=== PATIENT | female | born 1940 | race Caucasian/White ===

== ENCOUNTER 2016-09-22 16:10 | Inpatient (IN) | payer OTHER, MEDICARE ==
[~2016-09-22] VITALS: Ht 152.4 cm; Wt 59.4 kg
[~2016-09-22 16:10] MED LIST: ADVAIR 100-501 EACH INH; ADVAIR 250-501 EACH INH; ALBUTEROL 3 ML3 ML INH; ALBUTEROL SULFAT3 M1 INH; ALBUTEROL1.25 MG/1 INH/SOL; ALLEGRA180 MG PO; ANTIVERT12.5 MG PO; ASPIRIN CHILDRE81 MG PO; ATENOLOL50 M1 PO; ATIVAN 0.5MG T0.5 MG PO; ATIVAN0.5 M1 PO; AUGMENTIN 875875 MG PO; AVELOX400 MG PO; AZITHROMYCIN250 MG PO; B-121000 MC3 PO; BENTYL 10 MG CA10 MG PO; BENTYL10 MG PO; CALCIUM 600600 M1 PO; CARAFATE1 G1 PO; CILOSTAZOL50 MG PO; CLARITIN10 M1 PO; COLACE100 M1 PO; COUMADIN 1 MG TA1 MG PO; COUMADIN 5 MG TA5 MG PO; CRESTOR 5MG5 MG PO; CYMBALTA 30 MG30 MG PO; CYMBALTA60 M1 PO; DIPHENOX/ATROPI1 TAB PO; DULOXETINE HCL20 MG PO; Dulcolax PO; FERROUS SULFAT325 M1 PO; HYDROCODON-ACE1 EAC2 PO; IPRATROPIU0.2 MG/1 M INH/SOL; KEFLEX 250MG C250 MG PO; KEFLEX500 MG PO; KEPPRA250 M1 PO; LASIX20 MG PO; LEVOTHYROXIN0.088 M1 PO; LEVOTHYROXINE175 MCG PO; LEVSIN0.125 MG PO; LOMOTIL 0.025 M1 TAB PO; LOPERAMIDE2 M2 PO; LORAZEPAM0.5 MG PO; METFORMIN ER500 MG PO; METFORMIN HYDR500 M1 PO; MIRALAX17 GM PO; MULTIVITAMIN1 TAB PO; NATURAL IRON65 MG PO; NICODERM C14 MG/24 H TOP; PANTOPRAZOLE SO20 M1 PO; PERCOCET 325 MG1 TA2 PO; PRAVACHOL80 M1 PO; PREDNICOT10 MG PO; PREDNISONE10 MG PO; PRESERVISION LU1 SGL PO; RISPERDAL0.25 MG PO; SENNA CON/DOCUS1 TAB PO; SENNA-TIME S 501 TAB PO; SPIRIVA 18 MCG18 MCG INH; TESSALON PERLE100 MG PO; TRAMADOL50 MG PO; ULTRAM(MONOGRAP50 MG PO; VENTOLIN H0.09 MG/Ac INH; VENTOLIN HFA18 GM INH; VITAMIN D-32000 UNIT PO; VITAMIN E400 I1 PO; XARELTO15 MG PO; XARELTO20 MG PO; ZITHROMAX Z-PA250 M1 PO; ZITHROMAX250 M1 PO
--- NOTE | 2016-09-22 16:13 | NUR ---
DIANE FROM HOME FOR C/C ABDOMINAL PAIN X1 MONTH. PT HAD APPT WITH PMD DR DANG TODAY AND CANCELLED, CHOOSING TO COME TO ED INSTEAD. HX COPD ON 2.5LNC BASELINE, O2 SAT 90% AND INCREASED TO 93% 3LNC. REPORTS DIARRHEA AND NAUSEA, NO ACTIVE VOMITING
--- NOTE | 2016-09-22 16:14 | ED GI/GU/ABDOMINAL COMPLAINT ---
History of Present Illness General Chief Complaint: Abdominal Pain/Flank Pain Stated Complaint: BIBA ABDOMINAL PAIN X1 MONTH Source: patient, old records, EMS Exam Limitations: no limitations Vital Signs & Intake/Output Vital Signs & Intake/Output Vital Signs Date Time Temp Pulse Resp B/P Pulse O2 O2 Flow FiO2 Ox Delivery Rate 09/28 0831 98.0 93 18 120/80 98 Nasal Cannula 09/28 0000 Nasal 3.0L Cannula 09/27 2319 97.7 80 18 120/62 95 Nasal Cannula 09/27 2232 94 Nasal 3.0L Cannula 09/27 1600 Nasal 3.0L Cannula 09/27 1551 98.0 64 20 117/52 97 Nasal 3.0L Cannula ED Intake and Output 09/28 0000 09/27 1200 Intake Total 320 288.8 Output Total 301 300 Balance 19 -11.2 Intake, IV 188.8 Intake, Oral 320 100 Output, Other 1 Output, Urine 300 300 Triage Nurses Notes Reviewed? yes ? N Is pt currently ? No Onset: Abrupt Duration: week(s): (4), constant, getting worse Timing: recent history Quality/Severity: aching, cramping, fullness Severity Numbers: 7 Location: left lower quadrant, right lower quadrant Radiation: epigastric Activities at Onset: none Prior Abdominal Problems: similar symptoms No Modifying Factors: none Associated Symptoms: DENIES HPI: 76-year-old female with history of severe COPD on home O2, hypothyroidism chronic abdominal pain diabetes peripheral vascular disease pulmonary embolism depression and non-small cell lung cancer status post right upper lobe resection in 2004 presents emergency room today brought in by ambulance complaining of bilateral lower quadrant abdominal pain that radiates into her epigastrium for the past 1 month. The patient states that she has been having intermittent bouts of diarrhea since the symptoms began 1 month ago. She denies any black or bloody stools. No nausea no vomiting no fever no chills. She has not sought care for the symptoms until today. She denies any associated chest pain shortness of breath. No urinary symptoms dysuria urgency or frequency (DALE YOUSSEF) Allergies Coded Allergies: aspirin (Intermediate, UPSET STOMACH 09/23/16) atorvastatin (Intermediate, MUSCLE PAIN 09/22/16) oxycodone (Intermediate, DIZZY AND NAUSEA 09/22/16) codeine (Mild, FLUSHING 09/22/16) Reconcile Medications Albuterol Sulfate 1.25 MG/3 ML VIAL.NEB 1 Vial INH/LAYLA Q4-6 PRN SHORTNESS OF BREATH (Reported) USE WITH IPRATROPIUM Albuterol Sulfate (Ventolin Hfa) 90 MCG HFA.AER.AD 2 PUF INH Q4-6 PRN PRN SHORTNESS OF BREATH (Reported) Atenolol 50 MG TABLET 1 TAB PO DAILY BP (Reported) CHOLECALCIFEROL (VITAMIN D3) (Vitamin D-3) 2,000 UNIT CAPSULE 1 SGL PO DAILY SUPPLEMENT (Reported) Cyanocobalamin (Vitamin B-12) (B-12) 1,000 MCG TABLET 1 TAB PO DAILY SUPPLEMENT (Reported) Docusate Sodium (Colace) 100 MG CAPSULE 1 CAP PO BID CONSTIPATION (Reported) Duloxetine HCl 20 MG CAPSULE.DR 2 CAP PO DAILY DEPRESSION (Reported) 20-60MG TWO TIMES PER NIGHT Ferrous Sulfate 325 MG TAB 1 TAB PO DAILY SUPPLEMENT Fluticasone-Salmeterol (Advair 100-50 Diskus) 100 MCG-50 MCG/DOSE BLST.W.DEV 1 PUF INH BID COPD (Reported) FLUTICASONE/SALMETEROL (Advair 250-50 Diskus) 250 MCG-50 MCG/DOSE BLST.W.DEV 1 PUF PO BID COPD (Reported) Hydrocodone/Acetaminophen (Hydrocodon-Acetaminophen 5-325) 5 MG-325 MG TABLET 1-2 TAB PO Q4-6 PRN PRN PAIN (Reported) Ipratropium Hondo 0.2 MG/ML (0.02 %) SOLUTION 1 Vial INH/LAYLA 4 TIMES/DAY PRN SHORTNESS OF BREATH (Reported) USE WITH ALBUTEROL Levetiracetam (Keppra) 250 MG TABLET 1 TAB PO BID SEIZURES (Reported) Levothyroxine Sodium 175 MCG TABLET 1 TAB PO DAILY HYPOTHYROID (Reported) Loperamide HCl (Loperamide) 2 MG CAPSULE 2 CAP PO Q8 PRN LOOSE STOOLS ( Reported) Loratadine (Claritin) 10 MG TABLET 1 TAB PO DAILY PRN ALLERGIES (Reported) Lorazepam (Ativan) 0.5 MG TAB 1 TAB PO BID PRN ANXIETY (Reported) Oxybutynin Chloride (Ditropan XL) 5 MG TAB.ER.24 1 TAB PO DAILY Incontinence (Reported) Pantoprazole Sodium 20 MG TABLET.DR 2 TAB PO BID GERD (Reported) Pravastatin Sodium (Pravachol) 80 MG TABLET 1 TAB PO DAILY HIGH CHOLESTEROL ( Reported) Sucralfate (Carafate) 1 GRAM TABLET 1 TAB PO 4 TIMES/DAY GERD (Reported) Vitamin E 400 IU TAB 1 TAB PO DAILY SUPPLEMENT (Reported) (REBECCA CUMMINGS,SERGEY) Past History Travel History Traveled to [place] past 21 day No Medical History Any Pertinent Medical History? see below for history Neurological: dizziness, seizure EENT: NONE Cardiovascular: hyperlipidemia, PVD, HTN, HYPONATREMIA Respiratory: COPD, O2 DEP @2.5 L RT.LUNG RESECTION Gastrointestinal: GERD, AAA Hepatic: NONE Renal: NONE Musculoskeletal: LEFT BKA Psychiatric: anxiety, depression Endocrine: diabetes, hypothyroidism Blood Disorders: DVT, PE Cancer(s): lung cancer BRIM PRESSER/Reproductive: HYSTRECTOMY History of MRSA: No History of VRE: No History of CDIFF: No Pneumonia Vaccine: 07/27/12 Surgical History Surgical History: hysterectomy Psychosocial History Who do you live with Son Services at Home Nursing, Oxygen What is your primary language Surinamese Family History Family History, If Any: MOTHER FH: diabetes mellitus FH: hypertension SISTER FH: diabetes mellitus FH: hypertension Hx Contributory? No (DALE YOUSSEF) Review of Systems Review of Systems Constitutional: Reports: see HPI. All Other Systems: Reviewed and Negative Comments Review of systems: See HPI, All other systems negative. Constitutional, no chills no fever, no malaise no weight loss HEENT: No visual changes no sore throat no congestion Cardiovascular: No chest pain , no palpitation Skin, no jaundice no rashes, no change in skin Respiratory: No dyspnea no cough no sputum GI: No nausea no vomiting, diarrhea : No dysuria No hematuria, no frequency, no discharge Muscle skeletal: No joint pain, no back pain, no neck pain, Neurologic: No numbness no headache Psych: No stress Heme/endocrine: No bruising no bleeding Immunology: No lymphadenopathy (DALE YOUSSEF) Physical Exam Physical Exam General Appearance: well developed/nourished, alert, awake Gastrointestinal: normal bowel sounds, soft, non-tender Comments: Well-developed well-nourished person in no acute distress HEENT: Normal EENT exam; PERRL, EOMI. HEAD is atraumatic. moist mucous membranes. Neck: Supple, no lymphadenopathy, normal range of motion Back: Nontender, no CVA tenderness. Full range of motion Cardiovascular: Regular rate and rhythms no murmurs Respiratory: No respiratory distress. Patient speaking in full complete sentences. Breath sounds clear to auscultation bilaterally: NO W/R/R Abdomen: Soft, nontender nondistended, no appreciable organomegaly. Normal bowel sounds. No rebound/guarding, No appreciable enlargement of the abdominal aorta, No ascites. Extremity: No edema, full range of motion of extremities Neuro: Alert oriented x3, motor sensory normal,There were no obvious focal neurologic abnormalities. Skin: No appreciable rash on exposed skin, skin is warm and dry. Psych: Mood and affect is normal, memory and judgment is normal. Rectal: Nontender. Heme negative stool. No mass/hemorrhoid, no fissure. Core Measures ACS in differential dx? Yes Severe Sepsis Present: No Septic Shock Present: No (YU VO,DALE) Progress Differential Diagnosis: AMI, appendicitis, biliary colic, bowel obstruction, colon cancer, cholecystitis, diverticulitis, gastritis, hepatitis, hernia, ischemic bowel, inflamm bowel dis, kidney stone, pancreatitis, PID/cervicitis, peptic ulcer, PUD/GERD, perforated viscous, SBO, UTI/pyelo Plan of Care: Orders Procedure Date/time Status PROTHROMBIN TIME 09/28 06 Complete CBC WITHOUT DIFFERENTIAL 09/28 06 Active BASIC ELECTROLYTES PLUS BUN&CR 09/28 06 Complete RT: Reevaluation 09/27 1206 Active Therapeutic Activities 09/27 UNK Complete Therapeutic Exercise 09/27 UNK Complete PT Eval 09/27 UNK Complete Nursing Misc 09/27 UNK Active Current Medications Sig/Vadim Start time Last Medication Dose Stop Time Status Admin Lorazepam 0.5 MG BID PRN 09/22 2345 AC (Ativan) 09/29 2344 Laboratory Tests 09/28/16 0610: Anion Gap 6, Estimated GFR > 60, BUN/Creatinine Ratio 22.0, PT 16.8 H, INR 1.61 H, CBC w Diff Pending, WBC Pending, RBC Pending, Hgb Pending, Hct Pending, MCV Pending, MCH Pending, RDW Pending, Plt Count Pending, MPV Pending, Gran % Pending, Lymphocytes % Pending, Monocytes % Pending, Eosinophils % Pending, Basophils % Pending, Absolute Granulocytes Pending, Absolute Lymphocytes Pending , Absolute Monocytes Pending, Absolute Eosinophils Pending, Absolute Basophils Pending, PUBS MCHC Pending 09/27/16 1900: APTT Cancelled Labs ordered old records reviewed patient medicated with Protonix IV any fluids CAT scan ordered. Case discussed with Dr. PULIDO A repeat evaluation patient is resting in no apparent distress she's had no episodes of Diarrhea here in the department 09/22/2016 6:38:20 PM discussed the patient all of her lab results pending CAT scan again resting in no apparent distress 09/22/2016 8:00:23 PM case was discussed with the hospitalist Dr. URIBE . We will start the patient on a heparin drip and bolus however she would like a dedicated CT angiogram of the chest performed this evening. I discussed with her given the patient's age and treating her with heparin already my concerns regarding a second contrast load.. She would like this CAT scan performed at this time. CASE D/W DR ALICEA WHO EVAL THE PT AND AGREES WITH PLAN I spoke with the patient's son on 2 occasions keeping him informed of the patient's results and need for admission given her CAT scan findings 09/22/2016 8:30:07 PM case was once again discussed the hospitals giving CAT scans protocol we will cancel the CTA at this time and hold off for 24 hours as per protocol. The patient is hemodynamically stable troponins are negative she is it not exhibiting any shortness of breath or pain with inspiration EKG is normal sinus (YU VO,DALE) Diagnostic Imaging: Viewed by Me: CT Scan. Discussed w/RAD: CT Scan. Radiology Impression: PATIENT: JESSE SAAVEDRA PRESENT AGE: 76 PATIENT ACCOUNT NO: [id number] : 41 LOCATION: [facility] ORDERING PHYSICIAN: DALE VO SERVICE DATE: 09/22/16 EXAM TYPE: CAT - CT ABD & PELVIS W IV CONTRAST EXAMINATION: CT ABDOMEN AND PELVIS WITH CONTRAST CLINICAL INFORMATION: Lower quadrant abdominal pain. Diarrhea for one month. COMPARISON: CT chest 11/05/2015. TECHNIQUE: Multidetector volumetric imaging was performed of the abdomen and pelvis before and after the IV administration of 95 mL of Optiray 320 intravenous contrast. Sagittal and coronal reformatted images were obtained on the technologist's workstation. DLP: 413.28 mGy-cm FINDINGS: LUNG BASES: There is pulmonary emboli in the left lower lobe, left upper lobe and the distal main left pulmonary artery. There is calcification of the mitral valve. There are vascular calcifications of the wall of the aorta. Lung bases are clear. No pleural effusion. LIVER, GALLBLADDER, AND BILIARY TREE: Small focus of low attenuation adjacent to the inferior right lobe of liver, image 262 (3). No intrahepatic bile duct dilatation. Status post cholecystectomy. Extrahepatic CBD measures 1.4 cm. No calcified stone within the bile ducts. PANCREAS: The pancreas is atrophic. SPLEEN: Stable 5 mm hypodensity at the superior spleen. ADRENAL GLANDS: Unremarkable. KIDNEYS AND URETERS: The kidneys are normal in size, shape, and attenuation. No hydronephrosis, hydroureter, or calculi seen. No perinephric stranding. 1 cm cyst at the midpole cortex of the right kidney. BLADDER: Unremarkable. GASTROINTESTINAL TRACT: No acute change of the bowel. No diverticula. No bowel obstruction. No bowel wall thickening or edema. Moderate volume of stool in colon. The appendix is normal. Small bowel loops are unremarkable. ABDOMINAL WALL: No significant hernia is appreciated. LYMPH NODES: Normal. VASCULAR: 1. There is pulmonary emboli in the left lower lobe, left upper lobe and left main pulmonary artery. 2. Atherosclerotic vascular wall calcifications of the abdominal aorta. There is an aneurysm of the distal aorta. This has a transverse dimension of 4.2 cm distally. There is intraluminal thrombus. The origin of the left common iliac artery is occluded. There is opacification of the external and internal iliac arteries. The right common iliac artery is opacified. 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 There is bi-fem graft present. The lumen of the graft does not opacify consistent with thrombosis. PELVIC VISCERA: Uterus is absent. OSSEOUS STRUCTURES: Multilevel degenerative change of the spine with endplate spurs and facet joint arthrosis. Status post ORIF left hip with compression screw. IMPRESSION: 1. Embolism in the left main pulmonary artery extending into left upper lobe and left lower lobe. 2. Abdominal aortic aneurysm with intraluminal thrombus. 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 Occluded bi-fem graft. 3. Status post cholecystectomy with chronic dilatation of the CBD. 4. No acute change of the abdomen or pelvis. No acute abnormality of bowel. This critical result was discussed with Dr. Ross on 09/22/2016, 7:35 PM and it was ascertained that the content and urgency of the report was understood at the time of direct communication. DICTATED BY: KEVAN MCDONALD MD DATE/TIME DICTATED:09/22/161906 TAX SPECIALIST:GUERRERO DATE/TIME TRANSCRIBED:09/22/161906 CONFIDENTIAL, DO NOT COPY WITHOUT APPROPRIATE AUTHORIZATION. <Electronically signed in Other Vendor System> SIGNED BY: KEVAN MCDONALD MD 09/22/162006 Initial ED EKG: nsr at 70, no acute st seg changes, normal axis Prior EKG: unchanged (07/2016) (DALE YOUSSEF) Departure Departure Time of Disposition: 1958 Disposition: HOME OR SELF CARE Condition: Stable Clinical Impression Primary Impression: Pulmonary embolism Referrals: ROB GRANT MD Referred to [facility] as new patient No Departure Forms: Customer Survey General Discharge Information Admission Note Spoke With: ORQUIDEA URIBE MD Documentation of Exam: Documentation of any treatments & extenuating circumstances including Concerns Regarding Discharge (functional status, medication knowledge or non-compliance, living conditions, etc.) that warrant an admission rather than observation: Heparin drip, trend labs, pulmonology consult possible GI consult premature discharge we medically harmful (DALE YOUSSEF) PA/CHIEF SALES OFFICER Co-Sign Statement Statement: ED Attending supervision documentation- x I saw and evaluated the patient. I have also reviewed all the pertinent lab results and diagnostic results. I agree with the findings and the plan of care as documented in the PA's/CHIEF SALES OFFICER's documentation. [] I have reviewed the ED Record and agree with the PA's/CHIEF SALES OFFICER's documentation. [] Additions or exceptions (if any) to the PAs/CHIEF SALES OFFICER's note and plan are summarized below: [] (REBECCA CUMMINGS,SERGEY) right internal iliac artery measuring 1.2 cm at its origin. There is bi-fem graft present. The lumen of the graft does not opacify consistent with thrombosis. PELVIC VISCERA: Uterus is absent. OSSEOUS STRUCTURES: Multilevel degenerative change of the spine with endplate spurs and facet joint arthrosis. Status post ORIF left hip with compression screw. IMPRESSION: 1. Embolism in the left main pulmonary artery extending into left upper lobe and left lower lobe. 2. Abdominal aortic aneurysm with intraluminal thrombus. 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 Occluded bi-fem graft. 3. Status post cholecystectomy with chronic dilatation of the CBD. 4. No acute change of the abdomen or pelvis. No acute abnormality of bowel. This critical result was discussed with Dr. Ross on 09/22/2016, 7:35 PM and it was ascertained that the content and urgency of the report was understood at the time of direct communication. DICTATED BY: KEVAN MCDONALD MD DATE/TIME DICTATED:09/22/161906 TAX SPECIALIST:GUERRERO DATE/TIME TRANSCRIBED:09/22/161906 CONFIDENTIAL, DO NOT COPY WITHOUT APPROPRIATE AUTHORIZATION. <Electronically signed in Other Vendor System> SIGNED BY: KEVAN MCDONALD MD 09/22/162006 Initial ED EKG: nsr at 70, no acute st seg changes, normal axis Prior EKG: unchanged (07/2016) Departure Departure Time of Disposition: 1958 Disposition: HOME OR SELF CARE Condition: Stable Clinical Impression Primary Impression: Pulmonary embolism Referrals: ROB GRANT MD Referred to [facility] as new patient No Departure Forms: Customer Survey General Discharge Information Admission Note Spoke With: ORQUIDEA URIBE MD Documentation of Exam: Documentation of any treatments & extenuating circumstances including Concerns Regarding Discharge (functional status, medication knowledge or non-compliance, living conditions, etc.) that warrant an admission rather than observation: Heparin drip, trend labs, pulmonology consult possible GI consult premature discharge we medically harmful
--- NOTE | 2016-09-22 16:15 | NUR ---
GILDA NICHOLAS AT BEDSIDE FOR EVAL
--- NOTE | 2016-09-22 16:44 | NUR ---
IV ESTABLISHED. LABS DRAWN AND SENT (BLUE, SST X2, LAV, CORNEJO). MEDICATED WITH PROTONIX AND NS IVF BOLUS RUNNING. PT INFORMED OF NEED FOR URINE AND STOOL SAMPLE WHEN ABLE TO PROVIDE. ALSO INFORMED OF PLAN FOR CT SCAN
[2016-09-22 16:51] LABS: ABSOLUTE BASOPHIL COUNT 0 /CUMM (0.0-0.2); ABSOLUTE EOSINOPHIL COUNT 0.1 /CUMM (0.0-0.7); ABSOLUTE GRANULOCYTE CT 6.6 /CUMM (1.4-6.5); ABSOLUTE LYMPH COUNT 0.7 /CUMM (1.2-3.4); ABSOLUTE MONOCYTE COUNT 0.4 /CUMM (0.10-0.60); BASOPHIL % 0.4 % (0.0-2.0); GRANULOCYTE % 84.6 % (42.2-75.2); HEMATOCRIT 45.4 % (37-47); MEAN CORPUSCULAR HGB CONC 32.8 G/DL (33.0-37.0); MEAN CORPUSCULAR VOLUME 88.2 FL (81.0-99.0); MEAN PLATELET VOLUME 7.8 FL (7.4-10.4); PLATELET COUNT 348 /CUMM (130-400); RBC DISTRIBUTION WIDTH 18.2 % (11.5-14.5); RED BLOOD CELL CT 5.15 /CUMM (4.20-5.40); WHITE BLOOD CELL COUNT 7.8 /CUMM (4.8-10.8)
--- NOTE | 2016-09-22 18:45 | NUR ---
PT TO CT
[2016-09-22 19:55] LABS: PT 12.9 SEC (9.4-12.5); PTT 33 SEC (25-37)
--- NOTE | 2016-09-22 20:07 | CT SCAN REPORT ---
EXAMINATION: CT ABDOMEN AND PELVIS WITH CONTRAST CLINICAL INFORMATION: Lower quadrant abdominal pain. Diarrhea for one month. COMPARISON: CT chest 11/05/2015. TECHNIQUE: Multidetector volumetric imaging was performed of the abdomen and pelvis before and after the IV administration of 95 mL of Optiray 320 intravenous contrast. Sagittal and coronal reformatted images were obtained on the technologist's workstation. DLP: 413.28 mGy-cm FINDINGS: LUNG BASES: There is pulmonary emboli in the left lower lobe, left upper lobe and the distal main left pulmonary artery. There is calcification of the mitral valve. There are vascular calcifications of the wall of the aorta. Lung bases are clear. No pleural effusion. LIVER, GALLBLADDER, AND BILIARY TREE: Small focus of low attenuation adjacent to the inferior right lobe of liver, image 262 (3). No intrahepatic bile duct dilatation. Status post cholecystectomy. Extrahepatic CBD measures 1.4 cm. No calcified stone within the bile ducts. PANCREAS: The pancreas is atrophic. SPLEEN: Stable 5 mm hypodensity at the superior spleen. ADRENAL GLANDS: Unremarkable. KIDNEYS AND URETERS: The kidneys are normal in size, shape, and attenuation. No hydronephrosis, hydroureter, or calculi seen. No perinephric stranding. 1 cm cyst at the midpole cortex of the right kidney. BLADDER: Unremarkable. GASTROINTESTINAL TRACT: No acute change of the bowel. No diverticula. No bowel obstruction. No bowel wall thickening or edema. Moderate volume of stool in colon. The appendix is normal. Small bowel loops are unremarkable. ABDOMINAL WALL: No significant hernia is appreciated. LYMPH NODES: Normal. VASCULAR: 1. There is pulmonary emboli in the left lower lobe, left upper lobe and left main pulmonary artery. 2. Atherosclerotic vascular wall calcifications of the abdominal aorta. There is an aneurysm of the distal aorta. This has a transverse dimension of 4.2 cm distally. There is intraluminal thrombus. The origin of the left common iliac artery is occluded. There is opacification of the external and internal iliac arteries. The right common iliac artery is opacified. 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 There is bi-fem graft present. The lumen of the graft does not opacify consistent with thrombosis. PELVIC VISCERA: Uterus is absent. OSSEOUS STRUCTURES: Multilevel degenerative change of the spine with endplate spurs and facet joint arthrosis. Status post ORIF left hip with compression screw. IMPRESSION: 1. Embolism in the left main pulmonary artery extending into left upper lobe and left lower lobe. 2. Abdominal aortic aneurysm with intraluminal thrombus. 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 Occluded bi-fem graft. 3. Status post cholecystectomy with chronic dilatation of the CBD. 4. No acute change of the abdomen or pelvis. No acute abnormality of bowel. This critical result was discussed with Dr. Ross on 09/22/2016, 7:35 PM and it was ascertained that the content and urgency of the report was understood at the time of direct communication.
--- NOTE | 2016-09-22 20:34 | NUR ---
MEDICATED WITH TYLENOL IV AND NS IVF RUNNING. ICE WATER PROVIDED, TOLERATING AT THIS TIME
--- NOTE | 2016-09-22 20:56 | NUR ---
PT GOING TO ROOM 189-2
--- NOTE | 2016-09-22 21:07 | NUR ---
PT WEIGHED USING ELIZABETH LIFT DUE TO INABILITY TO STAND INDEPENDENTLY. HEPARIN BOLUS AND GTT RUNNING AT 21.6 PER PROTOCOL RATE, VERIFIED BY SECOND RN SINGH. SECOND IV ESTABLISHED TO RFA. HOUSE STAFF AT BEDSIDE FOR EVAL
--- NOTE | 2016-09-22 21:31 | History & Physical ---
KVNG RENNER MD 09/22/160: General Information and HPI Source of Information: patient, old records Exam Limitations: no limitations History of Present Illness: Patient is a 76 y/o F,current smoker(one pack per day) with significant PMH of COPD on 2.5 L of home oxygen,NSCLC status post right upper lobe resection in February 2005, hypothyroidism, Type 2 Diabetes,peripheral vascular disease, status post left below-knee amputation, osteoporosis, depression, iron deficiency anemia, folic acid deficiency, PE , presented with chief complaints of diarrhea ( 4 - 6 weeks) and lower abdominal pain from couple of days which got worse today(09/22/2016). Past History Travel History Traveled to [place] past 21 day No Medical History Neurological: dizziness, seizure EENT: NONE Cardiovascular: hyperlipidemia, PVD, HTN, HYPONATREMIA Respiratory: COPD, O2 DEP @2.5 L RT.LUNG RESECTION Gastrointestinal: GERD, AAA Hepatic: NONE Renal: NONE Musculoskeletal: LEFT BKA Psychiatric: anxiety, depression Endocrine: diabetes, hypothyroidism Blood Disorders: DVT, PE Cancer(s): lung cancer SOLE LEVELER/Reproductive: HYSTRECTOMY History of MRSA: No History of VRE: No History of CDIFF: No Surgical History Surgical History: hysterectomy Past Family/Social History Family History Relations & Conditions if any MOTHER FH: diabetes mellitus FH: hypertension SISTER FH: diabetes mellitus FH: hypertension Psychosocial History Who Do You Live With? child (son - h/o alcoholism) Services at Home: Nursing, Oxygen Functional Ability ADLs Independent: dressing, eating, toileting, bathing. Ambulation: independent, walker IADLs Independent: finances, telephone, medication admin. Needs Assist: shopping, housework, food prep, transportation. Review of Systems Review of Systems Constitutional: Reports: weakness. Denies: chills, diaphoresis, fever, malaise. EENTM: Denies: no symptoms. Cardiovascular: Reports: palpitations, peripheral edema. Denies: chest pain, edema, orthopena, syncope. Respiratory: Reports: short of breath. Denies: cough, hemoptysis, orthopnea, sputum production, stridor. GI: Reports: diarrhea. Genitourinary: Denies: no symptoms. Musculoskeletal: Denies: no symptoms. Skin: Denies: no symptoms. Neurological/Psychological: Reports: anxiety. Exam & Diagnostic Data Last 24 Hrs of Vital Signs/I&O Vital Signs Date Time Temp Pulse Resp B/P Pulse O2 O2 Flow FiO2 Ox Delivery Rate 09/25 0847 94 Nasal 4.0L Cannula 09/25 0844 98.1 74 20 149/76 97 Nasal 3.5L Cannula 09/25 0040 98.6 78 20 140/80 93 Nasal 4.0L Cannula 09/25 0000 Nasal 4.0L Cannula 09/24 1900 94 Nasal 4.0L Cannula 09/24 1611 98.8 73 20 130/70 94 09/24 1600 94 Nasal 4.0L Cannula 09/24 1039 91 Nasal 4.0L Cannula Intake & Output 09/25 1600 09/25 0800 09/25 0000 Intake Total 219.6 500 Output Total 500 450 Balance -280.4 50 Intake, IV 169.6 250 Intake, Oral 50 250 Number 0 Bowel Movements Output, Urine 500 450 Physical Exam General Appearance Alert, Oriented X3, Cooperative, No Acute Distress Skin No Rashes, No Breakdown HEENT Atraumatic, PERRLA, EOMI Neck Supple, No JVD Cardiovascular Regular Rate, Normal S1, Normal S2 Lungs Clear to Auscultation Abdomen Normal Bowel Sounds, Soft, No Tenderness, intercrural skin red Neurological Normal Gait, Normal Speech Extremities mild edema Vascular Normal Pulses, Pulses Symmetrical Assessment/Plan Assessment: Assessment and plan - Vital signs at the time of admission -temperature 97.0, pulse 84, respiratory 20 , blood pressure 107/70, SPO 2 - 92% CT abdomen/pelvis with IV contrast - 1. Embolism in the left main pulmonary artery extending into left upper lobe and left lower lobe. 2. Abdominal aortic aneurysm with intraluminal thrombus. 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 Occluded bi-fem graft. 3. Status post cholecystectomy with chronic dilatation of the CBD. 4. No acute change of the abdomen or pelvis. No acute abnormality of bowel. Problem list - Pulmonary embolus Diarrhea followed by abdominal pain COPD on 2.5 liter home oxygen current smoker(one pack per day) NSCLC status post right upper lobe resection in February 2005, hypothyroidism Hypertension Hyperlipidemia Type 2 Diabetes peripheral vascular disease status post left below-knee amputation, osteoporosis depression iron deficiency anemia folic acid deficiency History of PE GERD History of aspiration pneumonia History of CVA Plan - Pulmonary embolus - * We will start patient on IV heparin drip * Will do venous Doppler of the lower extremity to rule out a DVT * Keep the lower leg elevated * We will check serial troponins and EKG to rule out acute coronary Syndrome Diarrhea followed by abdominal pain,under evaluation - * Start patient on IV fluids * We'll send stool for examination * We will check the vitals regularly * Stick intake output charting COPD on 2.5 liter home oxygen * We will continue oxygen at the target of SPO2 more than 92% * TRC/normalization current smoker(one pack per day);NSCLC status post right upper lobe resection in February 2005, * We will encouraged to quit smoking * We will start her on nicotine patch. * We'll consult pulmonology and follow the recommendation Hypothyroidism * We will continue levothyroxine as before Hypertension * We will continue the home medication Hyperlipidemia * We will continue the home medication Type 2 Diabetes * We will check an HbA1c to know the level of blood sugar control * We will check the blood sugar, premeal and at the bedtime * We'll start patient on NovoLog sliding scale Diet -carbohydrate type -2 diabetic diet DVT prophylaxis-ALP S/heparin CODE STATUS -full code As Ranked By This Provider Problem List: 1. Pulmonary embolism 2. DVT prophylaxis 3. HTN (hypertension) 4. GERD (gastroesophageal reflux disease) 5. HLD (hyperlipidemia) 6. Hypothyroidism Core Measures/Miscellaneous Cerebrovascular Accident CVA/TIA Diagnosis: No Congestive Heart Failure CHF Diagnosis: No Venous Thromboembolism VTE Risk Factors: Age > 40 VTE Prophylaxis Ordered Inpt: Mechanical (ALPS/TEDS) No Mech VTE prophylaxis d/t: No contraindications No VTE Pharm Prophylaxis d/t: No contraindications VTE Diagnosis: No VTE Type: Pulmonary Embolism VTE Confirmed by (Test): CT CHEST ANGIOGRAM Severe Sepsis Severe Sepsis Present: No Septic Shock Septic Shock Present: No Miscellaneous Documentation Attending Case Discussed With: ORQUIDEA URIBE MD Primary Care Physician: ALTON CUMMINGS,LILLIAM Patient sees these Specialists 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 Level of Patient Care: Telemetry CISCO MONTERROSO 09/22/16 8484: General Information and HPI Allergies/Medications Allergies: Coded Allergies: aspirin (Intermediate, UPSET STOMACH 09/23/16) atorvastatin (Intermediate, MUSCLE PAIN 09/22/16) oxycodone (Intermediate, DIZZY AND NAUSEA 09/22/16) codeine (Mild, FLUSHING 09/22/16) Home Med list Albuterol Sulfate 1.25 MG/3 ML VIAL.NEB 1 Vial INH/LAYLA Q4-6 PRN SHORTNESS OF BREATH (Reported) USE WITH IPRATROPIUM Albuterol Sulfate (Ventolin Hfa) 90 MCG HFA.AER.AD 2 PUF INH Q4-6 PRN PRN SHORTNESS OF BREATH (Reported) Atenolol 50 MG TABLET 1 TAB PO DAILY BP (Reported) CHOLECALCIFEROL (VITAMIN D3) (Vitamin D-3) 2,000 UNIT CAPSULE 1 SGL PO DAILY SUPPLEMENT (Reported) Cyanocobalamin (Vitamin B-12) (B-12) 1,000 MCG TABLET 1 TAB PO DAILY SUPPLEMENT (Reported) Docusate Sodium (Colace) 100 MG CAPSULE 1 CAP PO BID CONSTIPATION (Reported) Duloxetine HCl 20 MG CAPSULE.DR 2 CAP PO DAILY DEPRESSION (Reported) 20-60MG TWO TIMES PER NIGHT Ferrous Sulfate 325 MG TAB 1 TAB PO DAILY SUPPLEMENT Fluticasone-Salmeterol (Advair 100-50 Diskus) 100 MCG-50 MCG/DOSE BLST.W.DEV 1 PUF INH BID COPD (Reported) FLUTICASONE/SALMETEROL (Advair 250-50 Diskus) 250 MCG-50 MCG/DOSE BLST.W.DEV 1 PUF PO BID COPD (Reported) Hydrocodone/Acetaminophen (Hydrocodon-Acetaminophen 5-325) 5 MG-325 MG TABLET 1-2 TAB PO Q4-6 PRN PRN PAIN (Reported) Ipratropium [place] 0.2 MG/ML (0.02 %) SOLUTION 1 Vial INH/LAYLA 4 TIMES/DAY PRN SHORTNESS OF BREATH (Reported) USE WITH ALBUTEROL Levetiracetam (Keppra) 250 MG TABLET 1 TAB PO BID SEIZURES (Reported) Levothyroxine Sodium 175 MCG TABLET 1 TAB PO DAILY HYPOTHYROID (Reported) Loperamide HCl (Loperamide) 2 MG CAPSULE 2 CAP PO Q8 PRN LOOSE STOOLS ( Reported) Loratadine (Claritin) 10 MG TABLET 1 TAB PO DAILY PRN ALLERGIES (Reported) Lorazepam (Ativan) 0.5 MG TAB 1 TAB PO BID PRN ANXIETY (Reported) Oxybutynin Chloride (Ditropan XL) 5 MG TAB.ER.24 1 TAB PO DAILY Incontinence (Reported) Pantoprazole Sodium 20 MG TABLET.DR 2 TAB PO BID GERD (Reported) Pravastatin Sodium (Pravachol) 80 MG TABLET 1 TAB PO DAILY HIGH CHOLESTEROL ( Reported) Sucralfate (Carafate) 1 GRAM TABLET 1 TAB PO 4 TIMES/DAY GERD (Reported) Vitamin E 400 IU TAB 1 TAB PO DAILY SUPPLEMENT (Reported) Core Measures/Miscellaneous Acute Coronary Syndrome ACS Diagnosis: No Resident Review Statement Resident Statement: examined this patient, discussed with information technology internship, agreed with information technology internship Other Findings: Patient is a 76-year-old woman with past medical history significant for oxygen dependent COPD( on 2.5 L of oxygen at baseline),current every day smoker( smoking 1 pack per day), abdominal aortic aneurysm repair(8 years back),history of hypothyroidism, folic acid deficiency, diabetes, peripheral vascular disease status post left BKA, PE, osteoporosis and depression, history of non-small cell carcinoma status post right upper lobe resection in 2004( without any evidence of metastasis), history of seizures on Keppra, presented to the ED with a chief complaints of abdominal pain with diarrhea Patient reported that she has been having bilateral lower quadrant abdominal pain for the last 1 month.The pain is constant, radiating to her epigastrium, aggravated with bending without any alleviating factors, associated with watery diarrhea without any blood in it. Denies any nausea or vomiting. Appetite remained poor for the last couple of weeks. Patient took Tylenol at home without much improvement in her symptoms. She denied any fevers/chills/sick contacts or recent travels. Also reported that Her breathing is also getting worse, now using 3 L of oxygen at bedtime.denies any chest discomfort/palpitations/sweating. No urinary discomfort. Denies any headache/lightheadedness/dizziness. Since the palpitations she is usually wheelchair bound, lives with her son who usually helps her in her ADLs and IADLs. Patient had endoscopy with colonoscopy done in 2014 by ,that revealed small sessile polyps,biopsy was done ,ruled out any underlying malignancy. Also note patient was admitted in February 2015 for questionable CVA/TIA, CT head and carotid,echocardiogram ultrasound were unremarkable.patient refused MRI of the brain at that time. She was discharged on pure diet and honey thick diet at the time but currently she is on a regular diet denies any difficulty swallowing. Vitals on admission temperature 97.0, pulse 84,, respiratory rate 20, blood pressure 107/70 on 3 L saturating more than 92%. On examination General Appearance: Thin and lean lady .Alert, oriented 3, No Acute Distress Skin: Grossly normal HEENT: PEERLA Neck: Supple, No JVD Cardiovascular: Regular Rate, Normal S1, Normal S2, No Murmurs Lungs: lungs clear to auscultation bilaterally. Abdomen: Normal Bowel Sounds, Soft, lower abdominal tenderness. Skin of the lower abdominal appeared Red with some excoriations Neurological: Normal Speech, Strength at 5/5 X4 Ext, Cranial Nerves 3-12 NL, Reflexes 2+ Extremities: right lower extremity 1+ pitting edema. Vascular: Normal Pulses. Pertinent labs: Normal WBC count 7.8, H&H 14.9/45.4, sodium 135, INR 1.23,, first troponin negative EKG done in the ED showed normal sinus rhythm with some PACs CT abdomen and pelvis: 1. Embolism in the left main pulmonary artery extending into left upper lobe and left lower lobe. 2. Abdominal aortic aneurysm with intraluminal thrombus. 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 Occluded bi-fem graft. 3. Status post cholecystectomy with chronic dilatation of the CBD. 4. No acute change of the abdomen or pelvis. No acute abnormality of bowel. Assessment: 1. Acute left main pulmonary embolism 2. Constant lower abdominal pain with watery diarrhea 3. History of oxygen dependent COPD 4.History of hypothyroidism 5. History of hypertension and hyperlipidemia plan 1. Acute left main pulmonary embolism: * we'll admit the patient telemetry floor * Patient has already been started on IV heparin Will continue with anticoagulation. * Right leg appears to be swollen we will do Doppler venous ultrasound to rule out any underlying DVT. * Keep the leg elevated. * Mild to moderate pain controlled with Tylenol and Ultram. * We'll do serial troponin and EKG to rule out any underlying ACS. * Continue oxygen to keep saturations above 92% 2. Constant lower abdominal pain with watery diarrhea(microscopic gastroenteritis/ischemia bowel): * We'll send stool cultures. * Will send lactic if the levels. * Watch for any hemodynamic stability. 3. History of abdominal aortic aneurysm with repair and evidence of intraluminal thrombus(most likely chronic) on CT scan: * Called vascular surgeon today, recommended to continue with IV heparin for now home. Regarding the occluded femoral graft if patient has recurrent leg right lower extremity pain ,address that in the morning and depending upon the consider vascular consult. 4. History of oxygen dependent COPD:' * Continue oxygen to keep saturations above 92% * Continue Advair * TRC nebs. 5. History of hypothyroidism: * Continue home dose of levothyroxine. 6 History of hypertension and hyperlipidemia: * Continue home dose of atenolol and pravastatin 7. History of anxiety and depression: * Continue home dose of Ativan and duloxetine. 8. History of seizures * Continue home dose of Keppra 250 mg twice a day. 9. History of type 2 diabetes: * Hemoglobin A1c 5.8, patient is currently not on insulin. We will confirm medication list in the morning. * Hold any NovoLog sliding scale/insulin for now * Accu-Cheks. 10. DVT prophylaxis with heparin 11. Mild to moderate control with Tylenol and tramadol. 12. Full code ORQUIDEA URIBE 09/23/16 0326: Attending MD Review Statement Attending Statement Attending MD Statement: examined this patient, discuss w/resident/PA/BOOSTER STATION OPERATOR, agreed w/resident/PA/BOOSTER STATION OPERATOR, reviewed EMR data (avail), reviewed images, amended to note Attending Assessment/Plan: CC: Abdominal pain and diarrhea. PMHx: HTN, HLD, COPD on 2.5 L NC, DM, non-small cell cancer of the right lung status post right lobectomy, remote history of PE, hypothyroidism, PVD,s/p left BKA, current smoker, mostly wheelchair bound. She complains of acute on chronic abdominal pain. She has been noticing abdo pain since 1 month, Bilateral lower quadrant, non radiating, non shifting, associated with 4 to 5 semisoft stools everyday. No fever, chills, chest pain, SOB. Afraid of eating anything because of abdominal pain, thus decreased appetite. No nausea and vomitting. AAA repair 8 year back, Lung surgery 6 year back according to the patient. She had not followed up with vascular surgeon in long time for AAA as he is retired. She states that she had one episode of seizure 1 and 1/2 year back, since then she is on Keppra. But does not provide any details about warfarin. Vitals: afebrile, pulse, BP, RR in acceptable range. Requiring 3 L to saturate at 94%. On exam a O 2, anxious, answers appropriately, follows instructions, no focal neurological deficit. Left BKA. Right lower extremity edematous. RS: Diffuse rhonchi, air entry present bilaterally. CVS: S1-S2 normal, no JVD. Abdomen: Soft, tender right and left lower quadrant, no guarding, no rigidity, no rebound , bowel sounds present. Fungal rash on lower abdominal fold, no ulcers on back or buttocks. Labs: CBC unremarkable, bicarbonate 36, all remain 2.6, UA positive for leukocyte esterase. ECG: Normal sinus rhythm, PACs, PVCs. CT abdomen and pelvis : Embolism in the left main pulmonary artery extending into left upper lobe and left lower lobe. Abdominal aortic aneurysm with intraluminal thrombus. 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 Occluded bi-fem graft. Status post cholecystectomy with chronic dilatation of the CBD. No acute change of the abdomen or pelvis. No acute abnormality of bowel. A and P #1 abdominal pain: patient states that it is been there since one month and worsened yesterday, associated with semisoft stools since one month. Reviewing her past medical records it appears that she has chronic abdominal pain since long time. Multiple CT abdomen with contrast were obtained which shows probable SAUL occlusion. Patient's pain is typically after food, decreased appetite. She continues to smoke. Current CT abdomen and pelvis shows no abnormality in bowel. Change to atorvastatin for high-intensity, patient had been seen by counter hop multiple times in the past. Trend lactic acid, check stool for C. difficile. GI and vascular consult in a.m. but from past records patient appears to be noncompliant. #2 pulmonary embolism : Left main. Seen on CT abdomen and pelvis. Could not confirm the extent CTA chest as patient has already received contrast load today. Patient had history of pulmonary embolism in the past according to the records patient does not provide any details, currently not on warfarin. Patient's son also could not confirm this. Patient is wheelchair-bound, probably provoked PE. Continue heparin drip. Given that she has internal luminal thrombus with AAA (repair done in the past) clearified from vascular surgery for continuation of heparin. May change to warfarin or NOAC in a.m. 2- D echo in a.m. for right heart strain. 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 Occluded bi-fem graft : Suggesting chronic since long time (I could trace back up to 2013) #4 COPD: Chronic stable, continue oxygen at 3 L, scheduled inhalations and nebs. #5 UA positive for leukocyte esterase, but patient denies any urinary complaints. No need of antibiotics for now. #6 DM 2: Continue every 6 hours fingersticks only, hold insulin. Needs home medication reconciliation for DM as currently not showing any oral hypoglycemics or insulin, hemoglobin A1c 5.9 in 2013. #7 continue chronic medications for HTN, hypothyroidism, seizures with atenolol, to Loxitane, Keppra, Synthroid #8 adequate pain control with pain pathway
--- NOTE | 2016-09-22 21:45 | NUR ---
UNABLE TO RECONCILE MEDICATIONS, PT IS NOT A GOOD HISTORIAN FOR OWN HEALTH. PT UNAWARE OF HOME MEDS OR DOSES, INCLUDING KEPPRA DOSE. HOUSE STAFF AWARE THAT SON HAS NOT BEEN TO ED TO PROVIDE CONFIRMED MED LIST AND NONE WAS PROVIDED BY EMS
--- NOTE | 2016-09-22 21:53 | NUR ---
REPORT GIVEN TO RECEIVING RN AND DIST CALLED
--- NOTE | 2016-09-22 23:54 | Event Note ---
Event Note Event Note: I spoke with Dr. Nina regarding the findings of PE, abdominal aorta with intraluminal thrombus and occluded graft, he is OK with proceeding with IV heparin for PE treatment. She would need follow up for the aneuryms and occluded graft. Formal vascular surgery consult would be indicated if she has leg pain due to the occluded graft. However, given the SAUL occlusion, vascular surgery should be consulted during this admission.
[2016-09-23] VITALS: BP 144/82
--- NOTE | 2016-09-23 03:29 | Admission Certification ---
Admission Certification Certification Statement - As attending physician, I certify that at the time of - admission, based on clinical presentation, severity of - symptoms, need for further diagnostic testing and - therapeutic interventions, and risk of adverse outcomes - without in-hospital treatment, in my clinical assessment, - this patient requires an acute hospital stay for a minimum - of two nights or longer. I have also considered psychsocial - factors such as support system, advanced age, financial - issues, cognitive issues, and failed out-patient treatments, - past re-admission history, safety of patient, and lack of - compliance as applicable. Specific rationale supporting this admission is: Pulmonary embolism, abdominal pain and diarrhea
[2016-09-23 04:20] LABS: ABSOLUTE BASOPHIL COUNT 0 /CUMM (0.0-0.2); ABSOLUTE EOSINOPHIL COUNT 0.2 /CUMM (0.0-0.7); ABSOLUTE GRANULOCYTE CT 4.9 /CUMM (1.4-6.5); ABSOLUTE LYMPH COUNT 1.2 /CUMM (1.2-3.4); ABSOLUTE MONOCYTE COUNT 0.5 /CUMM (0.10-0.60); BASOPHIL % 0.2 % (0.0-2.0); EOSINOPHIL % 2.6 % (0-5); GRANULOCYTE % 72.1 % (42.2-75.2); MEAN CORPUSCULAR HGB 29.2 PG (27.0-31.0); MEAN CORPUSCULAR HGB CONC 33.2 G/DL (33.0-37.0); MEAN PLATELET VOLUME 8.3 FL (7.4-10.4); PLATELET COUNT 286 /CUMM (130-400); RBC DISTRIBUTION WIDTH 18.5 % (11.5-14.5); RED BLOOD CELL CT 4.24 /CUMM (4.20-5.40); WHITE BLOOD CELL COUNT 6.8 /CUMM (4.8-10.8)
[2016-09-23 04:26] LABS: PTT 96 SEC (25-37)
[2016-09-23 04:27] LABS: HEMATOCRIT 37.3 % (37-47)
--- NOTE | 2016-09-23 06:45 | PN- Housestaff ---
ADRIANNA CUMMINGS,[facility] 09/23/16 0644: Subjective Follow-up For: Abdominal Pain Diarrhea Tele-Events Since Last Visit: Sinus rate 90-93 PAC, PVC Subjective: Ms Liang was seen and examined this morning. She was resting in bed. Patient states that she still continues to experience abdominal pain. Pain is rated a 3 out of 10 in severity. Described as a dull pain. Patient states that her pain does respond medication and has markedly improved since admission when the pain was rated at a 10 out of 10. Pain is located in the epigastric area and radiates across bottom of her abdomen. In addition to the pain the patient also reports cough productive of sputum. Sputum is clear in nature the patient denies any hemoptysis and or wheezing or orthopnea. Patient reports overnight she's not had any active bowel movements. She states that she has not had any diarrhea and currently feels hungry. The patient denies any fever, chills, nausea, vomiting. She continues to be on supplemental oxygen 3 L via nasal cannula. Review of Systems Constitutional: Reports: see HPI. Denies: chills, fever, weakness. Cardiovascular: Denies: chest pain, orthopena, palpitations. Objective Last 24 Hrs of Vital Signs/I&O Vital Signs Date Time Temp Pulse Resp B/P Pulse O2 O2 Flow FiO2 Ox Delivery Rate 09/23 0000 94 Nasal 3.0L Cannula 09/23 0000 98.2 88 20 144/82 94 Nasal 3.0L Cannula 09/22 2320 Nasal 3.0L Cannula 09/22 2243 94 Nasal 3.0L Cannula 09/22 2120 84 18 146/88 95 Nasal 3.0L Cannula 09/22 2034 98.0 09/22 1916 90 16 151/67 97 Nasal Cannula 09/22 1801 98.0 98 20 169/93 09/22 1731 97.2 89 153/75 09/22 1646 93 Nasal 3.0L Cannula 09/22 1616 97.0 84 20 102/70 92 Nasal 3.0L Cannula Intake & Output 09/23 0800 09/23 0000 09/22 1600 Intake Total 260 Output Total 600 Balance -340 Intake, IV 160 Intake, Oral 100 Output, Urine 600 Patient 59.421 kg 59.874 kg Weight Physical Exam General Appearance: Alert, Oriented X3, Cooperative Cardiovascular: Regular Rate, Normal S1, Normal S2 Lungs: Clear to Auscultation Abdomen: Soft, Hypoactive Bowel Sounds, No tenderness on palpation Neurological: Normal Speech Extremities: Edema R +2 Vascular: Normal Pulses Current Medications: Current Medications Sig/Vadim Start time Last Medication Dose Route Stop Time Status Admin Acetaminophen 650 MG Q6P PRN 09/22 2200 AC PO Acetaminophen 0 .STK-MED ONE 09/22 2029 DC IV Acetaminophen 1,000 MG ONCE ONE 09/22 2015 DC 09/22 N/A 1 UNIT IV 09/22 Atenolol 50 MG DAILY 09/23 1000 AC PO Atorvastatin Calcium 80 MG 1700 09/23 1700 AC PO Budesonide/ 2 PUF BID 09/23 1000 AC Formoterol Fumarate INH Duloxetine HCl 20 MG DAILY 09/23 1000 AC PO Heparin Sodium 0 .STK-MED ONE 09/22 2050 DC (Porcine) .ROUTE Heparin Sodium 5,000 UNIT ONCE ONE 09/22 2000 DC 09/22 (Porcine) IV 09/22 2001 2100 Heparin Sodium/ 25,000 UNIT ONCE ONE 09/22 2000 AC 09/22 Dextrose IV 09/23 2059 2100 Dextrose/Water 500 ML Influenza Virus 0.5 ML 1000 09/23 1000 AC Vaccine IM 09/23 1001 Insulin Aspart 0 TIDAC/HS 09/22 2330 DC SC Ipratropium Green[place] 2.5 ML 4 TIMES/DAY PRN 09/22 2345 AC INH Levetiracetam 250 MG BID 09/22 2356 AC 09/23 PO 0213 Levothyroxine Sodium 0.175 MG DAILY AC 09/23 0700 AC 09/23 PO 0537 Lorazepam 0.5 MG BID PRN 09/22 2345 AC PO 09/29 2344 Nicotine 14 MG DAILY 09/22 2315 AC 09/23 TOP 0010 Nystatin 1 KAMALJIT BID 09/22 2315 AC 09/23 TOP 0009 Omeprazole 20 MG DAILY AC 09/23 0700 AC 09/23 PO 0537 Ondansetron HCl 4 MG ONCE ONE 09/22 2045 DC IV 09/22 2046 Pantoprazole Sodium 0 .STK-MED ONE 09/22 1632 DC IV Pantoprazole Sodium 40 MG ONCE ONE 09/22 1630 DC 09/22 IV 09/22 1631 1642 Pravastatin Sodium 80 MG 1700 09/22 2345 DC 09/23 PO 0213 Sodium Chloride 1,000 ML BOLUS ONE 09/22 2015 DC 09/22 IV 09/22 Sodium Chloride 1,000 ML ONCE ONE 09/22 1630 DC 09/22 IV 09/22 2309 1642 Tramadol HCl 50 MG Q6P PRN 09/22 2200 AC 09/23 PO 0537 Last 24 Hrs of Lab/Hung Results Last 24 Hrs of Labs/Mics: Laboratory Tests 09/23/16 0300: Anion Gap 4 L, Estimated GFR > 60, BUN/Creatinine Ratio 12.0, APTT 96 H, CBC w Diff NO MAN DIFF REQ, RBC 4.24, MCV 88.0, MCH 29.2, RDW 18.5 H, MPV 8.3, Gran % 72.1, Lymphocytes % 18.0 L, Monocytes % 7.1, Eosinophils % 2.6, Basophils % 0.2 , Absolute Granulocytes 4.9, Absolute Lymphocytes 1.2, Absolute Monocytes 0.5, Absolute Eosinophils 0.2, Absolute Basophils 0, PUBS MCHC 33.2 09/23/16 0030: Lactic Acid 1.2 09/22/16 1922: Lactic Acid Cancelled 09/22/16 1758: Urine Color YEL, Urine Clarity CLEAR, Urine pH 6.5, Ur Specific Stephens 1.010, Urine Protein NEG, Urine Ketones NEG, Urine Nitrite NEG, Urine Bilirubin NEG, Urine Urobilinogen 0.2, Ur Leukocyte Esterase SMALL H, Ur Microscopic SEDIMENT EXAMINED, Urine RBC RARE, Urine WBC 1-3 H, Ur Epithelial Cells MANY H, Urine Hemoglobin TRACE-INTACT, Urine Glucose NEG 09/22/16 1641: Anion Gap 5, Estimated GFR > 60, BUN/Creatinine Ratio 18.0, Glucose 96, Lactic Acid 1.4, Calcium 8.4, Total Bilirubin 0.6, AST 37 H, ALT 27, Alkaline Phosphatase 114, Troponin I 0.02, Total Protein 5.7 L, Albumin 2.6 L, Globulin 3.1, Albumin/Globulin Ratio 0.8 L, PT 12.9 H, INR 1.23 H, APTT 33, CBC w Diff NO MAN DIFF REQ, RBC 5.15, MCV 88.2, MCH 29.0, RDW 18.2 H, MPV 7.8, Gran % 84.6 H, Lymphocytes % 9.5 L, Monocytes % 4.5, Eosinophils % 1.0, Basophils % 0.4, Absolute Granulocytes 6.6 H, Absolute Lymphocytes 0.7 L, Absolute Monocytes 0.4, Absolute Eosinophils 0.1, Absolute Basophils 0, PUBS MCHC 32.8 L Microbiology 09/23 0648 STOOL: Clostridium difficile Toxin A & B - ORD 09/22 2359 STOOL: Stool Culture - COLB 09/22 1622 STOOL: Clostridium difficile Toxin A & B - COLB 09/22 1622 STOOL: Stool Culture - COLB Orders Miscellaneous Findings: SERVICE DATE: 09/23/16 EXAM TYPE: US - US-UNILATERAL VENOUS DOPPLER EXAMINATION: US TRIPLEX LOWER EXTREMITY, RIGHT CLINICAL INFORMATION: Right lower extremity pain and swelling. COMPARISON: Prior venous duplex examinations, most recently 03/04/2015. TECHNIQUE: Color-flow triplex imaging with spectral analysis and compression Doppler were performed on the right lower extremity. Examination is somewhat limited by edema. FINDINGS: Respiratory variation, normal compression and augmented flow are noted throughout the lower extremity. The visualized common femoral vein, superficial femoral vein, profunda femoral vein, and popliteal vein segments show no evidence of deep venous thrombosis. The calf veins are not visualized. There is no Faria's cyst. IMPRESSION: Normal triplex scan without evidence of deep venous thrombosis involving the right lower extremity. Of note, the right calf veins are not visualized. DICTATED BY: JORDAN VENEGAS MD Assessment/Plan Assessment: #Acute left main pulmonary embolism: Continue on telemetry Patient has already been started on IV heparin Will continue with anticoagulation, would likely be discharged home on newer agent of anticoagulation Venous Doppler done this morning shows no evidence of a deep vein thrombosis. Keep the leg elevated. Initial troponin at emergency department was noncontributory Continue oxygen to keep saturations above 92% BEP in a.m. Aspirin 81 mg. #Constant lower abdominal pain with watery diarrhea(microscopic gastroenteritis/ ischemia bowel): We'll send stool cultures. Follow-up C. difficile toxin. She is currently not had any loose stools since admission. Stool cultures pending Will send lactic if the levels, the levels this morning repeated 1.4 and 1.2 respectively. Likely rule out ischemic bowel. If Patient continues to experience worsening abdominal pain with a repeat lactic acid. Gastroenterology Consultation has been obtained for any additional recommendations. #History of abdominal aortic aneurysm with repair (approximately 8 years ago) and evidence of intraluminal thrombus(most likely chronic) on CT scan, and # Occlusion of left common iliac artery Patient is currently on IV heparin. Vascular consultation was obtained this a.m. Called vascular surgeon today, recommended to continue with IV heparin for now home. Regarding the occluded femoral graft if patient has recurrent leg right lower extremity pain ,address that in the morning and depending upon the consider vascular consult. Venous Doppler is currently pending Patient will be continued on IV heparin [facility] V[facility] who visited the patient this morning recommends we continue anticoagulation and conservative management and the patient is to be followed up as an outpatient for monitoring of AAA as well as graft. #History of oxygen dependent COPD:' Continue oxygen to keep saturations above 92% Continue Advair TRC nebs. #History of hypothyroidism: Continue home dose of levothyroxine. #History of hypertension and hyperlipidemia: Continue home dose of atenolol 50 mg and atorvastatin 80 mg #History of anxiety and depression: Continue home dose of Ativan and duloxetine 40 mg. #History of seizures Continue home dose of Keppra 250 mg twice a day. #History of type 2 diabetes: Hemoglobin A1c 5.8, patient is currently not on insulin. Hold any NovoLog sliding scale/insulin for now Accu-Cheks: BS this AM: 89. #DVT Prophylaxis with heparin #Code Full code Problem List: 1. Pulmonary embolism 2. Diabetes mellitus 3. AAA (abdominal aortic aneurysm) 4. Hypertension 5. Abdominal pain 6. Hyponatremia 7. General weakness 8. HTN (hypertension) Pain Ratin Pain Location: Anterior Abdominal Wall Pain Goal: Remain pain free Pain Plan: Tramadol 50 mg Tomorrow's Labs & Rationales: BEP: Monitor Hyponatremia FLORENCE TUCKER MD 09/23/16 1121: Attending MD Review Statement Attending Statement Attending MD Statement: examined this patient, discuss w/resident/PA/BULB GRADER, agreed w/resident/PA/BULB GRADER, reviewed EMR data (avail) Attending Assessment/Plan: 76F PMH HTN, HLD, COPD on 2.5 L NC, DM, non-small cell cancer of the right lung status post right lobectomy, remote history of PE, hypothyroidism, PVD,s/p left BKA, current smoker, mostly wheelchair bound admitted with chronic abdominal pain, chronic diarrhea, and new onset left acute pulmonary embolism, left common iliac artery occlusion. Patient's GI symptoms are chronic and have been worked up in the past. She is a severe vasculopath, actively smokes, and is non- compliant with medications. Has been started on heparin drip. Stable vitals. Plan - Continue on telemetry for PE - Continue heparin drip - Start ASA - Continue high dose statin - Vascular surgery consult - Continue home medications - C.diff sent, will follow - Stool culture sent, will follow
[2016-09-23 08:28] VITALS: BP 140/70
--- NOTE | 2016-09-23 08:34 | RADIOLOGY REPORT ---
EXAMINATION: XR PORTABLE CHEST CLINICAL INFORMATION: Shortness of breath. COMPARISON: CXR from 08/18/2016. Chest CT from 11/05/[address] from 09/22/2016. TECHNIQUE: Portable view of the chest was obtained. FINDINGS: There is peripheral, somewhat hazy subpleural opacity in the lateral aspect of the lingula, likely from scarring or atelectasis and this was also present on the chest CT of 11/05/2015. No acute pulmonary edema, pneumothorax or overt pleural effusion (although patient has trace left pleural effusion on the abdomen CT of 09/22/2016). There is stable enlargement of the cardiac silhouette and hilar vessels. Again noted is the elevated right diaphragm. The bones appear diffusely osteoporotic and there are old fracture deformities of some of the right ribs. IMPRESSION: 1. Cardiomegaly without acute pulmonary edema. 2. Peripheral, somewhat hazy subpleural opacity in the lateral aspect of the lingula likely represents atelectasis and/or subpleural scarring; this was present on 11/05/2015.
[2016-09-23] MEDS ORDERED: DITROPAN XL5 M1 PO (09:07)
--- NOTE | 2016-09-23 11:40 | ULTRASOUND REPORT ---
EXAMINATION: US TRIPLEX LOWER EXTREMITY, RIGHT CLINICAL INFORMATION: Right lower extremity pain and swelling. COMPARISON: Prior venous duplex examinations, most recently 03/04/2015. TECHNIQUE: Color-flow triplex imaging with spectral analysis and compression Doppler were performed on the right lower extremity. Examination is somewhat limited by edema. FINDINGS: Respiratory variation, normal compression and augmented flow are noted throughout the lower extremity. The visualized common femoral vein, superficial femoral vein, profunda femoral vein, and popliteal vein segments show no evidence of deep venous thrombosis. The calf veins are not visualized. There is no Faria's cyst. IMPRESSION: Normal triplex scan without evidence of deep venous thrombosis involving the right lower extremity. Of note, the right calf veins are not visualized.
[2016-09-23 13:31] LABS: PTT 37 SEC (25-37)
--- NOTE | 2016-09-23 13:54 | Cons- Vascular Surgery ---
General Information and HPI Consulting Request Date of Consult: 09/23/16 Requested By: ORQUIDEA URIBE MD Reason for Consult: PE, Left common iliac artery occlusion Source of Information: patient, old records Exam Limitations: patient's age, clinical condition History of Present Illness: Patient is 76yo F whom presented to [facility] with lower abdominal pain and diarrhea. It was noted on her history that she had recently had increased O2 demand without signs or symptoms. Workup revealed a Left main bronchus PE as well as a left common iliac artery occlusion. Per patient she has had mild abdominal pain which is mildly improved this morning. She also states that she has mild right calf pain but denies numbness/tingling. No changes in skin color in lower extremities. No pain or parasthesia in left leg (hx of L BKA). She denies having change in breathing, shortness of breath, difficulty breathing, chest pain, dizziness, or light headedness. No further c/o. Allergies/Medications Allergies: Coded Allergies: aspirin (Intermediate, DIZZY AND VOMITING 09/22/16) atorvastatin (Intermediate, MUSCLE PAIN 09/22/16) oxycodone (Intermediate, DIZZY AND NAUSEA 09/22/16) codeine (Mild, FLUSHING 09/22/16) Home Med List: Albuterol Sulfate 1.25 MG/3 ML VIAL.NEB 1 Vial INH/LAYLA Q4-6 PRN SHORTNESS OF BREATH (Reported) USE WITH IPRATROPIUM Albuterol Sulfate (Ventolin Hfa) 90 MCG HFA.AER.AD 2 PUF INH Q4-6 PRN PRN SHORTNESS OF BREATH (Reported) Atenolol 50 MG TABLET 1 TAB PO DAILY BP (Reported) CHOLECALCIFEROL (VITAMIN D3) (Vitamin D-3) 2,000 UNIT CAPSULE 1 SGL PO DAILY SUPPLEMENT (Reported) Cyanocobalamin (Vitamin B-12) (B-12) 1,000 MCG TABLET 1 TAB PO DAILY SUPPLEMENT (Reported) Docusate Sodium (Colace) 100 MG CAPSULE 1 CAP PO BID CONSTIPATION (Reported) Duloxetine HCl 20 MG CAPSULE.DR 2 CAP PO DAILY DEPRESSION (Reported) 20-60MG TWO TIMES PER NIGHT Ferrous Sulfate 325 MG TAB 1 TAB PO DAILY SUPPLEMENT Fluticasone-Salmeterol (Advair 100-50 Diskus) 100 MCG-50 MCG/DOSE BLST.W.DEV 1 PUF INH BID COPD (Reported) FLUTICASONE/SALMETEROL (Advair 250-50 Diskus) 250 MCG-50 MCG/DOSE BLST.W.DEV 1 PUF PO BID COPD (Reported) Hydrocodone/Acetaminophen (Hydrocodon-Acetaminophen 5-325) 5 MG-325 MG TABLET 1-2 TAB PO Q4-6 PRN PRN PAIN (Reported) Ipratropium [place] 0.2 MG/ML (0.02 %) SOLUTION 1 Vial INH/LAYLA 4 TIMES/DAY PRN SHORTNESS OF BREATH (Reported) USE WITH ALBUTEROL Levetiracetam (Keppra) 250 MG TABLET 1 TAB PO BID SEIZURES (Reported) Levothyroxine Sodium 175 MCG TABLET 1 TAB PO DAILY HYPOTHYROID (Reported) Loperamide HCl (Loperamide) 2 MG CAPSULE 2 CAP PO Q8 PRN LOOSE STOOLS ( Reported) Loratadine (Claritin) 10 MG TABLET 1 TAB PO DAILY PRN ALLERGIES (Reported) Lorazepam (Ativan) 0.5 MG TAB 1 TAB PO BID PRN ANXIETY (Reported) Oxybutynin Chloride (Ditropan XL) 5 MG TAB.ER.24 1 TAB PO DAILY Incontinence (Reported) Pantoprazole Sodium 20 MG TABLET.DR 2 TAB PO BID GERD (Reported) Pravastatin Sodium (Pravachol) 80 MG TABLET 1 TAB PO DAILY HIGH CHOLESTEROL ( Reported) Sucralfate (Carafate) 1 GRAM TABLET 1 TAB PO 4 TIMES/DAY GERD (Reported) Vitamin E 400 IU TAB 1 TAB PO DAILY SUPPLEMENT (Reported) Past History Medical History Blood Transfusion Hx: No Neurological: dizziness, seizure EENT: NONE Cardiovascular: hypertension, hyperlipidemia, PVD, HYPONATREMIA Respiratory: COPD, O2 DEP @2.5 L RUL RESECTION Gastrointestinal: GERD, AAA Hepatic: NONE Renal: NONE Musculoskeletal: LEFT BKA Psychiatric: anxiety, depression Endocrine: diabetes, hypothyroidism Blood Disorders: DVT, PE Cancer(s): lung cancer 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 child (son - h/o alcoholism) Services at Home: Oxygen Smoking Status: Current Everyday Smoker Functional Ability ADLs Independent: dressing, eating, toileting, bathing. Ambulation: independent, walker IADLs Independent: finances, telephone, medication admin. Needs Assist: shopping, housework, food prep, transportation. Review of Systems Review of Systems Constitutional: Denies: diaphoresis, fever, malaise. Cardiovascular: Denies: chest pain, palpitations. Respiratory: Denies: short of breath. GI: Reports: abdominal pain, diarrhea. Genitourinary: Denies: dysuria, frequency. Musculoskeletal: Reports: no symptoms. Skin: Denies: change in skin color, jaundice. Exam & Diagnostic Data Vital Signs and I&O Vital Signs Date Time Temp Pulse Resp B/P Pulse O2 O2 Flow FiO2 Ox Delivery Rate 09/23 828 97.9 88 20 140/70 98 Nasal 3.0L Cannula 09/23 08 94 Nasal 3.0L Cannula 09/23 0000 94 Nasal 3.0L Cannula 09/23 0000 98.2 88 20 144/82 94 Nasal 3.0L Cannula 09/22 2320 Nasal 3.0L Cannula 09/22 2243 94 Nasal 3.0L Cannula 09/22 2120 84 18 146/88 95 Nasal 3.0L Cannula 09/22 2034 98.0 09/22 1916 90 16 151/67 97 Nasal Cannula 09/22 1801 98.0 98 20 169/93 09/22 1731 97.2 89 153/75 09/22 1646 93 Nasal 3.0L Cannula 09/22 1616 97.0 84 20 102/70 92 Nasal 3.0L Cannula Intake & Output 09/23 1600 09/23 0800 09/23 0000 09/22 1600 09/22 0800 09/22 0000 Intake Total 260 Output Total 600 Balance -340 Intake, IV 160 Intake, Oral 100 Output, Urine 600 Patient 131 lb 132 lb Weight Physical Exam: General: NAD, comfortable, A&Ox3 Chest: CTAB. RRR Abdomen: soft, nondistended. Mild B/L lower quadrant tenderness, no masses appreciated. +Bowel sounds x4 quadrants Ext: RLE: compartments soft. Right calf mildly TTP. 2+ DP/PT pulses. No discoloration. LLE: without notable redness, swelling or TTP. No large lesions. 2+ popliteal pulse. Last 24 Hours of Labs: Laboratory Tests 09/23 09/23 09/23 1200 0300 0030 Chemistry Sodium (137 - 145 mmol/L) 136 L Potassium (3.5 - 5.1 mmol/L) 3.5 Chloride (98 - 107 mmol/L) 101 Carbon Dioxide (22 - 30 mmol/L) 30 Anion Gap (5 - 16) 4 L BUN (7 - 17 mg/dL) 6 L Creatinine (0.5 - 1.0 mg/dL) 0.5 Estimated GFR (>60 ml/min) > 60 BUN/Creatinine Ratio (7 - 25 %) 12.0 Lactic Acid (0.7 - 2.1 mmol/L) 1.2 Coagulation APTT (25 - 37 SEC) Pending 96 H Hematology CBC w Diff NO MAN DIFF REQ WBC (4.8 - 10.8 /CUMM) 6.8 RBC (4.20 - 5.40 /CUMM) 4.24 Hgb (12.0 - 16.0 G/DL) 12.4 Hct (37 - 47 %) 37.3 MCV (81.0 - 99.0 FL) 88.0 MCH (27.0 - 31.0 PG) 29.2 RDW (11.5 - 14.5 %) 18.5 H Plt Count (130 - 400 /CUMM) 286 MPV (7.4 - 10.4 FL) 8.3 Gran % (42.2 - 75.2 %) 72.1 Lymphocytes % (20.5 - 51.1 %) 18.0 L Monocytes % (1.7 - 9.3 %) 7.1 Eosinophils % (0 - 5 %) 2.6 Basophils % (0.0 - 2.0 %) 0.2 Absolute Granulocytes (1.4 - 6.5 /CUMM) 4.9 Absolute Lymphocytes (1.2 - 3.4 /CUMM) 1.2 Absolute Monocytes (0.10 - 0.60 /CUMM) 0.5 Absolute Eosinophils (0.0 - 0.7 /CUMM) 0.2 Absolute Basophils (0.0 - 0.2 /CUMM) 0 PUBS MCHC (33.0 - 37.0 G/DL) 33.2 09/22 09/22 192 1758 Chemistry Lactic Acid Cancelled Urines Urine Color (YEL,AMB,STR) YEL Urine Clarity (CLEAR) CLEAR Urine pH (5.0 - 8.0) 6.5 Ur Specific [place] (1.001 - 1.035) 1.010 Urine Protein (NEG,<30 MG/DL) NEG Urine Ketones (NEG) NEG Urine Nitrite (NEG) NEG Urine Bilirubin (NEG) NEG Urine Urobilinogen (0.1 - 1.0 EU/dl) 0.2 Ur Leukocyte Esterase (NEG) SMALL H Ur Microscopic SEDIMENT EXAMINED Urine RBC (0 - 5 /HPF) RARE Urine WBC (0 - 2 /HPF) 1-3 H Ur Epithelial Cells (NONE,FEW) MANY H Urine Hemoglobin (NEG) TRACE-INTACT Urine Glucose (N MG/DL) NEG 09/22 1641 Chemistry Sodium (137 - 145 mmol/L) 135 L Potassium (3.5 - 5.1 mmol/L) 3.6 Chloride (98 - 107 mmol/L) 94 L Carbon Dioxide (22 - 30 mmol/L) 36 H Anion Gap (5 - 16) 5 BUN (7 - 17 mg/dL) 9 Creatinine (0.5 - 1.0 mg/dL) 0.5 Estimated GFR (>60 ml/min) > 60 BUN/Creatinine Ratio (7 - 25 %) 18.0 Glucose (65 - 99 mg/dL) 96 Lactic Acid (0.7 - 2.1 mmol/L) 1.4 Calcium (8.4 - 10.2 mg/dL) 8.4 Total Bilirubin (0.2 - 1.3 mg/dL) 0.6 AST (14 - 36 U/L) 37 H ALT (9 - 52 U/L) 27 Alkaline Phosphatase (<127 U/L) 114 Troponin I (< 0.11 ng/ml) 0.02 Total Protein (6.3 - 8.2 g/dL) 5.7 L Albumin (3.5 - 5.0 g/dL) 2.6 L Globulin (1.9 - 4.2 gm/dL) 3.1 Albumin/Globulin Ratio (1.1 - 2.2 %) 0.8 L Coagulation PT (9.4 - 12.5 SEC) 12.9 H INR (0.90 - 1.19) 1.23 H APTT (25 - 37 SEC) 33 Hematology CBC w Diff NO MAN DIFF REQ WBC (4.8 - 10.8 /CUMM) 7.8 RBC (4.20 - 5.40 /CUMM) 5.15 Hgb (12.0 - 16.0 G/DL) 14.9 Hct (37 - 47 %) 45.4 MCV (81.0 - 99.0 FL) 88.2 MCH (27.0 - 31.0 PG) 29.0 RDW (11.5 - 14.5 %) 18.2 H Plt Count (130 - 400 /CUMM) 348 MPV (7.4 - 10.4 FL) 7.8 Gran % (42.2 - 75.2 %) 84.6 H Lymphocytes % (20.5 - 51.1 %) 9.5 L Monocytes % (1.7 - 9.3 %) 4.5 Eosinophils % (0 - 5 %) 1.0 Basophils % (0.0 - 2.0 %) 0.4 Absolute Granulocytes (1.4 - 6.5 /CUMM) 6.6 H Absolute Lymphocytes (1.2 - 3.4 /CUMM) 0.7 L Absolute Monocytes (0.10 - 0.60 /CUMM) 0.4 Absolute Eosinophils (0.0 - 0.7 /CUMM) 0.1 Absolute Basophils (0.0 - 0.2 /CUMM) 0 PUBS MCHC (33.0 - 37.0 G/DL) 32.8 L Imaging Results: EXAM TYPE: CAT - CT ABD & PELVIS W IV CONTRAST EXAMINATION: CT ABDOMEN AND PELVIS WITH CONTRAST CLINICAL INFORMATION: Lower quadrant abdominal pain. Diarrhea for one month. COMPARISON: CT chest 11/05/2015. TECHNIQUE: Multidetector volumetric imaging was performed of the abdomen and pelvis before and after the IV administration of 95 mL of Optiray 320 intravenous contrast. Sagittal and coronal reformatted images were obtained on the technologist's workstation. DLP: 413.28 mGy-cm FINDINGS: LUNG BASES: There is pulmonary emboli in the left lower lobe, left upper lobe and the distal main left pulmonary artery. There is calcification of the mitral valve. There are vascular calcifications of the wall of the aorta. Lung bases are clear. No pleural effusion. LIVER, GALLBLADDER, AND BILIARY TREE: Small focus of low attenuation adjacent to the inferior right lobe of liver, image 262 (3). No intrahepatic bile duct dilatation. Status post cholecystectomy. Extrahepatic CBD measures 1.4 cm. No calcified stone within the bile ducts. PANCREAS: The pancreas is atrophic. SPLEEN: Stable 5 mm hypodensity at the superior spleen. ADRENAL GLANDS: Unremarkable. KIDNEYS AND URETERS: The kidneys are normal in size, shape, and attenuation. No hydronephrosis, hydroureter, or calculi seen. No perinephric stranding. 1 cm cyst at the midpole cortex of the right kidney. BLADDER: Unremarkable. GASTROINTESTINAL TRACT: No acute change of the bowel. No diverticula. No bowel obstruction. No bowel wall thickening or edema. Moderate volume of stool in colon. The appendix is normal. Small bowel loops are unremarkable. ABDOMINAL WALL: No significant hernia is appreciated. LYMPH NODES: Normal. VASCULAR: 1. There is pulmonary emboli in the left lower lobe, left upper lobe and left main pulmonary artery. 2. Atherosclerotic vascular wall calcifications of the abdominal aorta. There is an aneurysm of the distal aorta. This has a transverse dimension of 4.2 cm distally. There is intraluminal thrombus. The origin of the left common iliac artery is occluded. There is opacification of the external and internal iliac arteries. The right common iliac artery is opacified. 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 There is bi-fem graft present. The lumen of the graft does not opacify consistent with thrombosis. PELVIC VISCERA: Uterus is absent. OSSEOUS STRUCTURES: Multilevel degenerative change of the spine with endplate spurs and facet joint arthrosis. Status post ORIF left hip with compression screw. IMPRESSION: 1. Embolism in the left main pulmonary artery extending into left upper lobe and left lower lobe. 2. Abdominal aortic aneurysm with intraluminal thrombus. 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 Occluded bi-fem graft. 3. Status post cholecystectomy with chronic dilatation of the CBD. 4. No acute change of the abdomen or pelvis. No acute abnormality of bowel. This critical result was discussed with Dr. Ross on 09/22/2016, 7:35 PM and it was ascertained that the content and urgency of the report was understood at the time of direct communication. EXAM TYPE: US - US-UNILATERAL VENOUS DOPPLER EXAMINATION: US TRIPLEX LOWER EXTREMITY, RIGHT CLINICAL INFORMATION: Right lower extremity pain and swelling. COMPARISON: Prior venous duplex examinations, most recently 03/04/2015. TECHNIQUE: Color-flow triplex imaging with spectral analysis and compression Doppler were performed on the right lower extremity. Examination is somewhat limited by edema. FINDINGS: Respiratory variation, normal compression and augmented flow are noted throughout the lower extremity. The visualized common femoral vein, superficial femoral vein, profunda femoral vein, and popliteal vein segments show no evidence of deep venous thrombosis. The calf veins are not visualized. There is no Faria's cyst. IMPRESSION: Normal triplex scan without evidence of deep venous thrombosis involving the right lower extremity. Of note, the right calf veins are not visualized. Assessment/Plan Assessment/Plan 76yo F with left main bronchus PE and Left common liliac occlusion. Patient has palpable pulses in lower extremities and is stable from vascular standpoint. Recommendations: -Cotinue with conservative management -Continue anticoagulation, current care. -Care per primary team -Vascular to sign off. F/u with Dr. Nina outpatient to monitor AAA and graft. Consult Acknowledgment - Thank you for your consult request.
[2016-09-23 16:03] VITALS: BP 124/70
--- NOTE | 2016-09-23 18:15 | Cons- Gastroenterology ---
General Information and HPI Consulting Request Date of Consult: 09/23/16 (MD Siobhan/Gastroenterology) Requested By: ORQUIDEA URIBE MD Reason for Consult: Abdominal pain Source of Information: patient, old records Exam Limitations: poor historian History of Present Illness: The patient is admitted with abdominal pain. She claims it is for 1 month. It is mostly left lower quadrant, but can be periumbilical, and radiate around the abdomen. Although it is intermittent, it can last for most of the day. It can occur 10-15 minutes after eating. There are no known alleviating factors although antacids may help somewhat. She denies nausea or vomiting associated with the pain. Although she claims it is new, review of records demonstrates a long-standing history of abdominal pain with extensive unrevealing evaluation. Indeed I performed an inpatient consultation for similar symptoms in the past. She continues to smoke cigarettes, despite a history of lung cancer, COPD and severe vascular disease. Most recent procedures in December 2014 performed by [facility] were (1) EGD/enteroscopy: 1. Status post Billroth II gastrectomy with patent afferent and efferent loops. 2. Small amount of food cleared from the gastric remnant. 3. Inflamed proximal gastric remnant with linear erythema, probable bile gastritis. Biopsies negative. 4. No endoscopic evidence of any gross aorto-enteric fistula. (2) Colonoscopy: 1. Moderate left-side diverticula. 2. Mild internal hemorrhoids without any active bleeding. 3. 2 small adenomas The patient also states that for the past month she's had difficulty with swallowing, especially solid food. The food sticks, but she does not regurgitate. She claims to have a history of GERD, but has no recent increase in heartburn. It is unclear if she has lost weight. The patient usually has 3 loose to formed bowel movements per day. There's been no evident blood per rectum or black stool. The patient also presented with shortness of breath, and has been found to have a pulmonary embolus. Allergies/Medications Allergies: Coded Allergies: aspirin (Intermediate, UPSET STOMACH 09/23/16) atorvastatin (Intermediate, MUSCLE PAIN 09/22/16) oxycodone (Intermediate, DIZZY AND NAUSEA 09/22/16) codeine (Mild, FLUSHING 09/22/16) Home Med List: Albuterol Sulfate 1.25 MG/3 ML VIAL.NEB 1 Vial INH/LAYLA Q4-6 PRN SHORTNESS OF BREATH (Reported) USE WITH IPRATROPIUM Albuterol Sulfate (Ventolin Hfa) 90 MCG HFA.AER.AD 2 PUF INH Q4-6 PRN PRN SHORTNESS OF BREATH (Reported) Atenolol 50 MG TABLET 1 TAB PO DAILY BP (Reported) CHOLECALCIFEROL (VITAMIN D3) (Vitamin D-3) 2,000 UNIT CAPSULE 1 SGL PO DAILY SUPPLEMENT (Reported) Cyanocobalamin (Vitamin B-12) (B-12) 1,000 MCG TABLET 1 TAB PO DAILY SUPPLEMENT (Reported) Docusate Sodium (Colace) 100 MG CAPSULE 1 CAP PO BID CONSTIPATION (Reported) Duloxetine HCl 20 MG CAPSULE.DR 2 CAP PO DAILY DEPRESSION (Reported) 20-60MG TWO TIMES PER NIGHT Ferrous Sulfate 325 MG TAB 1 TAB PO DAILY SUPPLEMENT Fluticasone-Salmeterol (Advair 100-50 Diskus) 100 MCG-50 MCG/DOSE BLST.W.DEV 1 PUF INH BID COPD (Reported) FLUTICASONE/SALMETEROL (Advair 250-50 Diskus) 250 MCG-50 MCG/DOSE BLST.W.DEV 1 PUF PO BID COPD (Reported) Hydrocodone/Acetaminophen (Hydrocodon-Acetaminophen 5-325) 5 MG-325 MG TABLET 1-2 TAB PO Q4-6 PRN PRN PAIN (Reported) Ipratropium [place] 0.2 MG/ML (0.02 %) SOLUTION 1 Vial INH/LAYLA 4 TIMES/DAY PRN SHORTNESS OF BREATH (Reported) USE WITH ALBUTEROL Levetiracetam (Keppra) 250 MG TABLET 1 TAB PO BID SEIZURES (Reported) Levothyroxine Sodium 175 MCG TABLET 1 TAB PO DAILY HYPOTHYROID (Reported) Loperamide HCl (Loperamide) 2 MG CAPSULE 2 CAP PO Q8 PRN LOOSE STOOLS ( Reported) Loratadine (Claritin) 10 MG TABLET 1 TAB PO DAILY PRN ALLERGIES (Reported) Lorazepam (Ativan) 0.5 MG TAB 1 TAB PO BID PRN ANXIETY (Reported) Oxybutynin Chloride (Ditropan XL) 5 MG TAB.ER.24 1 TAB PO DAILY Incontinence (Reported) Pantoprazole Sodium 20 MG TABLET.DR 2 TAB PO BID GERD (Reported) Pravastatin Sodium (Pravachol) 80 MG TABLET 1 TAB PO DAILY HIGH CHOLESTEROL ( Reported) Sucralfate (Carafate) 1 GRAM TABLET 1 TAB PO 4 TIMES/DAY GERD (Reported) Vitamin E 400 IU TAB 1 TAB PO DAILY SUPPLEMENT (Reported) Current Medications: Current Medications Sig/Vadim Start time Last Medication Dose Route Stop Time Status Admin Acetaminophen 650 MG Q6P PRN 09/22 2200 AC PO Acetaminophen 0 .STK-MED ONE 09/22 2029 DC IV Acetaminophen 1,000 MG ONCE ONE 09/22 2015 DC 09/22 N/A 1 UNIT IV 09/22 2029 203 Aspirin 81 MG DAILY 09/23 1440 DC PO Aspirin Buffered 81 MG DAILY 09/23 1700 AC PO Atenolol 50 MG DAILY 09/23 1000 AC 09/23 PO 0930 Atorvastatin Calcium 80 MG 1700 09/23 1700 AC 09/23 PO 1658 Budesonide/ 2 PUF BID 09/23 1000 AC 09/23 Formoterol Fumarate INH 0931 Duloxetine HCl 40 MG DAILY 09/24 1000 AC PO Duloxetine HCl 20 MG DAILY 09/23 1000 DC 09/23 PO 0930 Heparin Sodium 4,400 UNIT ONCE ONE 09/23 1630 DC 09/23 (Porcine) IV 09/23 1631 1430 Heparin Sodium 0 .STK-MED ONE 09/22 2050 DC (Porcine) .ROUTE Heparin Sodium 5,000 UNIT ONCE ONE 09/22 2000 DC 09/22 (Porcine) IV 09/22 2001 2100 Heparin Sodium/ 25,000 UNIT ONCE ONE 09/22 2000 AC 09/22 Dextrose IV 09/23 2059 2100 Dextrose/Water 500 ML Influenza Virus 0.5 ML 1000 09/23 1000 DC Vaccine IM 09/23 1001 Insulin Aspart 0 TIDAC/HS 09/22 2330 DC SC Ipratropium [place] 2.5 ML 4 TIMES/DAY PRN 09/22 2345 AC INH Levetiracetam 250 MG BID 09/22 2356 AC 09/23 PO 0931 Levothyroxine Sodium 0.175 MG DAILY AC 09/23 0700 AC 09/23 PO 0537 Loperamide HCl 2 MG ONE ONE 09/23 1530 CAN PO 09/23 1531 Lorazepam 0.5 MG BID PRN 09/22 2345 AC PO 09/29 2344 Nicotine 14 MG DAILY 09/22 2315 AC 09/23 TOP 0010 Nystatin 1 KAMALJIT BID 09/22 2315 AC 09/23 TOP 0931 Omeprazole 20 MG DAILY AC 09/23 0700 AC 09/23 PO 0537 Ondansetron HCl 4 MG ONCE ONE 09/22 2045 DC IV 09/22 204 Pravastatin Sodium 80 MG 1700 09/22 2345 DC 09/23 PO 0213 Sodium Chloride 1,000 ML BOLUS ONE 09/22 2015 DC 09/22 IV 09/22 2114 2034 Sodium Chloride 1,000 ML ONCE ONE 09/22 1630 DC 09/22 IV 09/22 2309 1642 Tramadol HCl 50 MG ONCE ONE 09/23 0930 DC 09/23 PO 09/23 0931 0930 Tramadol HCl 50 MG Q6P PRN 09/22 2200 AC 09/23 PO 1207 Past History Travel History Traveled to [place] past 21 day No Medical History Blood Transfusion Hx: No Neurological: dizziness, seizure EENT: NONE Cardiovascular: hypertension, hyperlipidemia, PVD, HYPONATREMIA Respiratory: COPD, O2 DEP @2.5 L RUL RESECTION Gastrointestinal: GERD, AAA Hepatic: NONE Renal: NONE Musculoskeletal: LEFT BKA Psychiatric: anxiety, depression Endocrine: diabetes, hypothyroidism Blood Disorders: DVT, PE Cancer(s): lung cancer MD PEDIATRIC ALLERGIST/Reproductive: HYSTRECTOMY Surgical History Surgical History: cholecystectomy, hysterectomy, BKA LEFT AAA REPAIR RUL RESECTION 2004 Family History Relations & Conditions If Any: MOTHER FH: diabetes mellitus FH: hypertension SISTER FH: diabetes mellitus FH: hypertension Psychosocial History Who Do You Live With? child (son - h/o alcoholism) Services at Home: Oxygen Smoking Status: Current Everyday Smoker Functional Ability ADLs Independent: dressing, eating, toileting, bathing. Ambulation: independent, walker IADLs Independent: finances, telephone, medication admin. Needs Assist: shopping, housework, food prep, transportation. Review of Systems Review of Systems Constitutional: Denies: chills, fever. EENTM: Denies: icterus, epistaxis. Cardiovascular: Denies: chest pain, peripheral edema. Respiratory: Reports: cough, short of breath. GI: Reports: see HPI. Genitourinary: Denies: dysuria, hematuria. Musculoskeletal: Denies: muscle stiffness, neck pain. Skin: Denies: jaundice, lesions. Neurological/Psychological: Denies: confusion, headache. Hematologic/Endocrine: Reports: bruising. Denies: bleeding. Exam & Diagnostic Data Vital Signs and I&O Vital Signs Date Time Temp Pulse Resp B/P Pulse O2 O2 Flow FiO2 Ox Delivery Rate 09/23 1603 98.6 85 20 124/70 97 09/23 1600 97 Nasal 3.0L Cannula 09/23 0828 97.9 88 20 140/70 98 Nasal 3.0L Cannula 09/23 0800 94 Nasal 3.0L Cannula 09/23 0000 94 Nasal 3.0L Cannula 09/23 0000 98.2 88 20 144/82 94 Nasal 3.0L Cannula 09/22 2320 Nasal 3.0L Cannula 09/22 2243 94 Nasal 3.0L Cannula 09/22 2120 84 18 146/88 95 Nasal 3.0L Cannula 09/22 2034 98.0 09/22 1916 90 16 151/67 97 Nasal Cannula 09/22 1801 98.0 98 20 169/93 Intake & Output 09/23 1600 09/23 0400 09/22 1600 09/22 0400 09/21 1600 09/21 0400 Intake Total 774 Output Total 600 Balance 174 Intake, IV 314 Intake, Oral 460 Number 0 Bowel Movements Output, Urine 600 Patient 131 lb 132 lb Weight Physical Exam: Elderly, thin female. Dyspneic. Nasal cannula situated on the bridge of her nose. Anicteric. Upper dentures, no teeth below. No oropharyngeal or tongue lesions. No neck masses or thyromegaly. No adenopathy. Or stigmata of chronic liver disease. Heart with regular rhythm and occasional PAC, no murmur. Lungs with decreased breath sounds. Abdomen is soft/nondistended with normal bowel sounds, and with subjective tenderness in the right upper quadrant and left lower quadrant without palpable mass, fullness or hernia. There is no organomegaly. Status post left BKA. Poor distal pulses. No edema in the right leg. Results Pertinent Lab Results: Laboratory Tests 09/23 09/23 09/23 1200 0300 0030 Chemistry Sodium (137 - 145 mmol/L) 136 L Potassium (3.5 - 5.1 mmol/L) 3.5 Chloride (98 - 107 mmol/L) 101 Carbon Dioxide (22 - 30 mmol/L) 30 Anion Gap (5 - 16) 4 L BUN (7 - 17 mg/dL) 6 L Creatinine (0.5 - 1.0 mg/dL) 0.5 Estimated GFR (>60 ml/min) > 60 BUN/Creatinine Ratio (7 - 25 %) 12.0 Lactic Acid (0.7 - 2.1 mmol/L) 1.2 Coagulation APTT (25 - 37 SEC) 37 96 H Hematology CBC w Diff NO MAN DIFF REQ WBC (4.8 - 10.8 /CUMM) 6.8 RBC (4.20 - 5.40 /CUMM) 4.24 Hgb (12.0 - 16.0 G/DL) 12.4 Hct (37 - 47 %) 37.3 MCV (81.0 - 99.0 FL) 88.0 MCH (27.0 - 31.0 PG) 29.2 RDW (11.5 - 14.5 %) 18.5 H Plt Count (130 - 400 /CUMM) 286 MPV (7.4 - 10.4 FL) 8.3 Gran % (42.2 - 75.2 %) 72.1 Lymphocytes % (20.5 - 51.1 %) 18.0 L Monocytes % (1.7 - 9.3 %) 7.1 Eosinophils % (0 - 5 %) 2.6 Basophils % (0.0 - 2.0 %) 0.2 Absolute Granulocytes (1.4 - 6.5 /CUMM) 4.9 Absolute Lymphocytes (1.2 - 3.4 /CUMM) 1.2 Absolute Monocytes (0.10 - 0.60 /CUMM) 0.5 Absolute Eosinophils (0.0 - 0.7 /CUMM) 0.2 Absolute Basophils (0.0 - 0.2 /CUMM) 0 PUBS MCHC (33.0 - 37.0 G/DL) 33.2 09/22 1758 Chemistry Lactic Acid Cancelled Urines Urine Color (YEL,AMB,STR) YEL Urine Clarity (CLEAR) CLEAR Urine pH (5.0 - 8.0) 6.5 Ur Specific [place] (1.001 - 1.035) 1.010 Urine Protein (NEG,<30 MG/DL) NEG Urine Ketones (NEG) NEG Urine Nitrite (NEG) NEG Urine Bilirubin (NEG) NEG Urine Urobilinogen (0.1 - 1.0 EU/dl) 0.2 Ur Leukocyte Esterase (NEG) SMALL H Ur Microscopic SEDIMENT EXAMINED Urine RBC (0 - 5 /HPF) RARE Urine WBC (0 - 2 /HPF) 1-3 H Ur Epithelial Cells (NONE,FEW) MANY H Urine Hemoglobin (NEG) TRACE-INTACT Urine Glucose (N MG/DL) NEG 09/22 1641 Chemistry Sodium (137 - 145 mmol/L) 135 L Potassium (3.5 - 5.1 mmol/L) 3.6 Chloride (98 - 107 mmol/L) 94 L Carbon Dioxide (22 - 30 mmol/L) 36 H Anion Gap (5 - 16) 5 BUN (7 - 17 mg/dL) 9 Creatinine (0.5 - 1.0 mg/dL) 0.5 Estimated GFR (>60 ml/min) > 60 BUN/Creatinine Ratio (7 - 25 %) 18.0 Glucose (65 - 99 mg/dL) 96 Lactic Acid (0.7 - 2.1 mmol/L) 1.4 Calcium (8.4 - 10.2 mg/dL) 8.4 Total Bilirubin (0.2 - 1.3 mg/dL) 0.6 AST (14 - 36 U/L) 37 H ALT (9 - 52 U/L) 27 Alkaline Phosphatase (<127 U/L) 114 Troponin I (< 0.11 ng/ml) 0.02 Total Protein (6.3 - 8.2 g/dL) 5.7 L Albumin (3.5 - 5.0 g/dL) 2.6 L Globulin (1.9 - 4.2 gm/dL) 3.1 Albumin/Globulin Ratio (1.1 - 2.2 %) 0.8 L Coagulation PT (9.4 - 12.5 SEC) 12.9 H INR (0.90 - 1.19) 1.23 H APTT (25 - 37 SEC) 33 Hematology CBC w Diff NO MAN DIFF REQ WBC (4.8 - 10.8 /CUMM) 7.8 RBC (4.20 - 5.40 /CUMM) 5.15 Hgb (12.0 - 16.0 G/DL) 14.9 Hct (37 - 47 %) 45.4 MCV (81.0 - 99.0 FL) 88.2 MCH (27.0 - 31.0 PG) 29.0 RDW (11.5 - 14.5 %) 18.2 H Plt Count (130 - 400 /CUMM) 348 MPV (7.4 - 10.4 FL) 7.8 Gran % (42.2 - 75.2 %) 84.6 H Lymphocytes % (20.5 - 51.1 %) 9.5 L Monocytes % (1.7 - 9.3 %) 4.5 Eosinophils % (0 - 5 %) 1.0 Basophils % (0.0 - 2.0 %) 0.4 Absolute Granulocytes (1.4 - 6.5 /CUMM) 6.6 H Absolute Lymphocytes (1.2 - 3.4 /CUMM) 0.7 L Absolute Monocytes (0.10 - 0.60 /CUMM) 0.4 Absolute Eosinophils (0.0 - 0.7 /CUMM) 0.1 Absolute Basophils (0.0 - 0.2 /CUMM) 0 PUBS MCHC (33.0 - 37.0 G/DL) 32.8 L Imaging/Other Studies: CT scan: IMPRESSION: 1. Embolism in the left main pulmonary artery extending into left upper lobe and left lower lobe. 2. Abdominal aortic aneurysm with intraluminal thrombus. 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 Occluded bi-fem graft. 3. Status post cholecystectomy with chronic dilatation of the CBD. 4. No acute change of the abdomen or pelvis. No acute abnormality of bowel. Assessment/Plan Assessment/Recommendations: 1. Recurrent/chronic abdominal pain. Likely functional with possible contribution of vascular disease (mesenteric ischemia/intestinal angina). She does have an AAA, and visceral hyperalgesia has been associated with this. Abdominal examination is entirely benign. 2. Recurrent/chronic diarrhea. This seems to be stable. This also may be related to mesenteric ischemia, or other entities such as small intestinal bacterial overgrowth, microscopic colitis, etc. 3. Dysphagia. The patient has described this in the past. Esophagus was normal on endoscopy 1 year ago. Recommendations * Await ordered stool studies * Trial of antispasmodic/anticholinergic medication such as methylscopolamine 3 times a day * Esophagram with liquid area as well as barium soaked bread/tablet Consult Acknowledgment - Thank you for your consult request.
[2016-09-23 23:15] LABS: PTT 85 SEC (25-37)
[2016-09-23 23:54] VITALS: BP 128/64
--- NOTE | 2016-09-24 06:33 | PN- Housestaff ---
See Addendum Subjective Follow-up For: Acute PE Currently on IV Heparin Chronic Abdominal Pain Tele-Events Since Last Visit: ?HR WAP Sinus Rhythm. Inverted P waves. Subjective: Ms Liang was seen and examined this morning. She is resting comfortably in bed. Patient continues to experience abdominal pain. Pain is rated 10 out of 10 in severity. Pain is located in the hypogastric region. Patient states that the pain does respond well to pain medications. She reports a decrease in appetite. Since admission the patient has not had any bowel movements and denies any loose stools. Patient states she is able to pass gas and does not feel any abdominal distention. In addition to the above patient denies any chest pain and/or chest discomfort. She denies any orthopnea or dyspnea. Patient continues to be on supplemental oxygen 4.0L via nasal cannula. Patient denies any fever, chills, nausea, vomiting. Review of Systems Constitutional: Reports: see HPI. Denies: diaphoresis, fever, weakness. Objective Last 24 Hrs of Vital Signs/I&O Vital Signs Date Time Temp Pulse Resp B/P Pulse O2 O2 Flow FiO2 Ox Delivery Rate 09/24 0844 98.8 78 20 120/75 92 Nasal 4.0L Cannula 09/24 0000 Nasal 4.0L Cannula 09/23 2354 98.3 94 22 128/64 92 Nasal 3.0L Cannula 09/23 2327 Nasal 4.0L Cannula 09/23 2132 94 Nasal 4.0L Cannula 09/23 1603 98.6 85 20 124/70 97 09/23 1600 97 Nasal 3.0L Cannula Intake & Output 09/24 1600 09/24 0800 09/24 0000 Intake Total 238.8 629 Output Total 600 400 Balance -361.2 229 Intake, IV 188.8 189 Intake, Oral 50 440 Number 0 Bowel Movements Output, Urine 600 400 Physical Exam General Appearance: Alert, Oriented X3, Cooperative, Mild Distress Lymphatic: Cervical nl Cardiovascular: Regular Rate, Normal S1, Normal S2 Lungs: Clear to Auscultation Abdomen: Soft, No Tenderness, Hyperactive Bowel Sounds Neurological: Normal Speech Current Medications: Current Medications Sig/Vadim Start time Last Medication Dose Route Stop Time Status Admin Acetaminophen 650 MG Q6P PRN 09/22 2200 AC PO Albuterol Sulfate 3 ML Q4P PRN 09/23 2215 AC 09/23 INH 2208 Aspirin 81 MG DAILY 09/23 1440 DC PO Aspirin Buffered 81 MG DAILY 09/23 1700 AC 09/23 PO 1745 Atenolol 50 MG DAILY 09/23 1000 AC 09/23 PO 0930 Atorvastatin Calcium 80 MG 1700 09/23 1700 AC 09/23 PO 1658 Budesonide/ 2 PUF BID 09/23 1000 AC 09/23 Formoterol Fumarate INH 2125 Duloxetine HCl 40 MG DAILY 09/24 1000 AC PO Duloxetine HCl 20 MG DAILY 09/23 1000 DC 09/23 PO 0930 Heparin Sodium 4,400 UNIT ONCE ONE 09/23 1630 DC 09/23 (Porcine) IV 09/23 1631 1430 Heparin Sodium 5,000 UNIT .STK-MED ONE 09/23 1427 DC (Porcine) IV 09/23 1428 Heparin Sodium/ 25,000 UNIT Q24H 09/24 0015 AC 09/24 Dextrose IV 0018 Dextrose/Water 500 ML Heparin Sodium/ 25,000 UNIT ONCE ONE 09/22 2000 DC 09/22 Dextrose IV 09/23 2059 2100 Dextrose/Water 500 ML Hyoscyamine 0.125 MG Q4 HRS NEEDED PRN 09/23 1900 AC 09/24 PO 0745 Influenza Virus 0.5 ML 1000 09/23 1000 DC Vaccine IM 09/23 1001 Ipratropium [place] 2.5 ML 4 TIMES/DAY PRN 09/22 2345 AC 09/23 INH 2208 Levetiracetam 250 MG BID 09/22 2356 AC 09/23 PO 2125 Levothyroxine Sodium 0.175 MG DAILY AC 09/23 0700 AC 09/24 PO 0527 Loperamide HCl 2 MG ONE ONE 09/23 1530 CAN PO 09/23 1531 Lorazepam 0.5 MG BID PRN 09/22 2345 AC PO 09/29 2344 Nicotine 14 MG DAILY 09/22 2315 AC 09/23 TOP 0010 Nystatin 1 KAMALJIT BID 09/22 2315 AC 09/23 TOP 2126 Omeprazole 20 MG DAILY AC 09/23 0700 AC 09/24 PO 0527 Potassium Chloride 40 MEQ ONCE ONE 09/23 2115 DC 09/23 PO 09/23 2116 2125 Tramadol HCl 50 MG ONCE ONE 09/23 0930 DC 09/23 PO 09/23 0931 0930 Tramadol HCl 50 MG Q6P PRN 09/22 2200 AC 09/23 PO 1951 Last 24 Hrs of Lab/Debbie Results Last 24 Hrs of Labs/Mics: Laboratory Tests 09/23/16 2145: APTT 85 H 09/23/16 1200: APTT 37 Microbiology 09/23 1853 STOOL: Cryptosporidium Antigen - COLB 09/23 1853 STOOL: Giardia Antigen (DEBBIE) - COLB 09/23 1853 STOOL: Stool Culture - COLB Assessment/Plan Assessment: This 76-year-old lady a past medical history of hypertension hyperlipidemia, COPD on 2.5 L via next nasal cannula, diabetes mellitus non-small cell cancer of the right lung status post right lobectomy, hypothyroidism, PVD status post left total knee amputation current smoker mostly wheelchair-bound presents to the emergency department complaining of worsening abdominal pain and chronic diarrhea. #Acute left main pulmonary embolism: Continue on telemetry Patient has already been started on IV heparin. Will continue with anticoagulation, would likely be discharged home on newer agent of anticoagulation Venous Doppler done this morning shows no evidence of a deep vein thrombosis. Keep the leg elevated. Initial troponin at emergency department was noncontributory Continue oxygen to keep saturations above 92% BEP in a.m. Aspirin 81 mg. #Constant lower abdominal pain with watery diarrhea(microscopic gastroenteritis/ ischemia bowel): We'll send stool cultures. Follow-up C. difficile toxin, Pending Stool cultures pending Will send lactic if the levels, the levels this morning repeated 1.4 and 1.2 respectively. Likely rule out ischemic bowel. If Patient continues to experience worsening abdominal pain with a repeat lactic acid. Gastroenterology Consultation has been obtained for any additional recommendations. Patient is scheduled to go for x-ray modified barium swallow in a.m. to further evaluate dysphagia. Also obtained a surgical consult to rule out acute abdomen versus emergent surgical intervention. #History of abdominal aortic aneurysm with repair (approximately 8 years ago) and evidence of intraluminal thrombus(most likely chronic) on CT scan, and # Occlusion of left common iliac artery Patient is currently on IV heparin. Vascular consultation was obtained this a.m. Called vascular surgeon today, recommended to continue with IV heparin for now home. Regarding the occluded femoral graft if patient has recurrent leg right lower extremity pain ,address that in the morning and depending upon the consider vascular consult. Venous thrombosis showed no evidence of DVT. Right calf veins were not well visualized Patient will be continued on IV heparin SQ As Per Vascular:Low Likelihood of mesenteric ischemia as SMA is widely patent. Surgery consult has been requested to rule out any emergency pathology and acute abdomen. #Dysphagia She did report a recent faculty swallowing solid food. It does not report recent increase in symptoms of GERD. X-ray barium swallow/esophagram, pending. #History of oxygen dependent COPD:' Continue oxygen to keep saturations above 92% Continue Advair TRC nebs. #History of hypothyroidism: Continue home dose of levothyroxine. #History of hypertension and hyperlipidemia: Continue home dose of atenolol 50 mg and atorvastatin 80 mg #History of anxiety and depression: Continue home dose of Ativan and duloxetine 40 mg. #History of seizures Continue home dose of Keppra 250 mg twice a day. #History of type 2 diabetes: Hemoglobin A1c 5.8, patient is currently not on insulin. Hold any NovoLog sliding scale/insulin for now Accu-Cheks: BS this AM: 95 #DVT Prophylaxis With heparin #Code Full code Problem List: 1. Pulmonary embolism 2. Chronic abdominal pain 3. General weakness 4. Hypothyroid 5. Lung cancer 6. AAA (abdominal aortic aneurysm) Pain Ratin Pain Location: Lower Abdomen Pain Goal: Remain pain free Pain Plan: Tramdol Morphine for more intense Pain Tomorrow's Labs & Rationales: BEP
--- NOTE | 2016-09-24 08:11 | PN- Vascular Surgery ---
Surgical Brief Attending Note Brief Attending Note: VASCULAR ATTENDING NOTE: Pt. seen and examined. Agree with PA note 09/23. Briefly, 76 year old female with multiple medical problems and intermittent abdominal pain which has been worsening. Pt. is a poor historian. Also has had diarrhea and no weight loss or food fear. Admitted for medical eval. Hx. of PAD and failed/fem-fem bypass and L. amp. Also has small AAA. New PE seen on CT. PE: AF/VSS Abd. soft ND/ no guarding A/P: 1.) Recommend general surgery eval. due to history 2.) Low likelhood of mest. ischemia as SMA is widely patent 3.) GI re-eval 4.) Will follow as needed 5.) Small AAA can be seen as outpatient 6.) Cont. heparin for PE
[2016-09-24 08:44] VITALS: BP 120/75
[2016-09-24 12:11] LABS: PTT 70 SEC (25-37)
--- NOTE | 2016-09-24 13:16 | ECHOCARDIOGRAM REPORT ---
JESSE SAAVEDRA Age: 76 : 1940 Gender: F Exam Date: 09/23/2016 19:09 Exam Location: [address] [facility] Ht (in): 60 Wt (lb): 131 BSA: 1.60 BP: 140 / 70 Ordering Physician: JATINDER RODAS MD Referring Physician: JATINDER RODAS MD Technologist: Alise Caba [facility] Room Number: 189-02 Indications: STRUCTURAL HEART DISEASE Rhythm: Sinus Technical Quality: Fair FINDINGS Left Ventricle Small left ventricular cavity. Mild concentric left ventricular hypertrophy. No obvious regional wall motion abnormalities. Normal left ventricular ejection fraction visually estimated at > 65%. Abnormal relaxation filling pattern of the left ventricle for age (stage 1 diastolic dysfunction). Right Ventricle Right ventricle not well visualized, grossly normal. Right Atrium Right atrium not well visualized, grossly normal. Left Atrium Mild left atrial dilatation. Mitral Valve Moderate mitral annular calcification. Mitral valve mildly thickened. Mild mitral stenosis. Mild mitral regurgitation. Aortic Valve Aortic valve not well visualized. Mild aortic stenosis. No aortic regurgitation. Tricuspid Valve Structurally normal tricuspid valve. Mild tricuspid regurgitation. Severe pulmonary hypertension. Right ventricular systolic pressure estimated to be elevated at 70 mmHg. Pulmonic Valve Pulmonic valve not well visualized. No pulmonic regurgitation. Pericardium No pericardial effusion. Great Vessels Normal size aortic root. Dilated inferior vena cava. CONCLUSIONS Small left ventricular cavity. Mild concentric left ventricular hypertrophy. Normal left ventricular ejection fraction visually estimated at > 65%. Abnormal relaxation filling pattern of the left ventricle for age (stage 1 diastolic dysfunction). Right ventricle not well visualized, grossly normal. Right atrium not well visualized, grossly normal. Mild left atrial dilatation. Mild mitral stenosis. Mild mitral regurgitation. Mild aortic stenosis. Mild tricuspid regurgitation. Severe pulmonary hypertension. Dilated inferior vena cava. Arnol Lam M.D. (Electronically Signed) Final Date: 24 September 2016 13:16 MEASUREMENTS (Male / Female) Normal Values 2D ECHO LV Diastolic Diameter PLAX 3.7 cm 4.2 - 5.9 / 3.9 - 5.3 cm LV Systolic Diameter PLAX 2.0 cm 2.1 - 4.0 cm LV Fractional Shortening PLAX 45.9 % 25 - 46 % LV Ejection Fraction 2D Teich 78.1 % IVS Diastolic Thickness 1.2 cm LVPW Diastolic Thickness 1.2 cm LV Relative Wall Thickness 0.6 RV Internal Dim ED PLAX 3.0 cm 1.9 - 3.8 cm LVOT Diameter 1.9 cm Aortic Root Diameter 3.2 cm LA Systolic Diameter LX 4.1 cm 3.0 - 4.0 / 2.7 - 3.8 cm LA Volume 48.0 cm 18 - 58 / 22 - 52 cm Ascending Aorta Diameter 2.9 cm DOPPLER AV Peak Velocity 227.0 cm/s AV Peak Gradient 20.6 mmHg AV Mean Velocity 153.0 cm/s AV Mean Gradient 11.0 mmHg AV Velocity Time Integral 46.1 cm LVOT Peak Velocity 110.0 cm/s LVOT Peak Gradient 4.8 mmHg LVOT Mean Velocity 79.0 cm/s LVOT Mean Gradient 3.0 mmHg LVOT Velocity Time Integral 25.3 cm LVOT Stroke Volume 71.7 cm AV Area Cont Eq vti 1.6 cm AV Area Cont Eq pk 1.4 cm MV Peak Velocity 182.0 cm/s MV Peak Gradient 13.2 mmHg MV Mean Velocity 96.2 cm/s MV Mean Gradient 4.0 mmHg Mitral E Point Velocity 131.0 cm/s Mitral A Point Velocity 157.0 cm/s Mitral E to A Ratio 0.8 MV PHT Velocity 145.0 cm/s MV Deceleration Lander 324.0 cm/s MV Pressure Half Time 134.3 ms MV Area PHT 1.6 cm MV Deceleration Time 399.0 ms TR Peak Velocity 402.0 cm/s TR Peak Gradient 64.6 mmHg Right Atrial Pressure 5.0 mmHg Pulmonary Artery Systolic Pressu 69.6 mmHg Right Ventricular Systolic Press 69.6 mmHg PV Peak Velocity 108.0 cm/s PV Peak Gradient 4.7 mmHg PV Mean Velocity 67.9 cm/s PV Mean Gradient 2.0 mmHg PV Velocity Time Integral 18.1 cm LV E' Lateral Velocity 7.9 cm/s Mitral E to LV E' Lateral Ratio 16.6 LV E' Septal Velocity 3.6 cm/s Mitral E to LV E' Septal Ratio 36.3
--- NOTE | 2016-09-24 14:01 | NUR ---
PT OFF UNIT FOR ESOPHAGRAM
--- NOTE | 2016-09-24 14:41 | RADIOLOGY REPORT ---
EXAMINATION: XR BARIUM SWALLOW/ESOPHAGRAM CLINICAL INFORMATION: Dysphagia COMPARISON: None. TECHNIQUE: Initially, exam was attempted in the semiupright oblique position, though this was unsuccessful, as the patient was unable to drink through a straw. Fluoroscopic assessment of the esophagus was then performed in the lateral, seated upright position utilizing thin barium contrast. Barium soaked bread was also administered, though the patient was unable to swallow this successfully and ultimately ended up spitting this out. Multiple spot images were obtained. FLUOROSCOPY TIME: 2:29 minutes FINDINGS: Upon swallowing liquid barium, moderate residual material was visualized in the piriform sinuses, along with a small amount of residual material in the vallecula. Delayed penetration was observed, with contrast extending nearly to the level of the vocal folds. No barry aspiration was seen. Dysmotility was observed in the mid to distal esophagus, with delay in passage of some contrast across the gastroesophageal junction. No gross evidence for hiatal hernia, though assessment for this is limited due to the patient's lateral positioning. IMPRESSION: 1. Moderate retention of liquid contrast in the piriform sinuses and vallecula after swallowing. Delayed penetration was observed with the thin barium consistency. If clinically warranted, further assessment of patient's swallow mechanism may be performed with a dedicated modified barium swallow exam. Patient was unable to swallow barium soaked bread. 2. Mid to distal esophageal dysmotility.
--- NOTE | 2016-09-24 14:47 | NUR ---
Bladder scan for 93 ml, denies discomfort no distention noted. will cont to monitor.
[2016-09-24 16:11] VITALS: BP 130/70
--- NOTE | 2016-09-24 20:02 | Cons- General Surgery ---
General Information and HPI Consulting Request Date of Consult: 09/24/16 Requested By: ORQUIDEA URIBE MD History of Present Illness: 76-year-old diabetic smoker on home oxygen, COPD history of pneumonias and lung cancer, and peripheral vascular disease status post BKA, and AAA, and status post cholecystectomy and a B2 gastrectomy, constipation, and chronic abdominal pain her medications include Percocet, who came to the ER September 22 complaining of one month of abdominal pain with associated diarrhea and nausea but no vomiting, or fevers or bleeding per rectum. She is now admitted for pulmonary embolus, and the consult was called for abdominal pain. She is not the best historian, describes the pain mostly in the left lower quadrant it's been noted on the chart that it's been other places, she says is not worse on movement not related to food no fevers or sweats it's severe at times I reviewed the [place] chart, including consults by gastroenterology and vascular surgery, she was recently in the ER about a month ago the complaining of chest pain, was not admitted. It appears she's had multiple visits related to COPD and vascular disease, the abdominal complaints did not start until 2013 where she would repeatedly come to the emergency room complaining of abdominal ache lower abdominal pain associated with diarrhea of varying durations 1 month, 3 months, 6 months. The PFSH and ROS were reviewed. Allergies/Medications Allergies: Coded Allergies: aspirin (Intermediate, UPSET STOMACH 09/23/16) atorvastatin (Intermediate, MUSCLE PAIN 09/22/16) oxycodone (Intermediate, DIZZY AND NAUSEA 09/22/16) codeine (Mild, FLUSHING 09/22/16) Home Med List: Albuterol Sulfate 1.25 MG/3 ML VIAL.NEB 1 Vial INH/LAYLA Q4-6 PRN SHORTNESS OF BREATH (Reported) USE WITH IPRATROPIUM Albuterol Sulfate (Ventolin Hfa) 90 MCG HFA.AER.AD 2 PUF INH Q4-6 PRN PRN SHORTNESS OF BREATH (Reported) Atenolol 50 MG TABLET 1 TAB PO DAILY BP (Reported) CHOLECALCIFEROL (VITAMIN D3) (Vitamin D-3) 2,000 UNIT CAPSULE 1 SGL PO DAILY SUPPLEMENT (Reported) Cyanocobalamin (Vitamin B-12) (B-12) 1,000 MCG TABLET 1 TAB PO DAILY SUPPLEMENT (Reported) Docusate Sodium (Colace) 100 MG CAPSULE 1 CAP PO BID CONSTIPATION (Reported) Duloxetine HCl 20 MG CAPSULE.DR 2 CAP PO DAILY DEPRESSION (Reported) 20-60MG TWO TIMES PER NIGHT Ferrous Sulfate 325 MG TAB 1 TAB PO DAILY SUPPLEMENT Fluticasone-Salmeterol (Advair 100-50 Diskus) 100 MCG-50 MCG/DOSE BLST.W.DEV 1 PUF INH BID COPD (Reported) FLUTICASONE/SALMETEROL (Advair 250-50 Diskus) 250 MCG-50 MCG/DOSE BLST.W.DEV 1 PUF PO BID COPD (Reported) Hydrocodone/Acetaminophen (Hydrocodon-Acetaminophen 5-325) 5 MG-325 MG TABLET 1-2 TAB PO Q4-6 PRN PRN PAIN (Reported) Ipratropium [place] 0.2 MG/ML (0.02 %) SOLUTION 1 Vial INH/LAYLA 4 TIMES/DAY PRN SHORTNESS OF BREATH (Reported) USE WITH ALBUTEROL Levetiracetam (Keppra) 250 MG TABLET 1 TAB PO BID SEIZURES (Reported) Levothyroxine Sodium 175 MCG TABLET 1 TAB PO DAILY HYPOTHYROID (Reported) Loperamide HCl (Loperamide) 2 MG CAPSULE 2 CAP PO Q8 PRN LOOSE STOOLS ( Reported) Loratadine (Claritin) 10 MG TABLET 1 TAB PO DAILY PRN ALLERGIES (Reported) Lorazepam (Ativan) 0.5 MG TAB 1 TAB PO BID PRN ANXIETY (Reported) Oxybutynin Chloride (Ditropan XL) 5 MG TAB.ER.24 1 TAB PO DAILY Incontinence (Reported) Pantoprazole Sodium 20 MG TABLET.DR 2 TAB PO BID GERD (Reported) Pravastatin Sodium (Pravachol) 80 MG TABLET 1 TAB PO DAILY HIGH CHOLESTEROL ( Reported) Sucralfate (Carafate) 1 GRAM TABLET 1 TAB PO 4 TIMES/DAY GERD (Reported) Vitamin E 400 IU TAB 1 TAB PO DAILY SUPPLEMENT (Reported) Current Medications: I reviewed Current Medications Sig/Vadim Start time Last Medication Dose Route Stop Time Status Admin Acetaminophen 650 MG Q6P PRN 09/220 AC PO Albuterol Sulfate 3 ML Q4P PRN 09/23 2215 AC 09/23 INH 2208 Aspirin Buffered 81 MG DAILY 09/23 1700 AC 09/24 PO 1210 Atenolol 50 MG DAILY 09/23 1000 AC 09/24 PO 1208 Atorvastatin Calcium 80 MG 1700 09/23 1700 AC 09/24 PO 1830 Budesonide/ 2 PUF BID 09/23 1000 AC 09/24 Formoterol Fumarate INH 0903 Duloxetine HCl 40 MG DAILY 09/24 1000 AC 09/24 PO 1208 Heparin Sodium/ 25,000 UNIT Q24H 09/24 0015 AC 09/24 Dextrose IV 0018 Dextrose/Water 500 ML Heparin Sodium/ 25,000 UNIT ONCE ONE 09/22 2000 DC 09/22 Dextrose IV 09/23 2059 2100 Dextrose/Water 500 ML Hyoscyamine 0.125 MG Q4 HRS NEEDED PRN 09/23 1900 AC 09/24 PO 1210 Ipratropium [place] 2.5 ML 4 TIMES/DAY PRN 09/22 2345 AC 09/23 INH 2208 Levetiracetam 250 MG BID 09/22 2356 AC 09/24 PO 1208 Levothyroxine Sodium 0.175 MG DAILY AC 09/23 0700 AC 09/24 PO 0527 Lorazepam 0.5 MG BID PRN 09/22 2345 AC PO 09/29 2344 Nicotine 14 MG DAILY 09/22 2315 AC 09/24 TOP 0903 Nystatin 5 ML 4 TIMES/DAY 09/24 1447 AC 09/24 PO 1831 Nystatin 1 KAMALJIT BID 09/22 2315 AC 09/24 TOP 0903 Omeprazole 20 MG DAILY AC 09/23 0700 AC 09/24 PO 0527 Potassium Chloride 40 MEQ ONCE ONE 09/23 211 DC 09/23 PO 09/23 2116 2125 Tramadol HCl 50 MG Q6P PRN 09/22 2200 AC 09/24 PO 1919 Past History Medical History Blood Transfusion Hx: No Neurological: dizziness, seizure EENT: NONE Cardiovascular: hypertension, hyperlipidemia, PVD, HYPONATREMIA Respiratory: COPD, O2 DEP @2.5 L RUL RESECTION Gastrointestinal: GERD, AAA Hepatic: NONE Renal: NONE Musculoskeletal: LEFT BKA Psychiatric: anxiety, depression Endocrine: diabetes, hypothyroidism Blood Disorders: DVT, PE Cancer(s): lung cancer RADIO PRODUCER/Reproductive: HYSTRECTOMY Surgical History Pertinent Surgical History: cholecystectomy, hysterectomy, BKA LEFT AAA REPAIR RUL RESECTION 2004 Family History Relations & Conditions If Any: MOTHER FH: diabetes mellitus FH: hypertension SISTER FH: diabetes mellitus FH: hypertension Psychosocial History Who Do You Live With? child (son - h/o alcoholism) Services at Home: Oxygen Smoking Status: Current Everyday Smoker Functional Ability ADLs Independent: dressing, eating, toileting, bathing. Ambulation: independent, walker IADLs Independent: finances, telephone, medication admin. Needs Assist: shopping, housework, food prep, transportation. Review of Systems Review of Systems: Limited based on patient's recollection and abdominal discomfort, some of this is gotten from the chart Constitutional: No fever, sweats or weight loss ENMT: No sore throat Cardiovascular: No chest pain on this admission, or leg swelling Respiratory: No new shortness of breath, cough, or sputum or dyspnea on exertion GI: No GERD or bleeding per rectum : No dysuria or hematuria Musculoskeletal: No new muscle weakness, bone or joint pain Skin / Breast: No jaundice, rashes or itching Psychiatric: No history of drug or alcohol abuse, there is a history of depression / anxiety Hematologic / lymphatic system: There is a history of DVT she's been on Coumadin in the past and now pulmonary embolus Exam & Diagnostic Data Vital Signs and I&O I reviewed Vital Signs Date Time Temp Pulse Resp B/P Pulse O2 O2 Flow FiO2 Ox Delivery Rate 09/24 1611 98.8 73 20 130/70 94 09/24 1039 91 Nasal 4.0L Cannula 09/24 0844 98.8 78 20 120/75 92 Nasal 4.0L Cannula 09/24 08 Nasal 4.0L Cannula 09/24 0000 Nasal 4.0L Cannula 09/23 2354 98.3 94 22 128/64 92 Nasal 3.0L Cannula 09/23 2327 Nasal 4.0L Cannula 09/23 2132 94 Nasal 4.0L Cannula I reviewed Intake & Output 09/24 1600 09/24 0800 09/24 0000 09/23 1600 09/23 0800 09/23 0000 Intake Total 548.8 238.8 629 514 260 Output Total 0 600 400 600 Balance 548.8 -361.2 229 514 -340 Intake, IV 188.8 188.8 189 154 160 Intake, Oral 360 50 440 360 100 Number 0 0 0 Bowel Movements Output, Urine 0 600 400 600 Patient 131 lb 131 lb 132 lb Weight Physical Exam: Constitutional: pleasant, no acute distress, conversant Eyes: sclera anicteric ENMT: ears and nose atraumatic, moist mucous membranes, good dentition, no lip lesions Neck: Supple, trachea is midline, no cervical or supraclavicular adenopathy and no palpable thyromegaly Cardiovascular: S1, S2, no murmurs, no peripheral edema Respiratory: clear to auscultation with normal respiratory effort and no intercostal retractions GI: abdomen soft, indicates left lower quadrant tenderness but on exam there is no definite tenderness or guarding, nondistended, no palpable hepatosplenomegaly Extremities / lymphatics: symmetrically warm, free range of motion no peripheral edema, no cervical, supraclavicular, axillary, or inguinal adenopathy Musculoskeletal: gait and station not evaluated, no digital cyanosis, good muscle strength and tone no atrophy, motor grossly 5 out of 5 throughout Skin: no jaundice, no rashes warm, nondiaphoretic, no areas of erythema or induration Psychiatric: mood and affect are appropriate and alert and oriented to person place and time Last 24 Hours of Labs: I reviewed Laboratory Tests 09/24 09/23 1023 2145 Coagulation APTT (25 - 37 SEC) 70 H 85 H Admission labs show BUN/creatinine normal at 9 over 0.5, sodium 135 potassium 3.6 chloride 94 bicarbonate 36 lactate 1.4 calcium 8.4 albumin 2.6, white blood cell count 7.8 hemoglobin 15 hematocrit 45 platelets 348% granulocytes 84.6%, I reviewed the CT scan on PACS myself from 09/14/2016 there are no obvious inflammatory changes in the left lower quadrant there is no free fluid not as bowel obstruction. Assessment/Plan Assessment/Plan Impression is patient with COPD and vascular disease with chronic abdominal pain , admitted for pulmonary embolus, there are no signs of intestinal obstruction bleeding or infection, could suspect mesenteric ischemia, but considering how long she's had the symptoms without "peritoneal" decompensation otherwise, I would continue workup, but there are no indications to explore her abdomen or do a resection. Problem List: 1. Diabetes mellitus 2. PVD (peripheral vascular disease) 3. Abdominal pain 4. History of pulmonary embolism 5. Chronic abdominal pain 6. Diarrhea 7. H/O [place] II operation Consult Acknowledgment - Thank you for your consult request.
[2016-09-25 00:40] VITALS: BP 140/80
[2016-09-25 02:22] LABS: PTT 109 SEC (25-37)
[2016-09-25 08:04] LABS: ABSOLUTE BASOPHIL COUNT 0 /CUMM (0.0-0.2); ABSOLUTE EOSINOPHIL COUNT 0 /CUMM (0.0-0.7); ABSOLUTE GRANULOCYTE CT 5.3 /CUMM (1.4-6.5); ABSOLUTE LYMPH COUNT 0.8 /CUMM (1.2-3.4); ABSOLUTE MONOCYTE COUNT 0.5 /CUMM (0.10-0.60); BASOPHIL % 0.4 % (0.0-2.0); EOSINOPHIL % 0.5 % (0-5); GRANULOCYTE % 79.1 % (42.2-75.2); HEMATOCRIT 41.3 % (37-47); MEAN CORPUSCULAR HGB 29.5 PG (27.0-31.0); MEAN CORPUSCULAR HGB CONC 33.4 G/DL (33.0-37.0); MEAN CORPUSCULAR VOLUME 88.2 FL (81.0-99.0); MEAN PLATELET VOLUME 9.1 FL (7.4-10.4); PLATELET COUNT 252 /CUMM (130-400); RBC DISTRIBUTION WIDTH 18.6 % (11.5-14.5); RED BLOOD CELL CT 4.68 /CUMM (4.20-5.40); WHITE BLOOD CELL COUNT 6.7 /CUMM (4.8-10.8)
--- NOTE | 2016-09-25 08:09 | PN- Housestaff ---
ADRIANNA CUMMINGS,[facility] 09/25/16 0808: Subjective Follow-up For: Acute PE Abdominal Pain Tele-Events Since Last Visit: Sinus rhythm 72-86 few PACs. Subjective: Patient was seen and examined this morning. She was in bed. Resting. Patient continues to report abdominal pain. Pain is rated at a 10 out of 10 in severity. Patient describes it as a dull pain in the lower epigastric area radiating to the anterior wall. Patient denies any chest pain, chest discomfort. Patient continues to be on supplemental oxygen via nasal cannula 4 L. Patient denies any distention and or guarding. Patient states she is able to pass gas although has not had a bowel movement since admission. Patient denies any fever, chills, nausea, vomiting Review of Systems Constitutional: Reports: see HPI. Objective Last 24 Hrs of Vital Signs/I&O Vital Signs Date Time Temp Pulse Resp B/P Pulse O2 O2 Flow FiO2 Ox Delivery Rate 09/25 1734 97 Nasal 4.0L Cannula 09/25 1650 99.1 68 16 117/59 99 Nasal 4.0L Cannula 09/25 0847 94 Nasal 4.0L Cannula 09/25 0844 98.1 74 20 149/76 97 Nasal 3.5L Cannula 09/25 0800 94 Nasal 4.0L Cannula 09/25 0040 98.6 78 20 140/80 93 Nasal 4.0L Cannula 09/25 0000 Nasal 4.0L Cannula Intake & Output 09/25 1600 09/25 0800 09/25 0000 Intake Total 366 219.6 500 Output Total 250 500 450 Balance 116 -280.4 50 Intake, IV 116 169.6 250 Intake, Oral 250 50 250 Number 0 0 Bowel Movements Output, Urine 250 500 450 Physical Exam General Appearance: Alert, Oriented X3, Cooperative Cardiovascular: Regular Rate, Normal S1, Normal S2 Lungs: Right Expiratory Wheezing Abdomen: Normal Bowel Sounds, Soft, No Tenderness, No Guarding, No Rigidity Neurological: Normal Speech Extremities: Edema 1+ Current Medications: Current Medications Sig/Vadim Start time Last Medication Dose Route Stop Time Status Admin Acetaminophen 650 MG Q6P PRN 09/22 2200 AC 09/25 PO 1408 Albuterol Sulfate 3 ML Q4P PRN 09/23 2215 AC 09/23 INH 2208 Aspirin Buffered 81 MG DAILY 09/23 1700 AC 09/25 PO 0948 Atenolol 50 MG DAILY 09/23 1000 AC 09/25 PO 0947 Atorvastatin Calcium 80 MG 1700 09/23 1700 AC 09/25 PO 1739 Budesonide/ 2 PUF BID 09/23 1000 AC 09/25 Formoterol Fumarate INH 0947 Calcium/Vitamin D 500 MG DAILY 09/25 1505 AC 09/25 PO 1739 Cyanocobalamin 1,000 MCG DAILY 09/25 1504 AC 09/25 PO 1739 Duloxetine HCl 40 MG DAILY 09/24 1000 AC 09/25 PO 0948 Folic Acid 1 MG DAILY 09/25 1504 AC 09/25 PO 1739 Heparin Sodium/ 25,000 UNIT Q24H 09/24 0015 AC 09/25 Dextrose IV 0003 Dextrose/Water 500 ML Hyoscyamine 0.125 MG Q4 HRS NEEDED PRN 09/23 1900 AC 09/25 PO 0947 Ipratropium Thurmond 2.5 ML 4 TIMES/DAY PRN 09/22 2345 AC 09/23 INH 2208 Levetiracetam 250 MG BID 09/22 2356 AC 09/25 PO 0948 Levothyroxine Sodium 0.175 MG DAILY AC 09/23 0700 AC 09/25 PO 0641 Lorazepam 0.5 MG BID PRN 09/22 2345 AC PO 09/29 2344 Nicotine 14 MG DAILY 09/22 2315 AC 09/25 TOP 0948 Nystatin 5 ML 4 TIMES/DAY 09/24 1447 AC 09/25 PO 1739 Nystatin 1 KAMALJIT BID 09/22 2315 AC 09/25 TOP 0948 Omeprazole 20 MG DAILY AC 09/23 0700 AC 09/25 PO 0640 Tramadol HCl 50 MG Q6P PRN 09/22 2200 AC 09/25 PO 1551 Last 24 Hrs of Lab/Hung Results Last 24 Hrs of Labs/Mics: Laboratory Tests 09/25/16 0925: APTT 61 H 09/25/16 0650: Anion Gap 5, Estimated GFR > 60, BUN/Creatinine Ratio 20.0, CBC w Diff NO MAN DIFF REQ, RBC 4.68, MCV 88.2, MCH 29.5, RDW 18.6 H, MPV 9.1, Gran % 79.1 H, Lymphocytes % 12.0 L, Monocytes % 8.0, Eosinophils % 0.5, Basophils % 0.4, Absolute Granulocytes 5.3, Absolute Lymphocytes 0.8 L, Absolute Monocytes 0.5, Absolute Eosinophils 0, Absolute Basophils 0, PUBS MCHC 33.4 09/25/16 0125: APTT 109 *H Orders Radiology Findings: PATIENT: JESSE SAAVEDRA PRESENT AGE: 76 PATIENT ACCOUNT NO: [id number] : 41 LOCATION: [facility] ORDERING PHYSICIAN: JATINDER ROADS MD SERVICE DATE: 09/24/16- EXAM TYPE: RAD - XRY-BARIUM SWALLOW/ESOPHAGRAM EXAMINATION: XR BARIUM SWALLOW/ESOPHAGRAM CLINICAL INFORMATION: Dysphagia COMPARISON: None. TECHNIQUE: Initially, exam was attempted in the semiupright oblique position, though this was unsuccessful, as the patient was unable to drink through a straw. Fluoroscopic assessment of the esophagus was then performed in the lateral, seated upright position utilizing thin barium contrast. Barium soaked bread was also administered, though the patient was unable to swallow this successfully and ultimately ended up spitting this out. Multiple spot images were obtained. FLUOROSCOPY TIME: 2:29 minutes FINDINGS: Upon swallowing liquid barium, moderate residual material was visualized in the piriform sinuses, along with a small amount of residual material in the vallecula. Delayed penetration was observed, with contrast extending nearly to the level of the vocal folds. No barry aspiration was seen. Dysmotility was observed in the mid to distal esophagus, with delay in passage of some contrast across the gastroesophageal junction. No gross evidence for hiatal hernia, though assessment for this is limited due to the patient's lateral positioning. IMPRESSION: 1. Moderate retention of liquid contrast in the piriform sinuses and vallecula after swallowing. Delayed penetration was observed with the thin barium consistency. If clinically warranted, further assessment of patient's swallow mechanism may be performed with a dedicated modified barium swallow exam. Patient was unable to swallow barium soaked bread. 2. Mid to distal esophageal dysmotility. DICTATED BY: SUSANA ARTEAGA MD DATE/TIME DICTATED:09/24/161424 EEG TECH:GUERRERO DATE/TIME TRANSCRIBED:09/24/161424 CONFIDENTIAL, DO NOT COPY WITHOUT APPROPRIATE AUTHORIZATION. <Electronically signed in Other Vendor System> SIGNED BY: SUSANA ARTEAGA MD 09/24/16 1447 Assessment/Plan Assessment: This 76-year-old lady a past medical history of hypertension hyperlipidemia, COPD on 2.5 L via next nasal cannula, diabetes mellitus non-small cell cancer of the right lung status post right lobectomy, hypothyroidism, PVD status post left total knee amputation current smoker mostly wheelchair-bound presents to the emergency department complaining of worsening abdominal pain and chronic diarrhea. #Acute left main pulmonary embolism: Continue on telemetry Patient has already been started on IV heparin. Will continue with anticoagulation, would likely be discharged home on newer agent of anticoagulation Venous Doppler done this morning shows no evidence of a deep vein thrombosis. Keep the leg elevated. Initial troponin at emergency department was noncontributory Continue oxygen to keep saturations above 92% BEP in a.m. patient did have a sodium level of 130. We will repeat BEP in a.m. patient may have to be restricted by free water. Aspirin 81 mg. #Constant lower abdominal pain with watery diarrhea(microscopic gastroenteritis/ ischemia bowel): We'll send stool cultures. Follow-up C. difficile toxin, Pending Stool cultures pending, vision has not had a bowel movement since admission. Will send lactic if the levels, the levels this morning repeated 1.4 and 1.2 respectively. Likely rule out ischemic bowel. If Patient continues to experience worsening abdominal pain with a repeat lactic acid. Gastroenterology Consultation has been obtained for any additional recommendations. Patient is scheduled to go for x-ray modified barium swallow in a.m. to further evaluate dysphagia. Also obtained a surgical consult to rule out acute abdomen versus emergent surgical intervention, recommendations pending #History of abdominal aortic aneurysm with repair (approximately 8 years ago) and evidence of intraluminal thrombus(most likely chronic) on CT scan, and # Occlusion of left common iliac artery Patient is currently on IV heparin. Vascular consultation was obtained this a.m. Called vascular surgeon today, recommended to continue with IV heparin for now home. Regarding the occluded femoral graft if patient has recurrent leg right lower extremity pain ,address that in the morning and depending upon the consider vascular consult. Venous thrombosis showed no evidence of DVT. Right calf veins were not well visualized Patient will be continued on IV heparin SQ As Per Vascular:Low Likelihood of mesenteric ischemia as SMA is widely patent. Surgery consult has been requested to rule out any emergency pathology and acute abdomen. Patient may need an MRA as well, likely to be done on Tuesday09/29/2015 as radiology did not have services available today. #Dysphagia She did report a recent faculty swallowing solid food. It does not report recent increase in symptoms of GERD. X-ray barium swallow/esophagram, pending. X-ray modified barium swallow ordered for Tuesday. #History of oxygen dependent COPD:' Continue oxygen to keep saturations above 92% Continue Advair TRC nebs. #History of hypothyroidism: Continue home dose of levothyroxine. #History of hypertension and hyperlipidemia: Continue home dose of atenolol 50 mg and atorvastatin 80 mg #History of anxiety and depression: Continue home dose of Ativan and duloxetine 40 mg. #History of seizures Continue home dose of Keppra 250 mg twice a day. #History of type 2 diabetes: Hemoglobin A1c 5.8, patient is currently not on insulin. Hold any NovoLog sliding scale/insulin for now Accu-Cheks: ANIKA this AM: Patient was supplemented on vitamin B-12, folic acid,calcium and vitamin D. #DVT Prophylaxis With heparin #Code Full code Problem List: 1. Chronic respiratory failure 2. PVD (peripheral vascular disease) 3. Hypothyroidism 4. Chronic abdominal pain 5. Dysphagia 6. Pulmonary embolism Pain Ratin Pain Location: Anterior Abdominal Wall Pain Goal: Remain pain free Pain Plan: Tramadol 50 MG Tomorrow's Labs & Rationales: BEP: monitor Sodium MARIA ELENA MARTIN MD 09/25/16 1230: Attending MD Review Statement Attending Statement Attending MD Statement: examined this patient, discuss w/resident/PA/MANAGER NURSING, agreed w/resident/PA/MANAGER NURSING, reviewed EMR data (avail), discussed with nursing Attending Assessment/Plan: This is a fairly complicated patient with multiple medical issues including vascular disease she has COPD she is oxygen dependent and chronic respiratory failure, hypertension and history of non-small cell lung CA in the past. She is here with acute pulmonary embolism on IV heparin with abdominal pain and diarrhea. As per vascular surgery her SMA is patent although her CT showed an occluded iliac artery and occluded graft. We are awaiting a general surgery consult and will keep her on IV heparin for now. She also has evidence of dysphagia and aspiration and the modified barium swallow and is on a nectar thickened diet with soft liquids. GI is recommending that pending the MRA of the abdomen and a repeat modified barium swallow the advance her diet treat her with antispasmodics and follow closely.
[2016-09-25 08:44] VITALS: BP 149/76
--- NOTE | 2016-09-25 10:13 | PN- Gastroenterology ---
Assessment/Plan Assessment/Recommendations: (*Extensive records reviewed x 45 minutes!). 76-year-old female, COPD on home O2 2.5L (currently on 4L as inpt), continuous > 100 pk year cigarette smoker, despite RUL resection for lung Ca, vasculopath, PVD, left BKA, hypothyroid, Billroth II gastrectomy for PUD/HTN/HLD/diabetic/ chronic hypoNa+/COPD/history of renal stones, chronic abdominal pain with extensive workup, anxiety, depression, previous extensive stool workup negative, 10/15/2014: normal IgA 344, tTG Ab-negative/DGP Ab- negative, probable adhesions , multiple abdominal surgeries including open infrarenal AAA repair, cholecystectomy, and hysterectomy for benign reasons. Appendix intact. History of DVT and recurrent PE, currently on IV heparin. History of benign colon TA removed via colonoscopy to the cecum 09/10/2008, at which point multiple random biopsies were negative for microscopic colitis. 10/21/2014: stool Ag H. pylori- negative. 01/20/2015: *Combined upper endoscopy to the jejunum with biopsies, plus followup colonoscopy to the cecum with biopsies- post Billroth II gastrectomy with patent afferent and different loops. Small amount of food cleared from gastric remnant. Inflamed gastric remnant with probable bile gastritis- biopsies with benign mild chronic gastritis without IM, HP negative. No endoscopic evidence of aorto-enteric fistula; moderate left-sided diverticula , mild internal hemorrhoids without active bleeding, 3 x 5 mm sessile polyps removed (fair prep)- 2 of them benign TA, the other unremarkable tissue. *In view of the fair prep, a follow-up colonoscopy was advised 3 years after, namely 12/2017. The patient was readmitted 09/14/2016 with "abdominal pain" which is chronic in nature, but was actually kept because of a recurrent PE. *Please refer to Dr. Harpreet Mcfadden's covering GI consult of 09/23/2016. She claimed to have intermittent dysphagia, especially solid food. There was no odynophagia or regurgitation. Mild symptoms of GERD. 3 formed bowel movements daily without any gross diarrhea. No overt GI bleeding or melena. It is difficult to tell whether her subjective pain is related to eating. 09/22/2016: CT ABDOMEN AND PELVIS WITH IV CONTRAST- 1. *Embolism in the left main pulmonary artery extending into left upper lobe and left lower lobe. 2. Abdominal aortic aneurysm with intraluminal thrombus. 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 Occluded bi-fem graft. 3. Status post cholecystectomy with chronic dilatation of the CBD. 4. No acute change of the abdomen or pelvis. *No acute abnormality of bowel. 09/22/2016: XR PORTABLE CHEST- 1. Cardiomegaly without acute pulmonary edema. 2. Peripheral, somewhat hazy subpleural opacity in the lateral aspect of the lingula likely represents atelectasis and/or subpleural scarring; this was present on 11/05/2015. 09/23/2016: US TRIPLEX LOWER EXTREMITY, RIGHT- Normal triplex scan without evidence of deep venous thrombosis involving the right lower extremity. Of note, the right calf veins are not visualized. 09/24/2016: XR BARIUM SWALLOW/ESOPHAGRAM- 1. Moderate retention of liquid contrast in the piriform sinuses and vallecula after swallowing. Delayed penetration was observed with the thin barium consistency. If clinically warranted, further assessment of patient's swallow mechanism may be performed with a dedicated modified barium swallow exam. Patient was unable to swallow barium soaked bread, which she spit up (*? if intentional, as she subsequently ate 2 pieces of Dominican toast!). No barry aspiration seen. 2. Mid to distal esophageal dysmotility. *The patient looks very comfortable. She has a flat affect. She is a poor historian and seems depressed. There are underlying psychiatric issues. She has had an extensive GI workup as above. There has been no documented diarrhea. She has a benign abdominal exam despite her mild subjective symptoms, most of which appear functional in nature. Probable chronic mesenteric ischemia superimposed on perhaps painful diverticular disease. She is in normal sinus rhythm and clinically does not appear to have SMA embolus. Clearly, her major problems are vascular in nature. Despite this, she continues to smoke. She has an abdominal aortic aneurysm containing a thrombus, that was evaluated by vascular surgery. Her SMA is reportedly patent on CT. The barium swallow results are noted. I wonder if she intentionally spit out the barium soaked bread. A relatively recent endoscopic workup showed a patent esophageal lumen. No esophageal biopsies were done then to rule out EOE, as the patient had no dysphagia at that time. Her "pain" is chronic x years. She looks relatively comfortable. History of occluded left iliac limb of aortoiliac stent graft. History of occluded fem-femoral bypass graft. *I do not think she has any acute general surgical problem, however there is diffuse vascular disease. *Stool workup has been cancelled, as there has been no diarrhea. SUGGEST: *Antispasmodics (i.e.- Levsin). *Fibercon 2 tabs daily. *MRA of the abdomen to assess patency of vessels (the patient is on IV heparin for PE anyway). * Modified barium swallow with speech pathology. *Once MRA is done, continue nectar thick liquids and chopped diet with aspiration precautions. D/C cigarettes advised. *Consider outpatient H2BT to rule out lactose intolerance, fructose intolerance, and/or SIBO. Empiric PPI (Oneprazole 20 mg daily). *Advise putting patient on iron, B12, folate, calcium, and vitamin D post Billroth II. *Consider solids and liquids to avoid dumping syndrome postop, although no diarrhea has been documented as an inpatient (therefore, no stool workup sent). Follow-up with vascular surgery. Treatment of hypoNa+, PE & COPD, etc., as per medical team. *Radiology was contacted 09/25/2016. *MRA is not available at [facility] until 09/29/2016. *MBS speech pathology is not available until 09/28/2016. Therefore, would feed patient diet as tolerated as above, with aspiration precautions (*the patient tolerated 2 pieces of Dominican toast on 09/25). By dates, the patient is due for a follow-up surveillance colonoscopy with an extended clean out in 12/2017. *The patient's abdominal symptoms are chronic. Further inpatient GI follow up as needed. Please call if any questions arise after obtaining the above recommended studies. The above was discussed with the medical house staff. Problem List: 1. Chronic abdominal pain 2. Dysphagia 3. Diverticula of colon 4. Gastritis 5. H/O Billroth II operation 6. History of adenomatous polyp of colon Subjective Subjective: The patient was seen and examined. Extensive records reviewed. The patient has chronic abdominal symptoms for years. She has had an extensive workup as documented in the assessment and plan. She has a benign abdominal exam. She is hemodynamically stable and afebrile. Please refer to labs and imaging studies. She has minimal reflux symptoms. There is no nausea or vomiting. There was questionable diarrhea, but none has been documented as an inpatient since admission on 09/22/2016. There is no overt GI bleeding or melena. There is questionable dysphagia, but she ate 2 pieces of Dominican toast this morning. The patient is a poor historian. She is depressed. She remains as an inpatient for recurrent PE and is on IV heparin. Review of Systems: Full 14 point ROS otherwise noncontributory, and as above. Review of Systems Constitutional: Reports: weakness. Denies: chills, diaphoresis, fever, malaise. EENTM: Repots: no symptoms. Cardiovascular: Reports: palpitations, peripheral edema- improved RLE; post L BKA. Denies: chest pain, edema, orthopena, syncope. Respiratory: Reports: short of breath (COPD/PE). Denies: cough, hemoptysis, orthopnea, sputum production, stridor. GI: Reports: diarrhea- *no objective diarrhea documented as inpatient. Genitourinary: Denies: no symptoms. Musculoskeletal: Denies: no symptoms. Skin: Denies: no symptoms. Neurological/Psychological: Reports: anxiety/depression. Objective Vital Signs and I&Os Vital Signs Date Time Temp Pulse Resp B/P Pulse O2 O2 Flow FiO2 Ox Delivery Rate 09/25 0847 94 Nasal 4.0L Cannula 09/25 0844 98.1 74 20 149/76 97 Nasal 3.5L Cannula 09/25 0800 94 Nasal 4.0L Cannula 09/25 0040 98.6 78 20 140/80 93 Nasal 4.0L Cannula 09/25 0000 Nasal 4.0L Cannula 09/24 1900 94 Nasal 4.0L Cannula 09/24 1611 98.8 73 20 130/70 94 09/24 1600 94 Nasal 4.0L Cannula Intake & Output 09/25 1600 09/25 0400 09/24 1600 09/24 0400 09/23 1600 09/23 0400 Intake Total 219.6 500 787.6 629 774 Output Total 500 450 600 400 600 Balance -280.4 50 187.6 229 174 Intake, IV 169.6 250 377.6 189 314 Intake, Oral 50 250 410 440 460 Number 0 0 0 0 Bowel Movements Output, Urine 500 450 600 400 600 Patient 131 lb 131 lb 132 lb Weight Physical Exam: WDWN, chronically ill appearing, slightly obese female, in NAD on O2 4L nc. Flat affect. Depressed. Nontoxic appearing. Sclera anicteric. Conjunctiva pink. Oropharynx clear with positive tobacco stains. Poor dentition. No definite oral thrush. No adenopathy, thyromegaly, or JVD. Lungs: clear with mild decreased breath sounds at the bases bilaterally, as well as the RUL. Prolonged expiratory phase without any wheezing, rales or rhonchi. Heart Exam: Regular rate and rhythm, S1 and S2, with soft systolic murmur, occasional ectopic beat. Abdominal Exam: normal bowel sounds, obese belly, soft, nontender, without guarding or rebound. Questionable rectus diastasis without any definite hernia; otherwise, no mass, no organomegaly, no fluid shift, no pulsatile mass, no epigastric bruit. Digital rectal exam was deferred by the patient. Extremities : Post left BKA. Right lower extremity distal pulses < 1+. No cyanosis, clubbing, or edema. Alert and oriented x3. A detailed exam for peripheral neuropathy was deferred. Current Medications: Current Medications Sig/Vadim Start time Last Medication Dose Route Stop Time Status Admin Acetaminophen 650 MG Q6P PRN 09/22 2200 AC PO Albuterol Sulfate 3 ML Q4P PRN 09/23 2215 AC 09/23 INH 2208 Aspirin Buffered 81 MG DAILY 09/23 1700 AC 09/25 PO 0948 Atenolol 50 MG DAILY 09/23 1000 AC 09/25 PO 0947 Atorvastatin Calcium 80 MG 1700 09/23 1700 AC 09/24 PO 1830 Budesonide/ 2 PUF BID 09/23 1000 AC 09/25 Formoterol Fumarate INH 0947 Duloxetine HCl 40 MG DAILY 09/24 1000 AC 09/25 PO 0948 Heparin Sodium/ 25,000 UNIT Q24H 09/24 0015 AC 09/25 Dextrose IV 0003 Dextrose/Water 500 ML Hyoscyamine 0.125 MG Q4 HRS NEEDED PRN 09/23 1900 AC 09/25 PO 0947 Ipratropium [place] 2.5 ML 4 TIMES/DAY PRN 09/22 2345 AC 09/23 INH 2208 Levetiracetam 250 MG BID 09/22 2356 AC 09/25 PO 0948 Levothyroxine Sodium 0.175 MG DAILY AC 09/23 0700 AC 09/25 PO 0641 Lorazepam 0.5 MG BID PRN 09/22 2345 AC PO 09/29 2344 Nicotine 14 MG DAILY 09/22 2315 AC 09/25 TOP 0948 Nystatin 5 ML 4 TIMES/DAY 09/24 1447 AC 09/25 PO 0948 Nystatin 1 KAMALJIT BID 09/22 2315 AC 09/25 TOP 0948 Omeprazole 20 MG DAILY AC 09/23 0700 AC 09/25 PO 0640 Tramadol HCl 50 MG Q6P PRN 09/22 2200 AC 09/25 PO 0947 Results Pertinent Lab Results: Laboratory Tests 09/25 09/25 09/25 09/24 0925 0650 0125 1023 Chemistry Sodium (137 - 145 mmol/L) 130 L Potassium (3.5 - 5.1 mmol/L) 4.5 Chloride (98 - 107 mmol/L) 94 L Carbon Dioxide (22 - 30 mmol/L) 31 H Anion Gap (5 - 16) 5 BUN (7 - 17 mg/dL) 8 Creatinine (0.5 - 1.0 mg/dL) 0.4 L Estimated GFR (>60 ml/min) > 60 BUN/Creatinine Ratio (7 - 25 %) 20.0 Coagulation APTT (25 - 37 SEC) 61 H 109 *H 70 H Hematology CBC w Diff NO MAN DIFF REQ WBC (4.8 - 10.8 /CUMM) 6.7 RBC (4.20 - 5.40 /CUMM) 4.68 Hgb (12.0 - 16.0 G/DL) 13.8 Hct (37 - 47 %) 41.3 MCV (81.0 - 99.0 FL) 88.2 MCH (27.0 - 31.0 PG) 29.5 RDW (11.5 - 14.5 %) 18.6 H Plt Count (130 - 400 /CUMM) 252 MPV (7.4 - 10.4 FL) 9.1 Gran % (42.2 - 75.2 %) 79.1 H Lymphocytes % (20.5 - 51.1 %) 12.0 L Monocytes % (1.7 - 9.3 %) 8.0 Eosinophils % (0 - 5 %) 0.5 Basophils % (0.0 - 2.0 %) 0.4 Absolute Granulocytes (1.4 - 6.5 /CUMM) 5.3 Absolute Lymphocytes (1.2 - 3.4 /CUMM) 0.8 L Absolute Monocytes (0.10 - 0.60 /CUMM) 0.5 Absolute Eosinophils (0.0 - 0.7 /CUMM) 0 Absolute Basophils (0.0 - 0.2 /CUMM) 0 PUBS MCHC (33.0 - 37.0 G/DL) 33.4 09/23 09/23 09/23 2145 1853 1200 Coagulation APTT (25 - 37 SEC) 85 H 37 Other Body Source Stool Fat, Qual Cancelled 09/23 09/23 09/22 0300 0030 1922 Chemistry Sodium (137 - 145 mmol/L) 136 L Potassium (3.5 - 5.1 mmol/L) 3.5 Chloride (98 - 107 mmol/L) 101 Carbon Dioxide (22 - 30 mmol/L) 30 Anion Gap (5 - 16) 4 L BUN (7 - 17 mg/dL) 6 L Creatinine (0.5 - 1.0 mg/dL) 0.5 Estimated GFR (>60 ml/min) > 60 BUN/Creatinine Ratio (7 - 25 %) 12.0 Lactic Acid (0.7 - 2.1 mmol/L) 1.2 Cancelled Coagulation APTT (25 - 37 SEC) 96 H Hematology CBC w Diff NO MAN DIFF REQ WBC (4.8 - 10.8 /CUMM) 6.8 RBC (4.20 - 5.40 /CUMM) 4.24 Hgb (12.0 - 16.0 G/DL) 12.4 Hct (37 - 47 %) 37.3 MCV (81.0 - 99.0 FL) 88.0 MCH (27.0 - 31.0 PG) 29.2 RDW (11.5 - 14.5 %) 18.5 H Plt Count (130 - 400 /CUMM) 286 MPV (7.4 - 10.4 FL) 8.3 Gran % (42.2 - 75.2 %) 72.1 Lymphocytes % (20.5 - 51.1 %) 18.0 L Monocytes % (1.7 - 9.3 %) 7.1 Eosinophils % (0 - 5 %) 2.6 Basophils % (0.0 - 2.0 %) 0.2 Absolute Granulocytes (1.4 - 6.5 /CUMM) 4.9 Absolute Lymphocytes (1.2 - 3.4 /CUMM) 1.2 Absolute Monocytes (0.10 - 0.60 /CUMM) 0.5 Absolute Eosinophils (0.0 - 0.7 /CUMM) 0.2 Absolute Basophils (0.0 - 0.2 /CUMM) 0 PUBS MCHC (33.0 - 37.0 G/DL) 33.2 09/22 09/22 1758 1641 Chemistry Sodium (137 - 145 mmol/L) 135 L Potassium (3.5 - 5.1 mmol/L) 3.6 Chloride (98 - 107 mmol/L) 94 L Carbon Dioxide (22 - 30 mmol/L) 36 H Anion Gap (5 - 16) 5 BUN (7 - 17 mg/dL) 9 Creatinine (0.5 - 1.0 mg/dL) 0.5 Estimated GFR (>60 ml/min) > 60 BUN/Creatinine Ratio (7 - 25 %) 18.0 Glucose (65 - 99 mg/dL) 96 Lactic Acid (0.7 - 2.1 mmol/L) 1.4 Calcium (8.4 - 10.2 mg/dL) 8.4 Total Bilirubin (0.2 - 1.3 mg/dL) 0.6 AST (14 - 36 U/L) 37 H ALT (9 - 52 U/L) 27 Alkaline Phosphatase (<127 U/L) 114 Troponin I (< 0.11 ng/ml) 0.02 Total Protein (6.3 - 8.2 g/dL) 5.7 L Albumin (3.5 - 5.0 g/dL) 2.6 L Globulin (1.9 - 4.2 gm/dL) 3.1 Albumin/Globulin Ratio (1.1 - 2.2 %) 0.8 L Coagulation PT (9.4 - 12.5 SEC) 12.9 H INR (0.90 - 1.19) 1.23 H APTT (25 - 37 SEC) 33 Hematology CBC w Diff NO MAN DIFF REQ WBC (4.8 - 10.8 /CUMM) 7.8 RBC (4.20 - 5.40 /CUMM) 5.15 Hgb (12.0 - 16.0 G/DL) 14.9 Hct (37 - 47 %) 45.4 MCV (81.0 - 99.0 FL) 88.2 MCH (27.0 - 31.0 PG) 29.0 RDW (11.5 - 14.5 %) 18.2 H Plt Count (130 - 400 /CUMM) 348 MPV (7.4 - 10.4 FL) 7.8 Gran % (42.2 - 75.2 %) 84.6 H Lymphocytes % (20.5 - 51.1 %) 9.5 L Monocytes % (1.7 - 9.3 %) 4.5 Eosinophils % (0 - 5 %) 1.0 Basophils % (0.0 - 2.0 %) 0.4 Absolute Granulocytes (1.4 - 6.5 /CUMM) 6.6 H Absolute Lymphocytes (1.2 - 3.4 /CUMM) 0.7 L Absolute Monocytes (0.10 - 0.60 /CUMM) 0.4 Absolute Eosinophils (0.0 - 0.7 /CUMM) 0.1 Absolute Basophils (0.0 - 0.2 /CUMM) 0 PUBS MCHC (33.0 - 37.0 G/DL) 32.8 L Urines Urine Color (YEL,AMB,STR) YEL Urine Clarity (CLEAR) CLEAR Urine pH (5.0 - 8.0) 6.5 Ur Specific Marine (1.001 - 1.035) 1.010 Urine Protein (NEG,<30 MG/DL) NEG Urine Ketones (NEG) NEG Urine Nitrite (NEG) NEG Urine Bilirubin (NEG) NEG Urine Urobilinogen (0.1 - 1.0 EU/dl) 0.2 Ur Leukocyte Esterase (NEG) SMALL H Ur Microscopic SEDIMENT EXAMINED Urine RBC (0 - 5 /HPF) RARE Urine WBC (0 - 2 /HPF) 1-3 H Ur Epithelial Cells (NONE,FEW) MANY H Urine Hemoglobin (NEG) TRACE-INTACT Urine Glucose (N MG/DL) NEG Imaging/Other Studies: 09/22/2016: EKG- ST @ 105, total in LAD, supraventricular complexes, APC, occasional unifocal PVCs, diffuse ST abnormalities. 09/22/2016: CT ABDOMEN AND PELVIS WITH IV CONTRAST- 1. *Embolism in the left main pulmonary artery extending into left upper lobe and left lower lobe. 2. Abdominal aortic aneurysm with intraluminal thrombus. 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 Occluded bi-fem graft. 3. Status post cholecystectomy with chronic dilatation of the CBD. 4. No acute change of the abdomen or pelvis. *No acute abnormality of bowel. 09/22/2016: XR PORTABLE CHEST- 1. Cardiomegaly without acute pulmonary edema. 2. Peripheral, somewhat hazy subpleural opacity in the lateral aspect of the lingula likely represents atelectasis and/or subpleural scarring; this was present on 11/05/2015. 09/23/2016: US TRIPLEX LOWER EXTREMITY, RIGHT- Normal triplex scan without evidence of deep venous thrombosis involving the right lower extremity. Of note, the right calf veins are not visualized. 09/24/2016: XR BARIUM SWALLOW/ESOPHAGRAM- 1. Moderate retention of liquid contrast in the piriform sinuses and vallecula after swallowing. Delayed penetration was observed with the thin barium consistency. If clinically warranted, further assessment of patient's swallow mechanism may be performed with a dedicated modified barium swallow exam. Patient was unable to swallow barium soaked bread, which she spit up (? if intentional). No barry aspiration seen. 2. Mid to distal esophageal dysmotility.
[2016-09-25 10:36] LABS: PTT 61 SEC (25-37)
--- NOTE | 2016-09-25 11:41 | NUR ---
@1000-PT DROWSY/AROUS. ORIENTED X 3. C/O HEADACHE-MEDICATED WITH ULTRAM PRN DOSE. CONT ON 4LNC. 02SAT 94%. DIM BS. PROD COUGH. CONT ON HEP GTT FOR +PE INFUSING AT 18UNIT/KG/HR. PTT THERAPUETIC AT 0930 DRAW-61. NEXT DUE AT 2130. NSR WITH PACS. HR 80S-90S. BP STABLE. NASIMA PO DIET, THICKENED LIQ-NECTAR WITH MECH SOFT CONSISTENCY. OOB ASSIST X 1. L BKA. SCRATCHES TO BACK NOTED. NYSTATIN TO ABD FOLDS. CONT TO MONITOR. CALL [facility].
[2016-09-25 16:50] VITALS: BP 117/59
[2016-09-25 23:35] LABS: PTT 52 SEC (25-37)
[2016-09-26 00:29] VITALS: BP 120/60
[2016-09-26 08:39] LABS: PTT 73 SEC (25-37)
[2016-09-26 08:44] VITALS: BP 122/68
--- NOTE | 2016-09-26 09:42 | PN- Att Addend ---
Attending Addendum Attending Brief Note Patient continues to control complain of abdominal pain. She says that at home she has profuse diarrhea but here she hasn't had a bowel movement at all. On exam she is normotensive, on her usual 2-3 L of oxygen, afebrile and breathing at 16-18. She is awake alert. Lungs have decreased breath sounds at the bases, heart is S1-S2 regular, abdomen is soft and I couldn't appreciate any tenderness. She is a 76-year-old with multiple medical problems including non-small cell lung CA in the past, chronic respiratory failure with COPD on 2.5 L of oxygen, peripheral vascular disease with mesenteric ischemia. She is here with an acute pulmonary embolism and we have her on IV heparin right now. As per vascular surgery her SMA is patent but she does have evidence of an occluded iliac artery and occluded graft. We are pending a general surgical consult and we need to make a decision regarding chronic anticoagulation versus further investigation of the abdominal pain. She did have evidence of aspiration on modified barium swallow and she is on a modified diet. Will have PT see her and ambulate her.
--- NOTE | 2016-09-26 13:34 | PN- General Surgery ---
Subjective Subjective: Follow-up of abdominal pain, she denies any abdominal pain right now she's tolerating chocolate pudding, reiterates that food does not affect her abdominal pain, no nausea. Objective Vital Signs and I&Os I reviewed Vital Signs Date Time Temp Pulse Resp B/P Pulse O2 O2 Flow FiO2 Ox Delivery Rate 09/26 0848 95 Nasal 2.5L Cannula 09/26 0844 97.3 70 20 122/68 96 Nasal Cannula 09/26 0800 Nasal 3.0L Cannula 09/26 0029 97.6 64 18 120/60 96 Nasal Cannula 09/26 0000 95 Nasal 3.0L Cannula 09/25 1734 97 Nasal 4.0L Cannula 09/25 1650 99.1 68 16 117/59 99 Nasal 4.0L Cannula 09/25 1600 Nasal 3.0L Cannula I reviewed Intake & Output 09/26 1600 09/26 0800 09/26 0000 09/25 1600 09/25 0800 09/25 0000 Intake Total 360 760 366 219.6 500 Output Total 350 302 250 500 450 Balance 10 458 116 -280.4 50 Intake, IV 160 116 169.6 250 Intake, Oral 360 600 250 50 250 Number 0 0 Bowel Movements Output, Other 2 Output, Urine 350 300 250 500 450 Physical Exam: Constitutional: no acute distress no pain Eyes: sclera anicteric ENMT: moist mucous membranes Cardiovascular: S1-S2 no murmurs no peripheral edema Respiratory: clear to auscultation with normal respiratory effort and no intercostal retractions GI: abdomen soft nontender nondistended Extremities / lymphatics: free range of motion no peripheral edema Skin: no jaundice no rashes warm, nondiaphoretic Psychiatric: mood and affect are appropriate and alert and oriented to person place and time Current Medications: I reviewed Current Medications Sig/Vadim Start time Last Medication Dose Route Stop Time Status Admin Acetaminophen 650 MG .STK-MED ONE 09/25 1405 DC PO 09/25 1406 Acetaminophen 650 MG Q6P PRN 09/22 2200 AC 09/25 PO 1408 Albuterol Sulfate 3 ML Q4P PRN 09/23 2215 AC 09/23 INH 2208 Aspirin Buffered 81 MG DAILY 09/23 1700 AC 09/26 PO 1016 Atenolol 50 MG DAILY 09/23 1000 AC 09/26 PO 1016 Atorvastatin Calcium 80 MG 1700 09/23 1700 AC 09/25 PO 1739 Budesonide/ 2 PUF BID 09/23 1000 AC 09/26 Formoterol Fumarate INH 1015 Calcium/Vitamin D 500 MG DAILY 09/25 1505 AC 09/26 PO 1016 Cyanocobalamin 1,000 MCG DAILY 09/25 1504 AC 09/26 PO 1016 Duloxetine HCl 40 MG DAILY 09/24 1000 AC 09/26 PO 1016 Folic Acid 1 MG DAILY 09/25 1504 AC 09/26 PO 1016 Heparin Sodium 2,376 UNIT ONCE ONE 09/26 0100 DC 09/26 (Porcine) IV 09/26 0101 0100 Heparin Sodium/ 25,000 UNIT Q24H 09/24 0015 AC 09/26 Dextrose IV 0203 Dextrose/Water 500 ML Hyoscyamine 0.125 MG Q4 HRS NEEDED PRN 09/23 1900 AC 09/25 PO 0947 Ipratropium [place] 2.5 ML 4 TIMES/DAY PRN 09/22 2345 AC 09/23 INH 2208 Levetiracetam 250 MG BID 09/22 2356 AC 09/26 PO 1016 Levothyroxine Sodium 0.175 MG DAILY AC 09/23 0700 AC 09/26 PO 0624 Lorazepam 0.5 MG BID PRN 09/22 2345 AC PO 09/29 2344 Nicotine 14 MG DAILY 09/22 2315 AC 09/26 TOP 1015 Nystatin 5 ML 4 TIMES/DAY 09/24 1447 AC 09/26 PO 1015 Nystatin 1 KAMALJIT BID 09/22 2315 AC 09/26 TOP 1016 Omeprazole 20 MG DAILY AC 09/23 0700 AC 09/26 PO 0624 Senna/Docusate Sodium 1 TAB BID 09/26 1000 AC 09/26 PO 1016 Tramadol HCl 50 MG Q6P PRN 09/22 2200 AC 09/26 PO 0624 Results Last 48 Hours of Labs: I reviewed Laboratory Tests 09/26 09/25 09/25 09/25 0700 2300 0925 0650 Chemistry Sodium (137 - 145 mmol/L) 134 L 130 L Potassium (3.5 - 5.1 mmol/L) 3.6 4.5 Chloride (98 - 107 mmol/L) 91 L 94 L Carbon Dioxide (22 - 30 mmol/L) 37 H 31 H Anion Gap (5 - 16) 6 5 BUN (7 - 17 mg/dL) 10 8 Creatinine (0.5 - 1.0 mg/dL) 0.5 0.4 L Estimated GFR (>60 ml/min) > 60 > 60 BUN/Creatinine Ratio (7 - 25 %) 20.0 20.0 Magnesium (1.6 - 2.3 mg/dL) 1.8 Coagulation APTT (25 - 37 SEC) 73 H 52 H 61 H Hematology CBC w Diff NO MAN DIFF REQ WBC (4.8 - 10.8 /CUMM) 6.7 RBC (4.20 - 5.40 /CUMM) 4.68 Hgb (12.0 - 16.0 G/DL) 13.8 Hct (37 - 47 %) 41.3 MCV (81.0 - 99.0 FL) 88.2 MCH (27.0 - 31.0 PG) 29.5 RDW (11.5 - 14.5 %) 18.6 H Plt Count (130 - 400 /CUMM) 252 MPV (7.4 - 10.4 FL) 9.1 Gran % (42.2 - 75.2 %) 79.1 H Lymphocytes % (20.5 - 51.1 %) 12.0 L Monocytes % (1.7 - 9.3 %) 8.0 Eosinophils % (0 - 5 %) 0.5 Basophils % (0.0 - 2.0 %) 0.4 Absolute Granulocytes (1.4 - 6.5 /CUMM) 5.3 Absolute Lymphocytes (1.2 - 3.4 /CUMM) 0.8 L Absolute Monocytes (0.10 - 0.60 /CUMM) 0.5 Absolute Eosinophils (0.0 - 0.7 /CUMM) 0 Absolute Basophils (0.0 - 0.2 /CUMM) 0 PUBS MCHC (33.0 - 37.0 G/DL) 33.4 09/25 0125 Coagulation APTT (25 - 37 SEC) 109 *H Assessment/Plan Assessment/Plan Abdominal pain has resolved, tolerating diet, do not recommend any abdominal surgery, consider culturing stool when available.
[2016-09-26 15:30] VITALS: BP 130/70
[2016-09-26 20:01] LABS: PTT 73 SEC (25-37)
[2016-09-27 00:31] VITALS: BP 128/70
[2016-09-27 08:32] VITALS: BP 136/75
[2016-09-27 08:35] LABS: PTT 72 SEC (25-37)
--- NOTE | 2016-09-27 09:53 | PN- Att Addend ---
Attending Addendum Attending Brief Note Patient says her abdominal discomfort is at baseline. She is eating. On exam her pressure is 136/75, pulse is 78, breathing at 18-20, afebrile. Lungs have decreased breath sounds bilaterally. Heart is S1-S2 regular, abdomen is soft and she has the BKA. Appreciate surgery's evaluation who feels no surgical intervention at this point. She is a 76-year-old with COPD, BKA, chronic abdominal pain, dysphagia with evidence of aspiration is here with a pulmonary embolism. Initially started on IV heparin with the thought that she was going to have a vascular surgery /gen surgery intervention. Given that an intervention is not indicated I think we can safely switch her to Lovenox 1 mg per KG subcutaneous twice a day (she has gotten it in the past) and start Coumadin today. We'll check a CBC in a.m. and PT is going to see her.
[2016-09-27 15:51] VITALS: BP 117/52
[2016-09-27 23:19] VITALS: BP 120/62
--- NOTE | 2016-09-28 05:55 | PN- Housestaff ---
See Addendum Subjective Follow-up For: Abdominal Pain Diarrhea Tele-Events Since Last Visit: Normal sinus rhythm 72-85 Few PAC 6 AM V. tach Subjective: Ms Liang was seen and examined this morning. She is resting comfortably in bed. Patient reports that she feels better compared to last 24 hours. She still continues to experience abdominal pain. Rated 8 out of 10 in severity. Patient states that pain gets better when she eats. Described as a dull pain. Patient states that this morning about 5 AM she had an episode where the pain was 10 out of 10 however has responded well to pain medications. Pain is located acroos the lower abdominal wall. Non Radiating. Patient reports loose stools overnight. She had approximately 2 episodes of diarrhea. Patient denies any chest pain and chest discomfort. Patient continues to be on supplemental oxygen via nasal cannula on 3 L. Patient has been unable to ambulate as she is still waiting for her son to bring in her prosthetic. Patient denies any fever, chills, nausea, vomiting. Review of Systems Constitutional: Reports: see HPI. Denies: chills, fever, weakness. Objective Last 24 Hrs of Vital Signs/I&O Vital Signs Date Time Temp Pulse Resp B/P Pulse O2 O2 Flow FiO2 Ox Delivery Rate 09/28 0000 Nasal 3.0L Cannula 09/27 2319 97.7 80 18 120/62 95 Nasal Cannula 09/27 2232 94 Nasal 3.0L Cannula 09/27 1600 Nasal 3.0L Cannula 09/27 1551 98.0 64 20 117/52 97 Nasal 3.0L Cannula 09/27 0832 98.0 86 20 136/75 93 Nasal 2.0L Cannula Intake & Output 09/28 1600 09/28 0800 09/28 0000 Intake Total 400 120 Output Total 250 1 Balance 150 119 Intake, IV 400 Intake, Oral 0 120 Number 0 Bowel Movements Output, Other 1 Output, Urine 250 Physical Exam General Appearance: Alert, Oriented X3, Cooperative Cardiovascular: Regular Rate, Normal S1, Normal S2 Lungs: Clear to Auscultation Abdomen: Normal Bowel Sounds, Soft, Tenderness with palpation, lower abdominal wall. Neurological: Normal Speech Current Medications: Current Medications Sig/Vadim Start time Last Medication Dose Route Stop Time Status Admin Acetaminophen 650 MG .STK-MED ONE 09/27 1410 DC PO 09/27 141 Acetaminophen 650 MG Q6P PRN 09/22 2200 AC 09/27 PO 1413 Albuterol Sulfate 3 ML Q4P PRN 09/23 2215 AC 09/23 INH 2208 Aspirin Buffered 81 MG DAILY 09/23 1700 AC 09/27 PO 0918 Atenolol 50 MG DAILY 09/23 1000 AC 09/27 PO 0918 Atorvastatin Calcium 80 MG 1700 09/23 1700 AC 09/27 PO 1603 Budesonide/ 2 PUF BID 09/23 1000 AC 09/27 Formoterol Fumarate INH 2107 Calcium/Vitamin D 500 MG DAILY 09/25 1505 AC 09/27 PO 0918 Cyanocobalamin 1,000 MCG DAILY 09/25 1504 AC 09/27 PO 0918 Duloxetine HCl 40 MG DAILY 09/24 1000 AC 09/27 PO 0917 Enoxaparin Sodium 60 MG BID 09/27 1000 DC SC Enoxaparin Sodium 60 MG BID 09/27 1000 AC 09/27 SC 2108 Folic Acid 1 MG DAILY 09/25 1504 AC 09/27 PO 0918 Heparin Sodium/ 25,000 UNIT Q24H 09/24 0015 ME 09/26 Dextrose IV 2248 Dextrose/Water 500 ML Hyoscyamine 0.125 MG Q4 HRS NEEDED PRN 09/23 1900 AC 09/25 PO 0947 Ipratropium [place] 2.5 ML 4 TIMES/DAY PRN 09/22 2345 AC 09/23 INH 2208 Levetiracetam 250 MG BID 09/22 2356 AC 09/27 PO 2108 Levothyroxine Sodium 0.175 MG DAILY AC 09/23 0700 AC 09/28 PO 0515 Lorazepam 0.5 MG BID PRN 09/22 2345 AC PO 09/29 2344 Magnesium Sulfate 1 GM ONCE ONE 09/27 2145 DC 09/27 Dextrose/Water 100 ML IV 09/27 2344 2300 Nicotine 14 MG DAILY 09/22 2315 AC 09/27 TOP 0918 Nystatin 5 ML 4 TIMES/DAY 09/24 1447 AC 09/27 PO 2108 Omeprazole 20 MG DAILY AC 09/23 0700 AC 09/28 PO 0515 Patient Medication 1 UNIT ONE NR 09/27 1000 DC Teaching ED 09/27 1600 Senna/Docusate Sodium 1 TAB BID 09/26 1000 AC 09/27 PO 2108 Sodium Chloride 1,000 ML Q20H 09/27 2145 AC 09/27 IV 2207 Tramadol HCl 50 MG Q6P PRN 09/22 2200 AC 09/28 PO 0515 Warfarin Sodium 5 MG COUMADIN 1700 09/27 1700 DC 09/27 PO 09/27 2359 1603 Last 24 Hrs of Lab/Hung Results Last 24 Hrs of Labs/Mics: Laboratory Tests 09/28/16 0610: Anion Gap 6, Estimated GFR > 60, BUN/Creatinine Ratio 22.0, PT Pending, INR Pending, CBC w Diff Pending, WBC Pending, RBC Pending, Hgb Pending, Hct Pending, MCV Pending, MCH Pending, RDW Pending, Plt Count Pending, MPV Pending, Gran % Pending, Lymphocytes % Pending, Monocytes % Pending, Eosinophils % Pending, Basophils % Pending, Absolute Granulocytes Pending, Absolute Lymphocytes Pending , Absolute Monocytes Pending, Absolute Eosinophils Pending, Absolute Basophils Pending, PUBS MCHC Pending 09/27/16 1900: APTT Cancelled Assessment/Plan Assessment: This 76-year-old lady a past medical history of hypertension hyperlipidemia, COPD on 2.5 L via next nasal cannula, diabetes mellitus non-small cell cancer of the right lung status post right lobectomy, hypothyroidism, PVD status post left total knee amputation current smoker mostly wheelchair-bound presents to the emergency department complaining of worsening abdominal pain and chronic diarrhea. #Acute left main pulmonary embolism: Continue on telemetry Patient is now being converted to Warfarin (day Two) and Lovenox BID. She recieved 5mg milligrams of warfarin on 09/27/2016 her INR today is 1.61. She will receive another dose of warfarin 5 mg this evening at 1700 hrs. Repeat INR in a.m. Maintain therapeutic dose between 2 and 3. In addition the patient is also receiving Lovenox 60 mg twice a day. Patient has already been started on IV heparin. Will continue with anticoagulation, would likely be discharged home on newer agent of anticoagulation Venous Doppler done this morning shows no evidence of a deep vein thrombosis. Keep the leg elevated. Initial troponin at emergency department was noncontributory Continue oxygen to keep saturations above 92% BEP in a.m. patient did have a sodium level of 130. We will repeat BEP in a.m. patient may have to be restricted by free water. Aspirin 81 mg. #Constant lower abdominal pain with watery diarrhea(microscopic gastroenteritis/ ischemia bowel): We'll send stool cultures. Follow-up C. difficile toxin, Pending Stool cultures pending, vision has not had a bowel movement since admission. Will send lactic if the levels, the levels this morning repeated 1.4 and 1.2 respectively. Likely rule out ischemic bowel. If Patient continues to experience worsening abdominal pain with a repeat lactic acid. Gastroenterology Consultation has been obtained for any additional recommendations. Patient is scheduled to go for x-ray modified barium swallow in a.m. to further evaluate dysphagia. Also obtained a surgical consult to rule out acute abdomen versus emergent surgical intervention, recommendations pending #History of abdominal aortic aneurysm with repair (approximately 8 years ago) and evidence of intraluminal thrombus(most likely chronic) on CT scan, and # Occlusion of left common iliac artery Patient is currently on IV heparin. Vascular consultation was obtained this a.m. Called vascular surgeon today, recommended to continue with IV heparin for now home. Regarding the occluded femoral graft if patient has recurrent leg right lower extremity pain ,address that in the morning and depending upon the consider vascular consult. Venous thrombosis showed no evidence of DVT. Right calf veins were not well visualized Patient will be continued on IV heparin SQ As Per Vascular:Low Likelihood of mesenteric ischemia as SMA is widely patent. Surgery consult has been requested to rule out any emergency pathology and acute abdomen. Patient may need an MRA as well, likely to be done on Tuesday09/29/2015 as radiology did not have services available today,ordered for vessel evaluation and to rule out Ischemic Bowel. #Dysphagia She did report a recent faculty swallowing solid food. She does not report recent increase in symptoms of GERD. modified barium swallow ordered for Tuesday09/28/2015. Swallow eval done this morning who recommended, knee and chopped diet. Showed no evidence of any barry aspiration. #History of oxygen dependent COPD:' Continue oxygen to keep saturations above 92% Continue Advair [facility] nebs. #History of hypothyroidism: Continue home dose of levothyroxine. #History of hypertension and hyperlipidemia: Continue home dose of atenolol 50 mg and atorvastatin 80 mg #History of anxiety and depression: Continue home dose of Ativan and duloxetine 40 mg. #History of seizures Continue home dose of Keppra 250 mg twice a day. #History of type 2 diabetes: Hemoglobin A1c 5.8, patient is currently not on insulin. Hold any NovoLog sliding scale/insulin for now Accu-Cheks. BS this AM: 74-111 Continue vitamin B-12, folic acid,calcium and vitamin D. #DVT Prophylaxis With heparin #Code Full code Problem List: 1. Pulmonary embolism 2. Diarrhea 3. Chronic abdominal pain 4. History of pulmonary embolism 5. Lung cancer 6. AAA (abdominal aortic aneurysm) Pain Ratin Pain Location: Lower Abdominal Pain Goal: Remain pain free Pain Plan: Tramadol HCL Tomorrow's Labs & Rationales: BEP:Montor Electrolytes, ensure no derangements. INR: Coumadin Dosing
[2016-09-28 08:02] LABS: ABSOLUTE BASOPHIL COUNT 0 /CUMM (0.0-0.2); ABSOLUTE EOSINOPHIL COUNT 0.1 /CUMM (0.0-0.7); ABSOLUTE GRANULOCYTE CT 6.2 /CUMM (1.4-6.5); ABSOLUTE LYMPH COUNT 0.5 /CUMM (1.2-3.4); ABSOLUTE MONOCYTE COUNT 0.4 /CUMM (0.10-0.60); BASOPHIL % 0.3 % (0.0-2.0); EOSINOPHIL % 1.1 % (0-5); GRANULOCYTE % 85.7 % (42.2-75.2); HEMATOCRIT 40.2 % (37-47); MEAN CORPUSCULAR HGB 29.3 PG (27.0-31.0); MEAN CORPUSCULAR HGB CONC 32.9 G/DL (33.0-37.0); MEAN CORPUSCULAR VOLUME 88.8 FL (81.0-99.0); MEAN PLATELET VOLUME 9.1 FL (7.4-10.4); PLATELET COUNT 309 /CUMM (130-400); RBC DISTRIBUTION WIDTH 18.9 % (11.5-14.5); RED BLOOD CELL CT 4.53 /CUMM (4.20-5.40)
[2016-09-28 08:29] LABS: PT 16.8 SEC (9.4-12.5)
[2016-09-28 08:31] VITALS: BP 120/80
[2016-09-28 09:25] LABS: WHITE BLOOD CELL COUNT 7.2 /CUMM (4.8-10.8)
--- NOTE | 2016-09-28 10:38 | RADIOLOGY REPORT ---
EXAMINATION: XR MODIFIED BARIUM SWALLOW CLINICAL INFORMATION: Dysphagia COMPARISON: Barium swallow 09/24/2016 TECHNIQUE: Videotaped real-time fluoroscopic evaluation of the patient's swallow was performed in conjunction with speech therapy through the administration of various textured food and barium, including puree, thin, solid, and nectar consistencies. Patient was in a left seated lateral position. FLUOROSCOPY TIME: 3:27 minutes FINDINGS: With puree consistency, spillage was seen into the vallecula and piriform sinuses prior to initiation of swallowing. No penetration/aspiration was observed with puree consistency. Residual material was noted in the vallecula and piriform sinuses after swallowing. With thin liquid consistency, penetration was observed partway to the level of the vocal folds. No barry aspiration was seen. Pooling of contrast material as well as residual material was noted in the vallecula and piriform sinuses. With nectar consistency, less residual material was seen after swallowing, and no penetration/aspiration was observed. No penetration/aspiration was seen with solid consistency. IMPRESSION: 1. Penetration with thin liquid consistency. 2. Spillage into the vallecula and piriform sinuses, as well as residual material after swallowing.
--- NOTE | 2016-09-28 13:50 | Discharge Summary ---
Visit Information Visit Dates Admission Date: 09/22/16 Discharge Date: 10/01/16 Hospital Course Course Attending Physician: SAMANTHA ANDUJAR MD Primary Care Physician: ALTON CUMMINGS,[facility] Course: Maritza a 76-year-old woman with a medical history of hypertension dyslipidemia COPD on 2.5 L of oxygen via nasal cannula, AAA status post repair 8 years ago, diabetic non-small cell lung cancer of the right lung status post right bilobectomy remote history of pulmonary embolism hypothyroidism peripheral vascular disease status post left [id number] amputation current active smoker mostly wheelchair-bound who came to the hospital complaining of acute on chronic lower abdominal pain for approximately one month that has not abated. CT abdomen pelvis incidentally found a pulmonary embolism in the left main, a CT of the chest could not be pursued due to patient receiving IV contrast load already. She is wheelchair-bound, is probably a provoked PE in the setting of history of malignancy. We would not be surprised if there is disease recurrence is patient continues to smoke heavily. Vascular consultation was obtained due to intraluminal thrombus was AAA repair, and occluded origin of the left common iliac artery (a clear bifemoral graft) existing chronic since long time. She was anticoagulated with Lovenox and bridged to Coumadin. Abdominal pain was thought to be ischemic initially, vascular surgery explicitly stated that there is no vascular issue or intervention needed at this time, GI evaluated the patient and suggested awaiting stool studies, trial of antispasmodic anticholinergic medication i.e. methyl scopolamine 3 times a day, esophagram. They also recommended getting an MRA of the abdomen, however the patient was unwilling due to severe claustrophobia. PT evaluation suggests short-term rehabilitation. Allergies: Coded Allergies: aspirin (Intermediate, UPSET STOMACH 09/23/16) atorvastatin (Intermediate, MUSCLE PAIN 09/22/16) oxycodone (Intermediate, DIZZY AND NAUSEA 09/22/16) codeine (Mild, FLUSHING 09/22/16) Disposition Summary Disposition Principal Diagnosis: Pulmonary embolusim Additional Diagnosis: Hx of Lung CA Discharge Disposition: str Discharge Instructions General Discharge Information Code Status: Full Code Patient's Diet: honey thickened liquids, mechanical soft. Patient's Activity: self limited Follow-Up Instructions/Appts: Dr. Juarez, Dr. Mayes, Dr.bindu mullins Medications at Discharge Discharge Medications: Continue taking these medications: Atenolol (Atenolol) 50 MG TABLET 1 Tablet ORAL DAILY Days = 30 Comments: Last Taken: 03/08/15 Time: 9:30 AM Pantoprazole Sodium (Pantoprazole Sodium) 20 MG TABLET.DR 2 Tablet ORAL TWICE DAILY Comments: Last Taken:10/01/16 Time:6AM FLUTICASONE/SALMETEROL (Advair 250-50 Diskus) 250 MCG-50 MCG/DOSE BLST.W.DEV 1 Puff ORAL TWICE DAILY Days = 30 Comments: Last Taken: 03/08/15 Time: 9:30 AM Levothyroxine Sodium (Levothyroxine Sodium) 175 MCG TABLET 1 Tablet ORAL DAILY Comments: Last Taken:10/01/16 Time:6AM CHOLECALCIFEROL (VITAMIN D3) (Vitamin D-3) 2,000 UNIT CAPSULE 1 SGL ORAL DAILY Comments: Last Taken: 03/08/15 Time: 9:30 AM Vitamin E (Vitamin E) 400 IU TAB 1 Tablet ORAL DAILY Comments: Last Taken: 03/08/15 Time: 9:30 AM Lorazepam (Ativan) 0.5 MG TAB 1 Tablet ORAL TWICE DAILY as needed for ANXIETY Qty = 30 Comments: NOT GIVEN IN HOSPITAL Ferrous Sulfate (Ferrous Sulfate) 325 MG TAB 1 Tablet ORAL DAILY Days = 30 Comments: Last Taken: 03/08/15 Time: 9:30 AM Loperamide HCl (Loperamide) 2 MG CAPSULE 2 Capsule ORAL EVERY 8 HOURS as needed for LOOSE STOOLS Comments: NOT GIVEN Docusate Sodium (Colace) 100 MG CAPSULE 1 Capsule ORAL TWICE DAILY Comments: NOT NEEDED Ipratropium [place] (Ipratropium [place]) 0.2 MG/ML (0.02 %) SOLUTION 1 Vial Inhale Solution 4 TIMES A DAY as needed for SHORTNESS OF BREATH Instructions: USE WITH ALBUTEROL Comments: Last Taken:09/28/16 Time:1500 Albuterol Sulfate (Albuterol Sulfate) 1.25 MG/3 ML VIAL.NEB 1 Vial Inhale Solution EVERY 4-6 HOURS as needed for SHORTNESS OF BREATH Instructions: USE WITH IPRATROPIUM Comments: NOT GIVEN Pravastatin Sodium (Pravachol) 80 MG TABLET 1 Tablet ORAL DAILY Comments: NOT GIVEN Cyanocobalamin (Vitamin B-12) (B-12) 1,000 MCG TABLET 1 Tablet ORAL DAILY Comments: Last Taken:10/01/16 Time:10AM Loratadine (Claritin) 10 MG TABLET 1 Tablet ORAL DAILY as needed for ALLERGIES Comments: NOT GIVEN Sucralfate (Carafate) 1 GRAM TABLET 1 Tablet ORAL 4 TIMES A DAY Comments: NOT GIVEN Levetiracetam (Keppra) 250 MG TABLET 1 Tablet ORAL TWICE DAILY Comments: Last Taken:10/01/16 Time:10AM Hydrocodone/Acetaminophen (Hydrocodon-Acetaminophen 5-325) 5 MG-325 MG TABLET 1-2 Tablet ORAL EVERY 4-6 HOURS NEEDED as needed for PAIN Comments: NOT GIVEN Albuterol Sulfate (Ventolin Hfa) 90 MCG HFA.AER.AD 2 Puff Inhale through mouth EVERY 4-6 HOURS NEEDED as needed for SHORTNESS OF BREATH Comments: Last Taken:09/28/16 Time:3PM Duloxetine HCl (Duloxetine HCl) 20 MG CAPSULE.DR 2 Capsule ORAL DAILY Instructions: 20-60MG TWO TIMES PER NIGHT Comments: Last Taken:10/01/16 Time:10AM Fluticasone-Salmeterol (Advair 100-50 Diskus) 100 MCG-50 MCG/DOSE BLST.W.DEV 1 Puff Inhale through mouth TWICE DAILY Comments: NOT GIVEN Oxybutynin Chloride (Ditropan XL) 5 MG TAB.ER.24 1 Tablet ORAL DAILY Comments: NOT GIVEN Start taking the following new medications: Mirtazapine (Remeron) 15 MG TABLET 7.5 Milligram ORAL AT BEDTIME Qty = 15 No Refills Warfarin Sodium (Coumadin) 1 MG TABLET 1 Tablet ORAL DAILY Qty = 1 No Refills Copies To: ALTON CUMMINGS,LILLIAM; HILL CUMMINGS,GREGG Lacy; SAMANTHA ANDUJAR MD; RBANDON MAYES MD Attending Review Statement Documenting Attending: SAMANTHA ANDUJAR MD Other Findings: The patient did experience some loose bowel movements the day of discharge. C- Difficile was negative and the patient had been receiving Colace/Senna ( discontinued). The patient was eating well and w/o abdominal pain.
[2016-09-28 16:27] VITALS: BP 120/70
--- NOTE | 2016-09-28 20:11 | NUR ---
THIS RN SPOKE WITH LATASHA TOBIAS IN REGARDS TO PLACING PSYCH CONSULT. THIS OUTREACH REP WAS ASSISTING PATIENT WITH CARE. PT BECAME FRUSTRATED AND SLAMMED FIST ON BED, STATING "I CAN'T DO MUCH FOR MYSELF I USED TO" AND BEGAN CRYING. PT STATED HER SON HAS NOT COME TO SEE FOR DURING THE COURSE OF HER HOSPITAL STAY AND HAS PROBABLY STARTED DRINKING AGAIN. PT STATED SON GETS MAD DURING CERAIN SITUATIONS (WHICH REMAIN UNCLEAR TO THIS OUTREACH REP). WHEN ASKED IF HE EVER PUT HIS HANDS ON HER OR HURT HER SHE ADMITTED TO AN EVENT WHICH SHE CLAIMS TOOK PLACE OVER THE SUMMER (ANOTHER SON WAS PRESENT AND WAS ABLE TO INTERVENE). LATASHA TOBIAS MADE AWARE OF THIS WRITERS CONVERSATION WITH PT. STATED HE WOULD PLACE CONSULT.
[2016-09-28 23:00] VITALS: BP 140/62
--- NOTE | 2016-09-29 05:45 | PN- Housestaff ---
ADRIANNA CUMMINGS,[facility] 09/29/16 0543: Subjective Follow-up For: Abdominal Pain Diarrhea Tele-Events Since Last Visit: NSR 70's to 90s PAC Subjective: Ms Liang was seen and examined this morning. She is resting comfortably in bed. Patient initially stated that she was woken up early this morning and still wanted to sleep. Upon subsequent visit approximately 45 minutes later. The patient continued to complain of worsening abdominal pain. Pain was rated at a 10 out of 10 located the anterior abdominal wall. Patient stated the pain is better with administration of medication. Nothing makes the pain worse.. Patient did not state that this pain has acutely worsened over the last 24 hours. Patient was scheduled this morning to go for an MRA however upon further questioning and attempt to convince the patient the patient declined .The patient denied any fever, chills, nausea, vomiting. Patient denies any diarrhea. Review of Systems Constitutional: Reports: see HPI. Denies: chills, fever, weakness. Objective Last 24 Hrs of Vital Signs/I&O Vital Signs Date Time Temp Pulse Resp B/P Pulse O2 O2 Flow FiO2 Ox Delivery Rate 09/29 0000 Nasal 3.0L Cannula 09/28 2300 98.3 79 18 140/62 90 09/28 1627 98.1 66 18 120/70 99 Nasal Cannula 09/28 1600 Nasal 2.0L Cannula 09/28 1506 99 Nasal 3.5L Cannula 09/28 1001 Nasal 3.0L Cannula 09/28 0831 98.0 93 18 120/80 98 Nasal Cannula Intake & Output 09/29 1600 09/29 0800 09/29 0000 Intake Total 400 520 Output Total Balance 400 520 Intake, IV 350 400 Intake, Oral 50 120 Number 1 Bowel Movements Physical Exam General Appearance: Alert, Oriented X3, Cooperative Lymphatic: Cervical nl Cardiovascular: Regular Rate, Normal S1, Normal S2 Lungs: Clear to Auscultation Abdomen: Normal Bowel Sounds, Soft, Tenderness with light Palpayion. No Guarding , No rigidity. Neurological: Normal Speech Extremities: No Edema Assessment/Plan Assessment: This 76-year-old lady a past medical history of hypertension hyperlipidemia, COPD on 2.5 L via next nasal cannula, diabetes mellitus non-small cell cancer of the right lung status post right lobectomy, hypothyroidism, PVD status post left total knee amputation current smoker mostly wheelchair-bound presents to the emergency department complaining of worsening abdominal pain and chronic diarrhea. #Acute left main pulmonary embolism: Continue on telemetry Patient was dosed an additional dose of warfarin. 2.5 mg. INR this a.m 2.39: was Patient is now being converted to Warfarin (day Two) and Lovenox BID. She recieved 5mg milligrams of warfarin on 09/27/2016 her INR today is 1.61. She will receive another dose of warfarin 5 mg this evening at 1700 hrs. Repeat INR in a.m. Maintain therapeutic dose between 2 and 3. In addition the patient is also receiving Lovenox 60 mg twice a day. Patient has already been started on IV heparin. Will continue with anticoagulation, would likely be discharged home on newer agent of anticoagulation Venous Doppler done this morning shows no evidence of a deep vein thrombosis. Keep the leg elevated. Initial troponin at emergency department was noncontributory Continue oxygen to keep saturations above 92% BEP in a.m. patient did have a sodium level of 130. We will repeat BEP in a.m. patient may have to be restricted by free water. Aspirin 81 mg. #Constant lower abdominal pain with watery diarrhea(microscopic gastroenteritis/ ischemia bowel): We'll send stool cultures,, stool culture from 09/26/16 showed no Somma Jonathan, Shigella or Campylobacter. Will send lactic if the levels, the levels this morning repeated 1.4 and 1.2 respectively. Likely rule out ischemic bowel. If Patient continues to experience worsening abdominal pain with a repeat lactic acid. Gastroenterology Consultation has been obtained for any additional recommendations. Patient is scheduled to go for x-ray modified barium swallow in a.m. to further evaluate dysphagia. #History of abdominal aortic aneurysm with repair (approximately 8 years ago) and evidence of intraluminal thrombus(most likely chronic) on CT scan, and # Occlusion of left common iliac artery Patient is currently on IV heparin. Vascular consultation was obtained this a.m. Called vascular surgeon today, recommended to continue with IV heparin for now home. Regarding the occluded femoral graft if patient has recurrent leg right lower extremity pain ,address that in the morning and depending upon the consider vascular consult. Venous thrombosis showed no evidence of DVT. Right calf veins were not well visualized Patient will be continued on IV heparin SQ As Per Vascular:Low Likelihood of mesenteric ischemia as SMA is widely patent. Surgery consult has been requested to rule out any emergency pathology and acute abdomen. This morning the patient was scheduled to go for an MRA to rule out ischemic bowel and mesenteric ischemia however the patient declined. She was aware of the consequences of declining such a procedure despite the recommendations from the gastroenterology service. #Mood Disorder Formal psychiatry consultation obtained. We'll continue to monitor the patient' s sodium level. We have also begun the patient on 7.5 mg of mirtazapine. This should help increase her appetite and improve her mood. Social work consult as been placed. #Dysphagia She did report a recent faculty swallowing solid food. She does not report recent increase in symptoms of GERD. Modified barium swallow ordered for Tuesday09/28/2015. Swallow done this morning who recommended, Honey Thick and chopped diet. Showed no evidence of any barry aspiration. #History of oxygen dependent COPD:' Continue oxygen to keep saturations above 92% Continue Advair TRC nebs. #History of hypothyroidism: Continue home dose of levothyroxine. #History of hypertension and hyperlipidemia: Continue home dose of atenolol 50 mg and atorvastatin 80 mg #History of anxiety and depression: Continue home dose of Ativan and duloxetine 40 mg. #History of seizures Continue home dose of Keppra 250 mg twice a day. #History of type 2 diabetes: Hemoglobin A1c 5.8, patient is currently not on insulin. Hold any NovoLog sliding scale/insulin for now Continue vitamin B-12, folic acid,calcium and vitamin D. #DVT Prophylaxis With heparin #Code Full code Problem List: 1. COPD (chronic obstructive pulmonary disease) 2. Gastritis 3. Pulmonary embolism 4. Chronic abdominal pain Pain Ratin Pain Location: Anterior Abdominal Wall Pain Goal: Remain pain free Pain Plan: Tramadol Tomorrow's Labs & Rationales: BEP: Monitor for any electric derangements INR Coumadin dosing SAMANTHA ANDUJAR MD 09/29/16 2200: Attending Review Statement Attending Statement Attending MD Statement: examined this patient, discuss w/resident/PA/DIRECTOR OF STRATEGIC SOURCING, agreed w/resident/PA/DIRECTOR OF STRATEGIC SOURCING, reviewed EMR data (avail), discussed with nursing, discussed with case mgmt, amended to note Attending Assessment/Plan: The patient was seen and discussed with house staff. Appreciate psychiatry input. Still with significant abdominal pain. Unable to have MRA due to claustrophobia. Will try Quiñonez to see if improves abdominal pain. PO intake poor. Trial of Mirtazapine.
[2016-09-29 08:13] VITALS: BP 136/80
[2016-09-29 10:06] LABS: PT 24.9 SEC (9.4-12.5)
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
[2016-09-29 12:51] LABS: ABSOLUTE BASOPHIL COUNT 0 /CUMM (0.0-0.2); ABSOLUTE EOSINOPHIL COUNT 0.1 /CUMM (0.0-0.7); ABSOLUTE GRANULOCYTE CT 6.5 /CUMM (1.4-6.5); ABSOLUTE LYMPH COUNT 0.5 /CUMM (1.2-3.4); ABSOLUTE MONOCYTE COUNT 0.4 /CUMM (0.10-0.60); BASOPHIL % 0.3 % (0.0-2.0); EOSINOPHIL % 1.1 % (0-5); HEMATOCRIT 39.2 % (37-47); MEAN CORPUSCULAR HGB 29.5 PG (27.0-31.0); MEAN CORPUSCULAR VOLUME 89.3 FL (81.0-99.0); RBC DISTRIBUTION WIDTH 18.7 % (11.5-14.5); RED BLOOD CELL CT 4.39 /CUMM (4.20-5.40); WHITE BLOOD CELL COUNT 7.5 /CUMM (4.8-10.8)
[2016-09-29 13:10] LABS: PLATELET COUNT 307 /CUMM (130-400)
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
[2016-09-29 17:07] VITALS: BP 147/74
[2016-09-29 23:08] VITALS: BP 140/82
--- NOTE | 2016-09-30 06:07 | PN- Housestaff ---
ADRIANNA CUMMINGS,[facility] 09/30/16 0607: Subjective Follow-up For: Acute PE Chronic Abdominal Pain Tele-Events Since Last Visit: Sinus Rhythm 69-74 PAC all night Subjective: Patient seen and examined this morning. Resting comfrotably in bed. She is seated upright. And is currently about to eat her breakfast. She is currently states that she is tolerating by mouth intake well. Patient states that she is currently pain-free and does not report of any abdominal pain or discomfort. Patient states she was able to sleep well. She is currently on oxygen via nasal cannula, 3L. Patient states she did have one loose BM overnight, she denies diarrhea Patient denies fever, chills, nause or vomiting. Review of Systems Constitutional: Reports: see HPI. Objective Last 24 Hrs of Vital Signs/I&O Vital Signs Date Time Temp Pulse Resp B/P Pulse O2 O2 Flow FiO2 Ox Delivery Rate 09/30 851 97.9 71 22 148/86 96 09/30 0800 97 Nasal 3.0L Cannula 09/30 0000 Nasal 3.0L Cannula 09/29 2308 98.1 72 18 140/82 100 Nasal 3.0L Cannula 09/29 1707 98.2 72 20 147/74 93 Nasal 3.0L Cannula 09/29 1600 Nasal 3.0L Cannula 09/29 1351 96 Nasal 3.0L Cannula Intake & Output 09/30 1600 09/30 0800 09/30 0000 Intake Total 520 Output Total Balance 520 Intake, IV 400 Intake, Oral 120 Number 1 Bowel Movements Physical Exam General Appearance: Alert, Oriented X3, Cooperative Cardiovascular: Normal S1, Normal S2 Lungs: Clear to Auscultation, Normal Air Movement Abdomen: Normal Bowel Sounds, Soft, No Tenderness Neurological: Normal Speech Extremities: No Edema Vascular: Normal Pulses, Pulses Symmetrical Current Medications: Current Medications Sig/Vadim Start time Last Medication Dose Route Stop Time Status Admin Acetaminophen 650 MG Q6P PRN 09/22 2200 AC 09/27 PO 1413 Albuterol Sulfate 3 ML Q4P PRN 09/23 2215 AC 09/28 INH 1503 Aspirin Buffered 81 MG DAILY 09/23 170 AC 09/30 PO 0958 Atenolol 50 MG DAILY 09/23 1000 AC 09/30 PO 0958 Atorvastatin Calcium 80 MG 1700 09/23 1700 AC 09/29 PO 1853 Budesonide/ 2 PUF BID 09/23 1000 AC 09/30 Formoterol Fumarate INH 0959 Calcium/Vitamin D 500 MG DAILY 09/25 1505 AC 09/30 PO 0958 Cyanocobalamin 1,000 MCG DAILY 09/25 1504 AC 09/30 PO 0908 Duloxetine HCl 40 MG DAILY 09/24 1000 AC 09/30 PO 0908 Enoxaparin Sodium 60 MG BID 09/27 1000 AC 09/30 SC 0958 Folic Acid 1 MG DAILY 09/25 1504 AC 09/30 PO 0958 Hyoscyamine 0.125 MG Q4 HRS NEEDED PRN 09/23 1900 AC 09/29 PO 1138 Ipratropium [place] 2.5 ML 4 TIMES/DAY PRN 09/22 2345 AC 09/28 INH 1503 Levetiracetam 250 MG BID 09/22 2356 AC 09/30 PO 0958 Levothyroxine Sodium 0.175 MG DAILY AC 09/23 0700 AC 09/30 PO 0647 Lorazepam 0.5 MG BID PRN 09/22 2345 DC PO 09/29 2344 Mirtazapine 7.5 MG AT BEDTIME 09/29 2200 AC 09/29 PO 2123 Nicotine 14 MG DAILY 09/22 2315 AC 09/30 TOP 0959 Omeprazole 20 MG DAILY AC 09/23 0700 AC 09/30 PO 0647 Senna/Docusate Sodium 1 TAB BID 09/26 1000 AC 09/30 PO 0958 Sodium Chloride 1,000 ML Q20H 09/27 2145 AC 09/29 IV 1856 Tramadol HCl 50 MG Q6P PRN 09/22 2200 DC 09/28 PO 1857 Warfarin Sodium 2.5 MG COUMADIN 1700 ONE 09/29 1700 DC 09/29 PO 09/29 1701 1853 Last 24 Hrs of Lab/Hung Results Last 24 Hrs of Labs/Mics: Laboratory Tests 09/30/16 0700: Anion Gap 5, Estimated GFR > 60, BUN/Creatinine Ratio 22.5, PT 35.0 H, INR 3.37 H Assessment/Plan Assessment: This 76-year-old lady a past medical history of hypertension hyperlipidemia, COPD on 2.5 L via next nasal cannula, diabetes mellitus non-small cell cancer of the right lung status post right lobectomy, hypothyroidism, PVD status post left total knee amputation current smoker mostly wheelchair-bound presents to the emergency department complaining of worsening abdominal pain and chronic diarrhea. #Acute left main pulmonary embolism: INR on 09/30/2016: 3.37. We will Hold Coumadin this evening. Check INR in AM for further recomendations. Patient was dosed an additional dose of warfarin. 2.5 mg. INR this a.m 2.39: was Patient is now being converted to Warfarin (day Two) and Lovenox BID. She recieved 5mg milligrams of warfarin on 09/27/2016 her INR today is 1.61. She will receive another dose of warfarin 5 mg this evening at 1700 hrs. Repeat INR in a.m. Maintain therapeutic dose between 2 and 3. In addition the patient is also receiving Continue Lovenox 60 mg twice a day. Patient has already been started on IV heparin. Will continue with anticoagulation, would likely be discharged home on newer agent of anticoagulation Venous Doppler done this morning shows no evidence of a deep vein thrombosis. Keep the leg elevated. Initial troponin at emergency department was noncontributory Continue oxygen to keep saturations above 92% BEP in a.m. patient did have a sodium level of 139. Aspirin 81 mg. #Constant lower abdominal pain with watery diarrhea(microscopic gastroenteritis/ ischemia bowel): We'll send stool cultures,, stool culture from 09/26/16 showed no Salmonella, Shigella or Campylobacter. Will send lactic if the levels, the levels this morning repeated 1.4 and 1.2 respectively. Likely rule out ischemic bowel. If Patient continues to experience worsening abdominal pain with a repeat lactic acid. Gastroenterology Consultation has been obtained for any additional recommendations. Patient is scheduled to go for x-ray modified barium swallow in a.m. to further evaluate dysphagia. #History of abdominal aortic aneurysm with repair (approximately 8 years ago) and evidence of intraluminal thrombus(most likely chronic) on CT scan, and # Occlusion of left common iliac artery Patient is currently on IV heparin. Vascular consultation was obtained this a.m. Called vascular surgeon today, recommended to continue with IV heparin for now home. Regarding the occluded femoral graft if patient has recurrent leg right lower extremity pain ,address that in the morning and depending upon the consider vascular consult. Venous thrombosis showed no evidence of DVT. Right calf veins were not well visualized Patient will be continued on IV heparin SQ As Per Vascular:Low Likelihood of mesenteric ischemia as SMA is widely patent. Surgery consult has been requested to rule out any emergency pathology and acute abdomen. This morning the patient was scheduled to go for an MRA to rule out ischemic bowel and mesenteric ischemia however the patient declined. She was aware of the consequences of declining such a procedure despite the recommendations from the gastroenterology service. #Mood Disorder Continue Mirtazapine 7.5mg Formal psychiatry consultation obtained. We'll continue to monitor the patient' s sodium level. We have also begun the patient on 7.5 mg of mirtazapine. This should help increase her appetite and improve her mood. Social work consult as been placed. #Dysphagia She did report a recent faculty swallowing solid food. She does not report recent increase in symptoms of GERD. Modified barium swallow ordered for Tuesday09/28/2015. Swallow done this morning who recommended, Honey Thick and chopped diet. Showed no evidence of any barry aspiration. #History of oxygen dependent COPD:' Continue oxygen to keep saturations above 92% Continue Advair TRC nebs. #History of hypothyroidism: Continue home dose of levothyroxine. #History of hypertension and hyperlipidemia: Continue home dose of atenolol 50 mg and atorvastatin 80 mg #History of anxiety and depression: Continue home dose of Ativan and duloxetine 40 mg. #History of seizures Continue home dose of Keppra 250 mg twice a day. #History of type 2 diabetes: Hemoglobin A1c 5.8, patient is currently not on insulin. Hold any NovoLog sliding scale/insulin for now. Patient encouraged to increased PO intake. Lunch this afternoon 25%. Continue vitamin B-12, folic acid,calcium and vitamin D. #DVT Prophylaxis With heparin #Code Full code Problem List: 1. COPD (chronic obstructive pulmonary disease) 2. Chronic respiratory failure 3. Gastritis 4. Dysphagia 5. Pulmonary embolism Pain Ratin Pain Location: None mentioned Pain Goal: Remain pain free Pain Plan: Ultram Tomorrow's Labs & Rationales: INR: Coumadin Dosing SAMANTHA ANDUJAR MD 09/30/16 1730: Attending MD Review Statement Attending Statement Attending Statement: examined this patient, discuss w/resident/PA/BILLIARD PLAYER, agreed w/resident/PA/BILLIARD PLAYER, reviewed EMR data (avail), discussed with nursing, discussed with case mgmt, amended to note Attending Assessment/Plan: The patient was seen and discussed with house staff. Agree with plan of care as outlined.
[2016-09-30 08:52] VITALS: BP 148/86
[2016-09-30 15:44] VITALS: BP 138/76
[2016-09-30] MEDS ORDERED: REMERON15 M2 PO (16:31)
--- NOTE | 2016-09-30 16:38 | Patient Discharge Instructions ---
Discharge Instructions General Discharge Information You were seen/treated for: Pulmonay Embolism Abdominal Pain You had these procedures: Barium Swallow X-Ray Modified Barium Swallow Watch for these problems: Fever, nausea, vomiting, chills, weakness, increased generalized edema. Palpitations. Chest pain. Shortness of breath. If you have any adverse reactions from any of the medications prescribed please inform your primary care physician and you may be required to come back to the emergency department. Thank you for letting us be part of your care. Special Instructions: Your INR need to be checked for adequate Coumadin dosing. Please have your INR checked on 10/04/2016. The results of these need to be sent to your PCP the [facility]. We have also arranged an appointment at the [facility] for you. Please follow up. Please follow-up with your primary care physician on 10/04/2016. This is for a post hospital discharge follow-up. Please follow-up for an out patient Psychiatry follow up. Diet Continue normal diet: No Recommended Diet: Mechanical Soft Honey Thickened Liquids. Activity Full Activity/No Limits: No Activity Self Limited: Yes (As Tolerated) Acute Coronary Syndrome Inclusion Criteria At DC or during hospital stay patient has or had the following: ACS DIAGNOSIS No Discharge Core Measures Meds if any: Prescribed or Continued at Discharge Meds if any: NOT Prescribed or Continued at Discharge Congestive Heart Failure Inclusion Criteria At DC or during hospital stay patient has or had the following: CHF DIAGNOSIS No Discharge Core Measures Meds if any: Prescribed or Continued at Discharge Meds if any: NOT Prescribed or Continued at Discharge Cerebrovascular accident Inclusion Criteria At DC or during hospital stay patient has or had the following: CVA/TIA Diagnosis No Discharge Core Measures Meds if any: Prescribed or Continued at Discharge Meds if any: NOT Prescribed or Continued at Discharge Venous thromboembolism Inclusion Criteria VTE Diagnosis Yes VTE Type Pulmonary Embolism VTE Confirmed by (Test) NONE Discharge Core Measures - Per Current guidelines, there needs to be overlap - treatment for the first 5 days of Warfarin therapy. - If discharged on Warfarin prior to 5 days of - overlap therapy, the patient will need to be - assessed for post discharge needs including - *Post discharge parental anticoagulation - *Warfarin and/or parental anticoagulation education - *Follow up date to check INR post discharge At least 5 days overlap therapy as Inpatient Yes Meds if any: Prescribed or Continued at Discharge Note: Overlap Therapy is Warfarin and Anticoagulant Meds if any: NOT Prescribed or Continued at Discharge
[2016-09-30 18:40] VITALS: BP 120/60
[2016-10-01 00:14] VITALS: BP 130/68
[2016-10-01 08:20] LABS: PT 26.3 SEC (9.4-12.5)
[2016-10-01 08:55] VITALS: BP 126/72
[2016-10-01] MEDS ORDERED: COUMADIN1 M1 PO (11:13)
[2016-10-01 16:58] VITALS: BP 150/80
[2016-10-01 18:45] VITALS: BP 150/80
--- NOTE | 2016-10-01 20:33 | PN- Housestaff ---
REG CUMMINGS,[facility] 10/01/162032: Subjective Follow-up For: Acute PE Chronic Abdominal Pain Subjective: Patient seen and examined this morning. Resting comfrotably in bed. Patient states that she is currently pain-free and does not report of any abdominal pain or discomfort. She is currently on oxygen via nasal cannula, 3L. she denies diarrhea,fever, chills, nause or vomiting. Review of Systems Constitutional: Reports: see HPI. Objective Last 24 Hrs of Vital Signs/I&O Vital Signs Date Time Temp Pulse Resp B/P Pulse O2 O2 Flow FiO2 Ox Delivery Rate 10/01 1845 97.4 73 18 150/80 10/01 1658 97.4 73 18 150/80 96 Nasal 3.0L Cannula 10/01 1600 96 Nasal 3.0L Cannula 10/01 1307 99 Nasal 2.5L Cannula 10/01 0938 Nasal 3.0L Cannula 10/01 0855 97.9 62 18 126/72 95 Room Air 10/01 0800 Nasal 3.0L Cannula 10/01 0014 97.9 69 20 130/68 97 Nasal 3.0L Cannula 10/01 0000 95 Nasal 3.0L Cannula 09/30 2109 96 Nasal 2.5L Cannula Intake & Output 10/01 1600 10/01 0800 10/01 0000 Intake Total 800 760 780 Output Total 300 100 Balance 500 760 680 Intake, IV 400 200 Intake, Oral 800 360 580 Number 8 1 Bowel Movements Output, Urine 300 100 Physical Exam General Appearance: Alert, Oriented X3, Cooperative, No Acute Distress Cardiovascular: Regular Rate, Normal S1, Normal S2 Lungs: Clear to Auscultation, Normal Air Movement Abdomen: Normal Bowel Sounds, Soft, No Tenderness Extremities: No Clubbing, No Cyanosis, No Edema Current Medications: Current Medications Sig/Vadim Start time Last Medication Dose Route Stop Time Status Admin Acetaminophen 650 MG Q6P PRN 09/22 2200 AC 10/01 PO 2030 Albuterol Sulfate 3 ML Q4P PRN 09/23 2215 AC 09/28 INH 1503 Aspirin Buffered 81 MG DAILY 09/23 1700 AC 10/01 PO 1045 Atenolol 50 MG DAILY 09/23 1000 AC 10/01 PO 1045 Atorvastatin Calcium 80 MG 1700 09/23 1700 AC 10/01 PO 1736 Budesonide/ 2 PUF BID 09/23 1000 AC 10/01 Formoterol Fumarate INH 1044 Calcium/Vitamin D 500 MG DAILY 09/25 1505 AC 10/01 PO 1045 Cyanocobalamin 1,000 MCG DAILY 09/25 1504 AC 10/01 PO 1045 Duloxetine HCl 40 MG DAILY 09/24 1000 AC 10/01 PO 1045 Enoxaparin Sodium 60 MG BID 09/27 1000 AC 10/01 SC 1044 Folic Acid 1 MG DAILY 09/25 1504 AC 10/01 PO 1045 Hyoscyamine 0.125 MG Q4 HRS NEEDED PRN 09/23 1900 AC 09/30 PO 1547 Ipratropium [place] 2.5 ML 4 TIMES/DAY PRN 09/22 2345 AC 09/28 INH 1503 Levetiracetam 250 MG BID 09/22 2356 AC 10/01 PO 1045 Levothyroxine Sodium 0.175 MG DAILY AC 09/23 0700 AC 10/01 PO 0601 Mirtazapine 7.5 MG AT BEDTIME 09/29 2200 AC 09/30 PO 2151 Nicotine 14 MG DAILY 09/22 2315 AC 10/01 TOP 1044 Omeprazole 20 MG DAILY AC 09/23 0700 AC 10/01 PO 0601 Patient Medication 1 ED .STK-MED ONE 10/01 1335 DC Teaching ED 10/01 1336 Senna/Docusate Sodium 1 TAB BID 09/26 1000 AC 09/30 PO 2151 Sodium Chloride 1,000 ML Q20H 09/27 2145 AC 10/01 IV 0601 Tramadol HCl 50 MG ONCE ONE 10/01 1300 DC 10/01 PO 10/01 1301 1249 Last 24 Hrs of Lab/Hung Results Last 24 Hrs of Labs/Mics: Laboratory Tests 10/01/16 0640: PT 26.3 H, INR 2.53 H Microbiology 10/01 1300 STOOL: Clostridium difficile Toxin A & B - COMP Assessment/Plan Assessment: This 76-year-old lady a past medical history of hypertension hyperlipidemia, COPD on 2.5 L via next nasal cannula, diabetes mellitus non-small cell cancer of the right lung status post right lobectomy, hypothyroidism, PVD status post left total knee amputation current smoker mostly wheelchair-bound presents to the emergency department complaining of worsening abdominal pain and chronic diarrhea. #Acute left main pulmonary embolism Warfarin (day Two) and Lovenox BID. therapeutic dose between 2 and 3. In addition the patient is also receiving Continue Lovenox 60 mg twice a day. Continue oxygen to keep saturations above 92% #Constant lower abdominal pain with watery diarrhea(microscopic gastroenteritis/ ischemia bowel): resolved. stool culture from 09/26/16 showed no Salmonella, Shigella or Campylobacter. Gastroenterology Consultation recommended MRA for suspision of mesenteric ischemia but pt refused it. #History of abdominal aortic aneurysm with repair (approximately 8 years ago) and evidence of intraluminal thrombus(most likely chronic) on CT scan, and # Occlusion of left common iliac artery As Per Vascular:Low Likelihood of mesenteric ischemia. MRA to rule out ischemic bowel and mesenteric ischemia however the patient declined. She is aware of the consequences of declining such a procedure despite the recommendations from the gastroenterology service. #Mood Disorder Continue Mirtazapine 7.5mg Formal psychiatry consultation obtained.continue 7.5 mg of mirtazapine. This should help increase her appetite and improve her mood. Social work consult as been placed. #Dysphagia Modified barium swallow, recommended, Honey Thick and chopped diet. Showed no evidence of any barry aspiration. #History of oxygen dependent COPD:' Continue oxygen to keep saturations above 92% Continue Advair TRC nebs. #History of hypothyroidism: Continue home dose of levothyroxine. #History of hypertension and hyperlipidemia: Continue home dose of atenolol 50 mg and atorvastatin 80 mg #History of anxiety and depression: Continue home dose of Ativan and duloxetine 40 mg. #History of seizures Continue home dose of Keppra 250 mg twice a day. #History of type 2 diabetes: Hemoglobin A1c 5.8, patient is currently not on insulin. Hold any NovoLog sliding scale/insulin for now. Patient encouraged to increased PO intake. Lunch this afternoon 25%. Continue vitamin B-12, folic acid,calcium and vitamin D. #DVT Prophylaxis With heparin #Code Full code Problem List: 1. Full code status 2. General weakness 3. Abdominal pain 4. AAA (abdominal aortic aneurysm) Pain Ratin Pain Location: abdomen Pain Goal: Remain pain free Pain Plan: see A/p Tomorrow's Labs & Rationales: none SAMANTHA ANDUJAR MD 10/04/16 1121: Attending Review Statement Attending Statement Attending Statement: examined this patient, discuss w/resident/PA/SAFETY ANALYST, agreed w/resident/PA/SAFETY ANALYST, reviewed EMR data (avail), discussed with nursing, discussed with case mgmt, amended to note Attending Assessment/Plan: The patient was seen and discussed with house staff. Agree with the plan of care as outlined.
[2017-03-14] MEDS ORDERED: CALCIUM600 M3 PO (19:42)
[2017-03-14] MEDS ORDERED: KEFLEX500 M1 PO (23:10)
== END 2016-10-01 20:48 | DRG 176 ==
LOC: ERH 16:10 → 2NB 19:56 → 1NO 19:56 → ERHI 19:56 → 1NO 22:22 → 2NB 09-30 18:27
PROVIDERS: Emergency Medicine; Internal Medicine; Physician Assistant Medical; Student in an Organized Health Care Education/Training Program; ADMIT Internal Medicine
DX: I26.99 Other pulmonary embolism without acute cor pulmonale (principal); I74.5 Embolism and thrombosis of iliac artery; J96.10 Chronic respiratory failure, unspecified whether with hypoxia or hypercapnia; T82.898A Other specified complication of vascular prosthetic devices, implants and grafts, initial encounter; R56.9 Unspecified convulsions; J44.9 Chronic obstructive pulmonary disease, unspecified; F17.210 Nicotine dependence, cigarettes, uncomplicated; E03.9 Hypothyroidism, unspecified; E11.9 Type 2 diabetes mellitus without complications; I73.9 Peripheral vascular disease, unspecified; Z86.711 Personal history of pulmonary embolism; E78.5 Hyperlipidemia, unspecified; K21.9 Gastro-esophageal reflux disease without esophagitis; I71.4 Abdominal aortic aneurysm, without rupture; Z79.4 Long term (current) use of insulin; R13.10 Dysphagia, unspecified; F41.9 Anxiety disorder, unspecified; F32.9 Major depressive disorder, single episode, unspecified; Y83.2 Surgical operation with anastomosis, bypass or graft as the cause of abnormal reaction of the patient, or of later complication, without mention of misadventure at the time of the procedure; Z89.512 Acquired absence of left leg below knee; Z85.118 Personal history of other malignant neoplasm of bronchus and lung
CPT/HCPCS: 1NSP; 2NBSP; 36415; 74177; 74220; 74230; 81001; 82436; 87045; 87328; 87329; 90662; 93005; 93010; 93306; 96374; 96375; 97001-GP; 97110-GO; 97112-GO; 97161-GP; 97530-GO; 99232; J0131; J1644; J1650; J1953; J2405; J3490; J7060

== ENCOUNTER 2017-02-24 12:24 | Inpatient (IN) | payer OTHER, MEDICARE ==
[~2017-02-24] VITALS: Ht 152.4 cm; Wt 56.7 kg
[~2017-02-24 12:24] MED LIST changes: +COUMADIN1 M1 PO; +DITROPAN XL5 M1 PO; +REMERON15 M2 PO
--- NOTE | 2017-02-24 12:30 | NUR ---
76 YEAR OLD FEMALE BIBA FROM HOME AFTER VISITING EVALUATED PT DURING WEEKLY PT/INR CHECK. PER EMS PT IS 02 DEPENDENT AT HOME AND WAS FOUND WITH OXYGEN LEVEL 85-87% ON 2L. PT ARRIVES TO ED ALERT AND ORIENTED TO PERSON AND PLACE. OXYGEN LEVEL 100% ON NONREBREATHER. GILDA LEAL AT BEDSIDE FOR EVAL. PT PLACED ON NC VIA 2L WITH SATS 93-94%. PT ALSO REPORTING ABDOMINAL PAIN WITH DIARRHEA FOR 5 MONTHS. PT REQUESTING FOOD TRAY STATES LAST MEAL WAS YESTERDAY. PT EDUCATED TO REMAIN NPO UNTIL RESULTS COME BACK REGARDING ABOVE COMPLAINTS.
--- NOTE | 2017-02-24 12:31 | ED DYSPNEA/ASTHMA COMPLAINT ---
History of Present Illness General Chief Complaint: General Adult Stated Complaint: BIBA FOR LOW O2 AND LOW BP PER HOME HEALTH AIDE Source: patient, old records Exam Limitations: no limitations Vital Signs & Intake/Output Vital Signs & Intake/Output Vital Signs Date Time Temp Pulse Resp B/P B/P Pulse O2 O2 Flow FiO2 Mean Ox Delivery Rate 02/24 1836 99.6 74 18 102/54 85 Nasal 2.0L Cannula 02/24 1445 94 Nasal 2.0L Cannula 02/24 1238 96.9 59 18 98/50 100 Non 100% ReBreather Allergies Coded Allergies: aspirin (Intermediate, UPSET STOMACH 09/23/16) atorvastatin (Intermediate, MUSCLE PAIN 09/22/16) oxycodone (Intermediate, DIZZY AND NAUSEA 09/22/16) codeine (Mild, FLUSHING 09/22/16) Reconcile Medications Albuterol Sulfate 1.25 MG/3 ML VIAL.NEB 1 Vial INH/LAYLA Q4-6 PRN SHORTNESS OF BREATH (Reported) USE WITH IPRATROPIUM Albuterol Sulfate (Ventolin Hfa) 90 MCG HFA.AER.AD 2 PUF INH Q4-6 PRN PRN SHORTNESS OF BREATH (Reported) Atenolol 50 MG TABLET 1 TAB PO DAILY BP (Reported) Cholecalciferol (Vitamin D3) (Vitamin D-3) 2,000 UNIT TABLET 1 TAB PO DAILY VITAMIN SUPPORT (Reported) Cyanocobalamin (Vitamin B-12) (B-12) 1,000 MCG TABLET 1 TAB PO DAILY SUPPLEMENT (Reported) Duloxetine HCl 20 MG CAPSULE.DR 2 CAP PO DAILY DEPRESSION (Reported) 20-60MG TWO TIMES PER NIGHT Ferrous Sulfate 325 MG (65 MG IRON) TABLET 1 TAB PO DAILY SUPPLEMENT ( Reported) Fluticasone/Salmeterol (Advair 250-50 Diskus) 250 MCG-50 MCG/DOSE BLST.W.DEV 1 PUF INH BID COPD (Reported) Levetiracetam (Keppra) 250 MG TABLET 1 TAB PO BID SEIZURES (Reported) Levothyroxine Sodium 175 MCG TABLET 1 TAB PO DAILY AC THYROID (Reported) Lorazepam (Ativan) 0.5 MG TABLET 1 TAB PO TID ANXIETY (Reported) Mirtazapine 15 MG TABLET 1 TAB PO QPM MOOD STABILITY (Reported) Oxybutynin Chloride (Ditropan XL) 5 MG TAB.ER.24 1 TAB PO DAILY Incontinence (Reported) Pantoprazole Sodium 20 MG TABLET.DR 2 TAB PO DAILY GI (Reported) Pravastatin Sodium (Pravachol) 80 MG TABLET 1 TAB PO DAILY HIGH CHOLESTEROL ( Reported) Sucralfate (Carafate) 1 GRAM TABLET 1 TAB PO 4 TIMES/DAY GERD (Reported) Warfarin Sodium (Coumadin) 2.5 MG TABLET 1 TAB PO 1700 BLOOD THINNER ( Reported) Triage Nurses Notes Reviewed? yes Onset: Gradual Duration: getting worse Timing: recent history Severity: severe Activities at Onset: activity HPI: Patient is a 76-year-old female with past medical history of hypertension, hyperlipidemia, COPD on 2 and half liters of oxygen nasal cannula at all times, AAA status post repair 8 years ago, diabetes, non-small cell carcinoma of the right lung status post bilobectomy, pulmonary embolism, hypothyroidism peripheral vascular disease and status post left below the knee amputation who presents to emergency room with concerns of worsening shortness of breath dehydration concerns and nursing noted patient have hypoxia on 2.5 liters and there is also discussion between nursing staff and nursing staff also discussed with home visiting nurse of possible unsafe and unhygienic living conditions. Patient chronic planes of generalized abdominal pain Denies any chest pain arm pain and jaw pain nausea vomiting leg swelling Patient does state she has a chronic cough (DALE DE SOUZA) Past History Travel History Traveled to [place] past 21 day No Medical History Any Pertinent Medical History? see below for history Neurological: dizziness, seizure EENT: NONE Cardiovascular: hypertension, hyperlipidemia, PVD, HYPONATREMIA Respiratory: COPD, O2 DEP @2.5 L RUL RESECTION Gastrointestinal: GERD, AAA Hepatic: NONE Renal: NONE Musculoskeletal: LEFT BKA Psychiatric: anxiety, depression Endocrine: diabetes, hypothyroidism Blood Disorders: DVT, PE Cancer(s): lung cancer HIM DIRECTOR/Reproductive: HYSTRECTOMY History of MRSA: No History of VRE: No History of CDIFF: No Influenza Vaccine: 06/26/16 Surgical History Surgical History: cholecystectomy, hysterectomy, BKA LEFT AAA REPAIR RUL RESECTION 2004 Psychosocial History Who do you live with Son Services at Home Oxygen What is your primary language Scottish Family History Family History, If Any: MOTHER FH: diabetes mellitus FH: hypertension SISTER FH: diabetes mellitus FH: hypertension Hx Contributory? No (DALE DE SOUZA) Review of Systems Review of Systems Constitutional: Reports: see HPI. EENTM: Reports: no symptoms. Respiratory: Reports: see HPI. Cardiovascular: Reports: see HPI. GI: Reports: see HPI, abdominal pain. Genitourinary: Reports: no symptoms. Musculoskeletal: Reports: no symptoms. Skin: Reports: no symptoms. Neurological/Psychological: Reports: no symptoms. Hematologic/Endocrine: Reports: no symptoms. Immunologic/Allergic: Reports: no symptoms. All Other Systems: Reviewed and Negative (DALE DE SOUZA) Physical Exam Physical Exam General Appearance: cachetic Head: atraumatic Eyes: Bilateral: normal appearance. Ears, Nose, Throat: hearing grossly normal Neck: normal inspection Respiratory: chest non-tender, quiet respiration, decreased breath sounds Cardiovascular: regular rate/rhythm Gastrointestinal: normal bowel sounds, soft, GENERALIZED ABDOMINAL PAIN Extremities: no edema, LEFT BELOW THE KNEE AMPUTATION NOTED Skin: intact, normal color, warm/dry Lymphatic: no anterior cervical key Core Measures ACS in differential dx? No Severe Sepsis Present: No Septic Shock Present: No (DALE DE SOUZA) Progress Differential Diagnosis: asthma, AMI, bronchitis, costochondritis, CHF, COPD, musculoskeletal pain, pericarditis, pulmonary embolism, pneumonia, pneumothorax, rib fracture, unstable angina Diagnostic Imaging: Viewed by Me: CT Scan. Radiology Impression: no acute abnormality Initial ED EKG: normal QRS complex, normal sinus rhythm, SINUS RHYTHM 60 BPM Prior EKG: unchanged Repeat EKG: unchanged Comments: PATIENT: JESSE SAAVEDRA PRESENT AGE: 76 PATIENT ACCOUNT NO: [id number] : 41 LOCATION: [facility] ORDERING PHYSICIAN: DALE VO SERVICE DATE: 02/24/17 EXAM TYPE: CAT - CT ABD & PELVIS W IV CONTRAST; CTA CHEST-PULMONARY EMBOLISM EXAMINATION: 1. CTA CHEST 2. CT ABDOMEN AND PELVIS WITH CONTRAST CLINICAL INFORMATION: Shortness of breath. History of pulmonary embolism. Abdominal pain. COMPARISON: CT chest 11/05/2015. TECHNIQUE: A noncontrast localizer was performed, followed by the administration of 95 mL Optiray [address] of the chest was then performed. Coronal and sagittal reformatted and 3-D technique MIP images of the chest were completed at the CT scanner and reviewed on the PACS workstation. No adverse effects were reported. Images were then performed through the abdomen and pelvis. Coronal and sagittal reformatted images performed at CT scanner by technologist. Patient was imaged with arms at the side. Patient unable to raise arms for the exam. This does cause artifact. DLP: 809.72 mGy-cm FINDINGS: 1. CTA CHEST: Vascular: The main pulmonary artery, secondary and tertiary branches of the pulmonary artery are normally opacified with no evidence of pulmonary embolism. There is calcification of the mitral valve. There are coronary artery calcifications. There are vascular wall calcifications of aorta without aneurysm. Mediastinum: No mediastinal mass. No significant lymphadenopathy. There is no pericardial effusion. There are multiple small coarse calcifications in the neck around the thyroid but no bulky lymphadenopathy. Lungs: Subpleural emphysematous changes of lungs most pronounced at the lung apices. Postsurgical changes with pleural thickening and multiple rib resections of the right lateral inferior chest wall. There is pleural parenchymal scarring related to this region. No acute infiltrate. No pleural effusion or pneumothorax. Fluid: There is no pericardial effusion. There is no pleural effusion. Axilla: No significant lymphadenopathy. 2. CT SCAN ABDOMEN AND PELVIS: Liver, Gallbladder, And Biliary Tree: The liver is normal in size, shape, and attenuation. No focal hepatic lesion or biliary ductal dilatation is present. Status post cholecystectomy. The extrahepatic CBD measures 9 mm in diameter. No calcified stone in the bile ducts. Pancreas: There is atrophy of the pancreas. Spleen: 5 mm hypodensity in the superior spleen. No suspicious focal lesion. Adrenal Glands: Unremarkable. Kidneys And Ureters: Pedunculated cortical cyst of the mid lower pole. Normal enhancement of the cortex of both kidneys. No renal or ureteral calculus. No hydronephrosis. Bladder: Unremarkable. Gastrointestinal Tract: No acute change of the bowel. No bowel obstruction. No bowel wall thickening or edema. There are a few scattered diverticula of colon but no diverticulitis. Moderate volume of stool in colon. The appendix is not identified. No inflammation of the mesentery. The small bowel loops are normal. Abdominal Wall: No significant hernia is appreciated. Lymph Nodes: No bulky lymphadenopathy. Vascular: Extensive vascular calcifications of aorta and major branch vessels. There is an aneurysm of the aorta distally. This measures 3.9 cm AP. Intraluminal thrombus in the aneurysm circumferentially. The lumen measures 1.3 x 1.8 cm. There is a stent placed around the aneurysm from the infrarenal aorta with a common artery iliac limb of the stent bilaterally. No evidence of aneurysmal leak. No retroperitoneal hematoma or fluid collection. There is a bifemoral bypass vascular stent in the lower anterior pelvis. Pelvic Viscera: The uterus is absent. No adnexal abnormality. Osseous Structures: Multilevel degenerative change of the spine with disc height narrowing, endplate spurs and facet joint arthrosis. Status post left hip compression screw placement. IMPRESSION: 1. No evidence of pulmonary embolism. No acute change of the chest. 2. No acute abnormality of the abdomen or pelvis. Status post cholecystectomy. Status post vascular stent of abdominal aortic aneurysm. Bifemoral bypass vascular stent. Status post hysterectomy. DICTATED BY: KEVAN MCDONALD MD DATE/TIME DICTATED:02/24/17 / 1510 PERINATAL BREASTFEEDING ASSISTANT:GUERRERO (DALE DE SOUZA) Plan of Care: Orders Procedure Date/time Status Heart Healthy Diet 02/25 B Active Admit to inpatient 02/24 1849 Active TROPONIN LEVEL 02/24 1724 Complete EKG 02/24 1724 Active LACTIC ACID 02/24 1541 Complete LACTIC ACID 02/24 1359 Complete Telemetry/Manager Decision Support 02/24 1241 Active CULTURE,URINE 02/24 1241 Active LOWER RESPIRATORY CULTURE 02/24 1241 Active BLOOD CULTURE 02/24 1241 Active URINALYSIS 02/24 1241 Complete THYROID STIMULATING HORMONE 02/24 1241 Complete TROPONIN LEVEL 02/24 1241 Complete PARTIAL THROMBOPLASTIN TIME 02/24 1241 Complete PROTHROMBIN TIME 02/24 1241 Complete MAGNESIUM 02/24 1241 Complete FREE T4 02/24 1241 Complete COMPREHENSIVE METABOLIC PANEL 02/24 1241 Complete CBC WITHOUT DIFFERENTIAL 02/24 1241 Complete EKG 02/24 1235 Active Current Medications Sig/Vadim Start time Last Medication Dose Stop Time Status Admin Sodium Chloride 1,000 ML BOLUS ONE 02/24 1900 AC (Normal Saline 0.9%) 02/24 195 Laboratory Tests 02/24/17 1756: Troponin I < 0.01 02/24/17 1756: Lactic Acid 1.4 02/24/17 1529: Urine Color YEL, Urine Clarity CLEAR, Urine pH 7.5, Ur Specific [place] 1.010, Urine Protein NEG, Urine Ketones NEG, Urine Nitrite NEG, Urine Bilirubin NEG, Urine Urobilinogen 0.2, Ur Leukocyte Esterase SMALL H, Ur Microscopic SEDIMENT EXAMINED, Urine WBC 1-3 H, Ur Epithelial Cells FEW, Urine Bacteria FEW H, Urine Hemoglobin NEG, Urine Glucose NEG 02/24/17 1415: Lactic Acid 0.9, PT 12.4, INR 1.18, APTT 30, CBC w Diff NO MAN DIFF REQ, RBC 4.93, MCV 89.1, MCH 29.0, RDW 14.5, MPV 9.1, Gran % 65.0, Lymphocytes % 25.6, Monocytes % 6.3, Eosinophils % 2.7, Basophils % 0.4, Absolute Granulocytes 3.9, Absolute Lymphocytes 1.6, Absolute Monocytes 0.4, Absolute Eosinophils 0.2, Absolute Basophils 0, PUBS MCHC 32.5 L 02/24/17 1326: Anion Gap 4 L, Estimated GFR > 60, BUN/Creatinine Ratio 21.4, Glucose 89, Calcium 8.2 L, Magnesium 2.0, Total Bilirubin 0.4, AST 18, ALT 31, Alkaline Phosphatase 98, Troponin I < 0.01, Total Protein 5.3 L, Albumin 2.5 L, Globulin 2.8, Albumin/Globulin Ratio 0.9 L, TSH < 0.015 L, Free T4 2.55 H Microbiology 02/24 1529 URINE ROUT: Urine Culture - RECD 02/24 1415 BLOOD: Blood Culture - RECD 02/24 1326 BLOOD: Blood Culture - RECD 02/24 1241 LOWER RESP: Respiratory Culture - ORD 02/24 1241 LOWER RESP: Gram Stain - ORD Other differential diagnoses include pancreatitis cholecystitis appendicitis diverticulitis, SBO Patient refused an ABG Patient is noted to have significant decreased breath sounds and patient is in no respiratory distress CT scan was unremarkable for pulmonary embolism and CT scan of chest and abdomen was unremarkable essentially. Patient was able to tolerate a meal in the emergency room. However upon ambulation with supervision patient was noted to desat in the low 80s and showed mild respiratory distress with her normal home O2 in place. Patient will be admitted for concerns of a story failure and COPD. There was also discussions with case management to patient's visiting nursing company about the patient's current residency in which this needs to be further investigated after patient is admitted (ELVIS VO,DALE) Departure Departure Disposition: STILL A PATIENT Condition: Stable Clinical Impression Primary Impression: COPD (chronic obstructive pulmonary disease) Referrals: ALTON CUMMINGS,LILLIAM Departure Forms: Customer Survey General Discharge Information Admission Note Spoke With: ORQUIDEA URIBE MD Documentation of Exam: Documentation of any treatments & extenuating circumstances including Concerns Regarding Discharge (functional status, medication knowledge or non-compliance, living conditions, etc.) that warrant an admission rather than observation: [ Discussed patient with who agrees a general medicine admission for concern of COPD exacerbation and hypoxia upon ambulation. Patient requires nebulizer treatment, IV Solu-Medrol home in a consultation and outpatient treatment would be medically harmful.] (DALE DE SOUZA) PA/BENCH MOLDER APPRENTICE Co-Sign Statement Statement: ED Attending supervision documentation- [X] I saw and evaluated the patient. I have also reviewed all the pertinent lab results and diagnostic results. I agree with the findings and the plan of care as documented in the PA's/BENCH MOLDER APPRENTICE's documentation. [] I have reviewed the ED Record and agree with the PA's/BENCH MOLDER APPRENTICE's documentation. [] Additions or exceptions (if any) to the PAs/BENCH MOLDER APPRENTICE's note and plan are summarized below: [] (YURY CUMMINGS,ESTEVAN Patel) Critical Care Note Critical Care Note Critical Care Time: non-applicable (DALE DE SOUZA) Critical Care Note Critical Care Note Critical Care Time: non-applicable (DALE DE SOUZA)
--- NOTE | 2017-02-24 12:37 | NUR ---
GILDA LEAL AT BEDSIDE FOR EVAL.
--- NOTE | 2017-02-24 13:08 | NUR ---
PER VISITING NURSE AT [facility] PT HAS BEEN ON VISITING NURSE SERVICE FOR A FEW MONTHS FOR WEEKLY PT/INR CHECKS. TODAY PT WAS FOUND WITH OXYGEN LEVELS 85-87% ON NC 2L WHICH IS BASELINE FOR PT. VISITING NURSE ALSO REPORTS HOUSE IS IN DEPORABLE CONDITION WITH MOLD GROWING ON DIRTY DISHES. PER VISITIN NURSE PT IS NOT SAFE TO GO BACK HOME IN THE CONDITION IT IS IN.
--- NOTE | 2017-02-24 14:23 | NUR ---
LAV, BLUE, CRUZ AND SECOND SET OF BLOOD CULTURES SENT TO LAB NOW.
[2017-02-24 14:40] LABS: ABSOLUTE BASOPHIL COUNT 0 /CUMM (0.0-0.2); ABSOLUTE EOSINOPHIL COUNT 0.2 /CUMM (0.0-0.7); ABSOLUTE GRANULOCYTE CT 3.9 /CUMM (1.4-6.5); ABSOLUTE LYMPH COUNT 1.6 /CUMM (1.2-3.4); ABSOLUTE MONOCYTE COUNT 0.4 /CUMM (0.10-0.60); BASOPHIL % 0.4 % (0.0-2.0); EOSINOPHIL % 2.7 % (0-5); MEAN CORPUSCULAR HGB CONC 32.5 G/DL (33.0-37.0); MEAN CORPUSCULAR VOLUME 89.1 FL (81.0-99.0); MEAN PLATELET VOLUME 9.1 FL (7.4-10.4); PLATELET COUNT 230 /CUMM (130-400); RBC DISTRIBUTION WIDTH 14.5 % (11.5-14.5); RED BLOOD CELL CT 4.93 /CUMM (4.20-5.40); WHITE BLOOD CELL COUNT 6.1 /CUMM (4.8-10.8)
[2017-02-24 14:46] LABS: PT 12.4 SEC (9.4-12.5); PTT 30 SEC (25-37)
[2017-02-24] MEDS ORDERED: MIRTAZAPINE15 M2 PO (15:01)
[2017-02-24] MEDS ORDERED: COUMADIN2.5 M1 PO (15:03)
[2017-02-24] MEDS ORDERED: FERROUS SULFAT325 M3 PO (15:07)
--- NOTE | 2017-02-24 15:33 | NUR ---
URINE TRIO SENT TO LAB BY THIS [facility]
--- NOTE | 2017-02-24 15:50 | CT SCAN REPORT ---
EXAMINATION: 1. CTA CHEST 2. CT ABDOMEN AND PELVIS WITH CONTRAST CLINICAL INFORMATION: Shortness of breath. History of pulmonary embolism. Abdominal pain. COMPARISON: CT chest 11/05/2015. TECHNIQUE: A noncontrast localizer was performed, followed by the administration of 95 mL Optiray [address] of the chest was then performed. Coronal and sagittal reformatted and 3-D technique MIP images of the chest were completed at the CT scanner and reviewed on the PACS workstation. No adverse effects were reported. Images were then performed through the abdomen and pelvis. Coronal and sagittal reformatted images performed at CT scanner by technologist. Patient was imaged with arms at the side. Patient unable to raise arms for the exam. This does cause artifact. DLP: 809.72 mGy-cm FINDINGS: 1. CTA CHEST: Vascular: The main pulmonary artery, secondary and tertiary branches of the pulmonary artery are normally opacified with no evidence of pulmonary embolism. There is calcification of the mitral valve. There are coronary artery calcifications. There are vascular wall calcifications of aorta without aneurysm. Mediastinum: No mediastinal mass. No significant lymphadenopathy. There is no pericardial effusion. There are multiple small coarse calcifications in the neck around the thyroid but no bulky lymphadenopathy. Lungs: Subpleural emphysematous changes of lungs most pronounced at the lung apices. Postsurgical changes with pleural thickening and multiple rib resections of the right lateral inferior chest wall. There is pleural parenchymal scarring related to this region. No acute infiltrate. No pleural effusion or pneumothorax. Fluid: There is no pericardial effusion. There is no pleural effusion. Axilla: No significant lymphadenopathy. 2. CT SCAN ABDOMEN AND PELVIS: Liver, Gallbladder, And Biliary Tree: The liver is normal in size, shape, and attenuation. No focal hepatic lesion or biliary ductal dilatation is present. Status post cholecystectomy. The extrahepatic CBD measures 9 mm in diameter. No calcified stone in the bile ducts. Pancreas: There is atrophy of the pancreas. Spleen: 5 mm hypodensity in the superior spleen. No suspicious focal lesion. Adrenal Glands: Unremarkable. Kidneys And Ureters: Pedunculated cortical cyst of the mid lower pole. Normal enhancement of the cortex of both kidneys. No renal or ureteral calculus. No hydronephrosis. Bladder: Unremarkable. Gastrointestinal Tract: No acute change of the bowel. No bowel obstruction. No bowel wall thickening or edema. There are a few scattered diverticula of colon but no diverticulitis. Moderate volume of stool in colon. The appendix is not identified. No inflammation of the mesentery. The small bowel loops are normal. Abdominal Wall: No significant hernia is appreciated. Lymph Nodes: No bulky lymphadenopathy. Vascular: Extensive vascular calcifications of aorta and major branch vessels. There is an aneurysm of the aorta distally. This measures 3.9 cm AP. Intraluminal thrombus in the aneurysm circumferentially. The lumen measures 1.3 x 1.8 cm. There is a stent placed around the aneurysm from the infrarenal aorta with a common artery iliac limb of the stent bilaterally. No evidence of aneurysmal leak. No retroperitoneal hematoma or fluid collection. There is a bifemoral bypass vascular stent in the lower anterior pelvis. Pelvic Viscera: The uterus is absent. No adnexal abnormality. Osseous Structures: Multilevel degenerative change of the spine with disc height narrowing, endplate spurs and facet joint arthrosis. Status post left hip compression screw placement. IMPRESSION: 1. No evidence of pulmonary embolism. No acute change of the chest. 2. No acute abnormality of the abdomen or pelvis. Status post cholecystectomy. Status post vascular stent of abdominal aortic aneurysm. Bifemoral bypass vascular stent. Status post hysterectomy.
--- NOTE | 2017-02-24 15:59 | NUR ---
GILDA LEAL TO BEDSIDE TO DISCUSS RESULTS AND POC.
--- NOTE | 2017-02-24 16:00 | NUR ---
PT SON WOULD LIKE TO REACHED AT [phone] REGARDING POC. PT SON STATES HE CAN NOT PICK HIS MOTHER UP DUE TO TRANSPORTATION ISSUES.
--- NOTE | 2017-02-24 16:03 | NUR ---
DINNER TRAY ORDERED.
--- NOTE | 2017-02-24 16:15 | NUR ---
CASE MANAGEMENT LM: STEFAN AND I MET WITH PATIENT. PT UNABLE TO RECALL NAME OF COMPANY THAT SHE IS GETTING VISITING NURSE SERVICES WITH. SPOKE WITH THE NURSE QUALITY CONTROL ASSESSOR LESLIE AT [facility]– [place] WHO ADVISED THAT THEY HAD SET HER UP WITH [facility] WHEN SHE WAS DISCHARGED FROM THEIR CARE. LESLIE ALSO PROVIDED [facility] #[phone].
--- NOTE | 2017-02-24 17:49 | NUR ---
02/24 CASE MGMT- CALL PLACED TO [facility] ANSWERING SERVICE. AWAITING RETURN CALL BACK. CASE MGMT WILL CONTINUE TO FOLLOW.
--- NOTE | 2017-02-24 18:13 | NUR ---
02/24 CASE MGMT- SPOKE WITH TARIFF COMPILING CLERK RN FROM [facility]- STATES CONTACTING [facility]PA[facility] AND SOMEONE WILL CALL US BACK REGARDING PLAN OF CARE. CASE MGMT WILL CONTINUE TO FOLLOW.
--- NOTE | 2017-02-24 18:40 | NUR ---
02/24 CASE MGMT- CALL FROM ARCHITECTURAL DESIGN PROFESSOR AT [facility]- STATES SHE WILL HAVE TO SPEAK WITH NURSE THAT SENT PT IN AND WILL CALL BACK TOMORROW MORNING, LESLIE MADE AWARE PT MIGHT POSSIBLY NEED TO BE ADMITTED PER [facility]ALE VO. WILL TOUCH BASE WITH [facility] TOMORROW REGARDING PT PLAN OF CARE.
--- NOTE | 2017-02-24 19:56 | History & Physical ---
ELEUTERIO BARKER MD 02/24/171954: General Information and HPI MD Statement: I have seen and personally examined JESSE SAAVEDRA and documented this H& P. The patient is a 76 year old F who presented with a patient stated chief complaint of [shortness of breath]. Source of Information: patient Exam Limitations: no limitations History of Present Illness: 76-year-old female with past medical history of non-small cell cancer status post right lobectomy, COPD on nocturnal 2.5 L, pulmonary embolism on Coumadin, hypertension, hyperlipidemia, PVD with below-knee amputation of the left lower extremity, CVA, presented for shortness of breath. Patient has been in her normal state of health up until this morning, when she felt short of breath on ambulation, requiring her to put oxygen on. She denies increased cough, wheezing, or sputum production. She continues to smoke 1 pack a day, and has been smoking for 40 years. She has lost 85 pounds in the last 1 year, reporting she has decreased appetite. She lives at home with her son. She ambulates mostly with a wheelchair. She has a visiting nurse, who recommended her to come to the ED today. Sick contacts include son who is having a cold, and she also reports that the visiting nurse is sick. Her oxygen saturation was 85% on 2 L, and she was put on non-rebreather in the ED. She was given Solu-Medrol, neb treatment, and azithromycin in the ED. When we examine her, she was feeling better, and was lying comfortably in bed. Of note, she has had chronic low abdominal pain, that has been present over the past 4 months. Allergies/Medications Allergies: Coded Allergies: aspirin (Intermediate, UPSET STOMACH 09/23/16) atorvastatin (Intermediate, MUSCLE PAIN 09/22/16) oxycodone (Intermediate, DIZZY AND NAUSEA 09/22/16) codeine (Mild, FLUSHING 09/22/16) Home Med list Albuterol Sulfate 1.25 MG/3 ML VIAL.NEB 1 Vial INH/LAYLA Q4-6 PRN SHORTNESS OF BREATH (Reported) USE WITH IPRATROPIUM Albuterol Sulfate (Ventolin Hfa) 90 MCG HFA.AER.AD 2 PUF INH Q4-6 PRN PRN SHORTNESS OF BREATH (Reported) Atenolol 50 MG TABLET 1 TAB PO DAILY BP (Reported) Cholecalciferol (Vitamin D3) (Vitamin D-3) 2,000 UNIT TABLET 1 TAB PO DAILY VITAMIN SUPPORT (Reported) Cyanocobalamin (Vitamin B-12) (B-12) 1,000 MCG TABLET 1 TAB PO DAILY SUPPLEMENT (Reported) Duloxetine HCl 20 MG CAPSULE.DR 2 CAP PO DAILY DEPRESSION (Reported) 20-60MG TWO TIMES PER NIGHT Ferrous Sulfate 325 MG (65 MG IRON) TABLET 1 TAB PO DAILY SUPPLEMENT ( Reported) Fluticasone/Salmeterol (Advair 250-50 Diskus) 250 MCG-50 MCG/DOSE BLST.W.DEV 1 PUF INH BID COPD (Reported) Levetiracetam (Keppra) 250 MG TABLET 1 TAB PO BID SEIZURES (Reported) Levothyroxine Sodium 175 MCG TABLET 1 TAB PO DAILY AC THYROID (Reported) Lorazepam (Ativan) 0.5 MG TABLET 1 TAB PO TID ANXIETY (Reported) Mirtazapine 15 MG TABLET 1 TAB PO QPM MOOD STABILITY (Reported) Oxybutynin Chloride (Ditropan XL) 5 MG TAB.ER.24 1 TAB PO DAILY Incontinence (Reported) Pantoprazole Sodium 20 MG TABLET.DR 2 TAB PO DAILY GI (Reported) Pravastatin Sodium (Pravachol) 80 MG TABLET 1 TAB PO DAILY HIGH CHOLESTEROL ( Reported) Sucralfate (Carafate) 1 GRAM TABLET 1 TAB PO 4 TIMES/DAY GERD (Reported) Warfarin Sodium (Coumadin) 2.5 MG TABLET 1 TAB PO 1700 BLOOD THINNER ( Reported) Past History Travel History Traveled to [place] past 21 day No Medical History Neurological: dizziness, seizure EENT: NONE Cardiovascular: hypertension, hyperlipidemia, PVD, HYPONATREMIA Respiratory: COPD, on nocturnal o2 2.5L Gastrointestinal: GERD, AAA Hepatic: NONE Renal: NONE Musculoskeletal: LEFT BKA Psychiatric: anxiety, depression Endocrine: diabetes, hypothyroidism Blood Disorders: DVT, PE Cancer(s): lung cancer LDR RN/Reproductive: HYSTRECTOMY History of MRSA: No History of VRE: No History of CDIFF: No Influenza Vaccine: 06/26/16 Surgical History Surgical History: cholecystectomy, hysterectomy, BKA LEFT AAA REPAIR RUL RESECTION 2004 Past Family/Social History Family History Relations & Conditions if any MOTHER FH: diabetes mellitus FH: hypertension SISTER FH: diabetes mellitus FH: hypertension Psychosocial History Where do you live? Home Who Do You Live With? child (son - h/o alcoholism) Services at Home: Nursing, Oxygen Smoking Status: Current Everyday Smoker ETOH Use: occasional use Illicit Drug Use: denies illicit drug use Functional Ability ADLs Independent: dressing, eating, toileting, bathing. Ambulation: independent, walker, wheelchair IADLs Independent: finances, telephone, medication admin. Needs Assist: shopping, housework, food prep, transportation. Review of Systems Review of Systems Constitutional: Denies: chills, fever. EENTM: Denies: visual changes. Cardiovascular: Denies: chest pain, palpitations. Respiratory: Reports: cough, short of breath. Denies: sputum production, wheezing. GI: Reports: abdominal pain. Denies: bloating, constipation, diarrhea, nausea, vomiting. Genitourinary: Denies: dysuria. Exam & Diagnostic Data Last 24 Hrs of Vital Signs/I&O Vital Signs Date Time Temp Pulse Resp B/P B/P Pulse O2 O2 Flow FiO2 Mean Ox Delivery Rate 02/24 2342 96.7 73 18 122/62 96 Nasal 2.0L Cannula 02/24 2158 97.5 72 18 105/55 97 Nasal 2.0L Cannula 02/24 2056 97.3 71 18 91/55 98 Nasal 3.0L Cannula 02/24 1836 99.6 74 18 102/54 85 Nasal 2.0L Cannula 02/24 1445 94 Nasal 2.0L Cannula 02/24 1238 96.9 59 18 98/50 100 Non 100% ReBreather Intake & Output 02/25 0800 06/ 0000 02/24 1600 Intake Total 1000 Output Total Balance 1000 Intake, IV 1000 Physical Exam General Appearance Alert, Oriented X3, Cooperative, No Acute Distress Skin No Rashes, No Breakdown, No Significant Lesion Skin Temp/Moisture Exam: Warm/Dry Sepsis Skin Exam (color): Normal for Ethnicity HEENT Atraumatic, PERRLA, EOMI, dry mucous membrane Neck Supple, No JVD, +2 Carotid Pulse wo Bruit Lymphatic Axillary nl, Cervical nl Cardiovascular Regular Rate, Normal S1, Normal S2, No Murmurs, Gallops, Rubs Lungs mild rhonchi. no wheezing. decreased air entry diffusely Abdomen Normal Bowel Sounds, Soft, tender in the lower abdomen skin candidiasis of the abdominal fold Neurological Normal Speech Extremities No Edema, left bka Vascular 1+ pulse on the right lower extremity Last 24 Hrs of Labs/Hung: Laboratory Tests 02/24/17 1756: Troponin I < 0.01 02/24/17 1756: Lactic Acid 1.4 02/24/17 1529: Urine Color YEL, Urine Clarity CLEAR, Urine pH 7.5, Ur Specific [place] 1.010, Urine Protein NEG, Urine Ketones NEG, Urine Nitrite NEG, Urine Bilirubin NEG, Urine Urobilinogen 0.2, Ur Leukocyte Esterase SMALL H, Ur Microscopic SEDIMENT EXAMINED, Urine WBC 1-3 H, Ur Epithelial Cells FEW, Urine Bacteria FEW H, Urine Hemoglobin NEG, Urine Glucose NEG 02/24/17 1415: Lactic Acid 0.9, PT 12.4, INR 1.18, APTT 30, CBC w Diff NO MAN DIFF REQ, RBC 4.93, MCV 89.1, MCH 29.0, RDW 14.5, MPV 9.1, Gran % 65.0, Lymphocytes % 25.6, Monocytes % 6.3, Eosinophils % 2.7, Basophils % 0.4, Absolute Granulocytes 3.9, Absolute Lymphocytes 1.6, Absolute Monocytes 0.4, Absolute Eosinophils 0.2, Absolute Basophils 0, PUBS MCHC 32.5 L 02/24/17 1326: Anion Gap 4 L, Estimated GFR > 60, BUN/Creatinine Ratio 21.4, Glucose 89, Calcium 8.2 L, Magnesium 2.0, Total Bilirubin 0.4, AST 18, ALT 31, Alkaline Phosphatase 98, Troponin I < 0.01, Total Protein 5.3 L, Albumin 2.5 L, Globulin 2.8, Albumin/Globulin Ratio 0.9 L, TSH < 0.015 L, Free T4 2.55 H Microbiology 02/24 2138 NASOPHARYN: Influenza Virus A & B Rapid Smear - ORD 02/24 152 URINE ROUT: Legionella Antigen - COMP 02/24 152 URINE ROUT: Streptococcus pneumoniae Antigen (M - COMP 02/24 1529 URINE ROUT: Urine Culture - RECD 02/24 1415 BLOOD: Blood Culture - RECD 02/24 1326 BLOOD: Blood Culture - RECD 02/24 1241 LOWER RESP: Respiratory Culture - ORD 02/24 1241 LOWER RESP: Gram Stain - ORD Diagnostic Data EKG Results EKG HR 60, SR, QTc 444. Other Results EXAM TYPE: CAT - CT ABD & PELVIS W IV CONTRAST; CTA CHEST-PULMONARY EMBOLISM EXAMINATION: 1. CTA CHEST 2. CT ABDOMEN AND PELVIS WITH CONTRAST CLINICAL INFORMATION: Shortness of breath. History of pulmonary embolism. Abdominal pain. COMPARISON: CT chest 11/05/2015. TECHNIQUE: A noncontrast localizer was performed, followed by the administration of 95 mL Optiray [address] of the chest was then performed. Coronal and sagittal reformatted and 3-D technique MIP images of the chest were completed at the CT scanner and reviewed on the PACS workstation. No adverse effects were reported. Images were then performed through the abdomen and pelvis. Coronal and sagittal reformatted images performed at CT scanner by technologist. Patient was imaged with arms at the side. Patient unable to raise arms for the exam. This does cause artifact. DLP: 809.72 mGy-cm FINDINGS: 1. CTA CHEST: Vascular: The main pulmonary artery, secondary and tertiary branches of the pulmonary artery are normally opacified with no evidence of pulmonary embolism. There is calcification of the mitral valve. There are coronary artery calcifications. There are vascular wall calcifications of aorta without aneurysm. Mediastinum: No mediastinal mass. No significant lymphadenopathy. There is no pericardial effusion. There are multiple small coarse calcifications in the neck around the thyroid but no bulky lymphadenopathy. Lungs: Subpleural emphysematous changes of lungs most pronounced at the lung apices. Postsurgical changes with pleural thickening and multiple rib resections of the right lateral inferior chest wall. There is pleural parenchymal scarring related to this region. No acute infiltrate. No pleural effusion or pneumothorax. Fluid: There is no pericardial effusion. There is no pleural effusion. Axilla: No significant lymphadenopathy. 2. CT SCAN ABDOMEN AND PELVIS: Liver, Gallbladder, And Biliary Tree: The liver is normal in size, shape, and attenuation. No focal hepatic lesion or biliary ductal dilatation is present. Status post cholecystectomy. The extrahepatic CBD measures 9 mm in diameter. No calcified stone in the bile ducts. Pancreas: There is atrophy of the pancreas. Spleen: 5 mm hypodensity in the superior spleen. No suspicious focal lesion. Adrenal Glands: Unremarkable. Kidneys And Ureters: Pedunculated cortical cyst of the mid lower pole. Normal enhancement of the cortex of both kidneys. No renal or ureteral calculus. No hydronephrosis. Bladder: Unremarkable. Gastrointestinal Tract: No acute change of the bowel. No bowel obstruction. No bowel wall thickening or edema. There are a few scattered diverticula of colon but no diverticulitis. Moderate volume of stool in colon. The appendix is not identified. No inflammation of the mesentery. The small bowel loops are normal. Abdominal Wall: No significant hernia is appreciated. Lymph Nodes: No bulky lymphadenopathy. Vascular: Extensive vascular calcifications of aorta and major branch vessels. There is an aneurysm of the aorta distally. This measures 3.9 cm AP. Intraluminal thrombus in the aneurysm circumferentially. The lumen measures 1.3 x 1.8 cm. There is a stent placed around the aneurysm from the infrarenal aorta with a common artery iliac limb of the stent bilaterally. No evidence of aneurysmal leak. No retroperitoneal hematoma or fluid collection. There is a bifemoral bypass vascular stent in the lower anterior pelvis. Pelvic Viscera: The uterus is absent. No adnexal abnormality. Osseous Structures: Multilevel degenerative change of the spine with disc height narrowing, endplate spurs and facet joint arthrosis. Status post left hip compression screw placement. IMPRESSION: 1. No evidence of pulmonary embolism. No acute change of the chest. 2. No acute abnormality of the abdomen or pelvis. Status post cholecystectomy. Status post vascular stent of abdominal aortic aneurysm. Bifemoral bypass vascular stent. Status post hysterectomy. 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 Patient reports being compliant with taking her Coumadin, however her INR is 1.18 today. CTA was negative for embolism. Patient is admitted to general medicine for acute hypoxic respiratory failure most likely due to COPD exacerbation. Problem list: # Acute hypoxic respiratory failure most likely due to COPD exacerbation # Skin candidiasis # Hx of PE on coumadin, INR subtherapeutic # Hx of hypothyroidism, low TSH # Acute hypoxic respiratory failure most likely due to COPD exacerbation * Azithromycin * Solu-Medrol 40 mg Q8 * Symbicort * Pulmonology consult with Dr. Heredia in am # Skin candidiasis * # Hx of hypothyroidism, low TSH # Hx of PE on coumadin, INR subtherapeutic * INR and coumadin daily # Hx of hypothyroidism, low TSH * Decrease dose of levothyroxine from 175 to 125 g daily * Endocrinology consult with Dr. Pinto in am # Hx of HTN * HOLD atenolol due to borderline BP # Continue home meds Mirtazapine 15 mg every afternoon Ativan 0.5 mg 3 times a day Keppra 150 mg twice a day Carafate 1000 mg 4 times a day Pravastatin 20 mg daily Omeprazole 40 mg daily Oxybutynin 5 mg daily Cyanocobalamin 1000 g daily Vitamin D 1000 iu daily Duloxetine 40 mg daily IVF:Ns 75ml/hr X 1 bag Diet:Heart healthy diet DVT ppx: alps , warfarin FULL CODE As Ranked By This Provider Problem List: 1. COPD exacerbation Core Measures/Miscellaneous Acute Coronary Syndrome ACS Diagnosis: No Cerebrovascular Accident CVA/TIA Diagnosis: No Congestive Heart Failure CHF Diagnosis: No Venous Thromboembolism VTE Risk Factors: Age > 40, Smoking No [facility] VTE prophylaxis d/t: No contraindications No VTE Pharm Prophylaxis d/t: No contraindications VTE Diagnosis: No VTE Type: NONE VTE Confirmed by (Test): CT CHEST ANGIOGRAM Severe Sepsis Severe Sepsis Present: No Septic Shock Septic Shock Present: No Miscellaneous Documentation Attending Case Discussed With: ORQUIDEA URIBE MD Primary Care Physician: UNKNOWN Patient sees these Specialists Dr Yan Pinto endocrinology Level of Patient Care: General Medicine KALA ROACH 02/24/17 2002: Resident Review Statement Resident Statement: examined this patient, discussed with technology development intern, agreed with technology development intern, discussed with family, reviewed EMR data (avail), discussed with nursing , discussed with case mgmt, reviewed images, amended to note Other Findings: 76-year-old female with a past medical history of hypothyroidism, seizure disorder, COPD on 2 L, and GERD, urinary incontinence, abdominal aortic aneurysm status post repair 8 years ago, diabetes, non-small cell carcinoma of the right lung status post bilobectomy, pulmonary embolism, peripheral vascular disease status post left below knee amputation who presented to the ER with concerns for shortness of breath and was found to be hypoxic on 2.5 liters of oxygen. According to the patient she states that she's not been breathing well since morning. She denies cough, fever, chills states that her son has: And so does have a history of sick contact. She states that she normally uses 2 pillows and has not required a change. She denies any wheezing, any history of prolonged travel. She states that she continues to smoke a pack a day and has been doing so for the past 40 years. She denies any swelling in her lower extremities. Denies any urinary complaints, constipation, diarrhea. She does endorse abdominal pain that has been chronic has been going on for the past 5-6 months. Vitals at the time of admission blood pressure 102/54, respiratory rate of 18, pulse 74, MAXIMUM TEMPERATURE of 99.6 saturating 85% on 2 L of oxygen via nasal cannula. On physical exam She is alert, oriented lying comfortably in bed. HEENT revealed PERRLA, dry mucous membranes. Examination of the neck did not reveal an elevated JVP or cervical lymphadenopathy. Cardiovascular exam pertinent for normal S1, S2, no murmurs rubs or gallops appreciated. Auscultation of the chest revealed decreased breath sounds bilaterally. Abdominal exam pertinent for mild tenderness in the epigastric area however normal bowel sounds, and abdomen soft, nondistended, fungal infection in her inguinal fold on the right side. Examination of the extremities revealed below-knee amputation of the left lower extremity. Pulses 1+ on RLE. Labs pertinent for normal white blood cell count of 6100, and H&H of 14.3/44.0, platelet count of 230,000. Serum chemistries revealed hyponatremia with a sodium of 136, normal potassium of 4.4, bicarbonate 34, anion gap of 4, BUN 15, creatinine 0.7, serum glucose of 89. LFTs unremarkable with an AST/ALT of 18/31 , alkaline phosphatase of 98. First set of troponin negative at less than 2.01. TSH low at 0.24943 T4 elevated to 2.55. INR was 1.18 Q waves revealed small amount of leukocyte Estrace, 1-3 white blood cells and amount of back T area was negative for nitrite. CAT scan of abdomen and pelvis and CTA of chest was done which revealed no evidence of pulmonary embolism, no acute abnormality of the abdomen and pelvis. There is a vascular stent with bifemoral bypass vascular stent, and she status post hysterectomy. In the ER she received normal saline bolus thousand mL 1, methylprednisone 125 mg IV 1, Atrovent and albuterol 1 with a dose of his MAXIMUM TEMPERATURE. Of note patient refused an ABG in the ER. She desaturated to low 80s and was in mild respiratory distress upon ambulation up on her normal home O2. Assessment and plan Admit patient to GEN [facility] #Acute hypoxemic respiratory failure most likely secondary to COPD exacerbation TRC nebs Azithromycin 500 mg IV daily She already received Solu-Medrol 125 mg IV 1 in the ER, continue on 40 mg every 8 Hydrate her with fluids, normal saline at 75 mL bag 1 Incentive spirometry and flutter valve Continue to titrate oxygen down to her home oxygen level Pulm consult in AM wkith Dr. Heredia #Hyperthyroidism Her TSH is low and free T4 is elevated We will reduce her dose to 0.125 mg from 0.175 mg daily Repeat TSH and free T4 in 3-4 days And a consult in a.m. with Dr. pinto #Seizure Continue on Keppra 250 mg twice a day by mouth #Candidiasis - Nystatin powder #Subtherapeutic INR We'll dose her with Coumadin 2.5 mg by mouth 1 Follow-up INR in a.m. and dose Coumadin accordingly to maintain INR between 2 and 3. -Diet Heart healthy -DVT prophylaxis On warfarin -CODE STATUS Full code ORQUIDEA URIBE 02/25/17 0448: Attending MD Review Statement Attending Statement Attending MD Statement: examined this patient, discuss w/resident/PA/SM[employer] ENERGY INSTALLER, agreed w/resident/PA/SM[employer] W[employer] ENERGY INSTALLER, reviewed EMR data (avail), reviewed images, amended to note Attending Assessment/Plan: CC: Shortness of breath PMHx: HTN, HLD, COPD on 2.5 L NC, DM, non-small cell cancer of the right lung status post right lobectomy, remote history of PE, hypothyroidism, PVD,s/p left BKA, current smoker, mostly wheelchair bound. Patient is poor historian. She states that she came to ER for shortness of breath, which worsened this morning patient has chronic cough without expectoration. Patient denies any chest pain, palpitations, chest tightness, dizziness or loss of consciousness. Patient also complains of chronic abdominal pain diffuse, with associated chronic diarrhea. She gets abdominal pain and diarrhea intermittently. She was recently admitted and discharged September 2016 for pulmonary embolism for which she is on warfarin. Home health nurse went to check on INR today when she found patient hypoxic at home. Vitals: afebrile, pulse in 70s, RR 18 in acceptable range. Requiring 3 L to saturate at 94%. Blood pressure was transiently low upon arrival 98/50 but responded to 2 L normal saline improved to 105/55. On exam: a O 3, anxious, answers appropriately, follows instructions, no focal neurological deficit. Left BKA. Right lower extremity trace edema. RS: Markedly decreased air entry bilaterally without any wheezing or crackles. CVS: S1-S2 normal, no JVD. Abdomen: Soft, mild tender right and left lower quadrant, no guarding, no rigidity, no rebound, bowel sounds present. Labs: CBC, BMP, LFT, troponin unremarkable. TSH less than 0.015, INR 1.18, UA positive for leukocyte esterase CTA chest and CT abdomen and pelvis 1. No evidence of pulmonary embolism. No acute change of the chest. 2. No acute abnormality of the abdomen or pelvis. Status post cholecystectomy. Status post vascular stent of abdominal aortic aneurysm. Bifemoral bypass vascular stent. Status post hysterectomy. A and P 76-year-old female with multiple comorbidities presented in ER for shortness of breath. Upon arrival she was placed on nonrebreather mask she was saturating 94% , upon ambulation she desaturated to 85% on 2 L. Patient is on 2.5 L oxygen at home. According to home health nurse patient was desaturating up to 85-87% on home oxygen. Examination reveals markedly decreased air entry bilaterally without obvious wheeze or crackles, patient appears in mild respiratory distress. He does not have significant leukocytosis or any evidence of pneumonia on CT scan. Incidentally she is also found to have low TSH, currently on levothyroxine for hypothyroidism. + COPD exacerbation + Acute on chronic hypoxic respiratory failure + Patient's abdominal pain appears to be chronic in nature probably secondary to chronic ischemia with her long-standing atherosclerotic changes. + Low TSH with history of hypothyroidism currently under treatment + Subtherapeutic INR + History of HTN, HLD, CVA, seizure, non-small cell lung cancer right S/P resection, recent pulmonary embolism, and current smoker - Admit to general medicine - Continue O2 by nasal cannula, try to wean up to her home oxygen level - Incentive spirometry and flutter valve - IV methylprednisolone 40 mg every 8 hours - Scheduled and when necessary nebulization with albuterol and ipratropium - IV azithromycin - Pulmonology consult in a.m. - Decrease dose of levothyroxine from 175 to 125: Endocrinology consult in a.m. - Continue home doses of warfarin, check INR in a.m. - Adequate pain control - Continue all her home medications
--- NOTE | 2017-02-24 21:51 | NUR ---
HOUSE STAFF AT BEDSIDE FOR EVAL.
--- NOTE | 2017-02-24 23:46 | NUR ---
PT MEDICATED PER EMAR. RESTING COMFORTABLY ON STRETCHER. WILL CONTINUE TO MONITOR.
--- NOTE | 2017-02-25 00:10 | NUR ---
FLU SWAB SENT TO LAB.
--- NOTE | 2017-02-25 00:12 | NUR ---
BED ASSIGNMENT [id number]
--- NOTE | 2017-02-25 00:26 | NUR ---
REPORT GIVEN TO DEEPTHI RODRIGUEZ ON GEN MED, BED IS READY.
[2017-02-25 02:02] VITALS: BP 126/62
--- NOTE | 2017-02-25 04:49 | Admission Certification ---
Admission Certification Certification Statement - As attending physician, I certify that at the time of - admission, based on clinical presentation, severity of - symptoms, need for further diagnostic testing and - therapeutic interventions, and risk of adverse outcomes - without in-hospital treatment, in my clinical assessment, - this patient requires an acute hospital stay for a minimum - of two nights or longer. I have also considered psychsocial - factors such as support system, advanced age, financial - issues, cognitive issues, and failed out-patient treatments, - past re-admission history, safety of patient, and lack of - compliance as applicable. Specific rationale supporting this admission is: COPD exacerbation
[2017-02-25 06:50] VITALS: BP 126/60; BP 128/64
[2017-02-25 07:29] LABS: PT 11.8 SEC (9.4-12.5)
--- NOTE | 2017-02-25 07:30 | PN- Housestaff ---
ROBERTA CUMMINGS,GREG 02/25/17 0729: Subjective Follow-up For: acute hypoxic respiratory failure secondary to COPD exacerbation Subjective: I saw and examined the patient today morning She is lying in the bed at her baseline oxygen requirement. She reports decreased appetite, shortness of breath, improving. Upon further asking about weight loss - she reports it is secondary to poor appetite and decreased PO intake. Review of Systems Constitutional: Reports: see HPI. Objective Last 24 Hrs of Vital Signs/I&O Vital Signs Date Time Temp Pulse Resp B/P B/P Pulse O2 O2 Flow FiO2 Mean Ox Delivery Rate 02/25 0650 98.3 78 18 128/64 96 Nasal Cannula 02/25 0202 97.9 71 18 126/62 97 Nasal 3.0L Cannula 02/24 2342 96.7 73 18 122/62 96 Nasal 2.0L Cannula 02/24 2158 97.5 72 18 105/55 97 Nasal 2.0L Cannula 02/24 2056 97.3 71 18 91/55 98 Nasal 3.0L Cannula 02/24 1836 99.6 74 18 102/54 85 Nasal 2.0L Cannula 02/24 1445 94 Nasal 2.0L Cannula 02/24 1238 96.9 59 18 98/50 100 Non 100% ReBreather Intake & Output 02/25 0800 02/25 0000 02/24 1600 Intake Total 1000 Output Total Balance 1000 Intake, IV 1000 Physical Exam General Appearance: Alert, Oriented X3, Cooperative Skin: No Rashes, No Breakdown HEENT: Atraumatic, PERRLA Neck: Supple Cardiovascular: Normal S1, Normal S2 Lungs: decreased air enty, mild crackles at bases. NO added sounds. Abdomen: Normal Bowel Sounds, Soft, No Tenderness Neurological: Normal Tone, Sensation Intact, Cranial Nerves 3-12 NL Extremities: No Clubbing, No Cyanosis, No Edema Current Medications: Current Medications Sig/Vadim Start time Last Medication Dose Route Stop Time Status Admin Albuterol Sulfate 3 ML ONCE ONE 02/24 1830 DC 02/24 INH 02/24 183 1851 Azithromycin 500 MG 1800 02/25 1800 AC Sodium Chloride 250 ML IV Azithromycin 500 MG ONCE ONE 02/24 1830 DC 02/24 Sodium Chloride 250 ML IV 02/24 192 192 Budesonide/ 2 PUF BID 02/24 2200 AC 02/24 Formoterol Fumarate INH 2344 Cholecalciferol 1,000 IU DAILY 02/25 1000 AC PO Cyanocobalamin 1,000 MCG DAILY 02/25 1000 AC PO Duloxetine HCl 40 MG DAILY 02/25 1000 AC PO Ferrous Sulfate 325 MG DAILY 02/25 1000 AC PO Ipratropium [place] 2.5 ML ONCE ONE 02/24 1830 DC 02/24 INH 02/24 1831 1851 Levetiracetam 250 MG BID 02/24 2200 AC 02/24 PO 2344 Levothyroxine Sodium 0.125 MG DAILY AC 02/25 0700 AC 02/25 PO 0619 Lorazepam 0 .STK-MED ONE 02/24 2330 DC PO Lorazepam 0.5 MG TID 02/24 2200 AC 02/24 PO 03/03 2159 2344 Methylprednisolone 40 MG Q6 02/25 0600 DC IV Methylprednisolone 40 MG Q8 02/25 0600 AC 02/25 IV 0619 Methylprednisolone 40 MG Q8 02/24 2200 DC 02/24 IV 2344 Methylprednisolone 0 .STK-MED ONE 02/24 1902 DC .ROUTE Methylprednisolone 125 MG ONCE ONE 02/24 1830 DC 02/24 IV 02/24 1831 1920 Mirtazapine 15 MG QPM 02/24 2200 AC 02/24 PO 2344 Nystatin 1 KAMALJIT TID 02/24 2215 AC 02/24 TOP 2344 Omeprazole 40 MG DAILY AC 02/25 0700 AC 02/25 PO 0619 Oxybutynin Chloride 5 MG DAILY 02/25 1000 AC PO Pravastatin Sodium 20 MG 1700 / 1700 AC PO Sodium Chloride 1,000 ML Q13H 02/24 2145 AC 02/25 IV 02/25 1044 0300 Sodium Chloride 1,000 ML BOLUS ONE 02/24 1900 DC 02/24 IV 02/24 1959 2159 Sodium Chloride 1,000 ML BOLUS ONE 02/24 1445 DC 02/24 IV 02/24 1544 1513 Sucralfate 1,000 MG 4 TIMES/DAY 02/25 1000 AC PO Warfarin Sodium 2.5 MG ONCE ONE 02/24 2215 DC 02/24 PO 02/24 2216 2344 Last 24 Hrs of Lab/Hung Results Last 24 Hrs of Labs/Mics: Laboratory Tests 02/25/17 0625: Anion Gap 5, Estimated GFR > 60, BUN/Creatinine Ratio 16.7, PT 11.8, INR 1.13, CBC w Diff NO MAN DIFF REQ, RBC 4.82, MCV 88.4, MCH 29.2, RDW 14.5, MPV 9.7, Gran % 83.8 H, Lymphocytes % 15.5 L, Monocytes % 0.6 L, Eosinophils % 0, Basophils % 0.1, Absolute Granulocytes 2.3, Absolute Lymphocytes 0.4 L, Absolute Monocytes 0 L, Absolute Eosinophils 0, Absolute Basophils 0, PUBS MCHC 33.0 Microbiology 02/25 0009 NASOPHARYN: Influenza Virus A & B Rapid Smear - COMP Assessment/Plan Assessment: 76-year-old female with past medical history of non-small cell cancer status post right lobectomy, COPD on nocturnal 2.5 L, pulmonary embolism on Coumadin, hypertension, hyperlipidemia, 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 Patient reports being compliant with taking her Coumadin, however her INR is 1.18 today. CTA was negative for embolism. Patient is admitted to general medicine for acute hypoxic respiratory failure most likely due to COPD exacerbation. Acute hypoxic respiratory failure most likely due to COPD exacerbation * Azithromycin * Solu-Medrol 40 mg Q8 * Symbicort * consulted - appreciate her input Weight loss and deconditioning * Patient has lost around 85pound in the last year * She claims her appetite is very poor, unable to eat as it causes exertion with breathing * Nutrition consult placed * Advised to take small frequent meals. * CT abdomen and pelvis/CT chest - negative for any acute cancerous process/ recurrence Skin candidiasis * # Hx of hypothyroidism, low TSH Hx of PE on coumadin, INR subtherapeutic * INR and coumadin daily * Dosed 4mg warfarin today Hx of hypothyroidism, low TSH * Patient had a weight loss of 85 pound weight loss which could potentially cause excess levels as dosing is weight dependent. * Decrease dose of levothyroxine from 175 to 125 g daily * Endocrinology consult with Dr. Jake andrea with the paln * Plan to recheck her TSH and free T4 in the next 4-6weeks. Hx of HTN * HOLD atenolol due to borderline BP Continue home meds Mirtazapine 15 mg every afternoon Ativan 0.5 mg 3 times a day Keppra 150 mg twice a day Carafate 1000 mg 4 times a day Pravastatin 20 mg daily Omeprazole 40 mg daily Oxybutynin 5 mg daily Cyanocobalamin 1000 g daily Vitamin D 1000 iu daily Duloxetine 40 mg daily Diet:Heart healthy diet DVT ppx: alps , warfarin FULL CODE Problem List: 1. General weakness 2. COPD Pain Ratin Pain Location: n/a Pain Goal: Pain 4 or less Pain Plan: tylenol prn Tomorrow's Labs & Rationales: none GROVER PEREZ MD 02/25/17 1210: Attending MD Review Statement Attending Statement Attending MD Statement: examined this patient, discuss w/resident/PA/LINK WIRE FABRIC MACHINE OPERATOR, agreed w/resident/PA/LINK WIRE FABRIC MACHINE OPERATOR, reviewed EMR data (avail), discussed with nursing, discussed with case mgmt, amended to note Attending Assessment/Plan: Patient seen and examined. Lethargic, not in acute respiratory distress. Complains of shortness of breath with exertion. Denies chest pain. Denies palpitations. Reports feeling no better compared to presentation. She reports getting tired easily when eating. She states even when she has a good appetite she is only able to tolerate a few bites at a time before she gets tired. She denies difficulty swallowing. Denies fever or chills. Denies night sweats. CT chest and abdomen were done in the ED showing no evidence of malignancy. Problems: 1. Acute on chronic hypoxic respiratory failure; patient was reported to desaturated to 85% on 2 L of oxygen in the emergency room. 2. COPD exacerbation. 3. Malnutrition due to poor oral intake with subsequent significant weight loss. 4. Peripheral vascular disease. Patient is on Coumadin therapy due to occlusion of left, iliac artery. 6. Thromboembolic disease status post PE Plan: -Pulmonology consultation appreciated. Continue bronchodilator therapy and intravenous here therapy as recommended. She is currently doing better and has been weaned down to 1 L of oxygen. -Mobilize patient as tolerated. -Endocrinology consult appreciated. Synthroid dose tapered down. Repeat TSH as an outpatient in 4-6 weeks. -Recommend nutrition consultation. -INR is markedly subtherapeutic. Coumadin has been resumed at 4 mg daily as opposed to home dose of 2.5 mg daily -Repeat CBCn in a.m. to ensure improvement of white cell count.
--- NOTE | 2017-02-25 08:06 | Cons- Endocrinology ---
General Information and HPI Consulting Request Date of Consult: 02/25/17 Requested By: medical team Reason for Consult: Elevated thyroid function tests Source of Information: patient, old records Exam Limitations: unable to give history History of Present Illness: This 76-year-old woman was brought to the emergency room by ambulance after being apparently evaluated by a nurse at home. She was found to be short of breath. One thyroid function tests were done they were found to be elevated with a free T4 2 0.55 and a suppressed TSH of less than 0.015. The patient is a poor historian. However according to the records she was on levothyroxine 175 g daily at home. She reportedly lost considerable weight and has a poor appetite. She lives with her son she states and he does the cooking at home. She has a left [id number] amputation and usually is wheelchair confined. The patient has a history of COPD and carcinoma of the lung status post a right lobectomy. Apparently she also has a history of pulmonary embolus and peripheral vascular disease. She has had a femorofemoral bypass and then endovascular repair her aorta. Allergies/Medications Allergies: Coded Allergies: aspirin (Intermediate, UPSET STOMACH 09/23/16) atorvastatin (Intermediate, MUSCLE PAIN 09/22/16) oxycodone (Intermediate, DIZZY AND NAUSEA 09/22/16) codeine (Mild, FLUSHING 09/22/16) Home Med List: Albuterol Sulfate 1.25 MG/3 ML VIAL.NEB 1 Vial INH/LAYLA Q4-6 PRN SHORTNESS OF BREATH (Reported) USE WITH IPRATROPIUM Albuterol Sulfate (Ventolin Hfa) 90 MCG HFA.AER.AD 2 PUF INH Q4-6 PRN PRN SHORTNESS OF BREATH (Reported) Atenolol 50 MG TABLET 1 TAB PO DAILY BP (Reported) Cholecalciferol (Vitamin D3) (Vitamin D-3) 2,000 UNIT TABLET 1 TAB PO DAILY VITAMIN SUPPORT (Reported) Cyanocobalamin (Vitamin B-12) (B-12) 1,000 MCG TABLET 1 TAB PO DAILY SUPPLEMENT (Reported) Duloxetine HCl 20 MG CAPSULE.DR 2 CAP PO DAILY DEPRESSION (Reported) 20-60MG TWO TIMES PER NIGHT Ferrous Sulfate 325 MG (65 MG IRON) TABLET 1 TAB PO DAILY SUPPLEMENT ( Reported) Fluticasone/Salmeterol (Advair 250-50 Diskus) 250 MCG-50 MCG/DOSE BLST.W.DEV 1 PUF INH BID COPD (Reported) Levetiracetam (Keppra) 250 MG TABLET 1 TAB PO BID SEIZURES (Reported) Levothyroxine Sodium 175 MCG TABLET 1 TAB PO DAILY AC THYROID (Reported) Levothyroxine Sodium (Synthroid) 125 MCG TABLET 0.125 MG PO DAILY AC thyroid function Lorazepam (Ativan) 0.5 MG TABLET 1 TAB PO TID ANXIETY (Reported) Mirtazapine 15 MG TABLET 1 TAB PO QPM MOOD STABILITY (Reported) Oxybutynin Chloride (Ditropan XL) 5 MG TAB.ER.24 1 TAB PO DAILY Incontinence (Reported) Pantoprazole Sodium 20 MG TABLET.DR 2 TAB PO DAILY GI (Reported) Pravastatin Sodium (Pravachol) 80 MG TABLET 1 TAB PO DAILY HIGH CHOLESTEROL ( Reported) Sucralfate (Carafate) 1 GRAM TABLET 1 TAB PO 4 TIMES/DAY GERD (Reported) Warfarin Sodium (Coumadin) 2.5 MG TABLET 1 TAB PO 1700 BLOOD THINNER ( Reported) Review of Systems Review of Systems Constitutional: Denies: chills, fever. Cardiovascular: Denies: chest pain. Respiratory: Reports: cough, short of breath. GI: Denies: abdominal pain, nausea, vomiting. Skin: Reports: no symptoms. Past History Travel History Traveled to [place] past 21 day No Medical History Neurological: dizziness, seizure EENT: NONE Cardiovascular: hypertension, hyperlipidemia, PVD, HYPONATREMIA Respiratory: COPD, on nocturnal o2 2.5L Gastrointestinal: GERD, AAA Hepatic: NONE Renal: NONE Musculoskeletal: LEFT BKA Psychiatric: anxiety, depression Endocrine: diabetes, hypothyroidism Blood Disorders: DVT, PE Cancer(s): lung cancer EXPANDED DUTY DENTAL ASSISTANT/Reproductive: HYSTRECTOMY Surgical History Surgical History: cholecystectomy, hysterectomy, BKA LEFT AAA REPAIR RUL RESECTION 2004 Family History Relations & Conditions If Any: MOTHER FH: diabetes mellitus FH: hypertension SISTER FH: diabetes mellitus FH: hypertension Psychosocial History Where Do You Live? Home Who Do You Live With? child (son - h/o alcoholism) Services at Home: Nursing, Oxygen Smoking Status: Current Everyday Smoker ETOH Use: occasional use Illicit Drug Use: denies illicit drug use Functional Ability ADLs Independent: dressing, eating, toileting, bathing. Ambulation: independent, walker, wheelchair IADLs Independent: finances, telephone, medication admin. Needs Assist: shopping, housework, food prep, transportation. Exam & Diagnostic Data Last 24 Hrs of Vital Signs/I&O Vital Signs Date Time Temp Pulse Resp B/P B/P Pulse O2 O2 Flow FiO2 Mean Ox Delivery Rate 02/28 0630 98.4 80 18 132/76 94 Nasal Cannula 02/27 2207 98.1 84 20 124/76 95 Nasal 2.0L Cannula 02/27 2055 94 Nasal 2.0L Cannula 02/27 1455 98.1 103 20 140/60 96 02/27 0920 98.1 Intake & Output 02/28 1600 02/28 0800 02/28 0000 Intake Total 450 Output Total 150 552 Balance -150 -102 Intake, Oral 450 Number 0 Bowel Movements Output, Stool 2 Output, Urine 150 550 Physical Exam General Appearance: awake, comfortable Head: normal appearance Neck: normal inspection Respiratory: normal breath sounds Cardiovascular: regular rate/rhythm Gastrointestinal: normal bowel sounds Extremities: left BKA Assessment/Plan Assessment/Plan This patient had elevated thyroid function tests on admission. She was on levothyroxine 175 g daily at home for hypothyroidism. She is admitted with shortness of breath breath most likely on the basis of exacerbation of COPD. She has weight loss and excess thyroid hormone could be playing a role in her weight loss. I agree with reducing her dose of levothyroxine to 125 g daily. It would take 4-6 weeks for that to repeat a steady state and at that time her thyroid test can be repeated. Other causes of weight loss should also be sought. Consult Acknowledgment - Thank you for your consult request.
[2017-02-25 08:11] LABS: ABSOLUTE BASOPHIL COUNT 0 /CUMM (0.0-0.2); ABSOLUTE EOSINOPHIL COUNT 0 /CUMM (0.0-0.7); ABSOLUTE GRANULOCYTE CT 2.3 /CUMM (1.4-6.5); ABSOLUTE LYMPH COUNT 0.4 /CUMM (1.2-3.4); ABSOLUTE MONOCYTE COUNT 0 /CUMM (0.10-0.60); BASOPHIL % 0.1 % (0.0-2.0); EOSINOPHIL % 0 % (0-5); GRANULOCYTE % 83.8 % (42.2-75.2); HEMATOCRIT 42.6 % (37-47); MEAN CORPUSCULAR HGB 29.2 PG (27.0-31.0); MEAN CORPUSCULAR VOLUME 88.4 FL (81.0-99.0); MEAN PLATELET VOLUME 9.7 FL (7.4-10.4); PLATELET COUNT 208 /CUMM (130-400); RBC DISTRIBUTION WIDTH 14.5 % (11.5-14.5); RED BLOOD CELL CT 4.82 /CUMM (4.20-5.40)
[2017-02-25 08:43] LABS: WHITE BLOOD CELL COUNT 2.8 /CUMM (4.8-10.8)
--- NOTE | 2017-02-25 09:35 | NUR ---
0045 ADMITTED FROM ER VIA STRETCHER TO ROOM 224 BED 1.DROWSY BUT AROUSABLE. A&OX3 WHEN AWAKE.76 YRS OLD WF FROM HOME.H/O COPD ON O2 2.5L NC @ HOME. BIBA DUE TO LOW O2 SAT & ABDOMEN PAIN X5 MONTHS.02 2L NC IN USE.HOB UP.NO RESP DISTRESS NOTED.NS INFUSING WELL.BED ALARM ON BED.SEIZURE PRECAUTION SET-UP IN ROOM.COCCYX RED NO SKIN BREAKDOWN NOTED.NYSTATIN POWDER APPLIED TO ABDOMEN FOLDS IN ER.ALPS ON RLE ONLY.PT HAS LT.BKA WITH PROTHESIS. ORIENTED TO ROOM & SURROUNDING.CALL COTTON IN REACH.NO C/O PAIN.SETTLED TO SLEEP.
--- NOTE | 2017-02-25 11:05 | Cons- Pulmonary ---
General Information and HPI Consulting Request Date of Consult: 02/25/17 Requested By: Dr. Ramirez Reason for Consult: COPD exacerbation Source of Information: patient, old records Exam Limitations: no limitations History of Present Illness: The patient is a 76-year-old female with a compensated past medical history including non-small cell lung answer status post right upper lobectomy in 2004, COPD on nocturnal oxygen at 2.5 L, pulmonary embolism on Coumadin, hypertension, hyperlipidemia, vascular disease with a left BKA, previous stroke and ongoing tobacco use disorder. The patient was admitted on 02/24/2017 with increased shortness of breath. She had no significant sputum production or fever but complained of chills. The patient was evaluated by her visiting nurse who recommended she report to the emergency department for further evaluation. In the ED, the patient's oxygen saturation was 85% on 2 L nasal cannula. She was put on a nonrebreather. The patient was given IV Solu-Medrol, nebs and azithromycin. The patient was admitted to the general medical floor for further treatment with ongoing steroids and antibiotics as well as nebulizer treatments. The patient reports feeling improved since admission. She is less short of breath and has less wheezing. She has a cough productive of clear sputum. Of note, the patient has lost 85 pounds within the past year and claims that her appetite is poor but does not have another reason for this unintentional weight loss. Additionally, the patient did undergo a CT angiogram that was negative for pulmonary embolism and negative for recurrence of tumor. Her CT the abdomen and pelvis was essentially benign. Allergies/Medications Allergies: Coded Allergies: aspirin (Intermediate, UPSET STOMACH 09/23/16) atorvastatin (Intermediate, MUSCLE PAIN 09/22/16) oxycodone (Intermediate, DIZZY AND NAUSEA 09/22/16) codeine (Mild, FLUSHING 09/22/16) Home Med List: Albuterol Sulfate 1.25 MG/3 ML VIAL.NEB 1 Vial INH/LAYLA Q4-6 PRN SHORTNESS OF BREATH (Reported) USE WITH IPRATROPIUM Albuterol Sulfate (Ventolin Hfa) 90 MCG HFA.AER.AD 2 PUF INH Q4-6 PRN PRN SHORTNESS OF BREATH (Reported) Atenolol 50 MG TABLET 1 TAB PO DAILY BP (Reported) Cholecalciferol (Vitamin D3) (Vitamin D-3) 2,000 UNIT TABLET 1 TAB PO DAILY VITAMIN SUPPORT (Reported) Cyanocobalamin (Vitamin B-12) (B-12) 1,000 MCG TABLET 1 TAB PO DAILY SUPPLEMENT (Reported) Duloxetine HCl 20 MG CAPSULE.DR 2 CAP PO DAILY DEPRESSION (Reported) 20-60MG TWO TIMES PER NIGHT Ferrous Sulfate 325 MG (65 MG IRON) TABLET 1 TAB PO DAILY SUPPLEMENT ( Reported) Fluticasone/Salmeterol (Advair 250-50 Diskus) 250 MCG-50 MCG/DOSE BLST.W.DEV 1 PUF INH BID COPD (Reported) Levetiracetam (Keppra) 250 MG TABLET 1 TAB PO BID SEIZURES (Reported) Levothyroxine Sodium 175 MCG TABLET 1 TAB PO DAILY AC THYROID (Reported) Lorazepam (Ativan) 0.5 MG TABLET 1 TAB PO TID ANXIETY (Reported) Mirtazapine 15 MG TABLET 1 TAB PO QPM MOOD STABILITY (Reported) Oxybutynin Chloride (Ditropan XL) 5 MG TAB.ER.24 1 TAB PO DAILY Incontinence (Reported) Pantoprazole Sodium 20 MG TABLET.DR 2 TAB PO DAILY GI (Reported) Pravastatin Sodium (Pravachol) 80 MG TABLET 1 TAB PO DAILY HIGH CHOLESTEROL ( Reported) Sucralfate (Carafate) 1 GRAM TABLET 1 TAB PO 4 TIMES/DAY GERD (Reported) Warfarin Sodium (Coumadin) 2.5 MG TABLET 1 TAB PO 1700 BLOOD THINNER ( Reported) Current Medications: Current Medications Sig/Vadim Start time Last Medication Dose Route Stop Time Status Admin Albuterol Sulfate 3 ML ONCE ONE 02/24 183 DC 02/24 INH 02/24 1831 1851 Azithromycin 500 MG 1800 02/25 1800 AC Sodium Chloride 250 ML IV Azithromycin 500 MG ONCE ONE 02/24 1830 DC 02/24 Sodium Chloride 250 ML IV 02/24 1929 1920 Budesonide/ 2 PUF BID 02/24 2200 AC 02/25 Formoterol Fumarate INH 1042 Cholecalciferol 1,000 IU DAILY 02/25 1000 AC 02/25 PO 1041 Cyanocobalamin 1,000 MCG DAILY 02/25 1000 AC 02/25 PO 1042 Duloxetine HCl 40 MG DAILY 02/25 1000 AC 02/25 PO 1042 Ferrous Sulfate 325 MG DAILY 02/25 1000 AC 02/25 PO 1042 Ipratropium [place] 2.5 ML ONCE ONE 02/24 1830 DC 02/24 INH 02/24 1831 1851 Levetiracetam 250 MG BID 02/24 2200 AC 02/25 PO 1042 Levothyroxine Sodium 0.125 MG DAILY AC 02/25 0700 AC 02/25 PO 0619 Lorazepam 0 .STK-MED ONE 02/24 2330 DC PO Lorazepam 0.5 MG TID 02/24 2200 AC 02/24 PO 03/03 2159 2344 Methylprednisolone 40 MG Q6 02/25 0600 DC IV Methylprednisolone 40 MG Q8 02/25 0600 AC 02/25 IV 0619 Methylprednisolone 40 MG Q8 02/24 2200 DC 02/24 IV 2344 Methylprednisolone 0 .STK-MED ONE 02/24 1902 DC .ROUTE Methylprednisolone 125 MG ONCE ONE 02/24 1830 DC 02/24 IV 02/24 1831 1920 Mirtazapine 15 MG QPM 02/24 2200 AC 02/24 PO 2344 Nystatin 1 KAMALJIT TID 02/24 2215 AC 02/24 TOP 2344 Omeprazole 40 MG DAILY AC 02/25 0700 AC 02/25 PO 0619 Oxybutynin Chloride 5 MG DAILY 02/25 1000 AC 02/25 PO 1042 Pravastatin Sodium 20 MG 1700 06/ 1700 AC PO Sodium Chloride 1,000 ML Q13H 02/24 2145 DC 02/25 IV 02/25 1044 0300 Sodium Chloride 1,000 ML BOLUS ONE 02/24 1900 DC 02/24 IV 02/24 1959 2159 Sodium Chloride 1,000 ML BOLUS ONE 02/24 1445 DC 02/24 IV 02/24 1544 1513 Sucralfate 1,000 MG 4 TIMES/DAY 02/25 1000 AC 02/25 PO 1042 Warfarin Sodium 2.5 MG ONCE ONE 02/24 2215 DC / PO 02/24 2216 2344 Review of Systems Review of Systems Constitutional: Reports: chills, malaise, weakness, unexplained weight loss. Denies: diaphoresis, fever. EENTM: Reports: blurred vision. Denies: epistaxis, nasal pain, throat pain. Cardiovascular: Reports: orthopena. Denies: chest pain, edema, palpitations, peripheral edema, syncope. Respiratory: Reports: cough, short of breath, sputum production, wheezing. Denies: hemoptysis, orthopnea, stridor. GI: Denies: see HPI. Genitourinary: Denies: no symptoms. Skin: Denies: no symptoms. 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 Home Who Do You Live With? child (son - h/o alcoholism) Services at Home: Nursing, Oxygen Smoking Status: Current Everyday Smoker ETOH Use: occasional use Illicit Drug Use: denies illicit drug use Functional Ability ADLs Independent: dressing, eating, toileting, bathing. Ambulation: independent, walker, wheelchair IADLs Independent: finances, telephone, medication admin. Needs Assist: shopping, housework, food prep, transportation. Exam & Diagnostic Data Last 24 Hrs of Vital Signs/I&O Vital Signs Date Time Temp Pulse Resp B/P B/P Pulse O2 O2 Flow FiO2 Mean Ox Delivery Rate 02/25 0800 97 Nasal 2.0L Cannula 02/25 0650 98.3 78 18 128/64 96 Nasal Cannula 02/25 0202 97.9 71 18 126/62 97 Nasal 3.0L Cannula 02/24 2342 96.7 73 18 122/62 96 Nasal 2.0L Cannula 02/24 2158 97.5 72 18 105/55 97 Nasal 2.0L Cannula 02/24 2056 97.3 71 18 91/55 98 Nasal 3.0L Cannula 02/24 1836 99.6 74 18 102/54 85 Nasal 2.0L Cannula 02/24 1445 94 Nasal 2.0L Cannula 02/24 1238 96.9 59 18 98/50 100 Non 100% ReBreather Intake & Output 02/25 1600 06/ 0800 06 0000 Intake Total 800 1000 Output Total 300 Balance 500 1000 Intake, IV 800 1000 Intake, Oral 0 Number 0 Bowel Movements Output, Urine 300 Patient 125 lb Weight Weight Reported by Patient Measurement Method Physical Exam General Appearance: no apparent distress, alert, awake Head: atraumatic, normal appearance Neck: supple Respiratory: diminished breath sounds, bilateral wheezing, trachea midline Cardiovascular: regular rate/rhythm, heart sounds distant Gastrointestinal: normal bowel sounds, soft, non-tender Extremities: left BKA, no edema in the right Skin: intact, warm/dry Last 48 Hrs of Labs/Hung: Laboratory Tests 02/25/17 0625: Anion Gap 5, Estimated GFR > 60, BUN/Creatinine Ratio 16.7, PT 11.8, INR 1.13, CBC w Diff NO MAN DIFF REQ, RBC 4.82, MCV 88.4, MCH 29.2, RDW 14.5, MPV 9.7, Gran % 83.8 H, Lymphocytes % 15.5 L, Monocytes % 0.6 L, Eosinophils % 0, Basophils % 0.1, Absolute Granulocytes 2.3, Absolute Lymphocytes 0.4 L, Absolute Monocytes 0 L, Absolute Eosinophils 0, Absolute Basophils 0, PUBS MCHC 33.0 02/24/17 1756: Troponin I < 0.01 02/24/17 1756: Lactic Acid 1.4 02/24/17 1529: Urine Color YEL, Urine Clarity CLEAR, Urine pH 7.5, Ur Specific [place] 1.010, Urine Protein NEG, Urine Ketones NEG, Urine Nitrite NEG, Urine Bilirubin NEG, Urine Urobilinogen 0.2, Ur Leukocyte Esterase SMALL H, Ur Microscopic SEDIMENT EXAMINED, Urine WBC 1-3 H, Ur Epithelial Cells FEW, Urine Bacteria FEW H, Urine Hemoglobin NEG, Urine Glucose NEG 02/24/17 1415: Lactic Acid 0.9, PT 12.4, INR 1.18, APTT 30, CBC w Diff NO MAN DIFF REQ, RBC 4.93, MCV 89.1, MCH 29.0, RDW 14.5, MPV 9.1, Gran % 65.0, Lymphocytes % 25.6, Monocytes % 6.3, Eosinophils % 2.7, Basophils % 0.4, Absolute Granulocytes 3.9, Absolute Lymphocytes 1.6, Absolute Monocytes 0.4, Absolute Eosinophils 0.2, Absolute Basophils 0, PUBS MCHC 32.5 L 02/24/17 1326: Anion Gap 4 L, Estimated GFR > 60, BUN/Creatinine Ratio 21.4, Glucose 89, Calcium 8.2 L, Magnesium 2.0, Total Bilirubin 0.4, AST 18, ALT 31, Alkaline Phosphatase 98, Troponin I < 0.01, Total Protein 5.3 L, Albumin 2.5 L, Globulin 2.8, Albumin/Globulin Ratio 0.9 L, TSH < 0.015 L, Free T4 2.55 H Microbiology 02/25 0009 NASOPHARYN: Influenza Virus A & B Rapid Smear - COMP 02/24 1529 URINE ROUT: Legionella Antigen - COMP 02/24 1529 URINE ROUT: Streptococcus pneumoniae Antigen (M - COMP Diagnostic Data Other Results CTA/CT ABD and PELVIS: 1. No evidence of pulmonary embolism. No acute change of the chest. 2. No acute abnormality of the abdomen or pelvis. Status post cholecystectomy. Status post vascular stent of abdominal aortic aneurysm. Bifemoral bypass vascular stent. Status post hysterectomy. Assessment/Plan Impression/Plan: 1. Acute hypoxic respiratory failure secondary to AECOPD. Patient continues to smoke on a regular basis but is now smoking less than one half pack per day. The patient's symptoms and bronchospasm have improved since admission. 2. History of PE, initially with a subtherapeutic INR, CT angiogram negative for recurrent PE. 3. History of hypothyroidism, low TSH. 4. History of non-small cell cancer, s/p right lobectomy without evidence of recurrence. 5. Unexplained 85 pound weight loss with a negative CT of the abdomen and pelvis. There is no evidence for lung cancer recurrence. Etiology of the weight loss is unknown. Recommendations: * Continue Azithromycin, complete a 5 day course. * Continue IV Solumedrol 40 mg every 8 hours. * Continue Symbicort. * Oxygen for saturations around 92%. * Continue nebs/total respiratory care. * Coumadin for therapeutic INR. * Workup for unexplained weight loss as per the primary team. * Continue all supportive care. Thank you will follow along with you and make further recommendations as necessary. Consult Acknowledgment - Thank you for your consult request.
[2017-02-25 14:24] VITALS: BP 112/80
[2017-02-25 22:28] VITALS: BP 118/68
--- NOTE | 2017-02-25 23:07 | Patient Discharge Instructions ---
Discharge Instructions General Discharge Information You were seen/treated for: acute hypoxic respiratory failure Hyperthyroidism Special Instructions: Please follow up with your PCP in a week Please follow up with in 4 weeks Please follow up with repeat TSH in 4-6 weeks Please monitor your INR and dose coumadin -- goal INR 2-3. PLEASE STOP SMOKING Diet Continue normal diet: Yes Recommended Diet: Heart Healthy Activity Activity Self Limited: Yes Acute Coronary Syndrome Inclusion Criteria At DC or during hospital stay patient has or had the following: ACS DIAGNOSIS No Discharge Core Measures Meds if any: Prescribed or Continued at Discharge Meds if any: NOT Prescribed or Continued at Discharge Congestive Heart Failure Inclusion Criteria At DC or during hospital stay patient has or had the following: CHF DIAGNOSIS No Discharge Core Measures Meds if any: Prescribed or Continued at Discharge Meds if any: NOT Prescribed or Continued at Discharge Cerebrovascular accident Inclusion Criteria At DC or during hospital stay patient has or had the following: CVA/TIA Diagnosis No Discharge Core Measures Meds if any: Prescribed or Continued at Discharge Meds if any: NOT Prescribed or Continued at Discharge Venous thromboembolism Inclusion Criteria VTE Diagnosis No VTE Type NONE VTE Confirmed by (Test) NONE Discharge Core Measures - Per Current guidelines, there needs to be overlap - treatment for the first 5 days of Warfarin therapy. - If discharged on Warfarin prior to 5 days of - overlap therapy, the patient will need to be - assessed for post discharge needs including - *Post discharge parental anticoagulation - *Warfarin and/or parental anticoagulation education - *Follow up date to check INR post discharge At least 5 days overlap therapy as Inpatient No Meds if any: Prescribed or Continued at Discharge Note: Overlap Therapy is Warfarin and Anticoagulant Meds if any: NOT Prescribed or Continued at Discharge
[2017-02-25] MEDS ORDERED: SYNTHROID125 MCG PO (23:09)
[2017-02-26 06:00] VITALS: BP 122/60
[2017-02-26 08:34] LABS: ABSOLUTE BASOPHIL COUNT 0 /CUMM (0.0-0.2); ABSOLUTE EOSINOPHIL COUNT 0 /CUMM (0.0-0.7); ABSOLUTE LYMPH COUNT 0.5 /CUMM (1.2-3.4); EOSINOPHIL % 0 % (0-5)
--- NOTE | 2017-02-26 08:40 | PN- Housestaff ---
IGLESIA CUMMINGS,KHADIJAH 02/26/17 0840: Subjective Follow-up For: Acute hypoxic respiratory failure, secondary to COPD exacerbation Subjective: Patient examined by me today. She is resting comfortably in bed, is without oxygen and saturating at 97% at the time of examination. She is not in distress , does not have any complaints, vitals have been stable, on no overnight issues. Update: The patient had an episode of delusion later in the afternoon/evening. Please see event note of that time. Review of Systems Constitutional: Reports: no symptoms. Objective Last 24 Hrs of Vital Signs/I&O Vital Signs Date Time Temp Pulse Resp B/P B/P Pulse O2 O2 Flow FiO2 Mean Ox Delivery Rate 02/26 2050 97 Nasal 2.0L Cannula 02/26 1546 97.6 102 20 120/60 94 02/26 1059 93 Room Air Room Air 02/26 0800 98 Nasal 2.0L Cannula 02/26 0600 98.1 93 18 122/60 95 Room Air 02/26 0000 Nasal 2.0L Cannula 02/25 2228 97.9 96 20 118/68 97 Intake & Output 02/26 1600 02/26 0800 02/26 0000 Intake Total 1300 100 400 Output Total 400 Balance 1300 -300 400 Intake, IV 300 Intake, Oral 1300 100 100 Number 1 0 1 Bowel Movements Output, Urine 400 Physical Exam General Appearance: Alert, Oriented X3, Cooperative, No Acute Distress Other Physical Findings: Skin: No Rashes, No Breakdown HEENT: Atraumatic, PERRLA Neck: Supple Cardiovascular: Normal S1, Normal S2 Lungs: decreased air enty, mild crackles at bases. NO added sounds. Abdomen: Normal Bowel Sounds, Soft, No Tenderness Neurological: Normal Tone, Sensation Intact, Cranial Nerves 3-12 NL Extremities: No Clubbing, No Cyanosis, No Edema Current Medications: Current Medications Sig/Vadim Start time Last Medication Dose Route Stop Time Status Admin Acetaminophen 650 MG ONCE ONE 02/26 2015 DC 02/26 PO 02/26 Albuterol Sulfate 3 ML Q 3-4 HRS PRN PRN 02/25 1200 AC INH Azithromycin 500 MG 1800 02/25 1800 AC 02/26 Sodium Chloride 250 ML IV 02/28 2300 1743 Bisacodyl 5 MG DAILY 02/25 1910 AC PO Budesonide/ 2 PUF BID 02/24 2200 AC 02/26 Formoterol Fumarate INH 210 Cholecalciferol 1,000 IU DAILY 02/25 1000 AC 02/26 PO 0932 Cyanocobalamin 1,000 MCG DAILY 02/25 1000 AC 02/26 PO 0932 Dicyclomine HCl 20 MG 4 TIMES/DAY 02/25 1453 AC 02/26 PO 2101 Duloxetine HCl 40 MG DAILY 02/25 1000 AC 02/26 PO 0932 Ferrous Sulfate 325 MG DAILY 02/25 1000 AC 02/26 PO 0932 Levetiracetam 250 MG BID 02/24 2200 AC 02/26 PO 2101 Levothyroxine Sodium 0.125 MG DAILY AC 02/25 0700 AC 02/26 PO 0641 Lorazepam 0.5 MG TID 02/24 2200 AC 02/26 PO 03/03 215 210 Methylprednisolone 40 MG BID 02/26 2200 CAN IV Methylprednisolone 40 MG 0 02/26 2200 CAN IV 02/26 220 Methylprednisolone 40 MG Q8 02/25 06 DC 02/26 IV 0642 Mirtazapine 15 MG QPM 02/24 2200 AC 02/26 PO 2101 Nystatin 1 KAMALJIT TID 02/24 2215 AC 02/26 TOP 210 Olanzapine 5 MG ONCE ONE 02/26 1915 CAN IM 02/27 1916 Olanzapine 5 MG ONCE ONE 02/26 1915 DC 02/26 PO 02/26 Omeprazole 40 MG DAILY AC 02/25 0700 AC 02/26 PO 0641 Oxybutynin Chloride 5 MG DAILY 02/25 1000 AC 02/26 PO 0932 Pravastatin Sodium 20 MG 1700 02/25 1700 AC 02/26 PO 1626 Prednisone 40 MG DAILY 02/27 1000 AC PO Senna 187 MG AT BEDTIME 02/25 2200 AC 02/26 PO 2101 Sucralfate 1,000 MG 4 TIMES/DAY 02/25 1000 AC 02/26 PO 2101 Warfarin Sodium 4 MG COUMADIN 1700 ONE 02/26 1700 DC 02/26 PO 02/26 1701 1627 Last 24 Hrs of Lab/Hung Results Last 24 Hrs of Labs/Mics: Laboratory Tests 02/26/17 0847: PT 16.8 H, INR 1.61 H 02/26/17 0720: CBC w Diff NO MAN DIFF REQ, RBC 4.67, MCV 88.6, MCH 29.0, RDW 14.9 H, MPV 10.4, Gran % 93.6 H, Lymphocytes % 4.3 L, Monocytes % 2.1, Eosinophils % 0, Basophils % 0 L, Absolute Granulocytes 11.1 H, Absolute Lymphocytes 0.5 L, Absolute Monocytes 0.2, Absolute Eosinophils 0, Absolute Basophils 0, PUBS MCHC 32.8 L Assessment/Plan Assessment: 76-year-old female with past medical history of non-small cell cancer status post right lobectomy, COPD on nocturnal 2.5 L, pulmonary embolism on Coumadin, hypertension, hyperlipidemia, 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 Patient reports being compliant with taking her Coumadin, however her INR is 1.18 today. CTA was negative for embolism. Patient is admitted to general medicine for acute hypoxic respiratory failure most likely due to COPD exacerbation. Acute hypoxic respiratory failure most likely due to COPD exacerbation * Continue Azithromycin * Continue TRC/nebs * IV Solu-Medrol 40 mg Q8 to q12, which later was held because of delusional episode * Continue Symbicort * Pulm consult appreciated Acute psychotic episode As mentioned in the event note today, she had an acute psychotic episode, most likely due to stress related to steroid. Evening dose of steroid was canceled and the patient given 5 mg of oral Zyprexa. Night staff was notified accordingly. Weight loss and deconditioning * Patient has lost around 85pound in the last year * She claims her appetite is very poor, unable to eat as it causes exertion with breathing * Nutrition consult placed * Advised to take small frequent meals. * CT abdomen and pelvis/CT chest - negative for any acute cancerous process/ recurrence Skin candidiasis Hx of hypothyroidism, low TSH Hx of PE on coumadin, INR subtherapeutic * INR and coumadin daily , INR 1.61 today * Dosed 4mg warfarin today again Hx of hypothyroidism, low TSH * Patient had a weight loss of 85 pound weight loss which could potentially cause excess levels as dosing is weight dependent. * Decreased dose of levothyroxine from 175 to 125 g daily * [facility] * Plan to recheck her TSH and free T4 in the next 4-6weeks. Hx of HTN * HELD atenolol due to borderline BP Continue home meds Mirtazapine 15 mg every afternoon Ativan 0.5 mg 3 times a day Keppra 150 mg twice a day Carafate 1000 mg 4 times a day Pravastatin 20 mg daily Omeprazole 40 mg daily Oxybutynin 5 mg daily Cyanocobalamin 1000 g daily Vitamin D 1000 iu daily Duloxetine 40 mg daily Diet:Heart healthy diet DVT ppx: alps , warfarin FULL CODE Problem List: 1. COPD exacerbation 2. Delusional disorder, first episode, currently in acute episode Pain Ratin Pain Location: - Pain Goal: Pain 4 or less Pain Plan: prn Tomorrow's Labs & Rationales: CBC, BEP, INR JEANA CUMMINGS,[facility] 02/26/17 1252: Attending MD Review Statement Attending Statement Attending MD Statement: examined this patient, discuss w/resident/PA/INSURANCE VERIFICATION REPRESENTATIVE, agreed w/resident/PA/INSURANCE VERIFICATION REPRESENTATIVE, discussed with family, reviewed EMR data (avail), discussed with nursing, discussed with case mgmt, reviewed images, amended to note Attending Assessment/Plan: Patient sitting comfortably in the recliner. Saturating 93% on room air. Clear lung exam. Offers no complaints. Recommendations 1. Taper Solu-Medrol to twice a day today and switch to by mouth prednisone from tomorrow. 2. Complete 5 doses of IV Zithromax. 3. Continue TRC nebs. 4. Please make sure she is seen by a painter and grader cork. 5. Dose Coumadin to target a therapeutic INR.
[2017-02-26 09:09] LABS: ABSOLUTE GRANULOCYTE CT 11.1 /CUMM (1.4-6.5); ABSOLUTE MONOCYTE COUNT 0.2 /CUMM (0.10-0.60); BASOPHIL % 0 % (0.0-2.0); HEMATOCRIT 41.3 % (37-47); MEAN CORPUSCULAR HGB CONC 32.8 G/DL (33.0-37.0); MEAN CORPUSCULAR VOLUME 88.6 FL (81.0-99.0); MEAN PLATELET VOLUME 10.4 FL (7.4-10.4); PLATELET COUNT 232 /CUMM (130-400); RBC DISTRIBUTION WIDTH 14.9 % (11.5-14.5); RED BLOOD CELL CT 4.67 /CUMM (4.20-5.40)
[2017-02-26 09:22] LABS: WHITE BLOOD CELL COUNT 11.9 /CUMM (4.8-10.8)
[2017-02-26 09:27] LABS: PT 16.8 SEC (9.4-12.5)
[2017-02-26 09:53] LABS: GRANULOCYTE % 93.6 % (42.2-75.2)
--- NOTE | 2017-02-26 10:03 | PN- Student ---
Subjective Subjective: Source and Reliability: Self-referred, seems reliable, but poor historian CC: "My nurse said my oxygen was low" HPI: Pt is a 76 yo woman with a history of COPD on 2.5 L of oxygen at home, asthma, small cell carcinoma with RUL resection, PE on coumadin, HTN, HL, PVD, hypothyroidism, and current smoker was brought to the hospital because of decreasing oxygen saturation. The patient was in her usual state of health until morning when a visiting nurse came to her house to get a blood test. The nurse took her vital signs and stated that she was saturating in the 80's and recommended her to the hopital. The patient states that she feels short of breath while walking, which resolves when she puts on her oxygen. She states verbally arguing with her sign would worsen her shortness of breath also. She states she smokes 3 packs a day for the past 40 years and has reduced it to 1 pack for the past week. She denies increased wheezing or cough. She states she has an 80+ pound weight loss, has not had an appetite, and has not been eating. She states has constant, chronic lower abdominal pain which started after her AAA repair. The pt states she does not use any medication to alleviate the pain because the side effects makes her sick. Today, she is currently sitting in the recliner in no apparent distress on 2L of O2. She states her shortness of breath has improved and is comfortable. She denies being short of breath, pain during respiration, and cough. She stated she had headache, but has since gone away with the oxygen. Although it is 0930 in the morning, she states that she is hungry and want her lunch. I told her lunch was coming in a couple hours and she requested some arian crackers and peanut butter. I brought her request and she is eating in her recliner. As per pulm consult, the pt stated that she has difficulty swallowing. I inquired the patient and she states that she has dysphagia for the past 2 days. Her food would get stuck mid esophagus. She is able to drink liquids without any problem and does not experience any pain when swallowing. ROS: Pt. denies chills, fever, dysuria, oligouria, chest pain PMHX: * Dizziness * Seizures * HTN * Hyperlipidemia * PVD * Hyponatremia * Hypothyroidism * COPD on 2.5L of oxygen: 43 years * Asthma: 43 years * GERD * AAA * Left below the knee amputation * anxiety, depression * DVT, PE * Small Cell Carcinoma of the lung * Tubular adenomas 2014 [facility]x: * Cholecystecomty in 1967 * Hysterectomy * Left below the knee amputation due to AAA repair in 2001 * RUL resection 2004 Medication: Albuterol Sulfate 1.25mg/3mL vial nebulizer inhaler q4-6h PRN for SOB Atenolol 50mg PO QD for blood pression Cholecalciferol 2,000 unit PO QD Cyanocobalamin 1,000mcg tab PO Duloxetin 20mg PO QD for depression Ferrous sulfate 325 mg PO QD Advair 250mcg-50mcg/dose 1 puff inhaler BID for COPD Levetiracetam 250mg PO BID for seizures Levothyroxine 175 mcg PO AC for hypothyroidism Lorazepam 0.5mg PO TID for anxiety Mirtazapine 15mg tab PO TID for anxiety Oxybuytynin Chloride 5 mg tab PO for incontinence Pantoparzole 20 mg 2 tab PO QD for GERD Pravastatin sodium 80mg PO QD for hyperlipidemia Sucralfate 1g PO four times a day for GERD Warfarin sodium 2.5mg tab PO for DVT and PE prophylaxis Allergies: Aspirin: upset stomach Atorvastatin: muscle pain oxycodone: dizzy and nauseas Codeine: flusing FHX: * Mother: DM, HTN * Sister: DM and HTN Social Hx * Smoker: 3 packs a day for 40 years. States she reduced to 1 pack for the past week * Lives at home with the son. Tense relationship. She states that they argue a lot because she wants help around the house. She wishes her son would help her around the house more and tears up due to frustration. Denies any physical abuse. Objective Objective: Vital Signs Date Time Temp Pulse Resp B/P B/P Pulse O2 O2 Flow FiO2 Mean Ox Delivery Rate 02/26 0800 98 Nasal 2.0L Cannula 02/26 0600 98.1 93 18 122/60 95 Room Air 02/26 0000 Nasal 2.0L Cannula 02/25 2228 97.9 96 20 118/68 97 02/25 1424 97.5 96 20 112/80 96 Room Air 02/25 1147 Nasal 1.0L Cannula PE: General: Calm, cooperative, in no apparent acute distress. Affect is appropriate to situation. Cardiovascular: RRR, S1 and S2 heard, no mumurs, rubs, or gallops. Pulmonary: Diminshed breath sounds throughout. Saturation 98% on 2L O2 GI: Bowel sounds normal in all 4 quadrants. Nondistended, nontender during deep palpation MSK: Left BKA amputation. Stump is clean and intact. No edema present Results Results: Laboratory Tests 02/26/17 0847: PT 16.8 H, INR 1.61 H 02/26/17 0720: CBC w Diff NO MAN DIFF REQ, RBC 4.67, MCV 88.6, MCH 29.0, RDW 14.9 H, MPV 10.4, Gran % 93.6 H, Lymphocytes % 4.3 L, Monocytes % 2.1, Eosinophils % 0, Basophils % 0 L, Absolute Granulocytes 11.1 H, Absolute Lymphocytes 0.5 L, Absolute Monocytes 0.2, Absolute Eosinophils 0, Absolute Basophils 0, PUBS MCHC 32.8 L 02/25/17 0625: Anion Gap 5, Estimated GFR > 60, BUN/Creatinine Ratio 16.7, PT 11.8, INR 1.13, CBC w Diff NO MAN DIFF REQ, RBC 4.82, MCV 88.4, MCH 29.2, RDW 14.5, MPV 9.7, Gran % 83.8 H, Lymphocytes % 15.5 L, Monocytes % 0.6 L, Eosinophils % 0, Basophils % 0.1, Absolute Granulocytes 2.3, Absolute Lymphocytes 0.4 L, Absolute Monocytes 0 L, Absolute Eosinophils 0, Absolute Basophils 0, PUBS MCHC 33.0 02/24/17 1756: Troponin I < 0.01 02/24/17 1756: Lactic Acid 1.4 02/24/17 1529: Urine Color YEL, Urine Clarity CLEAR, Urine pH 7.5, Ur Specific [place] 1.010, Urine Protein NEG, Urine Ketones NEG, Urine Nitrite NEG, Urine Bilirubin NEG, Urine Urobilinogen 0.2, Ur Leukocyte Esterase SMALL H, Ur Microscopic SEDIMENT EXAMINED, Urine WBC 1-3 H, Ur Epithelial Cells FEW, Urine Bacteria FEW H, Urine Hemoglobin NEG, Urine Glucose NEG 02/24/17 1415: Lactic Acid 0.9, PT 12.4, INR 1.18, APTT 30, CBC w Diff NO MAN DIFF REQ, RBC 4.93, MCV 89.1, MCH 29.0, RDW 14.5, MPV 9.1, Gran % 65.0, Lymphocytes % 25.6, Monocytes % 6.3, Eosinophils % 2.7, Basophils % 0.4, Absolute Granulocytes 3.9, Absolute Lymphocytes 1.6, Absolute Monocytes 0.4, Absolute Eosinophils 0.2, Absolute Basophils 0, PUBS MCHC 32.5 L 02/24/17 1326: Anion Gap 4 L, Estimated GFR > 60, BUN/Creatinine Ratio 21.4, Glucose 89, Calcium 8.2 L, Magnesium 2.0, Total Bilirubin 0.4, AST 18, ALT 31, Alkaline Phosphatase 98, Troponin I < 0.01, Total Protein 5.3 L, Albumin 2.5 L, Globulin 2.8, Albumin/Globulin Ratio 0.9 L, TSH < 0.015 L, Free T4 2.55 H Microbiology 02/25 0009 NASOPHARYN: Influenza Virus A & B Rapid Smear - COMP 02/24 1529 URINE ROUT: Legionella Antigen - COMP 02/24 1529 URINE ROUT: Streptococcus pneumoniae Antigen (M - COMP 02/24 1529 URINE ROUT: Urine Culture - RES GRAM NEGATIVE RODS 02/24 1415 BLOOD: Blood Culture - RES 02/24 1326 BLOOD: Blood Culture - RES 02/24 1241 LOWER RESP: Respiratory Culture - CAN Cancelled: SPECIMEN NOT RECEIVED IN LABORATORY 02/24 1241 LOWER RESP: Gram Stain - CAN Cancelled: SPECIMEN NOT RECEIVED IN LABORATORY 02/25/17 Pulmonary Consult Impression/Plan: 1. Acute hypoxic respiratory failure secondary to AECOPD. Patient continues to smoke on a regular basis but is now smoking less than one half pack per day. The patient's symptoms and bronchospasm have improved since admission. 2. History of PE, initially with a subtherapeutic INR, CT angiogram negative for recurrent PE. 3. History of hypothyroidism, low TSH. 4. History of non-small cell cancer, s/p right lobectomy without evidence of recurrence. 5. Unexplained 85 pound weight loss with a negative CT of the abdomen and pelvis. There is no evidence for lung cancer recurrence. Etiology of the weight loss is unknown. Recommendations: * Continue Azithromycin, complete a 5 day course. * Continue IV Solumedrol 40 mg every 8 hours. * Continue Symbicort. * Oxygen for saturations around 92%. * Continue nebs/total respiratory care. * Coumadin for therapeutic INR. * Workup for unexplained weight loss as per the primary team. * Continue all supportive care. Thank you will follow along with you and make further recommendations as necessary. 02/25/17 Endocrinology Consult Assessment/Plan This patient had elevated thyroid function tests on admission. She was on levothyroxine 175 g daily at home for hypothyroidism. She is admitted with shortness of breath breath most likely on the basis of exacerbation of COPD. She has weight loss and excess thyroid hormone could be playing a role in her weight loss. I agree with reducing her dose of levothyroxine to 125 g daily. It would take 4-6 weeks for that to repeat a steady state and at that time her thyroid test can be repeated. Other causes of weight loss should also be sought. Assessment/Plan Assessment: Pt is a 76 yo woman with a history of COPD on 2.5 L of oxygen at home, asthma, small cell carcinoma with RUL resection, PE on coumadin, HTN, HL, PVD, hypothyroidism, and current smoker who presented with acute respiratory distress , dyspnea, and hypoxia during admission. Labs show leukocytosis, increased T4 at 2.55, INR is subtherapeutic at 1.61. Problem List 1. Dyspnea, hypoxia. Ddx: * Acute Respiratory Failure: Patients with acute respiratory failure present with hypoxemia, bilateral alveolar infiltrates and respiratory distress. This is due to an acute bilateral inflammation of the lungs. In the [place] Criteria to diagnose ARDS, patients must have respiratory symptoms must have new or worsening symptoms during the past week, bilateral opacities consistent of pulmonary edema, respiratory failure not explained by cardiac failure or fluid overload, and impaired oxygenation. Although the pt does not show any pulmonary edema, it is possible that it was caught early on. * COPD exacerbation: For this conditions, physical findings include wheezing, tachypnea, difficulty speaking due to respiratory effort, and use of accessory muscles. Her saturations dropped, she has a 40 year history of smoking, and has COPD. Therefore, this diagnosis would be high on the differential. * Pneumonia: The patient denies fevers and chills. She also did not present with increased WBC, therefore, this diagnosis is lower in the list. * PE: Pulmonary Embolism can cause acute respiratory distress and decrease O2 sat just like this patient. However, CT r/o PE, therefore this diagnosis is r/o. 2. Unintentional weight loss: DDx: * Hyperthyroidism: T4 levels were elevated at 2.55. Pt. states she does not have much of an appetite. Hyperthyroidism is a potential cause for the unintentional weight loss. Her T4 levels were 2.55. Her levothyroxine was decreased from 175 mcg to 125 mcg PO AC. Endocrine consult recommends rechecking in 4-6 weeks. * Malignancy: Another potential cause is malignancy. The patient has had a hx of small cell carcinoma. It is possible that she may have an undetected malignancy that causes weight loss. * Pulmonary cachexia syndrome. This pt may have increase energy expenditure due to her chronic COPD. She was admitted due to hypoxia and respiratory distress. She states that she has been feeling winded for weeks, which means that she could be using more energy than normal. An accumulation of increased respiratory effort over one year can be another factor of her weight loss * Depression: this patient has a history of depression. She states that she has been fighting often with her son and teared up during the interview when speaking about it. She has a history of depression, she may not be eating because of it. * Malabsorption: If she is not absorbing nutrients well, then she would be at risk of losing weight. She has abdominal pain which can symptomatic of malabsorptive conditions like celiac or IBS/IBD, but her pain is not characteristic of patients with this conditions. She also admits that her abdominal pain is due to her AAA repair. She also denies any nausea, vomiting, constipation, or diarrhea, so this diagnosis is less likely. * Mechanical issue: The patient states that she has difficulty swallowing. However, she states these symptoms started 2 days ago, so this cause is unlikely. 3. Subtherapeutic warfarin level: the patient has a history of PE and was on warfarin 2.5mg PO QD. Her INR at admission at subtherapeutic levels. She will need to be redosed into a therapeutic INR range between 2-3. We increased her warfarin to 4 mg and her INR changed from 1.13 to 1.61. We will keep her on this dose to see if the INR increases with this dose. We will reorder coag studies to monitor this. If does not reach therapeutic level, then the warfarin dose will be increased. 4. Increasing WBC: The pt is negative for legionella, influenza a and b, and strep pneumo. Pt. grew gram negative rods in her urine and her WBC is increasing. The patient is asymptomatic. I discussed this with the customer success intern and he states he is not worried because the colonization amount is not of concern. Another cause of increase WBC is her corticosteroid use, which can cause an increase in WBC. She received her dose before labs and this can be the source of her increase WBC. 5. Dysphagia: The patient states she has problems swallowing solid food stating that it would get stuck midesophagus. She has no issues swallowing liquids and does not experience any pain. In order to rule in or rule out causes of her dysphagia, we need to order a barium swallow. ddx * Esophageal stricture: this diagnosis is a complication of GERD. This patient h * Esophageal web/ring: * Esophageal spasms * Carcinoma * Achalasia * Plan: 1. Decrease levothyroxin from 175mcg to 125 mcg. Follow up with PCP to repeat thyroid studies in 4-6 weeks 2. Continue Azithromycin (5 day course) 3. Reduce IV Solumederol 40mg q8h to IV Solumedrol q12h today 4. Prednisone 40mg QD tomorrow morning 5. Continue Symbicort as prescribed 6. Goal of O2 sat's over 90% 7. Nebs and respiratory care 8. Reorder CBC, BEP, coagulation studies 9. Dose warfarin into therapeutic range. 10. Order barium swallow
--- NOTE | 2017-02-26 13:20 | PN- Pulmonary ---
Subjective HPI/Critical Care Issues: she is currently sitting in the recliner in no apparent distress on 2L of O2. She states her shortness of breath has improved and is comfortable. She denies being short of breath, pain during respiration, and cough. She stated she had headache, but has since gone away with the oxygen. ROS: Pt. denies chills, fever, dysuria, oligouria, chest pain, Objective Current Medications: Current Medications Sig/Vadim Start time Last Medication Dose Route Stop Time Status Admin Albuterol Sulfate 3 ML Q 3-4 HRS PRN PRN 02/25 1200 AC INH Azithromycin 500 MG 1800 02/25 1800 AC 02/25 Sodium Chloride 250 ML IV 1840 Bisacodyl 5 MG DAILY 02/25 1910 AC PO Budesonide/ 2 PUF BID 02/24 2200 AC 02/26 Formoterol Fumarate INH 0933 Cholecalciferol 1,000 IU DAILY 02/25 1000 AC 02/26 PO 0932 Cyanocobalamin 1,000 MCG DAILY 02/25 1000 AC 02/26 PO 0932 Dicyclomine HCl 20 MG 4 TIMES/DAY 02/25 1453 AC 02/26 PO 1237 Duloxetine HCl 40 MG DAILY 02/25 1000 AC 02/26 PO 0932 Ferrous Sulfate 325 MG DAILY 02/25 1000 AC 02/26 PO 0932 Levetiracetam 250 MG BID 02/24 2200 AC 02/26 PO 0932 Levothyroxine Sodium 0.125 MG DAILY AC 02/25 0700 AC 02/26 PO 0641 Lorazepam 0.5 MG TID 02/24 2200 AC 02/26 PO 08 2159 0932 Methylprednisolone 40 MG BID 02/26 2200 CAN IV Methylprednisolone 40 MG Q8 02/25 0600 DC 02/26 IV 0642 Mirtazapine 15 MG QPM 02/24 2200 AC 02/25 PO 2108 Nystatin 1 KAMALJIT TID 02/24 2215 AC 02/26 TOP 0933 Omeprazole 40 MG DAILY AC 02/25 0700 AC 02/26 PO 0641 Oxybutynin Chloride 5 MG DAILY 02/25 1000 AC 02/26 PO 0932 Patient Medication 1 ED .STK-MED ONE 02/25 1436 DC Teaching ED 02/25 1437 Pravastatin Sodium 20 MG 1700 02/25 1700 AC 02/25 PO 1840 Prednisone 40 MG DAILY 02/27 1000 AC PO Senna 187 MG AT BEDTIME 02/25 2200 AC PO Sucralfate 1,000 MG 4 TIMES/DAY 02/25 1000 AC 02/26 PO 1237 Warfarin Sodium 4 MG COUMADIN 1700 ONE 02/26 1700 AC PO 02/26 1701 Warfarin Sodium 4 MG COUMADIN 1700 ONE 02/25 1700 DC 02/25 PO 02/25 1701 1840 Vital Signs & I&O Last 24 Hrs of Vitals and I&O: Vital Signs Date Time Temp Pulse Resp B/P B/P Pulse O2 O2 Flow FiO2 Mean Ox Delivery Rate 02/26 1059 93 Room Air Room Air 02/26 0800 98 Nasal 2.0L Cannula 02/26 06 98.1 93 18 122/60 95 Room Air 02/26 0000 Nasal 2.0L Cannula 02/25 2228 97.9 96 20 118/68 97 / 1424 97.5 96 20 112/80 96 Room Air Intake & Output 02/26 1600 02/26 0800 02/26 0000 Intake Total 500 100 400 Output Total 400 Balance 500 -300 400 Intake, IV 300 Intake, Oral 500 100 100 Number 1 0 1 Bowel Movements Output, Urine 400 Impression/Plan Impression/Plan Impression/Plan: 1. REsolving Acute hypoxic respiratory failure secondary to AECOPD. Patient continues to smoke on a regular basis but is now smoking less than one half pack per day. The patient's symptoms and bronchospasm have improved since admission. 2. History of PE, initially with a subtherapeutic INR, CT angiogram negative for recurrent PE. 3. History of hypothyroidism, low TSH. 4. History of non-small cell cancer, s/p right lobectomy without evidence of recurrence. 5. Unexplained 85 pound weight loss with a negative CT of the abdomen and pelvis. There is no evidence for lung cancer recurrence. Etiology of the weight loss is unknown. 6. Symptoms of dysphagia with food getting stuck in the mid esopahgus rule out cancer REC COnt po azitro Prednisone 40 qd from am Reduce solumedrol to q12 todya COnt oxygen Order a Barium swallow Not MBS to eval any esophageal lesion Cont to keep oxy sat at 90 or above Cont warfarin will follow
[2017-02-26 15:46] VITALS: BP 120/60
--- NOTE | 2017-02-26 18:25 | NUR ---
NEW ONSET OF CONFUSION. PT ASKED POUNCER WHERE SHE WOULD SLEEP TONIGHT. DISORIENTED TO PLACE AND TIME. ATTEMPT TO REMOVE IV. BECOMING AGITATED AND SLIGHTLY PUSHED BS TANLE TOWARDS POUNCER. IV ABT DISCONNECTED, DR LUCIO MADE AWARE AND TO BS FOR EVAL. NO NEW ORDERS. CONT TO MONITOR.
--- NOTE | 2017-02-26 18:27 | Event Note ---
Event Note Event Note: At about 7 PM, nursing staff reported to me that the patient seemed to be confused and did not meet since with what she was speaking. Upon examination, patient was found to be alert, oriented to time, place, and person, and responsive to me. She was not agitated, but the content of the speech was clearly delusional. The patient was amenable to rehabilitation for a short time. Differentials for disorientation/delusion was discussed with my senior resident, nursing staff, and steroid-induced mental status changes was considered the most likely cause of this episode. -Patient was not wheezing this afternoon, and was not in respiratory distress at all in room air. Thus the patient was initially thought to start oral steroid therapy from tomorrow with 1 dose of IV steroids tonight. After this episode, that evening dose of IV methylprednisolone at 2200 hrs has been canceled. -Patient's EKG shows QTc well below 500, thus one time order of oral Zyprexa 5mg has been ordered. -Night staff has been notified about the acute changes, and will closely follow. -Of note, patient was not combative, or agitated, but did pull and displace her left IV catheter was she was speaking to me.
[2017-02-26 21:50] VITALS: BP 140/80
[2017-02-26 22:24] VITALS: BP 136/62
--- NOTE | 2017-02-26 23:38 | NUR ---
DURING BEDSIDE REPORT, PT FOUND TO HAVE 3 PILL BOTTLES IN HER BED. DENIES TAKING ANY PILLS. BOTTLES PUT IN PT BELONGING BAG. TO BE GIVEN TO [facility].
[2017-02-27 06:30] VITALS: BP 144/80
--- NOTE | 2017-02-27 08:35 | NUR ---
0615 T 101.9 REPORTED BY [facility] & NOTIFIED [employer] TRADER.AWAITS NEW ORDER. 0630 NO ORDERS YET.[employer] TRADER PAGED.REMAINS OOB IN FARIDEH-CHAIR WITH CHAIR ALARM. O2 2L NC IN USED.NO RESP DISTRESS NOTED.
[2017-02-27 08:51] LABS: ABSOLUTE BASOPHIL COUNT 0 /CUMM (0.0-0.2); ABSOLUTE EOSINOPHIL COUNT 0 /CUMM (0.0-0.7); ABSOLUTE GRANULOCYTE CT 10.1 /CUMM (1.4-6.5); ABSOLUTE MONOCYTE COUNT 0.5 /CUMM (0.10-0.60); BASOPHIL % 0 % (0.0-2.0); EOSINOPHIL % 0.1 % (0-5); HEMATOCRIT 41.4 % (37-47); MEAN CORPUSCULAR HGB 28.9 PG (27.0-31.0); MEAN CORPUSCULAR VOLUME 87.6 FL (81.0-99.0); MEAN PLATELET VOLUME 9.9 FL (7.4-10.4); PLATELET COUNT 217 /CUMM (130-400); RBC DISTRIBUTION WIDTH 14.8 % (11.5-14.5); RED BLOOD CELL CT 4.73 /CUMM (4.20-5.40); WHITE BLOOD CELL COUNT 11.6 /CUMM (4.8-10.8)
[2017-02-27 09:04] LABS: PT 23.2 SEC (9.4-12.5)
--- NOTE | 2017-02-27 11:44 | PN- Att Addend ---
Attending Addendum Attending Brief Note This is a 76-year-old female with past medical history of non-small cell lung cancer status post right lobectomy, COPD on nocturnal oxygen 2.5 L, current smoker, history of pulmonary embolism on Coumadin, admitted for acute hypoxic respiratory failure secondary to acute exacerbation of COPD. Currently patient is sitting comfortably on her recliner. Breathing on room air. Respiratory symptoms are better. Complaining of lower abdominal pain. And burning urination. Denies any shortness of breath, cough, chest pain. She had 101.9 temperature this morning. But her white count has been stable at 11.6. Urine culture positive for Klebsiella pneumoniae and alpha strep. Of note patient has grown Klebsiella pneumoniae in her urine in the past many years ago but then her urine was clear without any growth for many years. Exam: Pertinent positives: Suprapubic tenderness. Recommendations 1. Start Bactrim double strength for 3 days for UTI. 2. Switch Zithromax to by mouth. 3. Switch IV Solu-Medrol to by mouth's prednisone 4. Continue with [facility] nebs. 5. Dose Coumadin as per INR..
--- NOTE | 2017-02-27 12:41 | PN- Pulmonary ---
Subjective HPI/Critical Care Issues: Fast asleep fatigued Objective Current Medications: Current Medications Sig/Vadim Start time Last Medication Dose Route Stop Time Status Admin Acetaminophen 1,000 MG ONCE ONE 02/27 07 DC 02/27 IV 02/27 07 0735 Acetaminophen 650 MG ONCE ONE 02/26 2015 DC 02/26 PO 02/26 Albuterol Sulfate 3 ML Q 3-4 HRS PRN PRN 02/25 1200 AC INH Azithromycin 250 MG DAILY 02/27 1000 AC PO 02/28 1001 Azithromycin 500 MG 1800 02/25 1800 DC 02/26 Sodium Chloride 250 ML IV 02/28 2300 1743 Bisacodyl 5 MG DAILY 02/25 1910 AC 02/27 PO 0922 Budesonide/ 2 PUF BID 02/24 2200 AC 02/27 Formoterol Fumarate INH 0922 Cholecalciferol 1,000 IU DAILY 02/25 1000 AC 02/27 PO 0921 Cyanocobalamin 1,000 MCG DAILY 02/25 1000 AC 02/27 PO 0921 Dicyclomine HCl 20 MG 4 TIMES/DAY 02/25 1453 AC 02/27 PO 0922 Duloxetine HCl 40 MG DAILY 02/25 1000 AC 02/27 PO 0922 Ferrous Sulfate 325 MG DAILY 02/25 1000 AC 02/27 PO 0922 Levetiracetam 250 MG BID 02/24 2200 AC 02/27 PO 0922 Levothyroxine Sodium 0.125 MG DAILY AC 02/25 0700 AC 02/27 PO 0548 Lorazepam 0.5 MG TID 02/24 2200 AC 02/27 PO 03/03 2159 0921 Methylprednisolone 40 MG BID 02/26 2200 CAN IV Methylprednisolone 40 MG 2200 02/26 2200 CAN IV 02/26 220 Mirtazapine 15 MG QPM 02/24 2200 AC 02/26 PO 2101 Nystatin 1 KAMALJIT TID 02/24 2215 AC 02/27 TOP 0925 Olanzapine 5 MG ONCE ONE 02/26 1915 CAN IM 02/27 1916 Olanzapine 5 MG ONCE ONE 02/26 1915 DC 02/26 PO 02/26 Omeprazole 40 MG DAILY AC 02/25 0700 AC 02/27 PO 0548 Oxybutynin Chloride 5 MG DAILY 02/25 1000 AC 02/27 PO 0922 Pravastatin Sodium 20 MG 1700 02/25 1700 AC 02/26 PO 1626 Prednisone 40 MG DAILY 02/27 1000 AC 02/27 PO 0921 Senna 187 MG AT BEDTIME 02/25 2200 AC 02/26 PO 2101 Sucralfate 1,000 MG 4 TIMES/DAY 02/25 1000 AC 02/27 PO 0922 Trimethobenzamide HCl 200 MG ONCE PRN 02/27 0730 AC IM Trimethoprim/ 1 TAB BID 02/27 1000 AC Sulfamethoxazole PO Warfarin Sodium 4 MG COUMADIN 1700 ONE 02/26 1700 DC 02/26 PO 02/26 1701 1627 Vital Signs & I&O Last 24 Hrs of Vitals and I&O: Vital Signs Date Time Temp Pulse Resp B/P B/P Pulse O2 O2 Flow FiO2 Mean Ox Delivery Rate 02/27 0920 98.1 02/27 0800 99 Nasal 2.0L Cannula 02/27 0735 101.9 02/27 0630 101.9 60 20 144/80 98 Nasal Cannula 02/27 0000 94 Nasal 2.0L Cannula 02/26 2224 20 136/62 02/26 2150 98.1 88 24 140/80 94 Nasal 2.0L Cannula 02/26 2050 97 Nasal 2.0L Cannula 02/26 1546 97.6 102 20 120/60 94 Intake & Output 02/27 1600 04 0800 02/27 0000 Intake Total 200 500 Output Total 300 650 700 Balance -100 -650 -200 Intake, IV 0 Intake, Oral 200 500 Number 0 0 Bowel Movements Output, Urine 300 650 700 Impression/Plan Impression/Plan Impression/Plan: 1. REsolving Acute hypoxic respiratory failure secondary to AECOPD. Patient continues to smoke on a regular basis but is now smoking less than one half pack per day. The patient's symptoms and bronchospasm have improved since admission. 2. History of PE, initially with a subtherapeutic INR, CT angiogram negative for recurrent PE. 3. History of hypothyroidism, low TSH. 4. History of non-small cell cancer, s/p right lobectomy without evidence of recurrence. 5. Unexplained 85 pound weight loss with a negative CT of the abdomen and pelvis. There is no evidence for lung cancer recurrence. Etiology of the weight loss is unknown. 6. Symptoms of dysphagia with food getting stuck in the mid esopahgus rule out cancer REC COnt po azitro Prednisone 40 qd If she is sleepy reduce benzo during the day COnt oxygen Order a Barium swallow tommorow to eval for esophageal lesion (note MBS done already) Cont to keep oxy sat at 90 or above Cont warfarin will follow
[2017-02-27 14:55] VITALS: BP 140/60
[2017-02-27 22:07] VITALS: BP 124/76
[2017-02-28 06:30] VITALS: BP 132/76
--- NOTE | 2017-02-28 07:34 | PN- Housestaff ---
ROBERTA CUMMINGS,GREG 02/28/17 0733: Subjective Follow-up For: COPD exacerbation Subjective: I saw the patient today morning She is doing well at her baseline, underwent barium swallow evaluation today. No overnight events. Review of Systems Constitutional: Reports: see HPI. Objective Last 24 Hrs of Vital Signs/I&O Vital Signs Date Time Temp Pulse Resp B/P B/P Pulse O2 O2 Flow FiO2 Mean Ox Delivery Rate 02/28 630 98.4 80 18 132/76 94 Nasal Cannula 02/27 2207 98.1 84 20 124/76 95 Nasal 2.0L Cannula 02/27 2055 94 Nasal 2.0L Cannula 02/27 1455 98.1 103 20 140/60 96 02/27 0920 98.1 02/27 0800 99 Nasal 2.0L Cannula 02/27 0735 101.9 Intake & Output 02/28 0800 02/28 0000 02/27 1600 Intake Total 450 500 Output Total 150 552 300 Balance -150 -102 200 Intake, Oral 450 500 Number 0 Bowel Movements Output, Stool 2 Output, Urine 150 550 300 Physical Exam General Appearance: Alert, Oriented X3, Cooperative Skin: No Rashes, No Breakdown HEENT: Atraumatic, PERRLA, EOMI Neck: Supple Cardiovascular: Normal S1, Normal S2 Lungs: poor air entry, no added sounds Abdomen: Normal Bowel Sounds, Soft, tenderness and pressure sensation in the hypogastric region Neurological: Normal Speech, Normal Tone, Sensation Intact Extremities: No Clubbing, No Cyanosis, No Edema Vascular: Normal Pulses, Pulses Symmetrical Current Medications: Current Medications Sig/Vadim Start time Last Medication Dose Route Stop Time Status Admin Albuterol Sulfate 3 ML Q 3-4 HRS PRN PRN 02/25 1200 AC INH Azithromycin 250 MG DAILY 02/27 1000 AC 02/27 PO 02/28 1001 1401 Azithromycin 500 MG 1800 02/25 1800 DC 02/26 Sodium Chloride 250 ML IV 02/28 2300 1743 Bisacodyl 5 MG DAILY 02/25 1910 AC 02/27 PO 0922 Budesonide/ 2 PUF BID 02/24 2200 AC 02/27 Formoterol Fumarate INH 2159 Cholecalciferol 1,000 IU DAILY 02/25 1000 AC 02/27 PO 0921 Cyanocobalamin 1,000 MCG DAILY 02/25 1000 AC 02/27 PO 0921 Dicyclomine HCl 20 MG 4 TIMES/DAY 02/25 1453 AC 02/27 PO 2157 Duloxetine HCl 40 MG DAILY 02/25 1000 AC 02/27 PO 0922 Ferrous Sulfate 325 MG DAILY 02/25 1000 AC 02/27 PO 0922 Levetiracetam 250 MG BID 02/24 2200 AC 02/27 PO 2157 Levothyroxine Sodium 0.125 MG DAILY AC 02/25 0700 AC 02/28 PO 0705 Lorazepam 0.5 MG TID 02/24 2200 AC 02/27 PO 03/03 2159 0921 Mirtazapine 15 MG QPM 02/24 2200 AC 02/27 PO 2157 Nystatin 1 KAMALJIT TID 02/24 2215 AC 02/27 TOP 2159 Omeprazole 40 MG DAILY AC 02/25 0700 AC 02/28 PO 0705 Oxybutynin Chloride 5 MG DAILY 02/25 1000 AC 02/27 PO 0922 Pravastatin Sodium 20 MG 1700 /02 1700 AC 02/27 PO 1724 Prednisone 40 MG DAILY 02/27 1000 AC 02/27 PO 0921 Senna 187 MG AT BEDTIME 02/25 2200 AC 02/27 PO 2157 Sucralfate 1,000 MG 4 TIMES/DAY / 1000 AC 02/27 PO 2157 Trimethobenzamide HCl 200 MG ONCE PRN 02/27 0730 AC IM Trimethoprim/ 1 TAB BID 02/27 1000 AC 02/27 Sulfamethoxazole PO 215 Warfarin Sodium 2.5 MG COUMADIN 1700 ONE 02/27 1736 DC 02/27 PO 02/27 173 1956 Last 24 Hrs of Lab/Uhng Results Last 24 Hrs of Labs/Mics: Laboratory Tests 02/28/17 0620: Anion Gap 2 L, Estimated GFR > 60, BUN/Creatinine Ratio 33.3 H, PT 21.6 H, INR 2.07 H, CBC w Diff NO MAN DIFF REQ, RBC 4.29, MCV 88.5, MCH 29.2, RDW 14.9 H, MPV 10.3, Gran % 75.2, Lymphocytes % 19.1 L, Monocytes % 5.2, Eosinophils % 0.2, Basophils % 0.3, Absolute Granulocytes 6.3, Absolute Lymphocytes 1.6, Absolute Monocytes 0.4, Absolute Eosinophils 0, Absolute Basophils 0, PUBS MCHC 33.0 Assessment/Plan Assessment: 76-year-old female with past medical history of non-small cell cancer status post right lobectomy, COPD on nocturnal 2.5 L, pulmonary embolism on Coumadin, hypertension, hyperlipidemia, 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 Patient reports being compliant with taking her Coumadin, however her INR is 1.18 today. CTA was negative for embolism. Patient is admitted to general medicine for acute hypoxic respiratory failure most likely due to COPD exacerbation. Acute hypoxic respiratory failure most likely due to COPD exacerbation * Completed Azithromycine, continue prednisone taper 40X2, 30X2, 20x2, 10X2. * Continue TRC/nebs * Continue Symbicort * Pulm consult appreciated Lower urinary tract infection * Patient started growing Klebsiella in urine with suprapubic tenderness. * Started on Bactrim for 3 days. * Closely monitor INR as it can interact with warfarin kinetics. Acute psychotic episode she had an acute psychotic episode overweekend, most likely due to stress related to steroid. Evening dose of steroid was canceled and the patient given 5 mg of oral Zyprexa. Night staff was notified accordingly. Weight loss and deconditioning * Patient has lost around 85pound in the last year * She claims her appetite is very poor, unable to eat as it causes exertion with breathing * Nutrition consult placed * Advised to take small frequent meals. * CT abdomen and pelvis/CT chest - negative for any acute cancerous process/ recurrence Hx of PE on coumadin, INR subtherapeutic * INR and coumadin daily , INR 2.0 today * Dosed 2.5 mg warfarin today again Hx of hypothyroidism, low TSH * Patient had a weight loss of 85 pound weight loss which could potentially cause excess levels as dosing is weight dependent. * Decreased dose of levothyroxine from 175 to 125 g daily * [facility]in[facility] * Plan to recheck her TSH and free T4 in the next 4-6weeks. Hx of HTN * Cotinued atenolol at discharge Continue home meds Mirtazapine 15 mg every afternoon Ativan 0.5 mg 3 times a day Keppra 150 mg twice a day Carafate 1000 mg 4 times a day Pravastatin 20 mg daily Omeprazole 40 mg daily Oxybutynin 5 mg daily Cyanocobalamin 1000 g daily Vitamin D 1000 iu daily Duloxetine 40 mg daily Diet:Heart healthy diet DVT ppx: alps , warfarin FULL CODE Problem List: 1. Pulmonary embolism 2. Cough 3. Chronic abdominal pain 4. COPD exacerbation Pain Ratin Pain Location: abdominal region Pain Goal: Pain 4 or less Pain Plan: tylenol prn Tomorrow's Labs & Rationales: none FLORENCE TUCKER MD 02/28/17 1831: Attending MD Review Statement Attending Statement Attending MD Statement: examined this patient, discuss w/resident/PA/AUTOMOBILE APPRAISER, agreed w/resident/PA/AUTOMOBILE APPRAISER, reviewed EMR data (avail) Attending Assessment/Plan: Breathing and hypoxia improved. Patient on Prednisone and nebulizer treatments. Scheduled to be discharged today, but could not reach son who could be home with her. Will continue efforts for safe discharge, anticipated discharge tomorrow.
--- NOTE | 2017-02-28 07:51 | PN- Student ---
Subjective Subjective: Pt is a 76 yo woman with a history of COPD on 2.5 L of oxygen at home, asthma, small cell carcinoma with RUL resection, PE on coumadin, HTN, HL, PVD, hypothyroidism, and current smoker was brought to the hospital because of decreasing oxygen saturation. The patient is sitting in the recliner in no apparent distress. She is saturating at 93%, she denies dyspnea, pain, headache, and wheezing. Pt states that she feels pressure in her lower abdomen. She states that it hurts to urinate for the past few days, but has been going away. Yesterday morning she had 101 fevers. Today she is within the normal range. She denies fevers, sweats, chills. WBC has been stable around 11. She is on Bactrim for 3 days for UTI. Objective Objective: PE: General: Calm, cooperative, in no apparent distress. Short of breath talking. Neuro: Alert and Oriented x3 CV: RRR, S1 and S2 normal Pulm: Diminished breath sounds throughout. On 2L oxygen GI: Normal bowel sounds in all 4 quadrants. Nondistended, no guarding, no ascites present. States she feels hypogastric pressure upon deep palpation. Intake & Output 02/28 1600 06/05 0800 06/05 0000 Intake Total 480 0 450 Output Total 800 150 552 Balance -320 -150 -102 Intake, IV 0 Intake, Oral 480 0 450 Number 0 0 Bowel Movements Output, Stool 2 Output, Urine 800 150 550 Laboratory Tests / 0620 Chemistry Sodium (137 - 145 mmol/L) 140 Potassium (3.5 - 5.1 mmol/L) 4.1 Chloride (98 - 107 mmol/L) 102 Carbon Dioxide (22 - 30 mmol/L) 35 H Anion Gap (5 - 16) 2 L BUN (7 - 17 mg/dL) 20 H Creatinine (0.5 - 1.0 mg/dL) 0.6 Estimated GFR (>60 ml/min) > 60 BUN/Creatinine Ratio (7 - 25 %) 33.3 H Coagulation PT (9.4 - 12.5 SEC) 21.6 H INR (0.90 - 1.19) 2.07 H Hematology CBC w Diff NO MAN DIFF REQ WBC (4.8 - 10.8 /CUMM) 8.3 RBC (4.20 - 5.40 /CUMM) 4.29 Hgb (12.0 - 16.0 G/DL) 12.5 Hct (37 - 47 %) 38.0 MCV (81.0 - 99.0 FL) 88.5 MCH (27.0 - 31.0 PG) 29.2 RDW (11.5 - 14.5 %) 14.9 H Plt Count (130 - 400 /CUMM) 205 MPV (7.4 - 10.4 FL) 10.3 Gran % (42.2 - 75.2 %) 75.2 Lymphocytes % (20.5 - 51.1 %) 19.1 L Monocytes % (1.7 - 9.3 %) 5.2 Eosinophils % (0 - 5 %) 0.2 Basophils % (0.0 - 2.0 %) 0.3 Absolute Granulocytes (1.4 - 6.5 /CUMM) 6.3 Absolute Lymphocytes (1.2 - 3.4 /CUMM) 1.6 Absolute Monocytes (0.10 - 0.60 /CUMM) 0.4 Absolute Eosinophils (0.0 - 0.7 /CUMM) 0 Absolute Basophils (0.0 - 0.2 /CUMM) 0 PUBS MCHC (33.0 - 37.0 G/DL) 33.0 Results Results: Laboratory Tests 02/28/17 0620: Sodium Pending, Potassium Pending, Chloride Pending, Carbon Dioxide Pending, Anion Gap Pending, BUN Pending, Creatinine Pending, BUN/Creatinine Ratio Pending , PT Pending, INR Pending, CBC w Diff Pending, WBC Pending, RBC Pending, Hgb Pending, Hct Pending, MCV Pending, MCH Pending, RDW Pending, Plt Count Pending, MPV Pending, PUBS MCHC Pending 02/27/17 0625: Anion Gap 6, Estimated GFR > 60, BUN/Creatinine Ratio 27.1 H, PT 23.2 H, INR 2.23 H, CBC w Diff NO MAN DIFF REQ, RBC 4.73, MCV 87.6, MCH 28.9, RDW 14.8 H, MPV 9.9, Gran % 87.0 H, Lymphocytes % 8.3 L, Monocytes % 4.6, Eosinophils % 0.1, Basophils % 0 L, Absolute Granulocytes 10.1 H, Absolute Lymphocytes 1.0 L, Absolute Monocytes 0.5, Absolute Eosinophils 0, Absolute Basophils 0, PUBS MCHC 33.0 02/26/17 0847: PT 16.8 H, INR 1.61 H 02/26/17 0720: CBC w Diff NO MAN DIFF REQ, RBC 4.67, MCV 88.6, MCH 29.0, RDW 14.9 H, MPV 10.4, Gran % 93.6 H, Lymphocytes % 4.3 L, Monocytes % 2.1, Eosinophils % 0, Basophils % 0 L, Absolute Granulocytes 11.1 H, Absolute Lymphocytes 0.5 L, Absolute Monocytes 0.2, Absolute Eosinophils 0, Absolute Basophils 0, PUBS MCHC 32.8 L Microbiology 02/27 0807 BLOOD: Blood Culture - RECD 02/27 806 BLOOD: Blood Culture - RECD Barium Swallow from 08/2016 1. Moderate retention of liquid contrast in the piriform sinuses and vallecula after swallowing. Delayed penetration was observed with the thin barium consistency. If clinically warranted, further assessment of patient's swallow mechanism may be performed with a dedicated modified barium swallow exam. Patient was unable to swallow barium soaked bread. 2. Mid to distal esophageal dysmotility. Barium Swallow from 02/28/17 IMPRESSION: Limited examination due decrease mobility. Moderate esophageal dysmotility. No focal stricture identified. Retention noted in the piriform sinuses. Assessment/Plan Assessment: Pt is a 76 yo woman with a history of COPD on 2.5 L of oxygen at home, asthma, small cell carcinoma with RUL resection, PE on coumadin, HTN, HL, PVD, hypothyroidism, and current smoker who presented with acute respiratory distress , dyspnea, and hypoxia during admission. Labs show leukocytosis, increased T4 at 2.55, subtherapeutic INR at admission. Problem List 1. Dyspnea, hypoxia: The patient's dyspnea and hypoxia is resolving. We will be tapering her steroids to 10mg in the next 2 days. She will need to ambulate, ambulate with O2 sats to assess home needs, and prophylaxis as per pulm consult. Ddx: * Acute Respiratory Failure: Patients with acute respiratory failure present with hypoxemia, bilateral alveolar infiltrates and respiratory distress. This is due to an acute bilateral inflammation of the lungs. In the [place] Criteria to diagnose ARDS, patients must have respiratory symptoms must have new or worsening symptoms during the past week, bilateral opacities consistent of pulmonary edema, respiratory failure not explained by cardiac failure or fluid overload, and impaired oxygenation. Although the pt does not show any pulmonary edema, it is possible that it was caught early on. * COPD exacerbation: For this conditions, physical findings include wheezing, tachypnea, difficulty speaking due to respiratory effort, and use of accessory muscles. Her saturations dropped, she has a 40 year history of smoking, and has COPD. Therefore, this diagnosis would be high on the differential. * Pneumonia: The patient denies fevers and chills. She also did not present with increased WBC, therefore, this diagnosis is lower in the list. * PE: Pulmonary Embolism can cause acute respiratory distress and decrease O2 sat just like this patient. However, CT r/o PE, therefore this diagnosis is r/o. 2. Unintentional weight loss: Upon further investigation, the patient has had multiple trips to the hospital. In February 2016, her weight was 160 lb. She had multiple visits due to abdominal pain and diarrhea. Her last visit was August 2016 and admitted for abd pain and diarrhea, where her weight was 131lb. DDx: * Hyperthyroidism: T4 levels were elevated at 2.55. Pt. states she does not have much of an appetite. Hyperthyroidism is a potential cause for the unintentional weight loss. Her T4 levels were 2.55. Her levothyroxine was decreased from 175 mcg to 125 mcg PO AC. Endocrine consult recommends rechecking in 4-6 weeks. * Malignancy: Another potential cause is malignancy. The patient has had a hx of small cell carcinoma. It is possible that she may have an undetected malignancy that causes weight loss. * Pulmonary cachexia syndrome. This pt may have increase energy expenditure due to her chronic COPD. She was admitted due to hypoxia and respiratory distress. She states that she has been feeling winded for weeks, which means that she could be using more energy than normal. An accumulation of increased respiratory effort over one year can be another factor of her weight loss * Depression: this patient has a history of depression. She states that she has been fighting often with her son and teared up during the interview when speaking about it. She has a history of depression, she may not be eating because of it. * Malabsorption: If she is not absorbing nutrients well, then she would be at risk of losing weight. She has abdominal pain which can symptomatic of malabsorptive conditions like celiac or IBS/IBD, but her pain is not characteristic of patients with this conditions. She also admits that her abdominal pain is due to her AAA repair. She also denies any nausea, vomiting, constipation, or diarrhea. * Mechanical issue: The patient states that she has difficulty swallowing. However, she states these symptoms started 2 days ago, so this cause is unlikely. 3. Subtherapeutic warfarin level: the patient has a history of PE and was on warfarin 2.5mg PO QD. Her INR at admission at subtherapeutic levels. She will need to be redosed into a therapeutic INR range between 2-3. We increased her warfarin to 4 mg and her INR changed from 1.13 to 1.61. Her INR was at 2.23 at Warfarin 4mg, so decreased it back to 2.5mg. Today, her INR is still within therapeutic range at 2.01. We will continue to order coag studies and monitor this. 4. Increasing WBC: The pt is negative for legionella, influenza a and b, and strep pneumo. Pt. grew gram negative rods in her urine and her WBC is increasing. The patient is asymptomatic. I discussed this with the partner marketing intern and he states he is not worried because the colonization amount is not of concern. Another cause of increase WBC is her corticosteroid use, which can cause an increase in WBC. She received her dose before labs and this can be the source of her increase WBC. Yesterday, the patient started spiking a fever and the patient stated that she had hypogastric pain. We put her on 3 day course of Bactrim for 5. Dysphagia: The patient states she has problems swallowing solid food for 2 days, stating that it would get stuck midesophagus. She has no issues swallowing liquids and does not experience any pain. Upon investigation, during her last visit in August 2016, she has had reported dysphagia. They performed a barium swallow and the patient spit out the swallow barium soaked in bread. She states that the dysphagia resolved on its own until now. Today she had a barium swallow. The report is the following: * Moderate retention of liquid contrast in the piriform sinuses * Mid to distal esophageal dysmotility. ddx * Esophageal stricture: this diagnosis is a complication of GERD. * Esophageal web/ring: * Esophageal spasms * Carcinoma * Achalasia Plan: 1. Decrease levothyroxin from 175mcg to 125 mcg. Follow up with PCP to repeat thyroid studies in 4-6 weeks 2. Continue Azithromycin (5 day course) 3. Reduce IV Solumedrol q12h 4. Prednisone 10mg QD for 2 days 5. Continue Symbicort as prescribed 6. Goal of O2 sat's over 90% 7. Nebs and respiratory care 8. Reorder CBC, BEP, coagulation studies 9. Dose warfarin into therapeutic range. 10. Ambulate 11. Assess ambulating O2 sat
[2017-02-28 08:17] LABS: ABSOLUTE BASOPHIL COUNT 0 /CUMM (0.0-0.2); ABSOLUTE EOSINOPHIL COUNT 0 /CUMM (0.0-0.7); ABSOLUTE GRANULOCYTE CT 6.3 /CUMM (1.4-6.5); ABSOLUTE LYMPH COUNT 1.6 /CUMM (1.2-3.4); ABSOLUTE MONOCYTE COUNT 0.4 /CUMM (0.10-0.60); BASOPHIL % 0.3 % (0.0-2.0); EOSINOPHIL % 0.2 % (0-5); GRANULOCYTE % 75.2 % (42.2-75.2); MEAN CORPUSCULAR HGB 29.2 PG (27.0-31.0); MEAN CORPUSCULAR VOLUME 88.5 FL (81.0-99.0); MEAN PLATELET VOLUME 10.3 FL (7.4-10.4); PLATELET COUNT 205 /CUMM (130-400); RBC DISTRIBUTION WIDTH 14.9 % (11.5-14.5); RED BLOOD CELL CT 4.29 /CUMM (4.20-5.40); WHITE BLOOD CELL COUNT 8.3 /CUMM (4.8-10.8)
[2017-02-28 08:19] LABS: PT 21.6 SEC (9.4-12.5)
--- NOTE | 2017-02-28 10:56 | PN- Pulmonary ---
Subjective HPI/Critical Care Issues: pt seen and examined afebrile hemodynamically stable feels better saturating well Objective Current Medications: Current Medications Sig/Vadim Start time Last Medication Dose Route Stop Time Status Admin Albuterol Sulfate 3 ML Q 3-4 HRS PRN PRN 02/25 1200 AC INH Azithromycin 250 MG DAILY 02/27 1000 DC 02/28 PO 02/28 1001 1028 Bisacodyl 5 MG DAILY 02/25 1910 AC 02/28 PO 1028 Budesonide/ 2 PUF BID 02/24 2200 AC 02/28 Formoterol Fumarate INH 1029 Cholecalciferol 1,000 IU DAILY 02/25 1000 AC 02/28 PO 1028 Cyanocobalamin 1,000 MCG DAILY 02/25 1000 AC 02/28 PO 1028 Dicyclomine HCl 20 MG 4 TIMES/DAY 02/25 1453 AC 02/28 PO 1031 Duloxetine HCl 40 MG DAILY 02/25 1000 AC 02/28 PO 1028 Ferrous Sulfate 325 MG DAILY 02/25 1000 AC 02/28 PO 1028 Levetiracetam 250 MG BID 02/24 2200 AC 02/28 PO 1028 Levothyroxine Sodium 0.125 MG DAILY AC 02/25 0700 AC 02/28 PO 0705 Lorazepam 0.5 MG TID 02/24 2200 AC 02/28 PO 03/03 2159 1028 Mirtazapine 15 MG QPM 02/24 2200 AC 02/27 PO 2157 Nystatin 1 KAMALJIT TID 02/24 2215 AC 02/28 TOP 1032 Omeprazole 40 MG DAILY AC 02/25 0700 AC 02/28 PO 0705 Oxybutynin Chloride 5 MG DAILY 02/25 1000 AC 02/28 PO 1028 Pravastatin Sodium 20 MG 1700 /02 1700 AC 02/27 PO 1724 Prednisone 40 MG DAILY 02/27 1000 AC 02/28 PO 1028 Senna 187 MG AT BEDTIME 02/25 2200 AC 02/27 PO 2157 Sucralfate 1,000 MG 4 TIMES/DAY 02/25 1000 AC 02/28 PO 1028 Trimethobenzamide HCl 200 MG ONCE PRN 02/27 0730 AC IM Trimethoprim/ 1 TAB BID 02/27 1000 AC 02/28 Sulfamethoxazole PO 1028 Warfarin Sodium 2.5 MG COUMADIN 1700 ONE 02/27 1736 DC 02/27 PO 02/27 1737 1956 Vital Signs & I&O Last 24 Hrs of Vitals and I&O: Vital Signs Date Time Temp Pulse Resp B/P B/P Pulse O2 O2 Flow FiO2 Mean Ox Delivery Rate 02/28 0800 Nasal 2.5L Cannula 02/28 0630 98.4 80 18 132/76 94 Nasal Cannula 02/28 0000 Nasal 2.0L Cannula 02/27 2207 98.1 84 20 124/76 95 Nasal 2.0L Cannula 02/27 2055 94 Nasal 2.0L Cannula 02/27 1455 98.1 103 20 140/60 96 Intake & Output 02/28 1600 02/28 0800 02/28 0000 Intake Total 0 450 Output Total 150 552 Balance -150 -102 Intake, IV 0 Intake, Oral 0 450 Number 0 Bowel Movements Output, Stool 2 Output, Urine 150 550 Exam Other Physical Findings: gen awake and alert heent ncat cvs s1, s2 lungs rare rhonchi abd soft bs+ ext without edema Results Last 24 Hrs of Lab Results: Laboratory Tests 02/28/17 0620: Anion Gap 2 L, Estimated GFR > 60, BUN/Creatinine Ratio 33.3 H, PT 21.6 H, INR 2.07 H, CBC w Diff NO MAN DIFF REQ, RBC 4.29, MCV 88.5, MCH 29.2, RDW 14.9 H, MPV 10.3, Gran % 75.2, Lymphocytes % 19.1 L, Monocytes % 5.2, Eosinophils % 0.2, Basophils % 0.3, Absolute Granulocytes 6.3, Absolute Lymphocytes 1.6, Absolute Monocytes 0.4, Absolute Eosinophils 0, Absolute Basophils 0, PUBS MCHC 33.0 Impression/Plan Impression/Plan Impression/Plan: Impression 76 year old woman * resolved acute hypoxemic respiratory failure due to AECOPD * hx of PE * hypothyrodism * dysphagia Plan -steroid taper by 10mg every 2 days -ambulate -check ambulatory o2 sat to assess home needs -swallowing eval per primary team -cont a/c DVT prophylaxis at all times
[2017-02-28] MEDS ORDERED: SULFAMETHOXAZO1 EAC1 PO (11:56)
[2017-02-28] MEDS ORDERED: PREDNISONE20 M1 PO ×2 (12:01→14:02)
--- NOTE | 2017-02-28 12:03 | RADIOLOGY REPORT ---
EXAMINATION: XR BARIUM SWALLOW/ESOPHAGRAM CLINICAL INFORMATION: Dysphagia, rule out esophageal lesion/pathology COMPARISON: 09/24/2016 TECHNIQUE: Fluoroscopic assessment of the esophagus was performed in various upright and prone obliquities utilizing thin density barium contrast material. FINDINGS: Assessment is limited due to patient mobility and ability to only ingest limited amounts of oral contrast; a single contrast study was performed. Patient was in the semiupright position throughout the examination and was unable to stand. The esophagus is grossly normal in course, caliber, and contour. Retention of material is noted in the piriform sinuses after swallowing. No fixed narrowing is identified. Assessment of the mucosa is limited due to single contrast technique. Moderate esophageal dysmotility is observed throughout the study, with transient pooling of contrast in the mid to distal esophagus which gradually clears over time with repeat swallows. Contrast otherwise passes freely across the gastroesophageal junction into the stomach. No significant hiatal hernia. No gastroesophageal reflux is observed. FLUOROSCOPY TIME: 1:48 minutes NUMBER OF IMAGES: 12 IMPRESSION: Limited examination as described above. Moderate esophageal dysmotility. No focal stricture identified. Retention noted in the piriform sinuses.
--- NOTE | 2017-02-28 12:09 | NUR ---
Physical Therapy: Consult received and chart reviewed. Pt currently SPT from bed to chair at baseline. Pt is doing so with nursing staff. Acute skilled PT is not indicated at this time.
[2017-02-28 14:49] VITALS: BP 118/70
--- NOTE | 2017-02-28 21:59 | Discharge Summary ---
Visit Information Visit Dates Admission Date: 02/24/17 Discharge Date: 02/28/17 Hospital Course Course Attending Physician: GROVER PEREZ M.D Primary Care Physician: Consulting Request: 1 Consulting Specialty: Endocrinology Consulting Physician: Reason for Consult: Hypothyroidism Consulting Request: 2 Consulting Specialty: Pulmonary Disease Consulting Physician: COPD exacerbation Reason for Consult: Hospital Course: 76-year-old female with past medical history of non-small cell cancer status post right lobectomy, COPD on nocturnal 2.5 L, pulmonary embolism on Coumadin, hypertension, hyperlipidemia, 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 She also lost signficant weight over (around 80pounds) the past yr. Patient reports being compliant with taking her Coumadin, however her INR is 1.18 at admission. CTA was negative for embolism. Patient is admitted to general medicine for acute hypoxic respiratory failure most likely due to COPD exacerbation. Acute hypoxic respiratory failure most likely due to COPD exacerbation Intially started on IV steroids gradually tapered down to oral prednisone - course completes by 03/06/17. A 5 day course of Azithromycin given in hospital. Daily TRC with nebulizations including albuterol, symbicort. Pulm consulted. She is back to baseline - advised to stop smoking. Lower urinary tract infection As patient had suprapubic tenderness urine culture obtained - grew K.pneumoniae and alpha strp. A 3 day course of bactrim started given absence of leukocytosis and fever. Need to closely monitor INR as it can interact with warfarin kinetics. Acute psychotic episode she had an acute psychotic episode overweekend, most likely due to stress related to steroid. Evening dose of steroid was held and resolved with a single dose of 5mg Zyprexa. Weight loss and deconditioning - (failure to thrive) Patient has lost around 85pound in the last year. She claims her appetite is very poor, unable to eat as it causes exertion with breathing. CT abdomen and pelvis/CT chest - negative for any acute cancerous process/ recurrence. Nutrition consult placed. Advised to take small frequent meals. As she reports food getting stuck - barium swallow done which didnt show any masses. It revelaed moderate esophageal dysmotility without any strictures. Hx of PE on coumadin, INR subtherapeutic At admission - INR is subtherpeutic 1.18. Dosed appropriately to reach a goal of 2-3. However discharged with home dose as started on bactrim. May need repeat evaluation as outpatient and dose adjustments as needed. Hx of hypothyroidism, low TSH Patient had a weight loss of 85 pound weight loss which could potentially cause excess levels as dosing is weight dependent. Decreased dose of levothyroxine from 175 to 125 g daily. Plan to recheck her TSH and free T4 in the next 4-6weeks. continued other home medications for chronic medical problems. Complications: None Allergies: Coded Allergies: aspirin (Intermediate, UPSET STOMACH 09/23/16) atorvastatin (Intermediate, MUSCLE PAIN 09/22/16) oxycodone (Intermediate, DIZZY AND NAUSEA 09/22/16) codeine (Mild, FLUSHING 09/22/16) Significant Procedures: CT abdomen and plevis with contrast and CT angion of chest - on february 242016 IMPRESSION: 1. No evidence of pulmonary embolism. No acute change of the chest. 2. No acute abnormality of the abdomen or pelvis. Status post cholecystectomy. Status post vascular stent of abdominal aortic aneurysm. Bifemoral bypass vascular stent. Status post hysterectomy. february 28 - barium swallow evaluation IMPRESSION: Limited examination as described above. Moderate esophageal dysmotility. No focal stricture identified. Retention noted in the piriform sinuses Pertinent Lab Results: as above Disposition Summary Disposition Principal Diagnosis: Acute hypoxic respiratory failure most likely due to COPD exacerbation Additional Diagnosis: Lower urinary tract infection Hypothyroidism PE on warfarin HTN Discharge Disposition: home or self care Discharge Instructions General Discharge Information Code Status: Full Code Patient's Diet: Regular diet Patient's Activity: activity as toelrated Follow-Up Instructions/Appts: Please follow up with your PCP in a week Please follow up with in 4 weeks Please follow up with repeat TSH in 4-6 weeks Please monitor your INR and dose coumadin -- goal INR 2-3. PLEASE STOP SMOKING Medications at Discharge Discharge Medications: Stop taking the following medications: Levothyroxine Sodium (Levothyroxine Sodium) 175 MCG TABLET ORAL DAILY BEFORE BREAKFAST Continue taking these medications: Atenolol (Atenolol) 50 MG TABLET 1 Tablet ORAL DAILY Comments: NOT GIVEN IN HOSPITAL Pantoprazole Sodium (Pantoprazole Sodium) 20 MG TABLET. 2 Tablet ORAL DAILY Comments: Last Taken:02/28/17 Time: 7AM Fluticasone/Salmeterol (Advair 250-50 Diskus) 250 MCG-50 MCG/DOSE BLST.W.DEV 1 Puff Inhale through mouth TWICE DAILY Cholecalciferol (Vitamin D3) (Vitamin D-3) 2,000 UNIT TABLET 1 Tablet ORAL DAILY Comments: Last Taken: 02/28/17 Time: 10AM Lorazepam (Ativan) 0.5 MG TABLET 1 Tablet ORAL THREE TIMES DAILY Albuterol Sulfate (Albuterol Sulfate) 1.25 MG/3 ML VIAL.NEB 1 Vial Inhale Solution EVERY 4-6 HOURS as needed for SHORTNESS OF BREATH Instructions: USE WITH IPRATROPIUM Comments: NOT GIVEN Pravastatin Sodium (Pravachol) 80 MG TABLET 1 Tablet ORAL DAILY Comments: Last Taken: 02/28/17 Time: 5PM Cyanocobalamin (Vitamin B-12) (B-12) 1,000 MCG TABLET 1 Tablet ORAL DAILY Comments: Last Taken:02/28/17 Time:10AM Sucralfate (Carafate) 1 GRAM TABLET 1 Tablet ORAL 4 TIMES A DAY Comments: Last Taken: 02/28/17 Time: 7PM Levetiracetam (Keppra) 250 MG TABLET 1 Tablet ORAL TWICE DAILY Comments: Last Taken:02/28/17 Time:10AM Albuterol Sulfate (Ventolin Hfa) 90 MCG HFA.AER.AD 2 Puff Inhale through mouth EVERY 4-6 HOURS NEEDED as needed for SHORTNESS OF BREATH Comments: NOT GIVEN IN HOSPITAL Duloxetine HCl (Duloxetine HCl) 20 MG CAPSULE. 2 Capsule ORAL DAILY Instructions: 20-60MG TWO TIMES PER NIGHT Comments: Last Taken:02/28/17 Time:10AM Oxybutynin Chloride (Ditropan XL) 5 MG TAB.ER.24 1 Tablet ORAL DAILY Comments: Last Taken: 02/28/17 Time: 10 AM Mirtazapine (Mirtazapine) 15 MG TABLET 1 Tablet ORAL Every night Qty = 30 Comments: NOT GIVEN IN HOSPITAL Warfarin Sodium (Coumadin) 2.5 MG TABLET 1 Tablet ORAL 5 PM Ferrous Sulfate (Ferrous Sulfate) 325 MG (65 MG IRON) TABLET 1 Tablet ORAL DAILY Comments: Last Taken: 02/28/17 Time: 10AM Start taking the following new medications: Prednisone (Prednisone) 20 MG TABLET 1 Tablet ORAL DAILY Qty = 7 No Refills Instructions: On Take 03/01 - 03/02 30 MG take 1.5 tab daily 03/03 - 03/04 20 MG take 1 tab daily 03/05-03/06 10 MG take 0.5 tab daily then stop Comments: Last Taken: 02/28/17 Time: 10 AM Levothyroxine Sodium (Synthroid) 125 MCG TABLET 0.125 Milligram ORAL DAILY BEFORE BREAKFAST Qty = 30 No Refills Comments: Last Taken: 02/28/17 Time: 6AM Sulfamethoxazole/Trimethoprim (Sulfamethoxazole-Tmp Ds Tablet) 800 MG-160 MG TABLET 1 Tablet ORAL TWICE DAILY Qty = 3 No Refills Comments: Last Taken: 02/28/17 Time: 10AM Copies To: ALFREDO CUMMINGS,Julio BLACK; REG CUMMINGS,JERILYN; KALA CUMMINGS,SOLIS Thomason Attending MD Review Statement Documenting Attending: FLORENCE TUCKER MD
[2017-03-14] MEDS ORDERED: CALCIUM600 M3 PO (19:42)
[2017-03-14] MEDS ORDERED: KEFLEX500 M1 PO (23:10)
== END 2017-02-28 19:00 | disposition home health service (06) | DRG 189 ==
LOC: ERH 12:24 → 2NA 18:49 → ERHI 18:49 → 2NA 18:49 → ENRESERV 02-25 00:04 → 2NA 02-25 00:42
PROVIDERS: Internal Medicine Infectious Disease; Physician Assistant; Student in an Organized Health Care Education/Training Program; ADMIT Internal Medicine
DX: J96.21 Acute and chronic respiratory failure with hypoxia (principal); Z99.81 Dependence on supplemental oxygen; J44.1 Chronic obstructive pulmonary disease with (acute) exacerbation; F17.210 Nicotine dependence, cigarettes, uncomplicated; I10 Essential (primary) hypertension; B37.9 Candidiasis, unspecified; E03.9 Hypothyroidism, unspecified; Z89.512 Acquired absence of left leg below knee; Z85.118 Personal history of other malignant neoplasm of bronchus and lung; Z86.711 Personal history of pulmonary embolism; Z79.01 Long term (current) use of anticoagulants; E78.5 Hyperlipidemia, unspecified; I73.9 Peripheral vascular disease, unspecified; K21.9 Gastro-esophageal reflux disease without esophagitis; I71.4 Abdominal aortic aneurysm, without rupture; Z68.24 Body mass index [BMI] 24.0-24.9, adult
CPT/HCPCS: 2NASP; ERO; 36415; 74177; 74220; 81001; 82436; 87040; 87070; 87071; 87086; 87147; 87449; 87450; 87804; 87804-59; 93005; 93010; J0131; J0456; J1953; J2920; J2930; J3250; J3490; J7040

== ENCOUNTER 2017-10-01 14:18 | Inpatient (IN) | payer OTHER, MEDICARE ==
[~2017-10-01] VITALS: Ht 152.4 cm; Wt 44.9 kg
[~2017-10-01 14:18] MED LIST changes: +AMOX-CLAV 875-1 EACH PO; +AUGMENTIN 875-1 EACH PO; +CALCIUM600 M3 PO; +CEFTRIAXONE1 G1 IM; +COUMADIN2 M1 PO; +COUMADIN2.5 M1 PO; +FERROUS SULFAT325 M3 PO; +IPRAT-ALBUT 0.5-3 ML INH; +KEFLEX500 M1 PO; +MIRTAZAPINE15 M2 PO; +NICOTINE PATCH1 EAC1 TOP; +PAROXETINE HCL20 M1 PO; +PRAVASTATIN SOD80 M2 PO; +PREDNISONE20 M1 PO; +SULFAMETHOXAZO1 EAC1 PO; +SYNTHROID125 MCG PO; +WARFARIN SODIUM3 M1 PO
--- NOTE | 2017-10-01 14:27 | ED DYSPNEA/ASTHMA COMPLAINT ---
History of Present Illness General Chief Complaint: General Adult Stated Complaint: BIBA LOW 02 SAT Source: patient, old records, EMS Exam Limitations: no limitations Allergies Coded Allergies: aspirin (Intermediate, UPSET STOMACH 06/06/17) atorvastatin (Intermediate, MUSCLE PAIN 06/06/17) oxycodone (Intermediate, DIZZY AND NAUSEA 06/06/17) codeine (Mild, FLUSHING 06/06/17) Reconcile Medications Acetaminophen (Mapap) 325 MG TABLET 2 TAB PO Q6H PRN PAIN/TEMP/>101 (Reported ) Albuterol Sulfate (Ventolin Hfa) 90 MCG HFA.AER.AD 2 PUF INH Q4H PRN SHORTNESS OF BREATH (Reported) Atenolol 50 MG TABLET 1 TAB PO DAILY BP Bisacodyl (Dulcolax) 10 MG SUPP.RECT 1 SUP RC AD PRN CONSTIPATION (Reported) Calcium (Elemental-Fr Calcarb) (Calcium) 600 MG CALCIUM (1,500 MG) TABLET 1 TAB PO DAILY SUPPLEMENT (Reported) Cholecalciferol (Vitamin D3) (Vitamin D-3) 2,000 UNIT TABLET 1 TAB PO DAILY VITAMIN SUPPORT (Reported) Cyanocobalamin (Vitamin B-12) (B-12) 1,000 MCG TABLET 1 TAB PO Tuesday SUPPLEMENT (Reported) Dextrose (Glucose Gel) 40 % GEL..GRAM. 24 GM PO AD PRN HYPOGLYCEMIA (Reported ) Duloxetine HCl 20 MG CAPSULE.DR 40 MG PO DAILY DEPRESSION (Reported) Fluticasone/Salmeterol (Advair 250-50 Diskus) 250 MCG-50 MCG/DOSE BLST.W.DEV 1 PUF INH Q12H COPD (Reported) Glucagon,Human Recombinant (Glucagon Emergency Kit) 1 MG KIT 1 MG IM AD PRN HYPOGLYCEMIA (Reported) Levetiracetam (Keppra) 250 MG TABLET 1 TAB PO Q12H SEIZURES (Reported) Levothyroxine Sodium 100 MCG TABLET 1 TAB PO DAILY THYROID (Reported) Lorazepam (Ativan) 0.5 MG TABLET 0.75 MG PO Q8H PRN ANXIETY (Reported) Magnesium Hydroxide (Milk Of Magnesia) 400 MG/5 ML ORAL.SUSP 30 ML PO AD PRN CONSTIPATION (Reported) Mirtazapine (Remeron) 15 MG TABLET 1 TAB PO QHS DEPRESSION (Reported) Na Phos,M-B/Na Phos,Di-Ba (Fleet Enema) 19 GRAM-7 GRAM/118 ML ENEMA 1 E RC AD PRN CONSTIPATION (Reported) Naloxone HCl (Narcan) 4 MG/ACTUATION SPRAY 4 MG JARRETT AD PRN OPIOID INDUCED RESP. DEPRESSIO (Reported) Pantoprazole Sodium 20 MG TABLET.DR 2 TAB PO DAILY HEARTBURN Paroxetine HCl (Paxil) 40 MG TABLET 1 TAB PO DAILY MENTAL HEALTH (Reported) Pravastatin Sodium 80 MG TABLET 1 TAB PO QPM HPL (Reported) Sucralfate (Carafate) 1 GRAM TABLET 1 TAB PO 4 TIMES/DAY GERD (Reported) Warfarin Sodium (Coumadin) 1 MG TABLET 1 TAB PO QPM DVT (Reported) Triage Nurses Notes Reviewed? yes Onset: Abrupt Duration: day(s): (1), constant Timing: recent history Severity: moderate Prior Episodes/Possible Cause: occasional episodes Associated Symptoms: cough HPI: 77 year old female with history of CVA, dizziness, seizures on Keppra, HTN, HLD , PVD s/p left BKA, history of hyponatremia, COPD on continuous oxygen 2.5 L, GERD, abdominal aortic aneurysm, anxiety, depression, history of pulmonary embolism on warfarin 2 mg, right lung cancer status post right lobectomy presents to the ER for evaluation of ams and low o2 sat at [facility] today. On arrival pt is 91% on baeline 2.5L. Per son pt fluctuates with her dementia in terms of clear speech and gargled speech and that this is not like her. no known fever, chills. on arrival pt denies any complaints. (Cody VO,Aung) Vital Signs & Intake/Output Vital Signs & Intake/Output Vital Signs Date Time Temp Pulse Resp B/P B/P Pulse O2 O2 Flow FiO2 Mean Ox Delivery Rate 10/01 1754 Nasal 3.0L Cannula 10/01 1753 99.2 75 16 110/58 98 Nasal 3.0L Cannula 10/01 1427 98.9 59 22 117/61 91 Nasal 2.0L Cannula (Danay CUMMINGS,Francesco Adams) Past History Travel History Traveled to [place] past 21 day No Medical History Any Pertinent Medical History? see below for history Neurological: CVA, dizziness, seizure EENT: NONE Cardiovascular: hypertension, hyperlipidemia, PVD, HYPONATREMIA Respiratory: COPD, CONT HOME 02 Gastrointestinal: GERD Hepatic: NONE Renal: NONE Psychiatric: anxiety, depression Endocrine: hypothyroidism, DIABETES-PT DENIES Blood Disorders: DVT, PE Cancer(s): lung cancer History of MRSA: No History of VRE: No History of CDIFF: No Surgical History Surgical History: cholecystectomy, hysterectomy, BKA LEFT AAA REPAIR RUL RESECTION 2004 Psychosocial History Who do you live with Son Services at Home Nursing, Oxygen What is your primary language Macanese Family History Family History, If Any: MOTHER FH: diabetes mellitus FH: hypertension SISTER FH: diabetes mellitus FH: hypertension Hx Contributory? No (Aung Hawley) Review of Systems Review of Systems Constitutional: Reports: see HPI. Comments Review of systems: per family Constitutional, no chills no fever, HEENT: no sore throat no congestion, Cardiovascular: No chest pain , no palpitation Skin: no rashes, no change in skin Respiratory: dyspnea no cough no sputum GI: No nausea no vomiting, no diarrhea : No dysuria Muscle skeletal: No joint pain, no back pain, no neck pain, Neurologic: , no headache Heme/endocrine: No bruising (Aung Hawley) Physical Exam Physical Exam General Appearance: cachetic Respiratory: decreased breath sounds Comments: cachetic female in no acute distress HEENT: Normal EENT exam; PERRL, EOMI, HEAD is atraumatic. moist mucous membranes. Neck: Supple, normal range of motion Back: Nontender, Full range of motion Cardiovascular: Regular rate and rhythms no murmur Respiratory: No respiratory distress. Patient speaking in full complete sentences. decreased breath sounds b/l Abdomen: Soft, nontender nondistended, Extremity: No edema, full range of motion of extremities, normal and equal pulses bilaterally, 5 out of 5 strength noted to bilateral upper and lower extremities Neuro: Alert oriented x0, motor sensory normal, There were no obvious focal neurologic abnormalities. Skin: No appreciable rash on exposed skin, skin is warm and dry. Psych: Mood and affect is normal, memory and judgment is normal. Core Measures ACS in differential dx? Yes CVA/TIA Diagnosis No Sepsis Present: No Sepsis Focused Exam Completed? No (Aung Hawley) Progress Differential Diagnosis: asthma, AMI, bronchitis, CHF, COPD, pulmonary embolism, pneumonia, unstable angina, MALIGNANCY Diagnostic Imaging: Viewed by Me: Radiology Read. Discussed w/RAD: Radiology Read. Radiology Impression: PATIENT: MARITZA SAAVEDRA PRESENT AGE: 77 PATIENT ACCOUNT NO: [id number] : 41 LOCATION: [facility] ORDERING PHYSICIAN: Aung VO SERVICE DATE: 10/01/17 EXAM TYPE: RAD - XRY-PORTABLE CHEST XRAY EXAMINATION: XR PORTABLE CHEST CLINICAL INFORMATION: Lung cancer. Pneumonia. Shortness of breath. COMPARISON: June 07, 2017 TECHNIQUE: Portable AP view of the chest was obtained. FINDINGS: View is significantly rotated making evaluation of the right hemithorax and mediastinum limited. There appears to be scarring and previous surgery within the right hemithorax. Soft tissue density seen overlying the region of the right hilum. No pneumothorax or significant pleural effusions identified. No evidence of pulmonary edema. IMPRESSION: Limited study without evidence of pneumothorax or pulmonary edema. DICTATED BY: González Pablo MD DATE/TIME DICTATED:10/01/171632 RN SECURITY:GUERRERO DATE/TIME TRANSCRIBED:10/01/171632 CONFIDENTIAL, DO NOT COPY WITHOUT APPROPRIATE AUTHORIZATION. <Electronically signed in Other Vendor System> SIGNED BY: González Pablo MD 10/01/17 1640 Initial ED EKG: nsr at 80, artifact, no acute st seg changes Prior EKG: unchanged (Cody VO,Aung) Plan of Care: Orders Procedure Date/time Status Regular Diet 10/02 B Active PROTHROMBIN TIME 10/02 599 Active PHOSPHORUS 10/02 599 Active CBC WITHOUT DIFFERENTIAL 10/02 599 Active BASIC ELECTROLYTES PLUS BUN&CR 10/02 599 Active Vital Signs 10/01 2004 Active Teach/Educate 10/01 2004 Active Pain Treatment and Response 10/01 2004 Active Nutritional Intake, Monitor 10/01 2004 Active Isolation 10/01 2004 Active Intake & Output 10/01 2004 Active Patient Care Conference 10/01 2004 Active Activity/Ambulation 10/01 2004 Active Turn and Reposition 10/01 2002 Active Skin Integrity Protocol 10/01 2002 Active Skin/Pressure Ulcer Assess (Sk 10/01 2002 Active Vital Signs 10/01 2001 Active Teach/Educate 10/01 2001 Active Pain Treatment and Response 10/01 2001 Active Nutritional Intake, Monitor 10/01 2001 Active Isolation 10/01 2001 Active Intake & Output 10/01 2001 Active Patient Care Conference 10/01 2001 Active Activity/Ambulation 10/01 2001 Active Pathway - chart 10/01 192 Active Pathway - chart 10/01 1923 Active House Staff 10/01 192 Active Patient Data 10/01 192 Active Code Status 10/01 192 Active Intake & Output 10/[address] in observation 10/01 1732 Active Misc Message 10/01 1732 Active ED Holding Orders 10/01 1732 Active Vital Signs 10/01 1732 Active Code Status 10/01 1732 Complete Patient Data 10/01 1728 Active Straight Cath 10/01 1443 Active CULTURE,URINE 10/01 1443 Active URINALYSIS 10/01 1443 Complete PARTIAL THROMBOPLASTIN TIME 10/01 1437 Complete PROTHROMBIN TIME 10/01 1437 Complete Telemetry/Batteryman 10/01 1426 Active BLOOD CULTURE 10/01 1426 Active TROPONIN LEVEL 10/01 1426 Complete LACTIC ACID 10/01 1426 Complete COMPREHENSIVE METABOLIC PANEL 10/01 1426 Complete CBC WITHOUT DIFFERENTIAL 10/01 1426 Complete B-TYPE NATRIURETIC PEP (BNP) 10/01 1426 Complete EKG 10/01 1426 Active TRC EVALUATION (GEN) 10/01 UNK Active VTE Mechanical Prophylaxis 10/01 UNK Active Current Medications Sig/Vadim Start time Last Medication Dose Stop Time Status Admin Cyanocobalamin 1,000 MCG 10/03 1000 AC (Vitamin B12) Cholecalciferol 2,000 IU DAILY 10/02 1000 AC (Vitamin D) Duloxetine HCl 40 MG DAILY 10/02 1000 AC (Cymbalta) Paroxetine HCl 40 MG DAILY 10/02 1000 AC (Paxil) Levothyroxine Sodium 0.1 MG DAILY AC 10/02 0700 AC (Synthroid) Omeprazole 40 MG DAILY AC 10/02 07 AC (Prilosec) Budesonide/ 2 PUF BID 10/01 220 AC Formoterol Fumarate (Symbicort) Heparin Sodium 5,000 UNIT Q8 10/01 2199 CANr (Porcine) Mirtazapine 15 MG AT BEDTIME 10/01 2199 AC (Remeron) Levetiracetam 250 MG Q12H 10/01 1999 AC (Keppra) Sucralfate 1,000 MG 4 TIMES/DAY 10/01 1932 AC (Carafate) Pravastatin Sodium 80 MG DAILY 10/01 1931 UNVr (Pravachol) Acetaminophen 650 MG Q6P PRN 10/01 1929 AC (Tylenol) Acetaminophen 1,000 MG Q6P PRN 10/01 1929 UNVr (Ofirmev) Ceftriaxone Sodium 1,000 MG DAILY@19310/01 AC (Rocephin) Lorazepam 0.75 MG Q8H PRN 10/01 1929 AC (Ativan) 10/08 1928 Sodium Chloride 1,000 ML ONCE ONE 10/01 1929 AC (Normal Saline 0.9%) 10/02 1529 Laboratory Tests 10/01/171809: Urine Color YEL, Urine Clarity CLDY H, Urine pH 8.0, Ur Specific [place] 1.020, Urine Protein >=300 H, Urine Ketones TRACE H, Urine Nitrite NEG, Urine Bilirubin NEG, Urine Urobilinogen 0.2, Ur Leukocyte Esterase LARGE H, Ur Microscopic SEDIMENT EXAMINED, Urine RBC 5-10 H, Urine WBC PACKD H, Ur Epithelial Cells RARE, Urine Bacteria PACKD H, Urine Hemoglobin LARGE H, Urine Glucose NEG 10/01/17 1726: Lactic Acid Cancelled 10/01/17 1500: Anion Gap 6, Estimated GFR 48 L, BUN/Creatinine Ratio 28.2 H, Glucose 112 H, Lactic Acid 1.8, Calcium 7.8 L, Total Bilirubin 0.3, AST 60 H, ALT 54 H, Alkaline Phosphatase 79, Troponin I 0.02, [id number] Pept 3970 H, Total Protein 4.8 L, Albumin 2.1 L, Globulin 2.7, Albumin/Globulin Ratio 0.8 L, PT 12.7 H, INR 1.21 H, APTT 40 H, CBC w Diff NO MAN DIFF REQ, RBC 4.25, MCV 88.1 , MCH 29.1, RDW 17.8 H, MPV 9.6, Gran % 88.3 H, Lymphocytes % 8.0 L, Monocytes % 3.7, Eosinophils % 0, Basophils % 0, Absolute Granulocytes 4.2, Absolute Lymphocytes 0.4 L, Absolute Monocytes 0.2, Absolute Eosinophils 0, Absolute Basophils 0, PUBS MCHC 33.0 Microbiology 10/01 1809 URINE ROUT: Urine Culture - RECD 10/01 1517 BLOOD: Blood Culture - RECD 10/01 1500 BLOOD: Blood Culture - RECD LABS ORDERED OLD RECORDS REVIEWED, CASE D/W DR COTTON AGREES WITH PLAN on repeat eval pt remains stable 91% on 2L d/w family at length all of her labs to date pending xray corrected calcium 8.9 given low albumin (Aung Hawley) Comments: 10/01/2017 5:40:34 PM Maritza is without complaint at this time other than feeling a little chilly so I have provided her with additional blankets. Oxygen saturation 94% on nasal cannula. (Danay CUMMINGS,Francesco Adams) Departure Departure Time of Disposition: 1724 Disposition: STILL A PATIENT Condition: Stable Clinical Impression Primary Impression: COPD exacerbation Referrals: Gabriel Kirk MD (PCP/Family) Departure Forms: Customer Survey General Discharge Information Observation Note Spoke With: Marya CUMMINGS,[facility] Patient In: Non-ED OBS Care Area Rationale for Observation: My rational for observation is as follows [iv steroiids, resp tx prn, pt presented requirining O2 increased from baseline, premature discharge wouldbe medically harmful trendlanbs and cultures (Aung Hawley) PA/DIRECTOR OF EMPLOYER SERVICES Co-Sign Statement Statement: ED Attending supervision documentation- [x] I saw and evaluated the patient. I have also reviewed all the pertinent lab results and diagnostic results. I agree with the findings and the plan of care as documented in the PA's/DIRECTOR OF EMPLOYER SERVICES's documentation. pt presents for evaluation of hypoxia and lethargy at [facility]. exam reveals mild resp distress and decreased breath sounds. Kyphosis. [] I have reviewed the ED Record and agree with the PA's/DIRECTOR OF EMPLOYER SERVICES's documentation. [] Additions or exceptions (if any) to the PAs/DIRECTOR OF EMPLOYER SERVICES's note and plan are summarized below: [] (Danay CUMMINGS,Francesco Adams) Critical Care Note Critical Care Note Critical Care Time: non-applicable (Aung Hawley)
[2017-10-01 15:15] LABS: ABSOLUTE BASOPHIL COUNT 0 /CUMM (0.0-0.2); ABSOLUTE EOSINOPHIL COUNT 0 /CUMM (0.0-0.7); ABSOLUTE GRANULOCYTE CT 4.2 /CUMM (1.4-6.5); ABSOLUTE LYMPH COUNT 0.4 /CUMM (1.2-3.4); ABSOLUTE MONOCYTE COUNT 0.2 /CUMM (0.10-0.60); BASOPHIL % 0 % (0.0-2.0); EOSINOPHIL % 0 % (0-5); HEMATOCRIT 37.4 % (37-47); MEAN CORPUSCULAR HGB 29.1 PG (27.0-31.0); MEAN CORPUSCULAR VOLUME 88.1 FL (81.0-99.0); MEAN PLATELET VOLUME 9.6 FL (7.4-10.4); PLATELET COUNT 197 /CUMM (130-400); RBC DISTRIBUTION WIDTH 17.8 % (11.5-14.5); RED BLOOD CELL CT 4.25 /CUMM (4.20-5.40); WHITE BLOOD CELL COUNT 4.8 /CUMM (4.8-10.8)
[2017-10-01 15:24] LABS: PT 12.7 SEC (9.4-12.5); PTT 40 SEC (25-37)
[2017-10-01 15:26] LABS: GRANULOCYTE % 88.3 % (42.2-75.2)
[2017-10-01] MEDS ORDERED: PAXIL40 M1 PO (15:52)
[2017-10-01] MEDS ORDERED: COUMADIN1 M1 PO (15:55)
[2017-10-01] MEDS ORDERED: LEVOTHYROXINE100 MC1 PO (15:56)
[2017-10-01] MEDS ORDERED: REMERON15 M2 PO (15:57)
[2017-10-01] MEDS ORDERED: DULOXETINE HCL20 MG PO (16:06)
[2017-10-01] MEDS ORDERED: KEPPRA250 M1 PO (16:07)
[2017-10-01] MEDS ORDERED: GLUCAGON EMERGEN1 M1 IM (16:09)
[2017-10-01] MEDS ORDERED: GLUCOSE GEL38 GM PO (16:14)
[2017-10-01] MEDS ORDERED: FLEET ENEMA133 ML RC (16:16)
[2017-10-01] MEDS ORDERED: DULCOLAX10 M1 RC (16:17)
[2017-10-01] MEDS ORDERED: MILK OF MA400 MG/52 PO (16:18)
[2017-10-01] MEDS ORDERED: MAPAP325 M1 PO (16:18)
[2017-10-01] MEDS ORDERED: NARCAN4 MG NAS (16:23)
--- NOTE | 2017-10-01 16:40 | RADIOLOGY REPORT ---
EXAMINATION: XR PORTABLE CHEST CLINICAL INFORMATION: Lung cancer. Pneumonia. Shortness of breath. COMPARISON: June 07, 2017 TECHNIQUE: Portable AP view of the chest was obtained. FINDINGS: View is significantly rotated making evaluation of the right hemithorax and mediastinum limited. There appears to be scarring and previous surgery within the right hemithorax. Soft tissue density seen overlying the region of the right hilum. No pneumothorax or significant pleural effusions identified. No evidence of pulmonary edema. IMPRESSION: Limited study without evidence of pneumothorax or pulmonary edema.
--- NOTE | 2017-10-01 17:31 | History & Physical ---
Terrance Gandhi 10/01/17 1731: General Information and HPI MD Statement: I have seen and personally examined JESSE LIANG and documented this H&P. The patient is a 77 year old F who presented with a patient stated chief complaint of [BIBA fort change in mentation, cyanosis]. Source of Information: W10 Exam Limitations: dementia History of Present Illness: Mrs Liang is a 77-year-old lady with a PMH of HTN, HLD, PVD, left BKA, CVA, seizure, DM, hypothyroidism, COPD, GERD, anxiety/depression was BIBA from [facility] after she was observed to be cyanotic around her hands, feet and face. Information is obtained primarily from W 10: changes were noted around 1:15 in the afternoon when she was more unresponsive after returning to bed, arousable with deep stimulation. No focal neurologic deficits were noted at the time, initial pulse oximetry of 74% on RA corrected when on 100% NRB and physical exam findings positive for diminished breath sounds. Blood sugar the time 158. At her baseline she is an assistive 1, alert and forgetful. On assessment in the emergency room she is a limited historian but does state that she has been experiencing some discomfort with urination for the past 3 days. She denies any chest pain, palpitations, difficulty breathing nausea, abdominal pain, body aches or chills at this time. She is noticeably malodorous from urine. Allergies/Medications Allergies: Coded Allergies: aspirin (Intermediate, UPSET STOMACH 06/06/17) atorvastatin (Intermediate, MUSCLE PAIN 06/06/17) oxycodone (Intermediate, DIZZY AND NAUSEA 06/06/17) codeine (Mild, FLUSHING 06/06/17) Home Med list Acetaminophen (Mapap) 325 MG TABLET 2 TAB PO Q6H PRN PAIN/TEMP/>101 (Reported ) Albuterol Sulfate (Ventolin Hfa) 90 MCG HFA.AER.AD 2 PUF INH Q4H PRN SHORTNESS OF BREATH (Reported) Atenolol 50 MG TABLET 1 TAB PO DAILY BP Bisacodyl (Dulcolax) 10 MG SUPP.RECT 1 SUP RC AD PRN CONSTIPATION (Reported) Calcium (Elemental-Fr Calcarb) (Calcium) 600 MG CALCIUM (1,500 MG) TABLET 1 TAB PO DAILY SUPPLEMENT (Reported) Cholecalciferol (Vitamin D3) (Vitamin D-3) 2,000 UNIT TABLET 1 TAB PO DAILY VITAMIN SUPPORT (Reported) Cyanocobalamin (Vitamin B-12) (B-12) 1,000 MCG TABLET 1 TAB PO Tuesday SUPPLEMENT (Reported) Dextrose (Glucose Gel) 40 % GEL..GRAM. 24 GM PO AD PRN HYPOGLYCEMIA (Reported ) Duloxetine HCl 20 MG CAPSULE.DR 40 MG PO DAILY DEPRESSION (Reported) Fluticasone/Salmeterol (Advair 250-50 Diskus) 250 MCG-50 MCG/DOSE BLST.W.DEV 1 PUF INH Q12H COPD (Reported) Glucagon,Human Recombinant (Glucagon Emergency Kit) 1 MG KIT 1 MG IM AD PRN HYPOGLYCEMIA (Reported) Levetiracetam (Keppra) 250 MG TABLET 1 TAB PO Q12H SEIZURES (Reported) Levothyroxine Sodium 100 MCG TABLET 1 TAB PO DAILY THYROID (Reported) Lorazepam (Ativan) 0.5 MG TABLET 0.75 MG PO Q8H PRN ANXIETY (Reported) Magnesium Hydroxide (Milk Of Magnesia) 400 MG/5 ML ORAL.SUSP 30 ML PO AD PRN CONSTIPATION (Reported) Mirtazapine (Remeron) 15 MG TABLET 1 TAB PO QHS DEPRESSION (Reported) Na Phos,M-B/Na Phos,Di-Ba (Fleet Enema) 19 GRAM-7 GRAM/118 ML ENEMA 1 E RC AD PRN CONSTIPATION (Reported) Naloxone HCl (Narcan) 4 MG/ACTUATION SPRAY 4 MG JARRETT AD PRN OPIOID INDUCED RESP. DEPRESSIO (Reported) Pantoprazole Sodium 20 MG TABLET.DR 2 TAB PO DAILY HEARTBURN Paroxetine HCl (Paxil) 40 MG TABLET 1 TAB PO DAILY MENTAL HEALTH (Reported) Pravastatin Sodium 80 MG TABLET 1 TAB PO QPM HPL (Reported) Sucralfate (Carafate) 1 GRAM TABLET 1 TAB PO 4 TIMES/DAY GERD (Reported) Warfarin Sodium (Coumadin) 1 MG TABLET 1 TAB PO QPM DVT (Reported) Past History Travel History Traveled to [place] past 21 day No Medical History Neurological: CVA, dizziness, seizure EENT: NONE Cardiovascular: hypertension, hyperlipidemia, PVD, HYPONATREMIA Respiratory: COPD, CONT HOME 02 Gastrointestinal: GERD Hepatic: NONE Renal: NONE Psychiatric: anxiety, depression Endocrine: hypothyroidism, DIABETES-PT DENIES Blood Disorders: DVT, PE Cancer(s): lung cancer History of MRSA: No History of VRE: No History of CDIFF: No Surgical History Surgical History: cholecystectomy, hysterectomy, BKA LEFT AAA REPAIR RUL RESECTION 2004 Past Family/Social History Family History Relations & Conditions if any MOTHER FH: diabetes mellitus FH: hypertension SISTER FH: diabetes mellitus FH: hypertension Psychosocial History Who Do You Live With? child (son - h/o alcoholism) Services at Home: Nursing, Oxygen Functional Ability ADLs Independent: dressing, eating, toileting, bathing. Ambulation: independent, walker, wheelchair IADLs Independent: finances, telephone, medication admin. Needs Assist: shopping, housework, food prep, transportation. Review of Systems Review of Systems Constitutional: Reports: see HPI. EENTM: Reports: no symptoms. Cardiovascular: Reports: no symptoms. Respiratory: Reports: see HPI. GI: Reports: no symptoms. Genitourinary: Reports: see HPI. Musculoskeletal: Reports: see HPI. Skin: Reports: see HPI. Neurological/Psychological: Reports: see HPI. Hematologic/Endocrine: Reports: no symptoms. Exam & Diagnostic Data Last 24 Hrs of Vital Signs/I&O Vital Signs Date Time Temp Pulse Resp B/P B/P Pulse O2 O2 Flow FiO2 Mean Ox Delivery Rate 10/01 2330 97.6 74 20 100 Nasal 5.0L Cannula 10/01 1754 Nasal 3.0L Cannula 10/01 1753 99.2 75 16 110/58 98 Nasal 3.0L Cannula 10/01 1427 98.9 59 22 117/61 91 Nasal 2.0L Cannula Intake & Output 10/02 0800 10/02 0000 10/01 1600 Intake Total 200 Output Total Balance 200 Intake, IV 100 Intake, Oral 100 Patient 100 lb 99 lb 15.99 oz Weight Weight Estimated Measurement Method Physical Exam General Appearance Alert, Cooperative, patient is laying in bed comfortably, easily arousable, AAO 1 (person) Skin well-healed superficial abrasions on extremities. Right foot is cyanotic and cool to touch Skin Temp/Moisture Exam: Cool/Dry HEENT mucous membranes dry Neck No LAD Cardiovascular Regular Rate, Normal S1, Normal S2 Lungs Normal Air Movement, diminished breath sounds in the basilar regions Abdomen Normal Bowel Sounds, Soft, No Tenderness Neurological Normal Tone, unable to complete neuro exam at this time due to inability to follow commands appropriately Extremities left BKA. Right foot cyanotic with Band-Aid over the great toe Vascular diminished pulses in the right dorsalis pedis and posterior tibial region Last 24 Hrs of Labs/Hung: Laboratory Tests 10/01/171809: Urine Color YEL, Urine Clarity CLDY H, Urine pH 8.0, Ur Specific Adger 1.020, Urine Protein >=300 H, Urine Ketones TRACE H, Urine Nitrite NEG, Urine Bilirubin NEG, Urine Urobilinogen 0.2, Ur Leukocyte Esterase LARGE H, Ur Microscopic SEDIMENT EXAMINED, Urine RBC 5-10 H, Urine WBC PACKD H, Ur Epithelial Cells RARE, Urine Bacteria PACKD H, Urine Hemoglobin LARGE H, Urine Glucose NEG 10/01/17 1726: Lactic Acid Cancelled 10/01/17 1500: Anion Gap 6, Estimated GFR 48 L, BUN/Creatinine Ratio 28.2 H, Glucose 112 H, Lactic Acid 1.8, Calcium 7.8 L, Total Bilirubin 0.3, AST 60 H, ALT 54 H, Alkaline Phosphatase 79, Troponin I 0.02, Max-Y-Wytwrkgaenp Pept 3970 H, Total Protein 4.8 L, Albumin 2.1 L, Globulin 2.7, Albumin/Globulin Ratio 0.8 L, PT 12.7 H, INR 1.21 H, APTT 40 H, CBC w Diff NO MAN DIFF REQ, RBC 4.25, MCV 88.1 , MCH 29.1, RDW 17.8 H, MPV 9.6, Gran % 88.3 H, Lymphocytes % 8.0 L, Monocytes % 3.7, Eosinophils % 0, Basophils % 0, Absolute Granulocytes 4.2, Absolute Lymphocytes 0.4 L, Absolute Monocytes 0.2, Absolute Eosinophils 0, Absolute Basophils 0, PUBS MCHC 33.0 Microbiology 10/01 1809 URINE ROUT: Urine Culture - RECD 10/01 1517 BLOOD: Blood Culture - RECD 10/01 1500 BLOOD: Blood Culture - RECD Diagnostic Data EKG Results Unknown rhythm, irregular rate, HR 76-100 BPM. Left anterior fascicular block. Low voltage in frontal leads. DC interval 164. QTC 441 CXR Results Limited study without evidence of pneumothorax or pulmonary edema Assessment/Plan Assessment: 77-year-old lady with a PMH of HTN, HLD, PVD, left BKA, CVA, seizure, DM, hypothyroidism, COPD, GERD, anxiety/depression was BIBA from [facility] after she was observed to be unresponsive, cyanotic, hypoxemic with saturation of 74% on RA that corrected on NRB. On arrival in the emergency room she was able to state that she has been experiencing a few days of urinary discomfort. VS on admission: BP 117/61, HR 59, RR 22, SPO2 91% on 2L, T 98.1 Admission labs: WBC 4.8, H&H 12.4/37.4, platelets 197, sodium 140, potassium 3.4 , bicarbonate 31, BUN/CR 31/1.1, glucose 112 INR 1.21 AST/ALT 60/54 ProBNP 3970 Urinalysis: Cloudy, greater than 300 protein, trace ketones, large leukocyte esterase, packed WBCs, packed bacteria, large hemoglobin PROBLEM LIST: 1. UTI 2. Acute kidney injury: Creatinine 1.1 with baseline 0.6 3. Transaminitis: AST/ALT 60/54 4. Hypokalemia: 3.4 5. INR 1.21 PLAN: * Place in observation on general medicine for management of UTI * We'll start patient on ceftriaxone 1 g IV daily. His urine culture from June shows Klebsiella sensitive to cefazolin. Prior urine culture from February 2017 grew enterococcus. If no improvement, consider adding vancomycin and obtaining ID consult * JOSE: Elevation in creatinine from baseline rate of than 30%. Gentle hydration with normal saline 50 mL/HR 1. Follow-up renal function in the a.m. * Mild transaminitis. Patient has been on pravastatin 80 mg daily. Follow-up lipid panel in the a.m. and if well controlled consider lower dose of statin * Borderline hypokalemia. Follow-up renal function prior to supplementation in the morning * INR 1.21. * Regular diet * DVT prophylaxis: Coumadin * Full code AM TEAM: PLEASE CONFIRM FROM FACILITY THE DATE OF ?? dvt AND DURATION OF PLANNED COUMADIN As Ranked By This Provider Problem List: 1. Urinary tract infection 2. JOSE (acute kidney injury) 3. Transaminitis Core Measures/Misc (06/12) Acute Coronary Syndrome ACS Diagnosis: No Congestive Heart Failure Congestive Heart Failure Diagnosis No Cerebrovascular Accident CVA/TIA Diagnosis: No VTE (View Protocol) VTE Risk Factors Age>40 No Mechanical VTE Prophylaxis d/t Medical Contraindication No VTE Pharm Prophylaxis d/t NA PharmProphylax ordered Sepsis (View protocol) Sepsis Present: Yes Resident Review Statement Resident Statement: examined this patient, discussed with international account executive, agreed with international account executive, reviewed EMR data (avail), discussed with nursing, discussed with case mgmt, reviewed images Radhames Malhotra 10/01/17 1744: Attending MD Review Statement Attending Statement Attending MD Statement: examined this patient, discuss w/resident/PA/ATHLETIC EQUIPMENT MANAGER, agreed w/resident/PA/ATHLETIC EQUIPMENT MANAGER, discussed with family, reviewed EMR data (avail), discussed with nursing, discussed with case mgmt, reviewed images, amended to note Attending Assessment/Plan: 76F PMH CVA, dizziness, seizures on Keppra, HTN, HLD, PVD s/p left BKA, history of hyponatremia, COPD on continuous oxygen 2.5 L, GERD, abdominal aortic aneurysm, anxiety, depression, history of pulmonary embolism on ?warfarin 2 mg, right lung cancer status post right lobectomy comes with acute on chronic respiratroy failure with COPD exacerbation with UTI. Patient admitted to inpatient medical services. Patient start on iv sterids, iv antibiotics, TRCs, continue home meds, Monitor INR, gi/dvt prophyalxis.
[2017-10-02] VITALS: BP 98/58
[2017-10-02 06:15] VITALS: BP 108/52
[2017-10-02 09:32] LABS: PT 11.7 SEC (9.4-12.5)
--- NOTE | 2017-10-02 09:46 | PN- Housestaff ---
Moo CUMMINGS,[facility] 10/02/17 0946: Subjective Follow-up For: UTI AMS JOSE Transaminitis COPD Subjective: Patient just woke up. No issues overnight. Appears to be AOx1. Review of Systems Constitutional: Reports: no symptoms. Cardiovascular: Reports: no symptoms. Respiratory: Reports: no symptoms. Gastrointestinal: Reports: no symptoms. Genitourinary: Reports: no symptoms. Musculoskeletal: Reports: no symptoms. Comments: Unsure if patient fully understood questions. Appears to be AOx1. Unsure of baseline Objective Last 24 Hrs of Vital Signs/I&O Vital Signs Date Time Temp Pulse Resp B/P B/P Pulse O2 O2 Flow FiO2 Mean Ox Delivery Rate 10/02 1545 97.7 83 20 110/58 93 Nasal Cannula 10/02 1033 94 Nasal 2.5L Cannula 10/02 1027 Nasal 2.5L Cannula 10/02 08 93 Nasal 4.0L Cannula 10/02 0615 98.6 74 17 108/52 95 10/02 0000 98/58 10/02 0000 98 Nasal 4.0L Cannula 10/01 2330 97.6 74 20 100 Nasal 5.0L Cannula Intake & Output 10/02 1600 10/02 0800 10/02 0000 Intake Total 830 500 200 Output Total Balance 830 500 200 Intake, IV 350 400 100 Intake, Oral 480 100 100 Number 0 1 Bowel Movements Patient 100 lb Weight Physical Exam General Appearance: No Acute Distress, AOX1 Skin Temp/Moisture Exam: Warm/Dry Cardiovascular: Regular Rate, Normal S1, Normal S2 Lungs: Clear to Auscultation, Normal Air Movement Abdomen: Normal Bowel Sounds, Soft, No Tenderness Vascular: 2+ radial pulses Current Medications: Current Medications Sig/Vadim Start time Last Medication Dose Route Stop Time Status Admin Acetaminophen 650 MG Q6P PRN 10/01 1929 AC PO Acetaminophen 680 MG Q6P PRN 10/01 193 AC IV Albuterol Sulfate 3 ML Q4P PRN 10/02 1045 AC INH Budesonide/ 2 PUF BID 10/01 220 AC 10/02 Formoterol Fumarate INH 0904 Ceftriaxone Sodium 1,000 MG DAILY@1930 10/01 1930 AC 10/01 IV 2154 Cholecalciferol 2,000 IU DAILY 10/02 1000 AC 10/02 PO 0902 Cyanocobalamin 1,000 MCG 10/03 1000 AC PO Duloxetine HCl 40 MG DAILY 10/02 1000 AC 10/02 PO 0903 Insulin Aspart 0 TIDAC 10/02 799 AC SC Insulin Aspart 0 AT BEDTIME 10/01 2199 AC SC Levetiracetam 250 MG Q12 10/01 220 AC 10/02 PO 1130 Levetiracetam 250 MG Q12H 10/01 1999 DC PO Levothyroxine Sodium 0.1 MG DAILY AC 10/02 699 AC 10/02 PO 0529 Lorazepam 0.75 MG Q8H PRN 10/01 193 AC PO 10/08 192 Mirtazapine 15 MG AT BEDTIME 10/01 2199 AC 10/01 PO 2154 Omeprazole 40 MG DAILY AC 10/02 699 AC 10/02 PO 0529 Paroxetine HCl 40 MG DAILY 10/02 999 AC 10/02 PO 0903 Potassium Chloride 20 MEQ ONCE ONE 10/02 0615 DC 10/02 PO 10/02 0616 0622 Prednisone 40 MG ONCE ONE 10/02 1130 DC 10/02 PO 10/02 1131 1305 Sodium Chloride 1,000 ML ONCE ONE 10/01 193 DC 10/01 IV 10/02 1529 2240 Sucralfate 1 GM 4 TIMES/DAY 10/01 2199 AC 10/02 PO 1749 Sucralfate 1,000 MG 4 TIMES/DAY 10/01 1932 DC PO Warfarin Sodium 3 MG COUMADIN 1700 ONE 10/02 1700 DC 10/02 PO 10/02 1701 1749 Last 24 Hrs of Lab/Hung Results Last 24 Hrs of Labs/Mics: Laboratory Tests 10/02/17 0743: Anion Gap 8, Estimated GFR 54 L, BUN/Creatinine Ratio 31.0 H, Phosphorus 5.4 H, Triglycerides 113, Cholesterol 80, LDL Cholesterol, Calc 31 L, HDL Cholesterol 27 L, Cholesterol/HDL Ratio 3, PT 11.7, INR 1.12, CBC w Diff NO MAN DIFF REQ, RBC 4.17 L, MCV 88.5, MCH 29.5, RDW 17.8 H, MPV 10.6 H, Gran % 82.1 H, Lymphocytes % 13.2 L, Monocytes % 4.6, Eosinophils % 0, Basophils % 0.1, Absolute Granulocytes 5.3, Absolute Lymphocytes 0.8 L, Absolute Monocytes 0.3, Absolute Eosinophils 0, Absolute Basophils 0, PUBS MCHC 33.3 Assessment/Plan Assessment: 77-year-old lady with a PMH of HTN, HLD, PVD, left BKA, CVA, seizure, DM, hypothyroidism, COPD, GERD, anxiety/depression was BIBA from [facility] after she was observed to be unresponsive, cyanotic, hypoxemic with saturation of 74% on RA that corrected on NRB. #COPD -cont trc nebs -cont po prednisone 40 daily #UTI Afebrile, no leukocytosis +UA Ucx + for gram neg rods -cont ceftriaxone #AMS In the setting of UTI -monitor progress as infection is treated #JOSE with low K and high phos Cr. 1.0 (baseline .6) K 3.6 Phos 5.4 -replenish K as JOSE improves - monitor hyperphosphatemia #Transaminitis Triglycerides 113, cholesterol 80, LDL 31, HDL 27 Ast 60, alt 54, ALP 79, T bili 0.3 No RUQ sx or pain -cont to monitor #warfarin for DVT/PE hx Normally takes 1-3mg INR 1.12 -give 3 mg today #mental health -cont paroxetine, duloxetine, mirtazapine, lorazepam #seizures -levetiracetam #diabetes -novolog sliding scale #hypothyroid -levothyroxine #gerd -omeprazole, sucralfate #vitamins -b12 VS on admission: BP 117/61, HR 59, RR 22, SPO2 91% on 2L, T 98.1 Admission labs: WBC 4.8, H&H 12.4/37.4, platelets 197, sodium 140, potassium 3.4 , bicarbonate 31, BUN/CR 31/1.1, glucose 112 INR 1.21 AST/ALT 60/54 ProBNP 3970 Urinalysis: Cloudy, greater than 300 protein, trace ketones, large leukocyte esterase, packed WBCs, packed bacteria, large hemoglobin PROBLEM LIST: 1. UTI 2. Acute kidney injury: Creatinine 1.1 with baseline 0.6 3. Transaminitis: AST/ALT 60/54 4. Hypokalemia: 3.4 5. INR 1.21 6. COPD 7. Probnp elevated PLAN: -cont ceftriaxone 1 g IV daily. His urine culture from June shows Klebsiella sensitive to cefazolin. Prior urine culture from February 2017 grew enterococcus. If no improvement, consider adding vancomycin and obtaining ID consult -JOSE: Elevation in creatinine from baseline rate of than 30%. Gentle hydration with normal saline 50 mL/HR 1. -Mild transaminitis. Patient has been on pravastatin 80 mg daily. Follow-up lipid panel in the a.m. and if well controlled consider lower dose of statin -Borderline hypokalemia. Follow-up renal function prior to supplementation in the morning -INR 1.21. check and dose daily Regular diet DVT prophylaxis: Coumadin Full code AM TEAM: PLEASE CONFIRM FROM FACILITY THE DATE OF ?? dvt AND DURATION OF PLANNED COUMADIN Problem List: 1. Transaminitis 2. JOSE (acute kidney injury) 3. UTI (urinary tract infection) 4. COPD (chronic obstructive pulmonary disease) Pain Ratin Pain Location: none Pain Goal: Pain 4 or less Pain Plan: pain pathway Tomorrow's Labs & Rationales: cbc bep phos lfts Radhames Malhotra 10/02/17 1120: Attending MD Review Statement Attending Statement Attending MD Statement: examined this patient, discuss w/resident/PA/SHOOK SPLICER, agreed w/resident/PA/SHOOK SPLICER, discussed with family, reviewed EMR data (avail), discussed with nursing, discussed with case mgmt, reviewed images, amended to note Attending Assessment/Plan: 76F PMH CVA, dizziness, seizures on Keppra, HTN, HLD, PVD s/p left BKA, history of hyponatremia, COPD on continuous oxygen 2.5 L, GERD, abdominal aortic aneurysm, anxiety, depression, history of pulmonary embolism on ?warfarin 2 mg, right lung cancer status post right lobectomy comes with acute on chronic respiratroy failure with COPD exacerbation and UTI. Patient admitted to inpatient medical services. Continue iv antibiotics, PO prednisone 40 daily, TRCs, continue home meds, urine Culture growing gram neagtive rods, f/u final c/ s. Monitor INR, c/w couamdin and check records. gi/dvt prophyalxis.
[2017-10-02 09:51] LABS: ABSOLUTE BASOPHIL COUNT 0 /CUMM (0.0-0.2); ABSOLUTE EOSINOPHIL COUNT 0 /CUMM (0.0-0.7); ABSOLUTE GRANULOCYTE CT 5.3 /CUMM (1.4-6.5); ABSOLUTE LYMPH COUNT 0.8 /CUMM (1.2-3.4); ABSOLUTE MONOCYTE COUNT 0.3 /CUMM (0.10-0.60); BASOPHIL % 0.1 % (0.0-2.0); EOSINOPHIL % 0 % (0-5); GRANULOCYTE % 82.1 % (42.2-75.2); HEMATOCRIT 36.9 % (37-47); MEAN CORPUSCULAR HGB 29.5 PG (27.0-31.0); MEAN CORPUSCULAR HGB CONC 33.3 G/DL (33.0-37.0); MEAN CORPUSCULAR VOLUME 88.5 FL (81.0-99.0); MEAN PLATELET VOLUME 10.6 FL (7.4-10.4); PLATELET COUNT 183 /CUMM (130-400); RBC DISTRIBUTION WIDTH 17.8 % (11.5-14.5); RED BLOOD CELL CT 4.17 /CUMM (4.20-5.40); WHITE BLOOD CELL COUNT 6.4 /CUMM (4.8-10.8)
[2017-10-02 15:45] VITALS: BP 110/58
[2017-10-02 23:18] VITALS: BP 98/58
[2017-10-03 07:27] VITALS: BP 120/76
--- NOTE | 2017-10-03 08:23 | PN- Housestaff ---
Moo CUMMINGS,[facility] 10/03/17 0822: Subjective Follow-up For: UTI COPD JOSE transaminitis Subjective: No acute events overnight. Pt states SOB this AM. Feels anxious because she cant breath. Desated to 80s per nurse last night. Review of Systems Constitutional: Reports: see HPI. Cardiovascular: Reports: no symptoms. Respiratory: Reports: short of breath. Gastrointestinal: Reports: no symptoms. Genitourinary: Reports: no symptoms. Musculoskeletal: Reports: no symptoms. Neurological/Psychological: Reports: anxiety. Objective Last 24 Hrs of Vital Signs/I&O Vital Signs Date Time Temp Pulse Resp B/P B/P Pulse O2 O2 Flow FiO2 Mean Ox Delivery Rate 10/03 1449 97.6 18 100/53 Nasal 4.0L Cannula 10/03 1400 78 18 98 Nasal 4.0L Cannula 10/03 1121 92 Nasal 4.0L Cannula 10/03 799 97 Nasal 4.0L Cannula 10/03 0727 97.5 65 20 120/76 92 10/03 0000 Nasal 4.0L Cannula 10/02 2318 97.8 52 20 98/58 90 Nasal 4.0L Cannula 10/02 1545 97.7 83 20 110/58 93 Nasal Cannula Intake & Output 10/03 1600 10/03 0800 10/03 0000 Intake Total 600 Output Total Balance 600 Intake, IV 200 Intake, Oral 400 Number 1 3 Bowel Movements Patient 99 lb 15.99 oz Weight Weight Bed scale Measurement Method Physical Exam General Appearance: Alert, Cooperative, Severe Distress Skin Temp/Moisture Exam: Warm/Dry Cardiovascular: Regular Rate, Normal S1, Normal S2 Lungs: Clear to Auscultation, Normal Air Movement Abdomen: Normal Bowel Sounds, Soft, No Tenderness Vascular: 2+ radial pulses Current Medications: Current Medications Sig/Vadim Start time Last Medication Dose Route Stop Time Status Admin Acetaminophen 650 MG Q6P PRN 10/01 1929 AC PO Acetaminophen 680 MG Q6P PRN 10/01 1929 AC IV Albuterol Sulfate 3 ML ONCE ONE 10/03 0745 DC INH 10/03 0746 Albuterol Sulfate 3 ML Q4P PRN 10/02 1045 AC INH Budesonide/ 2 PUF BID 10/010 AC 10/03 Formoterol Fumarate INH 0836 Ceftriaxone Sodium 1,000 MG DAILY@1930 10/01 1929 DC 10/02 IV 2112 Cephalexin 500 MG BID 10/03 1500 AC PO Cholecalciferol 2,000 IU DAILY 10/02 1000 AC 10/03 PO 0838 Cyanocobalamin 1,000 MCG 10/03 1000 AC 10/03 PO 0838 Dextrose/Sodium 1,000 ML Q13H 10/03 1030 AC 10/03 Chloride IV 1056 Duloxetine HCl 40 MG DAILY 10/02 1000 AC 10/03 PO 0837 Insulin Aspart 0 TIDAC 10/02 799 AC SC Insulin Aspart 0 AT BEDTIME 10/01 2199 AC SC Ipratropium [place] 2.5 ML ONCE ONE 10/03 07 DC INH 10/03 0746 Levetiracetam 250 MG Q12 10/01 2200 AC 10/03 PO 0836 Levothyroxine Sodium 0.1 MG DAILY AC 10/02 699 AC 10/03 PO 0650 Lorazepam 0.75 MG Q8H PRN 10/01 1930 AC 10/03 PO 10/08 192 0650 Mirtazapine 15 MG AT BEDTIME 10/01 220 AC 10/02 PO 2238 Omeprazole 40 MG DAILY AC 10/02 07 AC 10/03 PO 0650 Paroxetine HCl 40 MG DAILY 10/02 1000 AC 10/03 PO 0837 Prednisone 40 MG DAILY 10/03 1000 AC 10/03 PO 1029 Sodium Chloride 1,000 ML ONCE ONE 10/01 1930 DC 10/01 IV 10/02 1529 2240 Sucralfate 1 GM 4 TIMES/DAY 10/01 2200 AC 10/03 PO 1327 Warfarin Sodium 3 MG COUMADIN 1700 ONE 10/03 1700 AC PO 10/03 1701 Warfarin Sodium 3 MG COUMADIN 1700 ONE 10/02 1700 DC 10/02 PO 10/02 1701 1749 Last 24 Hrs of Lab/Hung Results Last 24 Hrs of Labs/Mics: Laboratory Tests 10/03/17 0755: Anion Gap 8, Estimated GFR > 60, BUN/Creatinine Ratio 37.8 H, Phosphorus 3.2, Total Bilirubin 0.3, Direct Bilirubin 0.3, AST 44 H, ALT 46, Alkaline Phosphatase 72, Total Protein 5.1 L, Albumin 2.1 L, PT 13.4 H, INR 1.28 H, CBC w Diff NO MAN DIFF REQ, RBC 4.39, MCV 88.7, MCH 29.7, RDW 17.9 H, MPV 10.4, Gran % 79.1 H, Lymphocytes % 16.4 L, Monocytes % 4.5, Eosinophils % 0, Basophils % 0, Absolute Granulocytes 4.6, Absolute Lymphocytes 1.0 L, Absolute Monocytes 0.3, Absolute Eosinophils 0, Absolute Basophils 0, PUBS MCHC 33.5 Assessment/Plan Assessment: 77-year-old lady with a PMH of HTN, HLD, PVD, left BKA, CVA, seizure, DM, hypothyroidism, COPD, GERD, anxiety/depression was BIBA from [facility] after she was observed to be unresponsive, cyanotic, hypoxemic with saturation of 74% on RA that corrected on NRB. #SOB most likely COPD Pro BNP 3970 -cont trc nebs -cont po prednisone 40 daily -f/u cxr #UTI Afebrile, no leukocytosis +UA Ucx + proteus mirabili -switch to po keflex 500mg BID #hypernatremia Na 148 -cont d5 1/2NS #AMS In the setting of UTI -monitor progress as infection is treated #JOSE with low K and high phos Cr. 0.9 (baseline .6) K 3.6 Phos 3.2 -replenish K as JOSE improves - monitor hyperphosphatemia #Transaminitis Triglycerides 113, cholesterol 80, LDL 31, HDL 27 Ast 60, alt 54, ALP 79, T bili 0.3 No RUQ sx or pain -cont to monitor #warfarin for DVT/PE hx Normally takes 1-3mg INR 1.28 -give 3 mg today #mental health -cont paroxetine, duloxetine, mirtazapine, lorazepam #seizures -levetiracetam #diabetes -novolog sliding scale #hypothyroid -levothyroxine #gerd -omeprazole, sucralfate #vitamins -b12 DVT prophylaxis: Coumadin Full code Problem List: 1. UTI (urinary tract infection) 2. JOSE (acute kidney injury) 3. COPD (chronic obstructive pulmonary disease) 4. Transaminitis Pain Ratin Pain Location: none Pain Goal: Pain 4 or less Pain Plan: pain pathway Tomorrow's Labs & Rationales: cbc Radhames Pittman 10/03/17 1234: Attending MD Review Statement Attending Statement Attending MD Statement: examined this patient, discuss w/resident/PA/CHIEF DEVELOPMENT OFFICER, agreed w/resident/PA/CHIEF DEVELOPMENT OFFICER, discussed with family, reviewed EMR data (avail), discussed with nursing, discussed with case mgmt, reviewed images, amended to note Attending Assessment/Plan: 76F PMH CVA, dizziness, seizures on Keppra, HTN, HLD, PVD s/p left BKA, history of hyponatremia, COPD on continuous oxygen 2.5 L, GERD, abdominal aortic aneurysm, anxiety, depression, history of pulmonary embolism on ?warfarin 2 mg, right lung cancer status post right lobectomy comes with acute on chronic respiratroy failure with COPD exacerbation and UTI now developed Hypernatremia. Patient seen/examined bedside. She is on oxygen supplementation, Na 148 with hypernatremia. No new complaints. Patient admitted to inpatient medical services. Continue iv antibiotics, PO prednisone 40 daily, TRCs, IVF for hypernatremia, continue home meds, urine Culture growing gram neagtive rods, f/u final c/s. Monitor INR, c/w couamdin and f/u records. gi/dvt prophyalxis. She is resident of facility and mo planning to go back to facility as her clinical condition improves.
[2017-10-03 08:47] LABS: PT 13.4 SEC (9.4-12.5)
[2017-10-03 09:20] LABS: ABSOLUTE BASOPHIL COUNT 0 /CUMM (0.0-0.2); ABSOLUTE EOSINOPHIL COUNT 0 /CUMM (0.0-0.7); ABSOLUTE GRANULOCYTE CT 4.6 /CUMM (1.4-6.5); ABSOLUTE MONOCYTE COUNT 0.3 /CUMM (0.10-0.60); BASOPHIL % 0 % (0.0-2.0); EOSINOPHIL % 0 % (0-5); GRANULOCYTE % 79.1 % (42.2-75.2); MEAN CORPUSCULAR HGB 29.7 PG (27.0-31.0); MEAN CORPUSCULAR HGB CONC 33.5 G/DL (33.0-37.0); MEAN CORPUSCULAR VOLUME 88.7 FL (81.0-99.0); MEAN PLATELET VOLUME 10.4 FL (7.4-10.4); PLATELET COUNT 202 /CUMM (130-400); RBC DISTRIBUTION WIDTH 17.9 % (11.5-14.5); RED BLOOD CELL CT 4.39 /CUMM (4.20-5.40); WHITE BLOOD CELL COUNT 5.8 /CUMM (4.8-10.8)
[2017-10-03 14:49] VITALS: BP 100/53
--- NOTE | 2017-10-03 17:03 | RADIOLOGY REPORT ---
EXAMINATION:\H\ \N\XR CHEST CLINICAL INFORMATION: Shortness of breath COMPARISON: Chest x-ray 10/01/2017, 06/07/2017 TECHNIQUE: Frontal portable view of the chest was obtained. 3:46 PM FINDINGS: Patient rotated to the right with levoscoliosis of thoracic spine. No acute abnormality. There is no infiltrate. No pleural effusion. No significant central pulmonary vascular congestion. Compared to prior chest x-ray no change. IMPRESSION: No acute abnormality of the chest.
[2017-10-03 22:32] VITALS: BP 108/62
[2017-10-04 05:58] VITALS: BP 110/62
[2017-10-04 08:05] LABS: ABSOLUTE BASOPHIL COUNT 0 /CUMM (0.0-0.2); ABSOLUTE EOSINOPHIL COUNT 0 /CUMM (0.0-0.7); ABSOLUTE GRANULOCYTE CT 2.8 /CUMM (1.4-6.5); ABSOLUTE LYMPH COUNT 0.9 /CUMM (1.2-3.4); ABSOLUTE MONOCYTE COUNT 0.3 /CUMM (0.10-0.60); BASOPHIL % 0.1 % (0.0-2.0); EOSINOPHIL % 0 % (0-5); GRANULOCYTE % 69.7 % (42.2-75.2); HEMATOCRIT 35.1 % (37-47); MEAN CORPUSCULAR HGB 29.2 PG (27.0-31.0); MEAN CORPUSCULAR HGB CONC 33.2 G/DL (33.0-37.0); MEAN CORPUSCULAR VOLUME 88.1 FL (81.0-99.0); PLATELET COUNT 193 /CUMM (130-400); RBC DISTRIBUTION WIDTH 17.5 % (11.5-14.5); RED BLOOD CELL CT 3.99 /CUMM (4.20-5.40)
[2017-10-04 08:17] LABS: PT 18.3 SEC (9.4-12.5)
--- NOTE | 2017-10-04 11:15 | PN- Housestaff ---
Moo CUMMINGS,[facility] 10/04/17 1114: Subjective Follow-up For: UTI COPD JOSE transaminitis Subjective: No acute events overnight. Patient states she has little bit of shortness of breath today. Patient seems depressed and thinks that the nursing staff does not like her due to her attitude. Review of Systems Constitutional: Reports: no symptoms. Cardiovascular: Reports: no symptoms. Respiratory: Reports: short of breath. Gastrointestinal: Reports: no symptoms. Genitourinary: Reports: no symptoms. Musculoskeletal: Reports: no symptoms. Neurological/Psychological: Reports: anxiety. Objective Last 24 Hrs of Vital Signs/I&O Vital Signs Date Time Temp Pulse Resp B/P B/P Pulse O2 O2 Flow FiO2 Mean Ox Delivery Rate 10/04 1449 97.8 80 20 108/66 90 Nasal 4.0L Cannula 10/04 08 Nasal 4.0L Cannula 10/04 0558 98.4 80 20 110/62 92 Nasal 4.0L Cannula 10/04 0000 Nasal 4.0L Cannula 10/03 2232 97.4 74 18 108/62 92 Nasal 4.0L Cannula 10/03 1600 Nasal 4.0L Cannula Intake & Output 10/04 1600 10/04 0800 10/04 0000 Intake Total 725 900 Output Total Balance 725 900 Intake, IV 525 200 Intake, Oral 200 700 Number 1 Bowel Movements Physical Exam General Appearance: Alert, Cooperative, Moderate Distress Skin Temp/Moisture Exam: Warm/Dry Cardiovascular: Regular Rate, Normal S1, Normal S2 Lungs: decreased airmovement, diffuse rhonchi Abdomen: Normal Bowel Sounds, Soft, No Tenderness Vascular: 2+ radial pulses Current Medications: Current Medications Sig/Vadim Start time Last Medication Dose Route Stop Time Status Admin Acetaminophen 650 MG Q6P PRN 10/01 1930 AC PO Acetaminophen 680 MG Q6P PRN 10/01 1930 AC IV Albuterol Sulfate 3 ML Q4P PRN 10/02 1045 AC INH Budesonide/ 2 PUF BID 10/01 2200 AC 10/04 Formoterol Fumarate INH 1056 Cephalexin 500 MG Q12H 10/03 1700 AC 10/04 PO 0443 Cephalexin 500 MG BID 10/03 1500 DC PO Cholecalciferol 2,000 IU DAILY 10/02 1000 AC 10/04 PO 1054 Cyanocobalamin 1,000 MCG 10/03 1000 AC 10/03 PO 0838 Dextrose/Sodium 1,000 ML Q13H 10/03 1030 DC 10/03 Chloride IV 1056 Duloxetine HCl 40 MG DAILY 10/02 1000 AC 10/04 PO 1054 Insulin Aspart 0 TIDAC 10/02 799 AC SC Insulin Aspart 0 AT BEDTIME 10/01 220 AC SC Levetiracetam 250 MG Q12 10/01 2200 AC 10/04 PO 1054 Levothyroxine Sodium 0.1 MG DAILY AC 10/02 699 AC 10/04 PO 0525 Lorazepam 0.75 MG Q8H PRN 10/01 1930 AC 10/03 PO 10/08 192 0650 Mirtazapine 15 MG AT BEDTIME 10/01 2200 AC 10/03 PO 2039 Nicotine 2 MG Q2 HRS NEEDED PRN 10/04 0930 AC 10/04 PO 1054 Omeprazole 40 MG DAILY AC 10/02 699 AC 10/04 PO 0525 Paroxetine HCl 40 MG DAILY 10/02 1000 AC 10/04 PO 1054 Potassium Chloride 40 MEQ ONCE ONE 10/04 1345 DC PO 10/04 1346 Prednisone 40 MG DAILY 10/03 1000 AC 10/04 PO 1054 Sucralfate 1 GM 4 TIMES/DAY 10/01 220 AC 10/04 PO 1056 Warfarin Sodium 3 MG COUMADIN 1700 10/04 1700 AC PO 10/04 2359 Warfarin Sodium 3 MG COUMADIN 1700 ONE 10/03 1700 DC 10/03 PO 10/03 1701 1638 Last 24 Hrs of Lab/Hung Results Last 24 Hrs of Labs/Mics: Laboratory Tests 10/04/17 0700: Anion Gap 7, Estimated GFR > 60, BUN/Creatinine Ratio 38.6 H, Magnesium 2.0, PT 18.3 H, INR 1.75 H, CBC w Diff NO MAN DIFF REQ, RBC 3.99 L, MCV 88.1, MCH 29.2, RDW 17.5 H, MPV 10.0, Gran % 69.7, Lymphocytes % 22.1, Monocytes % 8.1, Eosinophils % 0, Basophils % 0.1, Absolute Granulocytes 2.8, Absolute Lymphocytes 0.9 L, Absolute Monocytes 0.3, Absolute Eosinophils 0, Absolute Basophils 0, PUBS MCHC 33.2 Assessment/Plan Assessment: 77-year-old lady with a PMH of HTN, HLD, PVD, left BKA, CVA, seizure, DM, hypothyroidism, COPD, GERD, anxiety/depression was BIBA from [facility] after she was observed to be unresponsive, cyanotic, hypoxemic with saturation of 74% on RA that corrected on NRB. #SOB most likely COPD Pro BNP 3970 CXR negative x2 -cont trc nebs -cont po prednisone 40 daily #UTI Afebrile, no leukocytosis +UA Ucx + proteus mirabili -continue keflex 500mg BID #hypernatremia - resolved Na 148 -> 145 -encourage po intake #AMS In the setting of UTI -monitor progress as infection is treated #JOSE with low K and high phos Cr. 0.7 (baseline .6) K 3.5 Phos 5.4 -> 3.2 -replenish K as JOSE improves - monitor hyperphosphatemia #Transaminitis Triglycerides 113, cholesterol 80, LDL 31, HDL 27 Ast 60 -> 44, alt 54 -> 46, ALP 79 -> 76, T bili 0.3, Direct bili .03 No RUQ sx or pain -cont to monitor #warfarin for DVT/PE hx Normally takes 1-3mg INR 1.75 -give 3 mg today #mental health -cont paroxetine, duloxetine, mirtazapine, lorazepam #seizures -levetiracetam #diabetes -novolog sliding scale #hypothyroid -levothyroxine #gerd -omeprazole, sucralfate #vitamins -b12 DVT prophylaxis: Coumadin Full code Problem List: 1. COPD (chronic obstructive pulmonary disease) 2. UTI (urinary tract infection) Pain Ratin Pain Location: none Pain Goal: Pain 4 or less Pain Plan: pain pathway Tomorrow's Labs & Rationales: INR Radhames Malhotra 10/04/17 1249: Attending MD Review Statement Attending Statement Attending MD Statement: examined this patient, discuss w/resident/PA/THEATER EDUCATION TEACHER, agreed w/resident/PA/THEATER EDUCATION TEACHER, discussed with family, reviewed EMR data (avail), discussed with nursing, discussed with case mgmt, reviewed images, amended to note Attending Assessment/Plan: 76F PMH CVA, dizziness, seizures on Keppra, HTN, HLD, PVD s/p left BKA, history of hyponatremia, COPD on continuous oxygen 2.5 L, GERD, abdominal aortic aneurysm, anxiety, depression, history of pulmonary embolism on ?warfarin 2 mg, right lung cancer status post right lobectomy comes with acute on chronic respiratroy failure with COPD exacerbation and UTI developed Hypernatremia which resolved. Patient seen/examined bedside. She is on oxygen supplementation, Na 145. appears anxious. Patient admitted to inpatient medical services. PO antibiotics, PO prednisone 40 daily, TRCs, dc IVF for hypernatremia, continue home meds, urine Culture growing gram neagtive rods, f/u final c/s. Monitor INR, c/w couamdin and f/u records. gi /dvt prophyalxis. She is resident of facility and dc planning to go back to facility as her clinical condition improves. follow up pcp in 3-5 days of discharge.
[2017-10-04 14:49] VITALS: BP 108/66
[2017-10-04 22:15] VITALS: BP 102/60
[2017-10-05 07:12] VITALS: BP 100/58
--- NOTE | 2017-10-05 07:22 | PN- Housestaff ---
Moo CUMMINGS,[facility] 10/05/17 0722: Subjective Follow-up For: UTI COPD JOSE transaminitis Subjective: No acute events overnight. States she slept ok. No issues. Feels more calm today. Review of Systems Constitutional: Reports: no symptoms. Cardiovascular: Reports: no symptoms. Respiratory: Reports: no symptoms. Gastrointestinal: Reports: no symptoms. Genitourinary: Reports: no symptoms. Musculoskeletal: Reports: no symptoms. Objective Last 24 Hrs of Vital Signs/I&O Vital Signs Date Time Temp Pulse Resp B/P B/P Pulse O2 O2 Flow FiO2 Mean Ox Delivery Rate 10/05 1220 98.2 58 17 100/58 10/05 1113 Nasal 3.0L Cannula 10/05 08 Nasal 4.0L Cannula 10/05 0712 98.2 58 17 100/58 92 10/05 0000 93 Nasal 4.0L Cannula 10/04 2215 97.9 56 19 102/60 93 Nasal 4.0L Cannula Intake & Output 10/05 1600 10/05 0800 10/05 0000 Intake Total 60 120 Output Total Balance 60 120 Intake, Oral 60 120 Patient 99 lb 0.01 oz Weight Physical Exam General Appearance: Alert Skin Temp/Moisture Exam: Warm/Dry Cardiovascular: Regular Rate Lungs: improved air movement compared to previous days Abdomen: Normal Bowel Sounds, Soft, No Tenderness Vascular: 2+ radial pulses Current Medications: Current Medications Sig/Vadim Start time Last Medication Dose Route Stop Time Status Admin Acetaminophen 650 MG Q6P PRN 10/01 1930 DCD PO Acetaminophen 680 MG Q6P PRN 10/01 193 DCD IV Albuterol Sulfate 3 ML Q4P PRN 10/02 1045 DC INH Budesonide/ 2 PUF BID 10/01 2199 DCD 10/05 Formoterol Fumarate INH 1049 Cephalexin 500 MG Q12H 10/03 1700 DCD 10/05 PO 0415 Cholecalciferol 2,000 IU DAILY 10/02 1000 DCD 10/05 PO 1048 Cyanocobalamin 1,000 MCG 10/03 1000 DCD 10/05 PO 1049 Duloxetine HCl 40 MG DAILY 10/02 1000 DCD 10/05 PO 1049 Insulin Aspart 0 TIDAC 10/02 799 DCD SC Insulin Aspart 0 AT BEDTIME 10/01 2199 DCD SC Levetiracetam 250 MG Q12 10/01 2200 DCD 10/05 PO 1049 Levothyroxine Sodium 0.1 MG DAILY AC 10/02 699 DCD 10/05 PO 0415 Lorazepam 0.75 MG Q8H PRN 10/01 1930 DCD 10/03 PO 10/08 192 0650 Mirtazapine 15 MG AT BEDTIME 10/01 220 DCD 10/04 PO 2238 Nicotine 2 MG Q2 HRS NEEDED PRN 10/04 0930 DCD 10/04 PO 1054 Omeprazole 40 MG DAILY AC 10/02 699 DCD 10/05 PO 0415 Paroxetine HCl 40 MG DAILY 10/02 1000 DCD 10/05 PO 1049 Patient Medication 1 ED ONE ONE 10/05 1130 DC Teaching ED 10/05 1131 Potassium Chloride 60 MEQ ONCE ONE 10/05 1045 DC PO 10/05 1046 Prednisone 40 MG DAILY 10/03 1000 DCD 10/05 PO 1049 Sucralfate 1 GM 4 TIMES/DAY 10/01 2199 DCD 10/05 PO 1050 Warfarin Sodium 3 MG COUMADIN 1700 ONE 10/05 1700 DCD PO 10/05 1701 Warfarin Sodium 3 MG COUMADIN 1700 10/04 1700 DC 10/04 PO 10/04 2359 1643 Last 24 Hrs of Lab/Hung Results Last 24 Hrs of Labs/Mics: Laboratory Tests 10/05/17 0753: PT 24.0 H, INR 2.30 H Assessment/Plan Assessment: 77-year-old lady with a PMH of HTN, HLD, PVD, left BKA, CVA, seizure, DM, hypothyroidism, COPD, GERD, anxiety/depression was BIBA from [facility] after she was observed to be unresponsive, cyanotic, hypoxemic with saturation of 74% on RA that corrected on NRB. #SOB most likely COPD Pro BNP 3970 CXR negative x2 -discharge today with prednisone taper -cont po prednisone 40 daily #UTI Afebrile, no leukocytosis +UA Ucx + proteus mirabili -discharge with keflex 500mg BID x1 more day #mild protein malnutrition pt declining supplements at this time -cont regular diet with puree and nectar thick #stage 1 pressure ulce coccyx -apply moister barrier qshift and prn. cont group 2 mattress. q2hr repositioning #hypernatremia - resolved Na 148 -> 145 -encourage po intake #AMS In the setting of UTI -monitor progress as infection is treated #JOSE with low K and high phos Cr. 0.7 (baseline .6) K 3.5 Phos 5.4 -> 3.2 -replenish K as JOSE improves - monitor hyperphosphatemia #Transaminitis Triglycerides 113, cholesterol 80, LDL 31, HDL 27 Ast 60 -> 44, alt 54 -> 46, ALP 79 -> 76, T bili 0.3, Direct bili .03 No RUQ sx or pain -cont to monitor #warfarin for DVT/PE hx Normally takes 1-3mg INR 2.3 -give 3 mg today #mental health -cont paroxetine, duloxetine, mirtazapine, lorazepam #seizures -levetiracetam #diabetes -novolog sliding scale #hypothyroid -levothyroxine #gerd -omeprazole, sucralfate #vitamins -b12 DVT prophylaxis: Coumadin Full code Problem List: 1. UTI (urinary tract infection) 2. COPD (chronic obstructive pulmonary disease) Pain Ratin Pain Location: none Pain Goal: Pain 4 or less Pain Plan: none Tomorrow's Labs & Rationales: none Radhames Malhotra 10/05/17 1034: Attending MD Review Statement Attending Statement Attending MD Statement: examined this patient, discuss w/resident/PA/BONSAI TENDER, agreed w/resident/PA/BONSAI TENDER, discussed with family, reviewed EMR data (avail), discussed with nursing, discussed with case mgmt, reviewed images, amended to note Attending Assessment/Plan: 76F PMH CVA, dizziness, seizures on Keppra, HTN, HLD, PVD s/p left BKA, history of hyponatremia, COPD on continuous oxygen 2.5 L, GERD, abdominal aortic aneurysm, anxiety, depression, history of pulmonary embolism on warfarin, right lung cancer status post right lobectomy comes with acute on chronic respiratroy failure with COPD exacerbation and UTI developed Hypernatremia which resolved. Patient seen/examined bedside. She is on oxygen supplementation at home, Na 145. appears anxious. She is spo2 91 on baseline oxygen. Patient admitted to inpatient medical services. PO antibiotics completed course, PO prednisone 40 daily, TRCs, continue home meds, urine Culture growing proteus mirabilis resistant to ciprofloxacin. F/u INR therapeutic, c/w jen. She is resident of facility and dc planning to go back to facility. Anticipate dc soon. follow up pcp in 3-5 days of discharge and monitor INR at facility for warfarin management.
--- NOTE | 2017-10-05 07:40 | Discharge Summary ---
Visit Information Visit Dates Admission Date: 10/02/17 Discharge Date: 10/05/2017 Hospital Course Course Attending Physician: Radhames Malhotra MD Primary Care Physician: Yelena CUMMINGS,Gabriel Michel [facility] Course: Mrs Liang is a 77-year-old lady with a PMH of HTN, HLD, PVD, left BKA, CVA, seizure, DM, hypothyroidism, COPD, GERD, anxiety/depression was BIBA from [facility] after she was observed to be cyanotic around her hands, feet and face, hypoxemic with saturation of 74% on RA that corrected on NRB. On arrival in the emergency room she was able to state that she has been experiencing a few days of urinary discomfort. VS on admission: BP 117/61, HR 59, RR 22, SPO2 91% on 2L, T 98.1 Admission labs: WBC 4.8, H&H 12.4/37.4, platelets 197, sodium 140, potassium 3.4 , bicarbonate 31, BUN/CR 31/1.1, glucose 112 INR 1.21 AST/ALT 60/54 ProBNP 3970 Urinalysis: Cloudy, greater than 300 protein, trace ketones, large leukocyte esterase, packed WBCs, packed bacteria, large hemoglobin We treated her for the following problems: 1. UTI: Patient admitted to inpatient medical services. we started her initially on iv antibiotics (IV Ceftriaxone) which switched later to PO Keflex, she completed her antibiotic course inpatient. Urine Culture growing gram neagtive rods (Proteus), 2. Acute kidney injury: Creatinine 1.1 with baseline 0.6, we hydrated the patient with IV fluid, her creatinie return back to baseline prior to discharge. 3. COPD exacerbation: We started the patient on Iv Solu-medrol which then switched to PO prednisone, her O2 requirement increased to 4L, BUT as she has sever COPD her O2 sat. goal to be >89%, we don't want her saturation high to keep her central O2 drive, and to avoid CO2 retension. We decrease her O2 to her baseline 2.5L. 3. Transaminitis: AST/ALT 60/54 which improved to 44/46 prior to discharge 4. Hypokalemia: 3.4, repleted 5. INR 1.21 improved to 2.30 Pateint is going back to [facility] Complications: Non Allergies: Coded Allergies: aspirin (Intermediate, UPSET STOMACH 06/06/17) atorvastatin (Intermediate, MUSCLE PAIN 06/06/17) oxycodone (Intermediate, DIZZY AND NAUSEA 06/06/17) codeine (Mild, FLUSHING 06/06/17) Disposition Summary Disposition Principal Diagnosis: 1. UTI 2. COPD exacerbation 2. Acute kidney injury: Creatinine 1.1 with baseline 0.6 (Resolved) 3. Transaminitis: AST/ALT 60/54 (Resolved) 4. Hypokalemia: 3.4 (Repleted) Additional Diagnosis: PMH of HTN, HLD, PVD, left BKA, CVA, seizure, DM, hypothyroidism, COPD, GERD, anxiety/depression Discharge Disposition: STR Discharge Instructions General Discharge Information Code Status: Full Code Patient's Diet: Regular diet Patient's Activity: As tolerated Follow-Up Instructions/Appts: -Follow up with Primary care physician after discharge -Take your medications as prescribed Medications at Discharge Discharge Medications: Stop taking the following medications: Warfarin Sodium (Coumadin) 1 MG TABLET ORAL Every night Continue taking these medications: Fluticasone/Salmeterol (Advair 250-50 Diskus) 250 MCG-50 MCG/DOSE BLST.W.DEV 1 Puff Inhale through mouth Q12H Comments: SYMBICORT GIVEN 06/10/17 1030 Cholecalciferol (Vitamin D3) (Vitamin D-3) 2,000 UNIT TABLET 1 Tablet ORAL DAILY Comments: Last Taken: 06/10/17 Time: 1030 Lorazepam (Ativan) 0.5 MG TABLET 0.75 Milligram ORAL Q8H as needed for ANXIETY Comments: Last Taken: 06/10/17 Time: 1030 Cyanocobalamin (Vitamin B-12) (B-12) 1,000 MCG TABLET 1 Tablet ORAL TUESDAY, TUESDAY AND TUESDAY Comments: Last Taken: 06/10/17 Time: 1030 Sucralfate (Carafate) 1 GRAM TABLET 1 Tablet ORAL 4 TIMES A DAY Comments: Last Taken: 06/10/17 Time: 1030 Albuterol Sulfate (Ventolin Hfa) 90 MCG HFA.AER.AD 2 Puff Inhale through mouth Q4H as needed for SHORTNESS OF BREATH Comments: NOT GIVEN IN HOSPITAL Calcium (Elemental-Fr Calcarb) (Calcium) 600 MG CALCIUM (1,500 MG) TABLET 1 Tablet ORAL DAILY Comments: Last Taken: 06/10/17 Time: 1030 Atenolol (Atenolol) 50 MG TABLET 1 Tablet ORAL DAILY Qty = 30 Comments: Last Taken:05/26/17 Time:0914 Pantoprazole Sodium (Pantoprazole Sodium) 20 MG TABLET.DR 2 Tablet ORAL DAILY Qty = 30 Comments: NOT GIVEN IN HOSPITAL Pravastatin Sodium (Pravastatin Sodium) 80 MG TABLET 1 Tablet ORAL Every night Comments: Last Taken: 06/09/17 Time: 1630 Paroxetine HCl (Paxil) 40 MG TABLET 1 Tablet ORAL DAILY Levothyroxine Sodium (Levothyroxine Sodium) 100 MCG TABLET 1 Tablet ORAL DAILY Mirtazapine (Remeron) 15 MG TABLET 1 Tablet ORAL TAKE AT BEDTIME Duloxetine HCl (Duloxetine HCl) 20 MG CAPSULE.DR 40 Milligram ORAL DAILY Levetiracetam (Keppra) 250 MG TABLET 1 Tablet ORAL Q12H Glucagon,Human Recombinant (Glucagon Emergency Kit) 1 MG KIT 1 Milligram INTRAMUSC As Directed as needed for HYPOGLYCEMIA Dextrose (Glucose Gel) 40 % GEL..GRAM. 24 Gram ORAL As Directed as needed for HYPOGLYCEMIA Na Phos,M-B/Na Phos,Di-Ba (Fleet Enema) 19 GRAM-7 GRAM/118 ML ENEMA 1 Enema RECTAL As Directed as needed for CONSTIPATION Bisacodyl (Dulcolax) 10 MG SUPP.RECT 1 Suppository RECTAL As Directed as needed for CONSTIPATION Magnesium Hydroxide (Milk Of Magnesia) 400 MG/5 ML ORAL.SUSP 30 Milliliters ORAL As Directed as needed for CONSTIPATION Acetaminophen (Mapap) 325 MG TABLET 2 Tablet ORAL Q6H as needed for PAIN/TEMP/>101 Naloxone HCl (Narcan) 4 MG/ACTUATION SPRAY 4 Milligram In the nose As Directed as needed for OPIOID INDUCED RESP. DEPRESSIO Start taking the following new medications: Cephalexin (Cephalexin) 500 MG CAPSULE 1 Tablet ORAL Q12H Qty = 2 No Refills Warfarin Sodium (Coumadin) 3 MG TABLET 1 Tablet ORAL COUMADIN AT 5PM Qty = 30 No Refills Prednisone (Prednisone) 10 MG TABLET 1 Tablet ORAL DAILY Qty = 20 No Refills Instructions: 10/06-10/07 : 4 TAB DAILY 10/08-10/09 : 3 TAB DAILY 10/10-10/11 : 2 TAB DAILY 10/12-10/13 : 1 TAB DAILY Copies To: Yelena CUMMINGS,Gabriel Michel; Marya CUMMINGS,Radhames
[2017-10-05] MEDS ORDERED: COUMADIN3 M1 PO (10:51)
[2017-10-05] MEDS ORDERED: CEPHALEXIN500 M3 PO (10:51)
[2017-10-05] MEDS ORDERED: PREDNISONE10 M2 PO (10:56)
--- NOTE | 2017-10-05 10:58 | Patient Discharge Instructions ---
Discharge Instructions General Discharge Information Special Instructions: Please f/u with your pcp in 1-2 weeks. Please f/u with your pulmnologist in 1-2 weeks. Please confirm with your healthcare providers on how much longer you will be needed coumadin. Please take your medications as perscirbed. Acute Coronary Syndrome Inclusion Criteria At DC or during hospital stay patient has or had the following: ACS DIAGNOSIS No Discharge Core Measures Meds if any: Prescribed or Continued at Discharge Meds if any: NOT Prescribed or Continued at Discharge Congestive Heart Failure Inclusion Criteria At DC or during hospital stay patient has or had the following: CHF DIAGNOSIS No Discharge Core Measures Meds if any: Prescribed or Continued at Discharge Meds if any: NOT Prescribed or Continued at Discharge Cerebrovascular accident Inclusion Criteria At DC or during hospital stay patient has or had the following: CVA/TIA Diagnosis No Discharge Core Measures Meds if any: Prescribed or Continued at Discharge Meds if any: NOT Prescribed or Continued at Discharge Venous thromboembolism Inclusion Criteria VTE Diagnosis No VTE Type NONE VTE Confirmed by (Test) NONE Discharge Core Measures - Per Current guidelines, there needs to be overlap - treatment for the first 5 days of Warfarin therapy. - If discharged on Warfarin prior to 5 days of - overlap therapy, the patient will need to be - assessed for post discharge needs including - *Post discharge parental anticoagulation - *Warfarin and/or parental anticoagulation education - *Follow up date to check INR post discharge At least 5 days overlap therapy as Inpatient No Meds if any: Prescribed or Continued at Discharge Note: Overlap Therapy is Warfarin and Anticoagulant Meds if any: NOT Prescribed or Continued at Discharge
[2017-10-05 12:20] VITALS: BP 100/58
== END 2017-10-05 13:13 | DRG 190 ==
LOC: ERH 14:18 → ERHI 17:32 → ENRESERV 18:09 → ENTRNSPT 18:53 → 2NB 19:22 → CMPTRNSPT 19:52 → 2NB 10-02 16:15 → ENPENDDIS 10-05 11:11 → 2NB 10-05 13:13
PROVIDERS: Internal Medicine; Physician Assistant Medical
DX: J44.1 Chronic obstructive pulmonary disease with (acute) exacerbation (principal); J96.21 Acute and chronic respiratory failure with hypoxia; N17.9 Acute kidney failure, unspecified; L89.151 Pressure ulcer of sacral region, stage 1; E87.0 Hyperosmolality and hypernatremia; Z99.81 Dependence on supplemental oxygen; G40.909 Epilepsy, unspecified, not intractable, without status epilepticus; E11.51 Type 2 diabetes mellitus with diabetic peripheral angiopathy without gangrene; N39.0 Urinary tract infection, site not specified; E44.1 Mild protein-calorie malnutrition; Z68.1 Body mass index [BMI] 19.9 or less, adult; I10 Essential (primary) hypertension; E78.5 Hyperlipidemia, unspecified; Z86.73 Personal history of transient ischemic attack (TIA), and cerebral infarction without residual deficits; E03.9 Hypothyroidism, unspecified; K21.9 Gastro-esophageal reflux disease without esophagitis; F41.9 Anxiety disorder, unspecified; F32.9 Major depressive disorder, single episode, unspecified; E87.6 Hypokalemia; R74.0 Nonspecific elevation of levels of transaminase and lactic acid dehydrogenase [LDH]; Z86.718 Personal history of other venous thrombosis and embolism; Z86.711 Personal history of pulmonary embolism; Z79.01 Long term (current) use of anticoagulants; R41.82 Altered mental status, unspecified; Z85.118 Personal history of other malignant neoplasm of bronchus and lung
CPT/HCPCS: 2NBP; 36415; 71045; 81001; 82436; 87040; 87086; 93005; 93010; 96374; J0696; J1953; J2930; J3490; J7042

== ENCOUNTER 2017-11-21 18:40 | Emergency (ER) | payer OTHER, MEDICARE ==
[~2017-11-21] VITALS: Ht 152.4 cm; Wt 53.5 kg
[~2017-11-21 18:40] MED LIST changes: +CEPHALEXIN500 M3 PO; +COUMADIN3 M1 PO; +DULCOLAX10 M1 RC; +FLEET ENEMA133 ML RC; +GLUCAGON EMERGEN1 M1 IM; +GLUCOSE GEL38 GM PO; +LEVOTHYROXINE100 MC1 PO; +MAPAP325 M1 PO; +MILK OF MA400 MG/52 PO; +NARCAN4 MG NAS; +PAXIL40 M1 PO; +PREDNISONE10 M2 PO
--- NOTE | 2017-11-21 18:58 | ED GENERAL ADULT ---
History of Present Illness General Chief Complaint: General Adult Stated Complaint: SOB, LOW BP, ABDOMINAL PAIN Source: patient, EMS Exam Limitations: no limitations Vital Signs & Intake/Output Vital Signs & Intake/Output Vital Signs Date Time Temp Pulse Resp B/P B/P Pulse O2 O2 Flow FiO2 Mean Ox Delivery Rate 11/21 2256 97.6 77 22 104/58 94 Room Air 11/21 2145 98.0 71 18 106/64 95 Room Air 11/21 2015 97.9 66 20 100/57 95 Room Air 11/21 1950 95 Room Air 11/21 1858 97.4 78 18 88/50 95 Room Air Allergies Coded Allergies: aspirin (Intermediate, UPSET STOMACH 06/06/17) atorvastatin (Intermediate, MUSCLE PAIN 06/06/17) oxycodone (Intermediate, DIZZY AND NAUSEA 06/06/17) codeine (Mild, FLUSHING 06/06/17) Reconcile Medications Acetaminophen (Mapap) 325 MG TABLET 2 TAB PO Q6H PRN PAIN/TEMP/>101 (Reported ) Albuterol Sulfate (Ventolin Hfa) 90 MCG HFA.AER.AD 2 PUF INH Q4H PRN SHORTNESS OF BREATH (Reported) Atenolol 50 MG TABLET 1 TAB PO DAILY BP Bisacodyl (Dulcolax) 10 MG SUPP.RECT 1 SUP RC AD PRN CONSTIPATION (Reported) Calcium (Elemental-Fr Calcarb) (Calcium) 600 MG CALCIUM (1,500 MG) TABLET 1 TAB PO DAILY SUPPLEMENT (Reported) Cephalexin 500 MG CAPSULE 1 TAB PO Q12H UTI Cholecalciferol (Vitamin D3) (Vitamin D-3) 2,000 UNIT TABLET 1 TAB PO DAILY VITAMIN SUPPORT (Reported) Cyanocobalamin (Vitamin B-12) (B-12) 1,000 MCG TABLET 1 TAB PO Tuesday SUPPLEMENT (Reported) Dextrose (Glucose Gel) 40 % GEL..GRAM. 24 GM PO AD PRN HYPOGLYCEMIA (Reported ) Duloxetine HCl 20 MG CAPSULE.DR 40 MG PO DAILY DEPRESSION (Reported) Fluticasone/Salmeterol (Advair 250-50 Diskus) 250 MCG-50 MCG/DOSE BLST.W.DEV 1 PUF INH Q12H COPD (Reported) Glucagon,Human Recombinant (Glucagon Emergency Kit) 1 MG KIT 1 MG IM AD PRN HYPOGLYCEMIA (Reported) Levetiracetam (Keppra) 250 MG TABLET 1 TAB PO Q12H SEIZURES (Reported) Levothyroxine Sodium 100 MCG TABLET 1 TAB PO DAILY THYROID (Reported) Lorazepam (Ativan) 0.5 MG TABLET 0.75 MG PO Q8H PRN ANXIETY (Reported) Magnesium Hydroxide (Milk Of Magnesia) 400 MG/5 ML ORAL.SUSP 30 ML PO AD PRN CONSTIPATION (Reported) Mirtazapine (Remeron) 15 MG TABLET 1 TAB PO QHS DEPRESSION (Reported) Na Phos,M-B/Na Phos,Di-Ba (Fleet Enema) 19 GRAM-7 GRAM/118 ML ENEMA 1 E RC AD PRN CONSTIPATION (Reported) Naloxone HCl (Narcan) 4 MG/ACTUATION SPRAY 4 MG JARRETT AD PRN OPIOID INDUCED RESP. DEPRESSIO (Reported) Pantoprazole Sodium 20 MG TABLET.DR 2 TAB PO DAILY HEARTBURN Paroxetine HCl (Paxil) 40 MG TABLET 1 TAB PO DAILY MENTAL HEALTH (Reported) Pravastatin Sodium 80 MG TABLET 1 TAB PO QPM HPL (Reported) Prednisone 10 MG TABLET 1 TAB PO DAILY COPD 10/06-12 : 4 TAB DAILY 10/08-14 : 3 TAB DAILY 10/10-16 : 2 TAB DAILY 10/12-18 : 1 TAB DAILY Sucralfate (Carafate) 1 GRAM TABLET 1 TAB PO 4 TIMES/DAY GERD (Reported) Warfarin Sodium (Coumadin) 3 MG TABLET 1 TAB PO COUMADIN 1700 DVT/PE Triage Nurses Notes Reviewed? yes Onset: Just prior to arrival Duration: day(s): (1) Timing: recent history Injury Environment: home Severity: moderate No Modifying Factors: none HPI: Patient is a 77-year-old female presenting via EMS from nursing facility with chief complaint of lower abdominal pain, diarrhea been going on for the past 2 months. She reports that she often has anywhere from 2-5 episodes of loose stool daily. Up until recently she has not noticed any blood in the stool. The past 4 days she has noticed intermittent blood in the stool and on the toilet fever. (Natalie Olivo) Past History Medical History Any Pertinent Medical History? see below for history Neurological: CVA, dizziness, seizure EENT: NONE Cardiovascular: hypertension, hyperlipidemia, PVD, HYPONATREMIA Respiratory: COPD, CONT HOME 02 Gastrointestinal: GERD Hepatic: NONE Renal: NONE Psychiatric: anxiety, depression Endocrine: hypothyroidism, DIABETES-PT DENIES Blood Disorders: DVT, PE Cancer(s): lung cancer History of MRSA: No History of VRE: No History of CDIFF: No Surgical History Surgical History: cholecystectomy, hysterectomy, BKA LEFT AAA REPAIR RUL RESECTION 2004 Psychosocial History Who do you live with Son Services at Home Nursing, Oxygen What is your primary language French Family History Family History, If Any: MOTHER FH: diabetes mellitus FH: hypertension SISTER FH: diabetes mellitus FH: hypertension Hx Contributory? No (Natalie Olivo) Review of Systems Review of Systems Constitutional: Reports: no symptoms. Comments Review of systems: See HPI, All other systems negative. Constitutional, no chills fever or weight loss HEENT: No visual changes no sore throat no congestion Cardiovascular: No chest pain ,palpitation , orthopnea or ankle swelling Skin, no jaundice no rashes Respiratory: No dyspnea cough sputum or hemoptysis GI: No nausea no vomiting : No dysuria No hematuria Muscle skeletal: no back pain, no neck pain, Neurologic: No numbness no confusion, no headaches Psych: No stress anxiety or depression,. Heme/endocrine: No bruising no bleeding no polyuria or polydipsia Immunology: No splenectomy or history of AIDS (Natalie Olivo) Physical Exam Physical Exam General Appearance: well developed/nourished, no apparent distress, alert, awake , comfortable Comments: Well-developed well-nourished person in no acute distress HEENT: Pupils equally round and reactive to light and accommodation. Nose is atraumatic. External auditory canal and Tympanic membranes clear. Pharynx normal. No swelling or edema. Dry oral mucosa. Slightly pallor bulbar conjunctiva bilaterally. Neck: Supple, no lymphadenopathy, normal range of motion without pain or tenderness Back: Nontender, KYPHOSIS Cardiovascular: Slightly tachycardic rate and rhythms no murmurs rubs or gallops , normal JVP Respiratory: Chest nontender. No respiratory distress.breath sounds diminished to auscultation bilaterally Abdomen: Soft, mild peristernal palpation in the lower abdomen bilaterally, nondistended, no appreciable organomegaly. Normal bowel sounds. No ascites Rectal: Slight skin erythema noted in the coccyx area, approximately 8 cm x 4 cm. no stool in rectal vault, trace positive guaiac. Extremity: No edema, RIGHT BELOW THE KNEE AMPUTATION. Neuro: Alert oriented x3, motor sensory normal, cranial nerves II through XII grossly intact. Skin: No appreciable rash on exposed skin, skin is warm and dry. Psych: Mood and affect is normal, memory and judgment is normal. Core Measures ACS in differential dx? Yes CVA/TIA Diagnosis: No Sepsis Present: No Sepsis Focused Exam Completed? No (Natalie Olivo) Progress Differential Diagnoses I considered the following diagnoses in my evaluation of the patient: COLITIS, C.DIFF, SBO, DEHYDRATION, ELECTROLYTE ABNORMALITY, APPY, DIVERTICULTIIS, Plan of Care: Orders Procedure Date/time Status LACTIC ACID 11/21 2158 Complete Add-on Test (ER Only) 11/21 2002 Active MAGNESIUM 11/21 1924 Complete MISTAKE 11/21 1858 Active TROPONIN LEVEL 11/21 1858 Complete PARTIAL THROMBOPLASTIN TIME 11/21 1858 Complete PROTHROMBIN TIME 11/21 1858 Complete LACTIC ACID 11/21 1858 Complete COMPREHENSIVE METABOLIC PANEL 11/21 1858 Complete CBC WITHOUT DIFFERENTIAL 11/21 1858 Complete EKG 11/21 1858 Active TYPE & SCREEN (NOT X-MATCH) 11/21 1858 Active Laboratory Tests 11/21/172201: Lactic Acid 2.2 H 11/21/172020: Urine Color Cancelled, Urine Clarity Cancelled, Urine pH Cancelled, Ur Specific [place] Cancelled, Urine Protein Cancelled, Urine Ketones Cancelled, Urine Nitrite Cancelled, Urine Bilirubin Cancelled, Urine Urobilinogen Cancelled, Ur Leukocyte Esterase Cancelled, Ur Microscopic Cancelled, Urine Hemoglobin Cancelled, Urine Glucose Cancelled 11/21/171927: PT 61.9 *H, INR 6.00 *H, APTT 76 H 11/21/171924: Anion Gap 10, Estimated GFR 44 L, BUN/Creatinine Ratio 20.8, Glucose 89, Lactic Acid 4.2 H, Calcium 7.6 L, Magnesium 1.7, Total Bilirubin 0.4, AST 35, ALT 47, Alkaline Phosphatase 114, Troponin I < 0.01, Total Protein 4.6 L, Albumin 1.9 L, Globulin 2.7, Albumin/Globulin Ratio 0.7 L, CBC w Diff MAN DIFF ORDERED, RBC 4.04 L, MCV 91.0, MCH 30.1, MCHC 33.1, RDW 19.0 H, MPV 10.8 H, Gran % 83.5 H , Lymphocytes % 10.3 L, Monocytes % 6.1, Eosinophils % 0, Basophils % 0.1, Absolute Granulocytes 5.6, Segmented Neutrophils 76 H, Band Neutrophils 3, Absolute Lymphocytes 0.7 L, Lymphocytes 14 L, Monocytes 6, Absolute Monocytes 0.4, Absolute Eosinophils 0, Basophils 1, Absolute Basophils 0, Platelet Estimate ADEQUATE, Hypochromic-Microcytic 1+, Poikilocytosis 2+, Anisocytosis 1+ , Ovalocytes 1+, Schistocytes 1+ Microbiology 11/21 1941 STOOL: Clostridium difficile Toxin A & B - CAN Cancelled: NO SPECIMEN RECEIVED, PATIENT DEPARTED ER 11/21 1941 STOOL: Stool Culture - CAN Cancelled: NO SPECIMEN RECEIVED, PATIENT DEPARTED ER Diagnostic Imaging: Viewed by Me: Radiology Read, CT Scan. Discussed w/RAD: Radiology Read, CT Scan. Radiology Impression: PATIENT: JESSE SAAVEDRA PRESENT AGE: 77 PATIENT ACCOUNT NO: [id number] : 41 LOCATION: [facility] ORDERING PHYSICIAN: Natalie VO SERVICE DATE: 11/21/17 EXAM TYPE: RAD - XRY-PORTABLE CHEST XRAY EXAMINATION: PORTABLE CHEST 1 VIEW CLINICAL INFORMATION: Short of breath. COMPARISON: 10/03/2017. TECHNIQUE: Portable frontal view of the chest was obtained. FINDINGS: Patient is markedly rotated to the right which limits evaluation. Hypoexpanded. I do not appreciate any obvious focal consolidation with linear basilar markings more likely due to atelectasis. Cardiac silhouette is difficult to evaluate for the degree of rotation. Vascular calcification seen in the aorta. Old healed right-sided rib fractures again noted. IMPRESSION: Markedly rotated to the right. Hypoexpanded. Overall the appearance however similar to the prior study with no acute superimposed airspace disease. DICTATED BY: Anand Reynoso MD DATE/TIME DICTATED:1942 INSPECTOR SEMICONDUCTOR WAFER:GUERRERO DATE/TIME TRANSCRIBED:11/21/171942 CONFIDENTIAL, DO NOT COPY WITHOUT APPROPRIATE AUTHORIZATION. <Electronically signed in Other Vendor System> SIGNED BY: Anand Reynoso MD 11/21/171947 Initial ED EKG: ARTIFACT, SINUS TACHY ONT HE MONITOR Prior EKG: changed Comments: Patient tolerating food without nausea or vomiting or diarrhea in the emergency department. Patient resting comfortably. Vital signs stable. Patient will be discharged back to the nursing facility. She will follow up with [facility] drowsy outpatient. Educated on holding Coumadin dosing for the next 2 days and rechecking INR. Educated on signs and symptoms to return. D/W DR COOK AND HE AGREES WITH PLAN. ` (Rick VO,Natalie) Departure Departure Time of Disposition: 2227 Disposition: HOME OR SELF CARE Condition: Stable Clinical Impression Primary Impression: Abdominal pain Qualifiers: Abdominal location: generalized Qualified Code: R10.84 - Generalized abdominal pain Secondary Impressions: Diarrhea Qualifiers: Diarrhea type: unspecified type Qualified Code: R19.7 - Diarrhea, unspecified Referrals: Gabriel Kirk MD (PCP/Family) Britton Villegas MD Additional Instructions: Follow-up with gastroenterology, call to make an appointment. Increase fluids. Return for worsening symptoms or concerns. Hold Coumadin 2 days, recheck INR. INR WAS 6.0. PATIENT: JESSE SAAVEDRA PRESENT AGE: 77 PATIENT ACCOUNT NO: [id number] : 41 LOCATION: [facility] ORDERING PHYSICIAN: Natalie VO SERVICE DATE: 11/21/17 EXAM TYPE: CAT - CT ABD & PELVIS W/O IV CONTRAS EXAMINATION: CT ABDOMEN AND PELVIS WITHOUT CONTRAST CLINICAL INFORMATION: Lower abdominal pain. Blood in stool. COMPARISON: 05/16/2017 TECHNIQUE: Multidetector volumetric imaging was performed from the superior aspect of the liver through the pubic symphysis. Sagittal and coronal reformatted images were obtained on the technologist's workstation. DLP: 264 mGy-cm FINDINGS: LUNG BASES: Mild patchy airspace disease at the periphery of the right lower lobe which has significantly improved, with a trace pleural effusion/pleural thickening. Postsurgical changes along the right chest wall. LIVER, GALLBLADDER, AND BILIARY TREE: The unenhanced liver is normal in size, shape, and attenuation. No focal hepatic lesion or biliary ductal dilatation is present. The gallbladder has been removed. PANCREAS: Unremarkable. SPLEEN: Unremarkable. ADRENAL GLANDS: Unremarkable. KIDNEYS AND URETERS: The kidneys are normal in size, shape, and attenuation. No hydronephrosis, hydroureter, or calculi seen. No perinephric stranding. BLADDER: Unremarkable. GASTROINTESTINAL TRACT: The large bowel is mildly distended with layering fluid/debris suggesting an ileus or low-grade colitis. No focal obstruction. There is minimal inflammatory stranding of the perirectal/presacral fat. Small bowel loops are unremarkable. Mild gastric distention. ABDOMINAL WALL: No significant hernia is appreciated. LYMPH NODES: Normal. VASCULAR: Aortobiiliac and femoral stent grafts. Assessment is limited with absence of intravenous contrast although appears similar to the previous study. PELVIC VISCERA: The uterus is absent. OSSEOUS STRUCTURES: Diffuse osteopenia. No acute abnormalities are evident. There may be a new marked compression deformity of T7 although this is at the superior most aspect of the imaged [id number]. IMPRESSION: 1. The large bowel is slightly prominent and featureless diffusely with layering fluid/debris suggesting a generalized ileus/low grade colitis. Minimal perirectal inflammatory stranding. No obstruction. No focal fluid collection or free intraperitoneal air. 2. Improved aeration at the right lung base. 3. There may be a new marked compression deformity of the T7 vertebral body which is only partially imaged. DICTATED BY: Vladimir Niño MD DATE/TIME DICTATED:11/21/172144 INSPECTOR SEMICONDUCTOR WAFER:GUERRERO DATE/TIME TRANSCRIBED:11/21/172144 CONFIDENTIAL, DO NOT COPY WITHOUT APPROPRIATE AUTHORIZATION. <Electronically signed in Other Vendor System> SIGNED BY: Vladimir Niño MD [id number] Departure Forms: Customer Survey General Discharge Information (Natalie Olivo) PA/PRIMARY CARE COORDINATOR Co-Sign Statement Statement: ED Attending supervision documentation- [X] I saw and evaluated the patient. I have also reviewed all the pertinent lab results and diagnostic results. I agree with the findings and the plan of care as documented in the PA's/PRIMARY CARE COORDINATOR's documentation. [X] I have reviewed the ED Record and agree with the PA's/PRIMARY CARE COORDINATOR's documentation. [] Additions or exceptions (if any) to the PAs/PRIMARY CARE COORDINATOR's note and plan are summarized below: [] (Yobani CUMMINGS,Haresh Rios) Critical Care Note Critical Care Note Critical Care Time: non-applicable (Natalie Olivo)
--- NOTE | 2017-11-21 19:48 | RADIOLOGY REPORT ---
EXAMINATION: PORTABLE CHEST 1 VIEW CLINICAL INFORMATION: Short of breath. COMPARISON: 10/03/2017. TECHNIQUE: Portable frontal view of the chest was obtained. FINDINGS: Patient is markedly rotated to the right which limits evaluation. Hypoexpanded. I do not appreciate any obvious focal consolidation with linear basilar markings more likely due to atelectasis. Cardiac silhouette is difficult to evaluate for the degree of rotation. Vascular calcification seen in the aorta. Old healed right-sided rib fractures again noted. IMPRESSION: Markedly rotated to the right. Hypoexpanded. Overall the appearance however similar to the prior study with no acute superimposed airspace disease.
[2017-11-21 20:08] LABS: PTT 76 SEC (25-37)
[2017-11-21 20:15] LABS: ABSOLUTE BASOPHIL COUNT 0 /CUMM (0.0-0.2); ABSOLUTE EOSINOPHIL COUNT 0 /CUMM (0.0-0.7); ABSOLUTE GRANULOCYTE CT 5.6 /CUMM (1.4-6.5); ABSOLUTE LYMPH COUNT 0.7 /CUMM (1.2-3.4); ABSOLUTE MONOCYTE COUNT 0.4 /CUMM (0.10-0.60); BASOPHIL % 0.1 % (0.0-2.0); EOSINOPHIL % 0 % (0-5); GRANULOCYTE % 83.5 % (42.2-75.2); HEMATOCRIT 36.8 % (37-47); MEAN CORPUSCULAR HGB 30.1 PG (27.0-31.0); MEAN CORPUSCULAR HGB CONC 33.1 G/DL (33.0-37.0); MEAN PLATELET VOLUME 10.8 FL (7.4-10.4); PLATELET COUNT 390 /CUMM (130-400); RED BLOOD CELL CT 4.04 /CUMM (4.20-5.40); WHITE BLOOD CELL COUNT 6.7 /CUMM (4.8-10.8)
[2017-11-21 20:24] LABS: PT 61.9 SEC (9.4-12.5)
--- NOTE | 2017-11-21 22:16 | CT SCAN REPORT ---
EXAMINATION: CT ABDOMEN AND PELVIS WITHOUT CONTRAST CLINICAL INFORMATION: Lower abdominal pain. Blood in stool. COMPARISON: 05/16/2017 TECHNIQUE: Multidetector volumetric imaging was performed from the superior aspect of the liver through the pubic symphysis. Sagittal and coronal reformatted images were obtained on the technologist's workstation. DLP: 264 mGy-cm FINDINGS: LUNG BASES: Mild patchy airspace disease at the periphery of the right lower lobe which has significantly improved, with a trace pleural effusion/pleural thickening. Postsurgical changes along the right chest wall. LIVER, GALLBLADDER, AND BILIARY TREE: The unenhanced liver is normal in size, shape, and attenuation. No focal hepatic lesion or biliary ductal dilatation is present. The gallbladder has been removed. PANCREAS: Unremarkable. SPLEEN: Unremarkable. ADRENAL GLANDS: Unremarkable. KIDNEYS AND URETERS: The kidneys are normal in size, shape, and attenuation. No hydronephrosis, hydroureter, or calculi seen. No perinephric stranding. BLADDER: Unremarkable. GASTROINTESTINAL TRACT: The large bowel is mildly distended with layering fluid/debris suggesting an ileus or low-grade colitis. No focal obstruction. There is minimal inflammatory stranding of the perirectal/presacral fat. Small bowel loops are unremarkable. Mild gastric distention. ABDOMINAL WALL: No significant hernia is appreciated. LYMPH NODES: Normal. VASCULAR: Aortobiiliac and femoral stent grafts. Assessment is limited with absence of intravenous contrast although appears similar to the previous study. PELVIC VISCERA: The uterus is absent. OSSEOUS STRUCTURES: Diffuse osteopenia. No acute abnormalities are evident. There may be a new marked compression deformity of T7 although this is at the superior most aspect of the imaged [id number]. IMPRESSION: 1. The large bowel is slightly prominent and featureless diffusely with layering fluid/debris suggesting a generalized ileus/low grade colitis. Minimal perirectal inflammatory stranding. No obstruction. No focal fluid collection or free intraperitoneal air. 2. Improved aeration at the right lung base. 3. There may be a new marked compression deformity of the T7 vertebral body which is only partially imaged.
[2017-11-21 22:57] VITALS: BP 104/58
== END 2017-11-21 23:10 ==
LOC: ERH 18:40
PROVIDERS: Physician Assistant
DX: R19.7 Diarrhea, unspecified (principal); R10.30 Lower abdominal pain, unspecified
CPT/HCPCS: 71045; 74176; 87045; 93005; 93010; 96374